=== PATIENT | female | born 1995 | race Caucasian/White ===

== ENCOUNTER 2023-12-18 10:16 | Outpatient (OUT) | payer OTHER, SELFPAY ==
--- NOTE | 2023-12-18 10:19 | US_ITS ---
[address] [address] Patient Name: ALEJANDRO MICHELE MRN: [id number] date: 1995 Sex: F Assigned Patient Location: [facility] Current Patient Location: [facility] Accession/Order Number: [id number] Exam Date: 12/18/2023 10:19 Report Date: 12/18/2023 10:51 At the request of: ITZEL GARRETT Procedure: US OB transvaginal EXAMINATION: US OB transvaginal HISTORY: MISSED MENSES COMPARISON: No relevant comparison available. FINDINGS: Transvaginal images Calles intrauterine gestation Gestational sac: 3.92 cm, 9 weeks 2 days CRL: 3.13 cm, 10 weeks 0 days Yolk sac: 4.5 mm Heart rate: 144 beats minute Cervix: Closed, 4.5 cm The uterus is normal, anteverted, anteflexed The right ovary is normal The left ovary contains a 4.1 cm area of anechoic echogenicity, corpus luteal cyst is favored Clinical age: 9 weeks 1 day Clinical JACQUI: 07/21/2024 Ultrasound age: 10 weeks 0 days Ultrasound JACQUI: 07/15/2024 US/US OB transvaginal IMPRESSION: Viable calles intrauterine gestation measuring 10 weeks 0 days Electronically authenticated by: DALTON MCMAHON Date: 12/18/2023 10:51
== END 2023-12-18 10:17 | disposition home or self-care (01) ==
LOC: NOMS 10:17
PROVIDERS: PCP Family Medicine; Visit Provider Obstetrics & Gynecology
DX: Z34.91 Encounter for supervision of normal pregnancy, unspecified, first trimester (principal)
CPT/HCPCS: 76817

== ENCOUNTER 2024-01-30 12:38 | Outpatient (OUT) | payer OTHER, SELFPAY | END 2024-01-30 12:39 | disposition home or self-care (01) | LOC: LAB 12:41 | PROVIDERS: PCP Family Medicine; Visit Provider Obstetrics & Gynecology | DX: Z34.80 Encounter for supervision of other normal pregnancy, unspecified trimester (principal) | CPT/HCPCS: 36415 ==

== ENCOUNTER 2024-02-29 10:51 | Outpatient (OUT) | payer OTHER, SELFPAY ==
--- NOTE | 2024-02-29 10:53 | US_ITS ---
[address] [address] Patient Name: ALEJANDRO MICHELE MRN: [id number] date: 1995 Sex: F Assigned Patient Location: [facility] Current Patient Location: [facility] Accession/Order Number: [id number] Exam Date: 02/29/2024 10:53 Report Date: 02/29/2024 12:38 At the request of: ITZEL GARRETT Procedure: US OB cervical length EXAMINATION: US OB cervical length, US OB anatomy HISTORY: ANATOMY COMPARISON: No relevant comparison available. TECHNIQUE: Transabdominal sonographic examination was performed for obstetrical and evaluation. FINDINGS: Number: 1 Heart Rate: 149 bpm H.B. /min Amniotic Fluid Volume: Subjectively normal position: Breech presentation, longitudinal lie Placental Location: POSTERIOR. The placental edge is 2.2 cm from the internal cervical os Cervix Length: 5.14 cm , closed Normal anatomy: Lateral ventricles, cerebellum, posterior fossa, nose, lips, orbits, diaphragm, stomach, abdominal cord insertion, bladder, umbilical arteries, three-vessel cord, spine, extremities Nonvisualization: Four-chamber heart, RVOT, LVOT, kidneys BIOMETRY: BPD: 4.78 cm; 20 weeks 3 days; 50.60 % HC: 18.21 cm; 20 weeks 4 days; 49.80 % AC: 16.04 cm; 21 weeks 1 day; 67.70 % FL: 3.53 cm; 21 weeks 1 day; 67.50 % EFW:379.53 g; 79.80 %, 14 ounces FL/AC: 22.01 FL/BPD: 73.85 HC/AC: 1.14 GESTATIONAL AGE: Age by EDC: 20 weeks 3 days JACQUI by EDC: 2024-07-15 Age by current US: 20 weeks 6 days JACQUI by current US: 2024-07-12 US/US OB cervical length IMPRESSION: Nonvisualization detailed above Marginal placenta previa Closed cervix measuring 5.1 cm in length *Reference: [facility] Practice Guideline for the performance of Obstetric Ultrasound Examinations, March 08, 2007. Electronically authenticated by: DALTON MCMAHON Date: 02/29/2024 12:38
--- NOTE | 2024-02-29 10:53 | US_ITS ---
[address] [address] Patient Name: ALEJANDRO MICHELE MRN: [id number] date: 1995 Sex: F Assigned Patient Location: [facility] Current Patient Location: [facility] Accession/Order Number: [id number] Exam Date: 02/29/2024 10:54 Report Date: 02/29/2024 12:38 At the request of: ITZEL GARRETT Procedure: US OB anatomy EXAMINATION: US OB cervical length, US OB anatomy HISTORY: ANATOMY COMPARISON: No relevant comparison available. TECHNIQUE: Transabdominal sonographic examination was performed for obstetrical and evaluation. FINDINGS: Number: 1 Heart Rate: 149 bpm H.B. /min Amniotic Fluid Volume: Subjectively normal position: Breech presentation, longitudinal lie Placental Location: POSTERIOR. The placental edge is 2.2 cm from the internal cervical os Cervix Length: 5.14 cm , closed Normal anatomy: Lateral ventricles, cerebellum, posterior fossa, nose, lips, orbits, diaphragm, stomach, abdominal cord insertion, bladder, umbilical arteries, three-vessel cord, spine, extremities Nonvisualization: Four-chamber heart, RVOT, LVOT, kidneys BIOMETRY: BPD: 4.78 cm; 20 weeks 3 days; 50.60 % HC: 18.21 cm; 20 weeks 4 days; 49.80 % AC: 16.04 cm; 21 weeks 1 day; 67.70 % FL: 3.53 cm; 21 weeks 1 day; 67.50 % EFW:379.53 g; 79.80 %, 14 ounces FL/AC: 22.01 FL/BPD: 73.85 HC/AC: 1.14 GESTATIONAL AGE: Age by EDC: 20 weeks 3 days JACQUI by EDC: 2024-07-15 Age by current US: 20 weeks 6 days JACQUI by current US: 2024-07-12 US/US OB anatomy IMPRESSION: Nonvisualization detailed above Marginal placenta previa Closed cervix measuring 5.1 cm in length *Reference: [facility] Practice Guideline for the performance of Obstetric Ultrasound Examinations, March 08, 2007. Electronically authenticated by: DALTON MCMAHON Date: 02/29/2024 12:38
--- OUTSIDE RECORDS SUMMARY | 2024-02-29 11:14 | XMS_ITS | CCD ---
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 Name Role Phone DALTON ASENCIO Unavailable Unavailable PRASANNA, AIDEN Unavailable Unavailable HAY, AIDEN Unavailable Unavailable EAN PASTRANA Unavailable Unavailable TAMI, ITZEL Unavailable Unavailable TAMI, ITZEL Unavailable Unavailable TAMI, ITZEL Unavailable Unavailable DALTON ASENCIO Unavailable Unavailable ARIES, RADHA Unavailable Unavailable ARIES, RADHA Unavailable Unavailable ARIES, RADHA Unavailable Unavailable Johnny Lyn Unavailable Dalton Asencio Unavailable Lelia Macias Unavailable Provider, None Primary Care Unavailable DO Dalton Asencio Primary Care Provider [phone] ATIYA Flaherty Emergency Provider Zi Maier Unavailable Dalton Asencio Primary Care Unavailable Bud Flaherty Admitting Unavailable Bud Flaherty Attending Unavailable Dalton Asencio Primary Care Unavailable Zi Maier Admitting Unavailable Zi Maier Attending Unavailable ELDA HASSAN Attending Unavailable ITZEL CARLIN Attending Unavailable ITZEL CARLIN Attending Unavailable ITZEL CARLIN Attending Unavailable Allergies Allergy Classification Reported Allergen(s) Allergy Type Date of Onset Reaction(s) Facility (1 source) sulfamethoxazole / trimethoprim Drug Allergy HIVES [facility] Repository (1 source) No Known Drug Allergies Drug allergy (disorder) 10-17-19 13 [facility] (20 sources) Sertraline Drug Allergy 01-30-20 23 migraines [facility] (18 sources) buPROPion Drug Allergy 01-30-20 23 300 MG made angry [facility] (9 sources) venlafaxine Drug Allergy 01-30-20 23 higher dose made feel irritated and feel worse [facility] (4 sources) Sulfamethoxazole; Translations: [sulfamethoxazole] Drug Allergy 10-22-19 [facility] (4 sources) Trimethoprim; Translations: [trimethoprim] Drug Allergy 10-22-19 [facility] (3 sources) Sulfamethoxazole / Trimethoprim Drug Allergy Unknown [facility] Other (1 source) buPROPion Drug Allergy 01-30-20 [facility] Repository (1 source) Sertraline Drug Allergy 01-30-20 [facility] Rep[facility] (1 source) venlafaxine Drug Allergy 01-30-20 [facility] Repository Medications Current Medications Medication Drug Class(es) Dates Sig (Normalized) Sig (Original) ALPRAZolam 0.25 mg oral tablet (18 sources) Benzodiazepine Start: 12-17-2017 take 1 tablet by mouth every twelve hours as needed Xanax 0.25 MG 1 tablet Orally q12 hrs prn PRN Dec, Active aspirin 81 mg delayed release oral tablet (1 source) Platelet Aggregation Inhibitor, Nonsteroidal Anti-inflammatory Drug Start: 02-15-2024 take 81 mg by mouth once daily Aspirin Active 81 MG PO Daily February 15, 2024 12:00am cetirizine hydrochloride 10 mg oral tablet (18 sources) Histamine-1 Receptor Antagonist Start: 07-18-2020 take 1 tablet by mouth once daily in the evening ZyrTEC Allergy 10 MG 1 tablet Orally qd pm prn Jul, Active FLUoxetine 40 mg oral capsule (3 sources) Serotonin Reuptake Inhibitor take 1 capsule by mouth every twenty-four hours PROzac 40 MG 1 capsule Orally Once a day Active 3 ml liraglutide 6 mg/ml pen injector (3 sources) GLP-1 Receptor Agonist Start: 01-01-2023 Victoza 18 MG/3ML 0.6 mg once daily for week 1, followed by 1.2 mg once daily for week 2, followed by 1.8 mg once daily for week 3 and beyond Subcutaneous Once daily for 28 days Dec, Active loratadine 10 mg oral tablet (18 sources) Start: 07-18-2020 take 1 tablet by mouth once daily in the morning Claritin 10 MG 1 tablet Orally qd am prn Jul, Active phentermine hydrochloride 37.5 mg oral tablet (13 sources) Sympathomimetic Amine Anorectic Start: 03-04-2022 take 1 tablet by mouth every twenty-four hours Adipex-P 37.5 MG 1 tablet Orally Once a day Feb, Active Start: 07-18-2020 take 1 tablet by nieves th every twenty-four hours Adipex-P 37.5 MG 1 tablet Orally Once a day for 30 days Jul, Not-Taking Adipex-P Active 24 hr venlafaxine 37.5 mg extended release oral capsule (13 sources) Serotonin and Norepinephrine Reuptake Inhibitor Start: 05-09-2021 take 1 capsule by mouth every twenty-four hours Effexor XR 37.5 MG 1 capsule with food Orally Once a day for 30 day(s) May, Active take 1 capsule by mo [facility] every twenty-four hours Venlafaxine HCl ER 75 MG 1 capsule with food Orally Once a day for 30 day(s) Active Completed/Discontinued Medications Medication Drug Class(es) Dates Sig (Normalized) Sig (Original) amoxicillin 875 mg oral tablet (7 sources) Penicillin-class Antibacterial Start: 03-23-2021 take 1 tablet by mouth every twelve hours Amoxicillin 875 MG 1 tablet Orally Twice a day for 10 day(s) Mar, Not-Taking 24 hr buPROPion hydrochloride 150 mg extended release oral tablet (5 sources) Aminoketone Start: 11-08-2018 End: 04-24-2019 take 1 tablet by mouth once daily in the morning Bupropion Hcl (Wellbutrin Xl) 150 mg Tablet Extended Release 24 Hr Discontinued 150 MG PO Every morning November 08, 2018 12:00am April 24, 2019 2:32pm fluconazole 150 mg oral tablet (7 sources) Azole Antifungal Start: 03-23-2021 take 1 tablet by mouth once Diflucan 150 MG 1 tablet Orally once for 1 days Mar, Not-Taking Start: 03-23-2021 ibuprofen 800 mg oral tablet (3 sources) Nonsteroidal Anti-inflammatory Drug Start: 05-25-2020 End: 02-15-2024 take 1 tablet by mouth every eight hours Ibuprofen (Motrin) 800 mg Tablet Discontinued 800 MG PO Q8H May 25, 2020 1:00am February 15, 2024 12:47pm Ketorolac (11 sources) Nonsteroidal Anti-inflammatory Drug, Cyclooxygenase Inhibitor Start: 06-24-2013 Toradol per 15 mg Jun, 60 mg Pnv Cmb#95-Ferrous Fumarate-Fa () 28 mg iron- 800 mcg Tablet (3 sources) Start: 11-08-2018 End: 05-25-2020 take 1 tablet by mouth once daily Pnv Cmb#95-Ferrous Fumarate-Fa () 28 mg iron- 800 mcg Tablet Discontinued 1 TAB PO Daily November 07, 2018 11:00pm May 25, 2020 4:06pm Start: 11-08-2018 End: 05-25-2020 take 1 tablet by mouth once daily Pnv Cmb#95-Ferrous Fumarate-Fa () 28 mg iron- 800 mcg Tablet Discontinued 1 TAB PO Daily November 08, 2018 12:00am May 25, 2020 5:06pm Problems Active Problems Problem Classification Problem Date Documented Date Episodic/Chronic Administrative/social admission (4 sources) Dietary counseling and surveillance; Translations: [Other specified counseling] Episodic Anxiety disorders (20 sources) Anxiety; Translations: [Anxiety disorder, unspecified] Onset: 05-09-2021 Resolved: 02-06-2022 Chronic Attention-deficit, conduct, and disruptive behavior disorders (4 sources) Attention deficit hyperactivity disorder; Translations: [Attention-deficit hyperactivity disorder, unspecified type] Chronic Attention-deficit, conduct, and disruptive behavior disorders (1 source) Attention-deficit hyperactivity disorder, unspecified type Chronic Developmental disorders (6 sources) Developmental academic disorder; Translations: [Developmental disorder of scholastic skills, unspecified] Chronic Diabetes mellitus without complication (1 source) Glycosuria Episodic Disorders of teeth and jaw (1 source) Periapical abscess without sinus; Translations: [PERIAPICAL ABSCESS WITHOUT SINUS] Onset: 03-16-2018 Episodic Disorders of teeth and jaw (3 sources) Other specified disorders of teeth and supporting structures; Translations: [OTH SPEC DISORDERS TEETH SUPP STRCT] Onset: 03-12-2018 Hemorrhage during ; abruptio placenta; placenta previa (3 sources) Threatened miscarriage; Translations: [Threatened ] 11-08-2018 Episodic Mood disorders (20 sources) Depressive disorder; Translations: [Major depressive disorder, single episode, unspecified] Onset: 05-09-2021 Resolved: 07-25-2021 Chronic Nonspecific chest pain (3 sources) Musculoskeletal chest pain; Translations: [Other chest pain] 05-25-2020 Episodic Other aftercare (1 source) Other fpc (current) drug therapy Episodic Other injuries and conditions due to external causes (3 sources) Injury of head; Translations: [Unspecified injury of head, initial encounter] 10-21-2022 Episodic Other lower respiratory disease (3 sources) Cough; Translations: [Cough] 05-25-2020 Episodic Other nutritional; endocrine; and metabolic disorders (3 sources) Obesity; Translations: [Obesity, unspecified] Chronic Other nutritional; endocrine; and metabolic disorders (2 sources) Obesity, unspecified Chronic Other nutritional; endocrine; and metabolic disorders (2 sources) Abnormal weight gain Episodic Other nutritional; endocrine; and metabolic disorders (2 sources) Other symptoms and signs concerning food and fluid intake Episodic Other screening for suspected conditions (not mental disorders or infectious disease) (1 source) Encounter for screening, unspecified Episodic Other upper respiratory disease (18 sources) Allergic rhinitis; Translations: [Allergic rhinitis, unspecified] Chronic Substance-related disorders (1 source) Nicotine dependence, cigarettes, uncomplicated; Translations: [NICOTINE DEPEND CIGARETTES UNCOMP] Onset: 03-16-2018 Chronic Unclassified (1 source) Dietary counseling and surveillance; Translations: [Dietary counseling and surveillance] Onset: 01-29-2023 Unclassified (1 source) Unspecified injury of head, initial encounter; Translations: [Unspecified injury of head, initial encounter] Onset: 10-21-2022 Urinary tract infections (1 source) Cystitis, unspecified without hematuria Episodic Past or Other Problems Problem Classification Problem Date Documented Da te Episodic/Chronic Headache; including migraine (1 source) Headache; including migraine Onset: 05-09-2021 Resolved: 05-09-2021 Immunizations and screening for infectious disease (1 source) Contact with and (suspected) exposure to other viral communicable diseases; Translations: [Contact with and (suspected) exposure to other viral communicable diseases Z20.828] Onset: 03-23-2021 Resolved: 03-23-2021 Episodic Other upper respiratory infections (2 sources) Acute pharyngitis, unspecified; Translations: [Streptococcal pharyngitis] Onset: 03-23-2021 Resolved: 03-23-2021 Episodic Results Test Name Value Interpretation Reference Range Facility No Panel InformationOrdered By: Joi Alvarez on 09-09-2024 Quick Strep (POC) [facility] No Panel Informationon 01-29 Reference Lab Order Code See comment [facility] Comment on above: See Scanned Report. A1C HEMOGLOBINon 01-01-2023 HbA1c (Bld) [Mass fraction] 4.9 % [facility] Other HbA1c (Bld) [Mass fraction]o n 01-01-2023 A1C HEMOGLOBIN [facility] [employer] Other T-Spoton 09-04-2022 T-Spot See Report Normal [facility] Comment on above: Performed By: #### 5 [id number], [id number] #### [facility] (DEFAULT) [address] [place] [address] 82672 HBSab Qnt LCon 01-02-2022 Hep B Surf Ab Quant LC >1000.0 Invalid Interpretation Code Immunity>9 .9 [facility] Comment on above: Result Comment: Stat us of Immunity Anti-HBs Level Inconsistent with Immunity 0.0 - 9.9 Consistent with Immunity >9.9 Performed At: [facility] [address] [id number] Donnell Palacios PhD Ph:[phone] Performed By: #### 5 [id number] #### [facility] (DEFAULT) [address] [place] [address]15 Lab - Toxicology Resultson 0 01-02-2022 Lab - Toxicology Results [id number] Normal [facility] Measles/Mumps/Rubella Immuni ty LCon 01-02-2022 Mumps Abs, IgG LC <9.0 Low Immune >10.9 [facility] Comment on above: Result Comment: Nega tive <9.0 Equivocal 9.0 - 10.9 Positive >10.9 A positive result generally indicates past exposure to Mumps virus or previous vaccination. Performed At: [facility] [place] [address] [place], [place] [id number] Donnell Palacios PhD Ph:[phone] Performed By: #### 5 [id number], [id number] #### [facility] (DEFAULT) [address] [place] [address]109 Rubella Antibodies, IgG LC 6.35 index Invalid Interpretation Code Immune >0.99 [facility] Comment on above: Result Comment: Non- immune <0.90 Equivocal 0.90 - 0.99 Immune >0.99 Performed By: #### 5 [id number] #### [facility] (DEFAULT) [address] [place] [address]605 Rubeola Ab, IgG, EIA LC 14.1 AU/mL Low Immune >16.4 [facility] Comment on above: Result Comment: A se cond sample should be collected and tested no less than 2-4 weeks. Negative <13.5 Equivocal 13.5 - 16.4 Positive >16.4 Presence of antibodies to Rubeola is presumptive evidence of immunity except when acute infection is suspected. Performed By: #### 5 [id number], [id number], [id number] #### [facility] (DEFAULT) [address] [place] [address]306 Nicotine Metabolite, Urine L Con 01-02-2022 Cotinine LC Negative Invalid Interpretation Code [id number] [facility] Comment on above: Result Comment: Perf ormed At: [facility] [address] [facility] [place], [place] [id number] Chilo Mckeon PhD Ph:[phone] Performed By: #### 1 [id number] #### [facility] (DEFAULT) [address] [place] [address] 15671 COVID Quick Testingon 2020 Result Negative [facility] Other Quick Strepon 03-23-2021 S. pyogenes Org specific cx Ql (Throat) Positive [facility] Other Quick Strep [facility] Other PAP ACOG PANEL 2: 21 to 29on 07-02-2017 Age Gdln ACOG Testing 21-29 Normal [facility] Comment on above: Performed By: #### 4 [id number] ####[facility] [address] Pat DIAGNOSIS: Comment Abnormal [facility] Comment on above: Result Comment: EPIT HELIAL CELL ABNORMALITY.ATYPICAL SQUAMOUS CELLS OF UNDETERMINED SIGNIFICANCE. Performed By: #### 4 [id number] ####[facility] [address] [place] [address] Pat Electronically signed by: Comment Normal [facility] Comment on above: Result Comment: Shade Price MD, Pathologist Performed By: #### 4 [id number] ####[facility] [address] [place] [address] Pat HPV Aptima Negative Normal Negative [facility] Comment on above: Result Comment: This test was developed and its performance characteristicsdetermined by [employer]. It has not been cleared or approvedby the Food and Drug Administration.This test detects fourteen high-risk HPV types (16/18/31/33/35/39/45/51/52/56/58/59/66/68) without differentiation. Performed By: #### 4 [id number] ####[facility] [address] [place] [address] Pat Methodology: Comment Normal [facility] Comment on above: Result Comment: This liquid based SurePath(R) pap test was screened with theassistance of an image guided system. Performed By: #### 4 [id number] ####[facility] [address] [place] [address] Pat Note: Comment Normal [facility] Comment on above: Result Comment: The Pap smear is a screening test designed to aid in the detection ofpremalignant and malignant conditions of the uterine cervix. It is not adiagnostic procedure and should not be used as the sole means of detectingcervical cancer. Both false-positive and false-negative reports do occur. . Performed By: #### 4 [id number] ####[facility] [address] [place] [address] Pat Performed by: Comment Normal [facility] Comment on above: Result Comment: Josefina Orr, Shuttle Truck Driver (ASCP) Performed By: #### 4 [id number] ####[facility] [address] Pat Protein mass conc Comment Normal [facility] Comment on above: Result Comment: [id number] Performed By: #### 4 [id number] ####[facility] [address] Pat Reflex Criteria: Comment Normal [facility] Comment on above: Result Comment: See below for HPV testing results. . Performed By: #### 4 [id number] ####[facility] [address] Pat Specimen adequacy: Comment Normal [facility] Comment on above: Result Comment: Sati sfactory for evaluation. Endocervical and/or squamous metaplasticcells (endocervical component) are present. Performed By: #### 4 [id number] ####[facility] [address] Pat . . Normal [facility] Comment on above: Performed By: #### 4 [id number] ####[facility] [address] Pat Vital Signs Date Time Vital Sign Value Performing Clinician Facility 02-15-2024 12:48-0400 Body height 172.72 cm [facility] 02-15-2024 12:48-0400 Body mass index (BMI) [Ratio] 34.9 kg/m2 [facility] 02-15-2024 12:48-0400 Body temperature 98.2 [degF] [facility] 02-15-2024 12:48-0400 Body weight 104.32 kg [facility] 02-15-2024 12:48-0400 Diastolic blood pressure 73 mm[Hg] [facility] 02-15-2024 12:48-0400 Heart rate 106 /min [facility] 02-15-2024 12:48-0400 SaO2% (BldA) [Mass fraction] 98 % [facility] 02-15-2024 12:48-0400 Systolic blood pressure 103 mm[Hg] [facility] 01-29-2023 14:15-0400 Body height 172.72 cm [facility] [employer] Other [facility] Other 01-29-2023 14:15-0400 Body mass index (BMI) [Ratio] 31.81 kg/m2 [employer] [employer] Other [facility] Other 01-29-2023 14:15-0400 Body weight 94.89 kg [email or web address] Other [facility] Other 01-29-2023 14:15-0400 Diastolic blood pressure 68 mm[Hg] [facility] [employer] Other [facility] Other 01-29-2023 14:15-0400 Respiratory rate 18 /min [email or web address] Other [facility] Other 01-29-2023 14:15-0400 SaO2% (BldA) [Mass fraction] 97 % [email or web address] Other [facility] Other 01-29-2023 14:15-0400 Systolic blood pressure 105 mm[Hg] [facility] [employer] Other [facility] Other 01-01-2023 10:00-0400 Body height 172.72 cm [email or web address] Other [facility] Other 01-01-2023 10:00-0400 Body mass index (BMI) [Ratio] 31.77 kg/m2 [email or web address] Other [facility] Other 01-01-2023 10:00-0400 Body weight 94.8 kg Zivanesa Maier Other [facility] Other 01-01-2023 10:00-0400 Diastolic blood pressure 68 mm[Hg] Zi Maier Other [facility] Other 01-01-2023 10:00-0400 Respiratory rate 18 /min Zi Maier Other [facility] Other 01-01-2023 10:00-0400 SaO2% (BldA) [Mass fraction] 97 % Zi Maier Other [facility] Other 01-01-2023 10:00-0400 Systolic blood pressure 105 mm[Hg] Zi Maier Other [facility] Other 11-10-2022 17:40-0400 Body height 172.72 cm Dalton Asencio Other [facility] Other 11-10-2022 17:40-0400 Body mass index (BMI) [Ratio] 32.69 kg/m2 Dalton Asencio Other [facility] Other 11-10-2022 17:40-0400 Body weight 97.52 kg Dalton Asencio Other [facility] Other 11-10-2022 17:40-0400 Diastolic blood pressure 80 mm[Hg] Dalton Asencio Other [facility] Other 11-10-2022 17:40-0400 Systolic blood pressure 117 mm[Hg] Dalton Asencio Other [facility] Other 10-21-2022 09:14-0400 Body temperature 98.1 [degF] DO Dalton Asencio Work Phone: [facility] 10-21-2022 09:14-0400 Diastolic blood pressure 59 mm[Hg] DO Dalton Asencio Work Phone: [facility] 10-21-2022 09:14-0400 Heart rate 74 /min DO Dalton Asencio Work Phone: [facility] 10-21-2022 09:14-0400 Respiratory rate 18 /min DO Dalton Asencio Work Phone: [facility] 10-21-2022 09:14-0400 SaO2% (BldA) [Mass fraction] 98 % DO Dalton Asencio Work Phone: [facility] 10-21-2022 09:14-0400 Systolic blood pressure 120 mm[Hg] DO Dalton Asencio Work Phone: [facility] 10-21-2022 09:13-0400 Body height 175.26 cm DO Dalton Asencio Work Phone: [facility] 10-21-2022 09:13-0400 Body weight 97.1 kg DO Dalton Asencio Work Phone: [facility] 03-04-2022 15:40-0400 Body height 172.72 cm Dalton Asencio Other [facility] [employer] Other 05-09-2021 10:30-0500 Body height 172.72 cm Dalton Asencio Other [facility] Other 05-09-2021 10:30-0500 Body mass index (BMI) [Ratio] 34.66 kg/m2 Dalton Garygarrick Other [facility] Other 05-09-2021 10:30-0500 Body temperature 97.7 [degF] Dalton Asencio Other [facility] Other 05-09-2021 10:30-0500 Body weight 103.42 kg Dalton Asencio Other [facility] Other 05-09-2021 10:30-0500 Diastolic blood pressure 72 mm[Hg] Dalton Asencio Other [facility] Other 05-09-2021 10:30-0500 Respiratory rate 18 /min Dalton Asencio Other [facility] Other 05-09-2021 10:30-0500 SaO2% (BldA) [Mass fraction] 98 % Dalton Asencio Other [facility] Other 05-09-2021 10:30-0500 Systolic blood pressure 108 mm[Hg] Dalton Asencio Other [facility] Other 03-23-2021 11:00-0400 Body height 172.72 cm Johnny Lyn Other [facility] Other 03-23-2021 11:00-0400 Body mass index (BMI) [Ratio] 33.6 kg/m2 Johnny Lyn Other [facility] Other 03-23-2021 11:00-0400 Body temperature 98.5 [degF] Johnny Lyn Other [facility] Other 03-23-2021 11:00-0400 Body weight 100.25 kg Johnny Lyn Other [facility] Other 03-23-2021 11:00-0400 Diastolic blood pressure 68 mm[Hg] Johnny Lyn Other [facility] Other 03-23-2021 11:00-0400 Respiratory rate 18 /min Johnny Lyn Other [facility] Other 03-23-2021 11:00-0400 SaO2% (BldA) [Mass fraction] 97 % Johnny Lyn Other [facility] [employer] Other 03-23-2021 11:00-0400 Systolic blood pressure 105 mm[Hg] Johnny Eboni Other [facility] Other Encounters Encounter Date Encounter Type Care Provider Facility Start: 02-18-2024 End: 02-18-2024 ambulatory ITZEL TAMI Not Available Start: 02-15-2024 End: 02-15-2024 ambulatory [facility] Work Phone: Start: 02-15-2024 End: 02-15-2024 Patient encounter procedure [facility] [place] Work Phone: Start: 01-30-2024 Non-patient / Non-visit [facility] Work Phone: Start: 01-28-2024 End: 01-28-2024 ambulatory ITZEL TAMI Not Available Start: 01-21-2024 End: 01-21-2024 ambulatory ITZEL TAMI Not Available Start: 12-18-2023 End: 12-18-2023 ambulatory ELDA RINKES Not Available Start: 10-07-2023 End: 10-07-2023 ambulatory ELDA E RINKES Not Available Start: 01-29-2023 End: 01-30-2023 ambulatory Dalton Asencio [facility] Other Start: 01-29-2023 Follow-up encounter Zi Maier [facility] Start: 01-13-2023 End: 01-13-2023 ambulatory Dalton Asencio Other [facility] [employer] Other Start: 01-13-2023 Telephone encounter Dalton Asencio [facility] [place] Start: 01-01-2023 End: 01-01-2023 ambulatory Zi Maier Other [facility] [employer] Other Start: 01-01-2023 Nutrition therapy Zi Maier [facility] Start: 11-10-2022 End: 11-10-2022 ambulatory Dalton Asencio Other [facility] Other Start: 11-10-2022 Telephone encounter Dalton Asencio [facility] [place] Start: 10-21-2022 End: 10-21-2022 Emergency department patient visit Dalton Asencio Facility:[facility] Start: 10-21-2022 End: 10-21-2022 Emergency department patient visit DO Dalton Asencio Work Phone: [facility] Work Phone: Start: 07-28-2022 End: 07-28-2022 ambulatory Dalton Asencio Other [facility] [employer] Other Start: 07-28-2022 Telephone encounter Dalton Asencio [facility] [place] Start: 07-25-2022 End: 07-25-2022 ambulatory Dalton Asencio Other [facility] Other Start: 07-25-2022 Telephone encounter Dalton Asencio [facility] [place] Start: 04-09-2022 End: 04-09-2022 ambulatory Dalton Asencio Other [facility] Other Start: 04-09-2022 Telephone encounter Dalton Asencio [facility] [place] Start: 03-20-2022 End: 03-20-2022 ambulatory Lelia Macias Other [facility] Other Start: 03-20-2022 Telephone encounter Lelia Macias [facility] Start: 03-04-2022 End: 03-04-2022 ambulatory Dalton Asecnio Other [facility] Other Start: 03-04-2022 Telephone encounter Dalton Asencio [facility] [place] Start: 02-06-2022 End: 02-06-2022 ambulatory Dalton Asencio Other [facility] Other Start: 02-06-2022 Telephone encounter Dalton Asencio [facility] [place] Start: 01-02-2022 End: 01-02-2022 ambulatory None Provider Facility:[facility] Start: 09-18-2021 End: 09-18-2021 ambulatory Dalton Asencio Other [facility] Other Start: 09-18-2021 Telephone encounter Dalton Asencio [facility] [place] Start: 07-25-2021 End: 07-25-2021 ambulatory Dalton Asencio Other [facility] Other Start: 07-25-2021 Telephone encounter Dalton Asencio [facility] [place] Start: 07-15-2021 End: 07-15-2021 ambulatory Dalton Asencio Other [facility] Other Start: 07-15-2021 Telephone encounter Dalton Asencio [facility] [place] Start: 05-09-2021 End: 05-09-2021 ambulatory Dalton Asencio Other [facility] Other Start: 05-09-2021 Office outpatient vi sit 15 minutes Dalton Asencio [facility] [place] Start: 04-22-2021 End: 04-22-2021 ambulatory Dalton Asencio Other [facility] Other Start: 04-22-2021 Telephone encounter Dalton Asencio [facility] [place] Start: 03-23-2021 Office outpatient vi sit 15 minutes Johnny Lyn [facility] Start: 03-12-2018 End: 03-12-2018 Patient encounter DALTON ASENCIO Facility: Start: 06-23-2017 End: 06-23-2017 Patient encounter ITZEL CARLIN Facility:[facility] Start: 04-30-2017 End: 04-30-2017 Patient encounter DALTON ASENCIO Facility:[facility] Procedures Date Procedure Procedure Detail Performing Clinician Start: 02-15-2024 Quick Strep (POC) Plan of Treatment Date Care Activity Detail Author Patient Education Minor Head Injury (DC) [facility] Work Phone: Patient referral [facility] Work Phone: Immunizations Immunization Date Immunization Notes Care Provider Rubin hernandezkenya 03-24-2022 influenza, seasonal, injectable Dalton Asencio Other [facility] 05-06-2021 measles, mumps and rubella virus vaccine Dalton Asencio Other [facility] 04-03-2021 COVID-19 Vaccine Moderna - Documentation Purposes Only Dalton Asencio Other [facility] 03-04-2021 influenza, seasonal, injectable Dalton Asencio Other [facility] 07-12-2020 COVID-19 Vaccine Moderna - Documentation Purposes Only Johnny Lyn Other [facility] 06-14-2020 COVID-19 Vaccine Moderna - Documentation Purposes Only Johnny Lyn Other [facility] 03-12-2020 influenza, seasonal, injectable Johnny Lyn Other [facility] 05-09-2019 tetanus toxoid, redu elizabeth diphtheria toxoid, and acellular pertussis vaccine, adsorbed Dalton Asencio Other [facility] 06-24-2013 Toradol per 15 mg Johnny wood Other [facility] Other Payers Date Payer Category Payer Unknown [id number] 2022 Self-pay [id number] 2019 Medicaid [id number] 2. [id number] 1994 Unknown [id number] 2.16.84 [id number] 1994 Unknown [id number] 2.16.84 [id number] 1994 Unknown [id number] 2.16.84 [id number] 1994 Unknown [id number] 2.16.84 [id number] 1994 Unknown [id number] 2.16.84 [id number] 1994 Unknown [id number] 2.16.84 [id number] 1994 Unknown [id number] 2.16.84 [id number] 1994 Unknown [id number] 2.16.84 [id number] 1959 Unknown [id number] 1959 Unknown [id number] 1959 Unknown [id number] Unknown [id number] 2.16.8 [id number] Unknown [id number] 2.16.8 [id number] Social History Date Type Detail Facility Unknown if ever smoked [facility] [employer] Other Sex Assigned At Sex Assigned At Bir th [facility] Other Start: 10-21-2022 Tobacco smoking status [facility] Smoker (finding) [facility] Start: 1995 Sex Assigned At Female F [facility] Medical Equipment Procedure Code Equipment Code Equipment Origin al Text Equipment Identifier Dates NovoFine Plus Pe n Needle 32G X 4 MM Start: 01-01-2023 Clinical Notes 08-30-2012 to 01-29-2023 Note Date & Type Note Facility 01-29-2023 Evaluation note Encounter Date Diagnosis Assessment Notes Jan, Obesity, Class I, BMI 30-34.9 (ICD-10 - E66.9) Consultation date 01-01-2023, weight (pounds): 209 Follow-up date 01-29-2023, weight (pounds): 209.2 Plan is to take a weight centric approach to patient care in the treatment of obesity and patient's weight related comorbidities.-Dis cussed the impact of obesity and excess adiposity on overall health and increased risk of associated health conditions-Discuss ed treatment options including lifestyle interventions and use of medications as an adjunct to amplify adherence to healthy behavior change-Discussed benefits, risks and side effects of medication. After informed discussion, patient would like to proceedOrders:-Con tinue Victoza at 1.8 mg mg once daily. Consider increasing dose with double injection up to 3 mg once daily. -Patient has trialed phentermine in the past with minimal weight loss response -Patient reports Wellbutrin made her iwzwu-[id number]-[id number]-car e A1c December 2022 4.9%-Follow up in clinic in 6 weeksThis note was created with voice recognition software. Please excuse errors in snuff maker. Jan, Dietary surveillance and counseling (ICD-10 - Z71.3) Discussed in detail high-protein, high-fiber, low-fat nutrition plan favoring calorie deficit and lean tissue mass preservation.-Lean protein sources at each meal supplemented with nutrient rich, low calorie density carbohydrates-Focu s on consuming calories earlier in the day versus later; breakfast and lunch should be largest meals-Evening meal should be high in protein and low in carbohydrate to maximize lipolysis overnight-Aim for a minimum of 30 g of protein per meal with breakfast, lunch and dinner with total daily intake reaching at least 100 g-If needed, supplement with whey protein powder or premade protein drink low in carbohydrate and low in fat-If hungry between meals, consider protein snack low in carbohydrate and low in fat -No more [employer], no more fruit snacks. Instead patient will trial protein drink in black coffee and eat whole fruit instead of fruit snack Jan, Exercise counseling (ICD-10 - Z71.89) Absolute HGS at time of consultation (pounds): 53Discussed in detail exercise interventions to promote lean tissue mass preservation during calorie restriction.-In addition to regularly scheduled endurance and resistance exercise, perform bouts of resistance exercise prior to meals using body weight, resistance bands or dumbbells/weights- Following meals, consider aerobic exercise, such as brisk walking, to improve blood sugars and to mitigate hyperinsulinemia -Coordinate with exercise physiology Jan, Abnormal craving (ICD-10 - R63.8) Jan, Other 32 minutes was spent reviewing patient specific healthcare information, interviewing, counseling, and communicating with the patient, and documenting clinical information. 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) [facility] Other 07-27-2023 Evaluation note* Encounter Date Diagnosis Assessment Notes Treatment Notes Treatment Clinical Notes Dec, Obesity, Class I, BMI 30-34.9 (ICD-10 - E66.9) Consultation date 01-01-2023, weight (pounds): 209Plan is to take a weight centric approach to patient care in the treatment of obesity and patient's weight related comorbidities.-Discuss ed the impact of obesity and excess adiposity on overall health and increased risk of associated health conditions-Discussed treatment options including lifestyle interventions and use of medications as an adjunct to amplify adherence to healthy behavior change-Discussed benefits, risks and side effects of medication. After informed discussion, patient would like to proceedOrders:-Initiat e Victoza at 0.6 mg once daily and titrate up on weekly basis until maximum tolerated dose reached -Patient has trialed phentermine in the past with minimal weight loss response -Alternative options may include combination Wellbutrin and yxcrxmqfvr-Gjvsk-du-ca re A1c today 4.9-Follow up in clinic in 4 weeksThis note was created with voice recognition software. Please excuse errors in snuff maker. Dec, Dietary surveillance and counseling (ICD-10 - Z71.3) Discussed in detail high-protein, high-fiber, low-fat nutrition plan favoring calorie deficit and lean tissue mass preservation.-Lean protein sources at each meal supplemented with nutrient rich, low calorie density carbohydrates-Focus on consuming calories earlier in the day versus later; breakfast and lunch should be largest meals-Evening meal should be high in protein and low in carbohydrate to maximize lipolysis overnight-Aim for a minimum of 30 g of protein per meal with breakfast, lunch and dinner with total daily intake reaching at least 100 g-If needed, supplement with whey protein powder or premade protein drink low in carbohydrate and low in fat-If hungry between meals, consider protein snack low in carbohydrate and low in fat Dec, Exercise counseling (ICD-10 - Z71.89) Absolute HGS at time of consultation (pounds): 53Discussed in detail exercise interventions to promote lean tissue mass preservation during calorie restriction.-In addition to regularly scheduled endurance and resistance exercise, perform bouts of resistance exercise prior to meals using body weight, resistance bands or dumbbells/weights-Foll owing meals, consider aerobic exercise, such as brisk walking, to improve blood sugars and to mitigate hyperinsulinemia -Coordinate with exercise physiology Dec, Abnormal craving (ICD-10 - R63.8) Dec, Screening (ICD-10 - Z13.9) [facility] Other 06-05-2023 Evaluation note* Encounter Date Diagnosis Assessment Notes Treatment Notes Treatment Clinical Notes Nov, Anxiety (ICD-10 - F41.9) She is seeing a psychiatrist every five weeks and she thinks that she has ADHD but has not started any medication for this. She follows with a psychiatrist through [facility]. She is no longer on the Venlafaxine and is not on any medication for her mood. She uses the Xanax only as needed. She struggles with anxiety and focusing in school as far as the ADHD so is unsure if she needs any medication. Right now she feels better than she ever has without any medicine. 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 Nov, ADHD (ICD-10 - F90.9) She voices that she has considered taking medication for ADHD but has not decided what she would like to do yet. She can discuss her decision with her psychiatrist. We did discuss that this medication is a stimulant medication, it can sometimes raise peoples anxiety but she could feel calm when on the medication. Stimulant medication may allow her to lose weight. Nov, Weight gain (ICD-10 - R63.5) She would like to be placed on an injectable medication to assist with weight loss. Unfortunately her insurance does not cover weight loss medication. Medication would help with weight loss. She is unable to afford to pay for the injectable medication [id number]. I discussed her seeing Dr. Reyes for evaluation and to discuss weight loss. Right now she will discuss ADHD medication with her psychiatrist and see if this helps her to lose weight before doing a referral to Dr. Reyes. She is to keep me posted with how she is doing. She was on Adipex in the past but this did not seem to work for very long. Nov, Other 6:05 PM - 6:18 PM [facility] Other 02-20-2023 Evaluation note* Encounter Date Diagnosis Assessment Notes Treatment Notes Treatment Clinical Notes Jul, Anxiety (ICD-10 - F41.9) She voices that she is struggling with passing her tests in school, she feels it is due to anxiety. When she sees other people finish and get up she becomes even more anxious. She feels if she could test in a separate room for others with testing accommodations that she would be able to concentrate better. I am going to provide her with a letter that will allow her to have testing accommodations through May 07, 2023. She continues to use above medications and they are working well for her. I will see her back as scheduled. Jul, Other 2:25 PM - 2:33 PM [facility] Other 11-02-2022 Evaluation note* Encounter Date Diagnosis Assessment Notes Treatment Notes Treatment Clinical Notes Apr, Anxiety (ICD-10 - F41.9) We discussed that it is possible that she has Bipolar and I am unable to treat this. She did try Venlafaxine but was not good about taking the medication daily and felt poorly when she did not take it. 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 She was unsure if she was able to care for her children the way she should. She denies any thoughts of harming herself. She asked her childrens father to step up and help more. She is not able to eat and is having a hard time sleeping. She has not been taking Xanax because she is feeling so down. An OARRS report was reviewed no discrepancies noted. I do agree with her and do not want her to take the Xanax when she is feeling down. I did again discuss her seeing a psychiatrist for evaluation and explained that a psychiatrist can prescribe medication for her that may help her more than the Prozac. She feels that she did better on the low dose of Venlafaxine then she is doing on the Prozac. I will have her stop the Prozac and restart the low dose Venlafaxine. She was unable to tolerate the higher dose of Venlafaxine in the past because it made her irritable and feel worse. Guidance is given on how to take the medication. She will need to make sure she takes the medication on a daily consistent basis. If she has any thoughts of harming herself she should call the Mental Health Hotline or go to the ER for evaluation. I did provide her with a ohine number for [facility] who has psychiatry services. She says she has OCD, feels that she has this when she cleans. She is always so angry and is always yelling at her kids about cleaning their rooms and the upstairs. The kids tell her that they don't understand why she is so mad and yelling because they are doing what she tells them but they are not doing it the way she wants it done. This will ruin her entire day. She does have certain things that she has to do prior to going to bed every night. She does not have to return to the home to check things after she leaves. Apr, Other 11:10 AM - 11:26 AM [facility] Other 09-27-2022 Evaluation note* Encounter Date Diagnosis Assessment Notes Treatment Notes Treatment Clinical Notes Feb, Anxiety (ICD-10 - F41.9) An OARRS report was reviewed no discrepancies noted. Frequent appointments needed due to addiction potential of medication. Side effects/risks/benefi ts of medication were reviewed. She voices that she weaned herself off the Venlafaxine, she did not like how she felt if she missed a dose. She was good about taking it most days in the morning but if she forgot to take it by noon she would not feel good and did not like the way it made her feel if she forgot to take it in the morning. She discussed this with Dr. Hassan and she put her on Prozac. She would like this office to take over handling her Prozac. She voices that she was called for an appointment for her to see the psychiatrist but due to school she was not able to schedule, so she is back on the waiting list for the psychiatrist. In the past she had migraines listed as a side effect of the Prozac but is going to continue with it for now. I do recommend that she consider seeing the psychiatrist to discuss her symptoms further. She is to call when she runs low on Prozac so a refill can be called in. She does not use the Xanax often. Feb, Weight gain (ICD-10 - R63.5) She voices that Dr. Hassan put her on Adipex because she had been on this before. She then voices that Dr. Harris a family doctor gave her Adipex and he will give her the third month of Adipex soon. 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 Harris. She voices that Dr. Harris did discuss injectible weight loss medication or longer term weight loss medication that she can take after she has finished the Adipex but she is not sure she wants to take anything like that. She lost 15 pounds the first month but does not think she has lost any since then. She wants to snack all day long. 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 I only want her to use the Xanax when absolutely needed. An OARRS report was reviewed no discrepancies noted. Side effects/risks/benefi ts of medication were reviewed. Frequent appointments needed due to addiction potential of medication. I would prefer to increase her dose of Effexor to help her anxiety/depression and would expect her to not need the Xanax. She is agreeable with this and will continue with the same dose of Xanax. I will provide her with a refill. Jul, Depression (ICD-10 - F32.9) She voices that the Effexor is working and is not making her feel worse, some days she has break through days where she feels she could use a higher dose. I can provide her with an increase in dose of the Effexor and we discussed her keeping the Xanax dose the same and having her continue to use the Xanax only as needed like she has been. She voices that she just got a refill on Effexor (37.5 MG) so she should take 2 of those together 75 MG until she runs low and we will send in a new prescription for her. She is to keep me posted with progress. I did ask her to keep at least 10 of the 37.5 MG tablets in case she has to wean off the medication. Jul, Other 4:29 PM - 4:38 PM [facility] Other 02-07-2022 Evaluation note* Encounter Date Diagnosis Assessment Notes Treatment Notes Treatment Clinical Notes Jul, Anxiety (ICD-10 - F41.9) [facility] Other 12-02-2021 Evaluation note* Encounter Date Diagnosis Assessment Notes Treatment Notes Treatment Clinical Notes May, Anxiety (ICD-10 - F41.9) She voices that she is very irritated. She did not feel that the Bupropion was helping so she stopped taking it two weeks ago. When she was on the higher dose she was angry so she decreased the dose. She does have Xanax on hand to use if needed. She admits to being under alot of stress. She will be starting school in June, she is attending [employer] [facility] [employer] school. An OARRS report was reviewed, no discrepancies noted. Frequent appointments needed due to addiction potential of medication. Side effects/risks/benef its of medication were reviewed. May, Headache (ICD-10 - R51.9) She voices that she has had a headache daily for two weeks. She is taking up to three Ibuprofen per day. I did explain to her that this can cause rebound headaches. I did recommend that she stop taking the Ibuprofen and deal with the headaches which can cause a bad week for a week but she will need to come off this to get rid of the headache. She can use Tylenol if needed. May, Depression (ICD-10 - F32.9) She voices that her mood is extreme. She may have one day where she is so happy but the next day she cannot get out of bed. We discussed that she may have Bipolar. I cannot diagnose this. Zoloft made migraines worse for her in the past. She was on Effexor in the past but only for a short period of time. She is willing to restart this medication. I did explain to her that she cannot suddenly stop this medication. If she ever forgets her medicine she has to call for a refill. Guidance is given on how to take the medication. If she does not do well with Effexor then she needs to see a psychiatrist to evaluate for Bipolar. Will start her on a low dose of medication but explained that we can increase the dose if needed. She is to keep me posted with progress. If by one month she thinks that her dose needs to be increased she should let me know. She may notice an upset stomach when she first starts the medication but this should improve the longer she has been on the medication. Do not take Ecstasy. [facility] Other 10-16-2021 Evaluation note* Encounter Date Diagnosis Assessment Notes Treatment Notes Treatment Clinical Notes Mar, Sore throat (ICD-10 - J02.9) strep pos, see above. Mar, Strep throat (ICD-10 - J02.0) Pt is to take abx as prescribed. take with food. Informed pt they are contagious for first 24 hrs on medication. Push fluids and rest. Pt denied work note today. Pt is to take otc antipyretic prn for fever and aches. Change toothbrush after 2-3 days. Pt is to be re-evaluated after treatment if sx worsen or don't improve by pcp. Pt is to call the office with any questions or concerns regarding dx and tx. Pt understood and agreed to treatment plan. Mar, Contact with and (suspected) exposure to other viral communicable diseases (ICD-10 - Z20.828) covid neg, see above. [facility] Other [id number] History general Narrative - Reported* Type Description Date Medical History immunizations up to date Medical History Right Wrist fracture Medical History Left ankle fracture Hospitalization History childbirth; [facility] 08-30-12 Hospitalization History childbirth - [place] 0 11/20/14 Hospitalization History childbirth 05/09/20 19 [facility] Other Evaluation noteNo InformationNort [employer] Other Evaluation noteNo assessment information available [facility] Work Phone: History [facility] - [facility] Other [employer] general Narrative - Reported* Type Description Date Medical History immunizations up to date Medical History Right Wrist fracture Medical History Left ankle fracture Medical History Anxiety Medical History Depression Surgical History [place] teeth extraction Hospitalization History childbirth; [facility] 08-30-12 Hospitalization History childbirth - [place] 0 11/20/14 Hospitalization History childbirth 05/09/20 19 [facility] Other Summary Purpose Family History No Family History Records Found Relationship Condition Age at Onset Recorded Date/T jozef father Family history of mental disorder Unknown grandparent Heart disease Unknown grandparent Unknown [employer] workers' pneumoconiosis Unknown Hypertension Unknown Not Specified Family history of mental disorder Unknow n Relationship Condition Age at Onset Recorded Date/T jozef father Family history of mental disorder Unknown grandparent Heart disease Unknown grandparent Unknown [employer] pneumoconiosis Unknown Hypertension Unknown mother Family history of mental disorder Unknown Advance Directives No Advanced Directives Records Found Advance Directive Response Recorded Date/ Time Advance Directives No May 14, 2017 3:17pm Chief Complaint and Reason for Visit Chief Complaint head injury Chief Complaint sore throat, headach e Additional Source Comments INFORMATION SOURCE (unrecogn ized section and content) DATE CREATED AUTHOR 04/09/2018 [facility] DATE CREATED AUTHOR AUTHOR'S ORGANIZ ATION 09/09/2022 [facility] DATE CREATED AUTHOR AUTHOR'S ORGANIZ ATION 08/05/2023 [facility] DATE CREATED AUTHOR AUTHOR'S ORGANIZ ATION 02/20/2024 [facility] EPIC REASON FOR VISIT (unrecogniz ed section and content) #4 SORE THROAT, ITCHY EYES, COUGHdiscuss switching medsmed changesrecheck depression/anxietyrefillEffexor increaseclinicalClinical Acute Medicinemed refillWMN VoicemailNo Informationletterletter for school/testingwt/discuss medsInitial WMNClinicalWMN Care Teams (unrecognized sec tion and content) Team Status: Active Member Role Status Marina Asencio DO Primary Care Provider Active Team Status: Active Member Role Status Marina Asencio DO Primary Care Provider Active S tart: January 30, 2024 Itzel Carlin DO Attending Provider Active Start : January 30, 2024 Team Status: Inactive Member Role Status Marina Asencio DO Primary Care Provider Active S tart: February 15, 2024 End: February 15, 2024 Joi Alvarez APRN Attending Provider Active Sta rt: February 15, 2024 End: February 15, 2024 Team Status: Inactive Member Role Status Marina Asencio DO Primary Care Provider Active Bud Flaherty APRN Emergency Provider Active Goals (unrecognized section and content) Goals may be documented in a n alternate section FOR RECORDS PERTAINING TO PATIENTS WHO ARE OR HAVE BEEN ENROLLED IN A CHEMICAL DEPENDENCY/SUBSTANCEABUSE PROGRAM, SOME INFORMATION MAY BE OMITTED. This clinical summary was aggregated from multiple sources. Caution should be exercised in using it in the provision of clinical care. This summary normalizes information from multiple sources, and as a consequence, information in this document may materially change the coding, format and clinical context of patient data. In addition, data may be omitted in some cases. CLINICAL DECISIONS SHOULD BE BASED ON THE PRIMARY CLINICAL RECORDS. [email or web address]. provides no warranty or guarantee of the accuracy or completeness of information in this document.
== END 2024-02-29 10:52 | disposition home or self-care (01) ==
LOC: NOMS 10:52
PROVIDERS: PCP Family Medicine; Visit Provider Obstetrics & Gynecology
DX: Z36.89 Encounter for other specified antenatal screening (principal); O44.22 Partial placenta previa NOS or without hemorrhage, second trimester; Z3A.20 20 weeks gestation of pregnancy
CPT/HCPCS: 76805; 76817

== ENCOUNTER 2024-03-28 09:37 | Outpatient (OUT) | payer OTHER, SELFPAY ==
--- NOTE | 2024-03-28 09:42 | US_ITS ---
[address] [address] Patient Name: ALEJANDRO MICHELE MRN: [id number] date: 1995 Sex: F Assigned Patient Location: [facility] Current Patient Location: [facility] Accession/Order Number: [id number] Exam Date: 03/28/2024 09:43 Report Date: 03/28/2024 10:51 At the request of: ITZEL GARRETT Procedure: US OB transvaginal EXAM: US OB incomplete anatomy, US OB transvaginal HISTORY: INCOMPLETE ANATOMY COMPARISON: 02/29/2024 TECHNIQUE: Transabdominal and transvaginal images FINDINGS: Spencer intrauterine gestation position: Cephalic presentation, longitudinal lie Placenta: Posterior, no intraplacental or retroplacental echogenic abnormality. The placental edge is 6.0 cm from the internal os Heart rate: 140 beats minute Cervix: 3.8 cm, closed Normal observed anatomy: Four-chamber heart, RVOT, LVOT and kidneys US/US OB transvaginal IMPRESSION: Closed cervix measuring 3.8 cm Placental edge is 6 cm from the internal os Normal observed anatomy Electronically authenticated by: DALTON MCMAHON Date: 03/28/2024 10:51
--- NOTE | 2024-03-28 09:42 | US_ITS ---
[address] [address] Patient Name: ALEJANDRO MICHELE MRN: [id number] date: 1995 Sex: F Assigned Patient Location: [facility] Current Patient Location: [facility] Accession/Order Number: [id number] Exam Date: 03/28/2024 09:43 Report Date: 03/28/2024 10:51 At the request of: ITZEL GARRETT Procedure: US OB incomplete anatomy EXAM: US OB incomplete anatomy, US OB transvaginal HISTORY: INCOMPLETE ANATOMY COMPARISON: 02/29/2024 TECHNIQUE: Transabdominal and transvaginal images FINDINGS: Spencer intrauterine gestation position: Cephalic presentation, longitudinal lie Placenta: Posterior, no intraplacental or retroplacental echogenic abnormality. The placental edge is 6.0 cm from the internal os Heart rate: 140 beats minute Cervix: 3.8 cm, closed Normal observed anatomy: Four-chamber heart, RVOT, LVOT and kidneys US/US OB incomplete anatomy IMPRESSION: Closed cervix measuring 3.8 cm Placental edge is 6 cm from the internal os Normal observed anatomy Electronically authenticated by: DALTON MCMAHON Date: 03/28/2024 10:51
--- OUTSIDE RECORDS SUMMARY | 2024-03-28 10:00 | XMS_ITS | CCD ---
Author Organization [facility] Care Team Providers Care [employer] Supervisor Name Role Phone DALTON ASENCIO Unavailable Unavailable PRASANNA, AIDEN Unavailable Unavailable HAY, AIDEN Unavailable Unavailable EAN PASTRANA Unavailable Unavailable TAMI, ITZEL Unavailable Unavailable TAMI, ITZEL Unavailable Unavailable TAMI, ITZEL Unavailable Unavailable DLATON ASENCIO Unavailable Unavailable ARIES, RADHA Unavailable Unavailable ARIES, RADHA Unavailable Unavailable ARIES, RADHA Unavailable Unavailable Johnny Lyn Unavailable Dalton Asencio Unavailable Lelia Macias Unavailable Provider, None Primary Care Unavailable DO Dalton Asencio Primary Care Provider ATIYA Flaherty Emergency Provider Zi Maier Unavailable Dalton Asencio Primary Care Unavailable Bud Flaherty Admitting Unavailable Bud Flaherty Attending Unavailable Dalton Asencio Primary Care Unavailable Zi Maier Admitting Unavailable Zi Maier Attending Unavailable ALAYNA HASSAN Attending Unavailable ITZEL CARLIN Attending Unavailable ITZEL CARLIN Attending Unavailable ITZEL CARLIN Attending Unavailable MARY YOUNG Attending Unavailable Dalton Asencio MD Primary Care Provider Allergies Allergy Classification Reported Allergen(s) Allergy Type Date of Onset Reaction(s) Facility (1 source) sulfamethoxazole / trimethoprim Drug Allergy HIVES [facility] (1 source) No Known Drug Allergies Drug allergy (disorder) 3 [facility] (20 sources) Sertraline Drug Allergy 3 migraines [place] (18 sources) buPROPion Drug Allergy 3 300 MG made angry [place] (9 sources) venlafaxine Drug Allergy 3 higher dose made feel irritated and feel worse [place] (4 sources) Sulfamethoxazole; Translations: [sulfamethoxazole] Drug Allergy 3 [facility] (4 sources) Trimethoprim; Translations: [trimethoprim] Drug Allergy 3 [facility] (6 sources) Sulfamethoxazole / Trimethoprim Drug Allergy 3 [facility] (1 source) buPROPion Drug Allergy 3 [place] [facility] (1 source) Sertraline Drug Allergy 3 [place] [facility] (1 source) venlafaxine Drug Allergy 3 [place] [facility] Medications Current Medications Medication Drug Class(es) Dates Sig (Normalized) Sig (Original) ALPRAZolam 0.25 mg oral tablet (18 sources) Benzodiazepine Start: 12-17-2017 take 1 tablet by mouth every twelve hours as needed Xanax 0.25 MG 1 tablet Orally q12 hrs prn PRN Dec, Active aspirin 81 mg delayed release oral tablet (3 sources) Platelet Aggregation Inhibitor, Nonsteroidal Anti-inflammatory Drug Start: [...] 1 capsule Orally Once a day Active labetalol hydrochloride 100 mg oral tablet (5 sources) beta-Adrenergic Deonte Start: 01-26-2024 End: 03-21-2024 take 1 tablet by mouth in the morning labetalol (Normodyne) 100 MG tablet Indications: Hypertension affecting , antepartum Take 1 tablet (100 mg) by mouth in the morning and 1 tablet (100 mg) before bedtime. 60 tablet 6 01/26/2024 03/21/2024 Discontinued take 1 tablet by mouth once labe talol (Normodyne) 100 MG tablet Take 100 mg by mouth 1 (one) time Active 3 ml liraglutide 6 mg/ml pen [...] tablet Orally qd am prn Jul, Active magnesium oxide 400 mg oral tablet (3 sources) Start: 01-21-2024 End: 08-18-2024 take 1 tablet by mouth once daily magnesium oxide (Mag-Ox) 400 MG tablet Indications: Nonintractable headache, unspecified chronicity pattern, unspecified headache type Take 1 tablet (400 mg) by mouth Daily 30 tablet 6 01/21/2024 08/18/2024 Active phentermine hydrochloride 37.5 mg oral tablet (13 sources) Sympathomimetic Amine Anorectic Start: 03-04-2022 take 1 tablet by mouth every twenty-four hours Adipex-P 37.5 MG 1 tablet Orally Once a day Feb, Active Start: 07-18-2020 take 1 tablet by nieves th every twenty-four hours Adipex-P 37.5 MG 1 tablet Orally Once a day for 30 days Jul, Not-Taking Adipex-P Active Vit-Fe Fumarate-FA ( Vitamins) 28-0.8 MG tablet (3 sources) Start: 03-03-2024 End: 03-03-2025 take 1 tablet by mouth once daily Vit-Fe Fumarate-FA ( Vitamins) 28-0.8 MG tablet Indications: Second trimester Take 1 tablet by mouth Daily 30 tablet 6 03/03/2024 03/03/2025 Active promethazine hydrochloride 12.5 mg oral tablet (3 sources) Phenothiazine Start: 12-18-2023 take 1 tablet by mouth every six hours as needed for nausea and nausea, then take 1 tablet by mouth every six hours as needed for nausea and nausea promethazine (Phenergan) 12.5 MG tablet Indications: Missed menses Take 1 tablet (12.5 mg) by mouth every 6 (six) hours if needed for nausea or vomiting for up to 30 doses Take 1 tablet by mouth every 6 hours as needed for nausea. 30 tablet 2 12/18/2023 Active 24 hr venlafaxine 37.5 mg extended release oral capsule (13 sources) Serotonin and Norepinephrine Reuptake Inhibitor Start: 05-09-2021 take 1 capsule by mouth every twenty-four hours Effexor XR 37.5 MG 1 capsule with food Orally Once a day for 30 day(s) May, Active take 1 capsule by mo [facility] every twenty-four hours Venlafaxine HCl ER 75 [...] SPEC DISORDERS TEETH SUPP STRCT] Onset: 03-12-2018 Genitourinary symptoms and ill-defined conditions (3 sources) Blood in urine; Translations: [Hematuria, unspecified] Onset: 01-21-2024 01-21-2024 Episodic Headache; including migraine (3 sources) Headache; Translations: [Nonintractable headache] Onset: 01-21-2024 01-21-2024 Episodic Hemorrhage during ; abruptio placenta; placenta previa (3 sources) Threatened miscarriage; Translations: [Threatened ] 11-08-2018 Episodic Hypertension complicating ; childbirth and the puerperium (2 sources) Hypertension complicating , childbirth and the puerperium, antepartum; Translations: [Unspecified maternal hypertension, unspecified trimester] 03-21-2024 Chronic Mood disorders (20 sources) Depressive disorder; Translations: [Major depressive disorder, single episode, unspecified] Onset: 05-09-2021 Resolved: 07-25-2021 Chronic Nonspecific chest pain (3 sources) Musculoskeletal chest pain; Translations: [Other chest pain] 05-25-2020 Episodic Other aftercare (1 source) 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 Episodic Other injuries and [...] concerning food and fluid intake Episodic Other and delivery including normal (2 sources) Second trimester ; Translations: [Encounter for supervision of normal , unspecified, second trimester] 03-21-2024 Episodic Other screening for suspected conditions (not mental disorders or infectious disease) (3 sources) Encounter for screening, unspecified; Translations: [Patient encounter status] Episodic Other upper respiratory disease (18 sources) Allergic rhinitis; Translations: [Allergic rhinitis, unspecified] Chronic Residual codes; unclassified (3 sources) Gestation period, 14 weeks; Translations: [14 weeks gestation of ] Onset: 01-21-2024 01-21-2024 Episodic Residual codes; unclassified (2 sources) Gestation period, 23 weeks; Translations: [23 weeks gestation of ] 03-21-2024 Episodic Substance-related disorders (1 source) Nicotine dependence, cigarettes, [...] (suspected) exposure to other viral communicable diseases [id number]] Onset: 03-23-2021 Resolved: 03-23-2021 Episodic Other upper respiratory infections (2 sources) Acute pharyngitis, unspecified; Translations: [Streptococcal pharyngitis] Onset: 03-23-2021 Resolved: 03-23-2021 Episodic Results Test Name Value Interpretation Reference Range Facility Urinalysis macro (dipstick) panel (U)on 03-21-2024 Bilirubin, UA Negative Negative - 4(70) +++ mg/dL [facility] Blood, UA Positive Negative - 50 Deric/mcL [facility] Comment on above: moderate Clarity, UA Clear [facility] Color, UA Yellow [facility] Glucose, UA Negative Negative - 2000(110) ++++ mg/dL [facility] Interpretation and review of laboratory results Abnormal [facility] Ketones, UA Negative Negative - 160(16) ++++ mg/dL [facility] Leukocytes, UA Negative Negative - 500+++ David/mcL [facility] Nitrite, UA Negative Negative - Positive [facility] pH, UA 5.5 5 - 9 [facility] Protein, UA Negative Negative - 2000(20) ++++ mg/dL [facility] Spec Grav, UA 1.03 1 - 1.03 [facility] Urobilinogen, UA 0.2 0.2 - 12 mg/dL [facility] No Panel InformationOrdered By: Joi Alvarez on 02-15-2024 Quick Strep (POC) [facility] No Panel Informationon 01-29 Reference Lab Order Code See comment [place] Comment on above: See Scanned Report. A1C HEMOGLOBINon 01-01-2023 HbA1c (Bld) [Mass fraction] 4.9 % [facility] Other HbA1c (Bld) [Mass fraction]o n 01-01-2023 A1C HEMOGLOBIN [place] Other [facility] 09-04-2022 T-Spot See Report Normal [facility] Comment on above: Performed By: #### 5 [id number] #### [facility] (DEFAULT) [address] [place] [address]3238 HBSab Qnt LCon 01-02-2022 Hep B Surf Ab Quant LC >1000.0 Invalid Interpretation Code Immunity>9 .9 [facility] Comment on above: Result Comment: Stat us of Immunity Anti-HBs Level Inconsistent with Immunity 0.0 - 9.9 Consistent with Immunity >9.9 Performed At: [facility] [id number] Donnell Palacios PhD Ph:[phone] Performed By: #### 5 [id number] #### [facility] (DEFAULT) [address] [place], [place] [id number] Lab - Toxicology Resultson 0 01-02-2022 Lab - Toxicology Results [id number] Normal [facility] Measles/Mumps/Rubella Immuni ty LCon 01-02-2022 Mumps Abs, IgG LC <9.0 Low Immune >10.9 [facility] Comment on above: Result Comment: Nega tive <9.0 Equivocal 9.0 - 10.9 Positive >10.9 A positive result generally indicates past exposure to Mumps virus or previous vaccination. Performed At: [facility] [id number] Donnell Palacios PhD Ph:[phone] Performed By: #### 5 [id number], [id number] #### [facility] (DEFAULT) [address] [place] [address]329 Rubella Antibodies, IgG LC 6.35 index Invalid Interpretation Code Immune >0.99 [facility] Comment on above: Result Comment: Non- immune <0.90 Equivocal 0.90 - 0.99 Immune >0.99 Performed By: #### 5 [id number] #### [facility] (DEFAULT) [address] [place] [address]57 Rubeola Ab, IgG, EIA LC 14.1 AU/mL Low Immune >16.4 [facility] Comment on above: Result Comment: A se cond sample should be collected and tested no less than 2-4 weeks. Negative <13.5 Equivocal 13.5 - 16.4 Positive >16.4 Presence of antibodies to Rubeola is presumptive evidence of immunity except when acute infection is suspected. Performed By: #### 5 [id number] #### [facility] (DEFAULT) [address] [place] [address]7213 Nicotine Metabolite, Urine L Con 01-02-2022 Cotinine LC Negative Invalid Interpretation Code [id number] [facility] Comment on above: Result Comment: Perf ormed At: [facility] [address] [facility] [place], [place] [id number] Chilo Mckeon PhD Ph:[phone] Performed By: #### 1 [id number] #### [facility] (DEFAULT) [address] [place] [address]84 COVID Quick Testingon 2020 Result Negative [facility] [employer] Other Quick Strepon 03-23-2021 S. pyogenes Org specific cx Ql (Throat) Positive [facility] [employer] Other Quick Strep [facility] [employer] Other PAP ACOG PANEL 2: 21 to 29on 07-02-2017 Age Gdln ACOG Testing 21-29 Normal [facility] Comment on above: Performed By: #### 4 [id number] ####[facility] [address] [place], [place] [address]CofcdrChristopher Stewart DIAGNOSIS: Comment Abnormal [facility] Comment on above: Result Comment: EPIT HELIAL CELL ABNORMALITY.ATYPICAL SQUAMOUS CELLS OF UNDETERMINED SIGNIFICANCE. Performed By: #### 4 [id number] ####[facility] Qnnknphwcr8418 [address] [place] Electronically signed by: Comment Normal [facility] Comment on above: Result Comment: Shade Price MD, Pathologist Performed By: #### 4 [id number] ####[facility] Xbclvgoazn9725 [address] aPt HPV Aptima Negative Normal Negative [facility] Comment on above: Result Comment: This test was developed and its performance characteristicsdetermined by [employer]. It has not been cleared or approvedby the Food and Drug Administration.This test detects fourteen high-risk HPV types (16/18/31/33/35/39/45/51/52/56/58/59/66/68) without differentiation. Performed By: #### 4 [id number] ####[facility] [address] [place] [address] Pat Methodology: Comment Normal [facility] Comment on above: Result Comment: This liquid based SurePath(R) pap test was screened with theassistance of an image guided system. Performed By: #### 4 [id number] ####[facility] [address] [place] [address] Pat Note: Comment Normal [facility] Comment on above: Result Comment: The Pap smear is a screening test designed to aid in the detection ofpremalignant and malignant conditions of the uterine cervix. It is not adiagnostic procedure and should not be used as the sole means of detectingcervical cancer. Both false-positive and false-negative reports do occur. . Performed By: #### 4 [id number] ####[facility] Cxprjlbpgs5409 [address] Pat Performed by: Comment Normal [facility] Comment on above: Result Comment: Josefina Orr, Tafe Teacher (ASCP) Performed By: #### 4 [id number] ####[facility] Oxgfvixofa0760 [address] Pat Protein mass conc Comment Normal [facility] Comment on above: Result Comment: [id number] Performed By: #### 4 [id number] ####[facility] Vznbrtbfrf4622 [address] Pat Reflex Criteria: Comment Normal [facility] Comment on above: Result Comment: See below for HPV testing results. . Performed By: #### 4 [id number] ####[facility] Yumfevrees33[address] Pat Specimen adequacy: Comment Normal [facility] Comment on above: Result Comment: Sati sfactory for evaluation. Endocervical and/or squamous metaplasticcells (endocervical component) are present. Performed By: #### 4 [id number] ####[facility] Axkfcaqmnq5465 [address] [place] . . Normal [facility] Comment on above: Performed By: #### 4 [id number] ####[facility] Tghjjfrtrj5778 [address] Pat Vital Signs Date Time Vital Sign Value Performing Clinician Facility 03-21-2024 09:50-0400 Body mass index (BMI) [Ratio] 36.85 kg/m2 Mary CARBALLO Work Phone: [facility] 03-21-2024 09:50-0400 Body weight 108.32 kg Mary CARBALLO Work Phone: [facility] 03-21-2024 09:50-0400 Diastolic blood pressure 70 mm[Hg] Mary CARBALLO Work Phone: [facility] 03-21-2024 09:50-0400 Systolic blood pressure 120 mm[Hg] Mary CARBALLO Work Phone: [facility] 02-15-2024 12:48-0400 Body height 172.72 cm [facility] 02-15-2024 12:48-0400 Body mass index (BMI) [Ratio] 34.9 kg/m2 [place] 02-15-2024 12:48-0400 Body temperature 98.2 [degF] [facility] 02-15-2024 12:48-0400 Body weight 104.32 kg [facility] 02-15-2024 12:48-0400 Diastolic blood pressure 73 mm[Hg] [place] 02-15-2024 12:48-0400 Heart rate 106 /min [facility] 02-15-2024 12:48-0400 SaO2% (BldA) [Mass fraction] 98 % [place] 02-15-2024 12:48-0400 Systolic blood pressure 103 mm[Hg] [place] 01-29-2023 14:15-0400 Body height 172.72 cm [facility] Other [facility] [employer] Other 01-29-2023 14:15-0400 Body mass index (BMI) [Ratio] 31.81 kg/m2 [employer] Other [facility] Other 01-29-2023 14:15-0400 Body weight 94.89 kg [employer] Other [employer] [facility] Other 01-29-2023 14:15-0400 Diastolic blood pressure 68 mm[Hg] [employer] Other [employer] [facility] Other 01-29-2023 14:15-0400 Respiratory rate 18 /min [employer] Other [employer] Other 01-29-2023 14:15-0400 SaO2% (BldA) [Mass fraction] 97 % [employer] Other [employer] Other 01-29-2023 14:15-0400 Systolic blood pressure 105 mm[Hg] [employer] Other [employer] Other 01-01-2023 10:00-0400 Body height 172.72 cm [employer] Other [employer] Other 01-01-2023 10:00-0400 Body mass index (BMI) [Ratio] 31.77 kg/m2 Zi Maier Other [employer] Other 01-01-2023 10:00-0400 Body weight 94.8 kg Zi Maier Other [facility] Other 01-01-2023 10:00-0400 Diastolic blood pressure 68 mm[Hg] Zi Maier Other [facility] Other 01-01-2023 10:00-0400 Respiratory rate 18 /min Zi [employer] Other [employer] [facility] Other 01-01-2023 10:00-0400 SaO2% (BldA) [Mass fraction] 97 % Zi [employer] Other [employer] [facility] Other 01-01-2023 10:00-0400 Systolic blood pressure 105 mm[Hg] Zi Maier Other [employer] Other 11-10-2022 17:40-0400 Body height 172.72 cm Dalton Asencio Other [employer] Other 11-10-2022 17:40-0400 Body mass index (BMI) [Ratio] 32.69 kg/m2 Dalton Asencio Other [employer] Other 11-10-2022 17:40-0400 Body weight 97.52 kg Dalton Asencio Other [employer] Other 11-10-2022 17:40-0400 Diastolic blood pressure 80 mm[Hg] Dalton Asencio Other [employer] Other 11-10-2022 17:40-0400 Systolic blood pressure 117 mm[Hg] Dalton Asencio Other [facility] [employer] Other 10-21-2022 09:14-0400 Body temperature 98.1 [degF] DO Dalton Asencio Work Phone: [place] 10-21-2022 09:14-0400 Diastolic blood pressure 59 mm[Hg] DO Dalton Asencio Work Phone: [place] 10-21-2022 09:14-0400 Heart rate 74 /min DO Dalton Asencio Work Phone: [place] 10-21-2022 09:14-0400 Respiratory rate 18 /min DO Dalton Asencio Work Phone: [place] 10-21-2022 09:14-0400 SaO2% (BldA) [Mass fraction] 98 % DO Dalton Asencio Work Phone: [place] 10-21-2022 09:14-0400 Systolic blood pressure 120 mm[Hg] DO Dalton Asencio Work Phone: [place] 10-21-2022 09:13-0400 Body height 175.26 cm DO Dalton Asencio Work Phone: [place] 10-21-2022 09:13-0400 Body weight 97.1 kg DO Dalton Asencio Work Phone: [place] 03-04-2022 15:40-0400 Body height 172.72 cm Dalton Abdirahmangarrick Other [facility] [employer] Other 05-09-2021 10:30-0500 Body height 172.72 cm Dalton Garygarrick Other [employer] Other 05-09-2021 10:30-0500 Body mass index (BMI) [Ratio] 34.66 kg/m2 Dalton Raisa Other [employer] Other 05-09-2021 10:30-0500 Body temperature 97.7 [degF] Dalton Raisa Other [employer] Other 05-09-2021 10:30-0500 Body weight 103.42 kg Dalton Raisa Other [employer] [facility] [employer] Other 05-09-2021 10:30-0500 Diastolic blood pressure 72 mm[Hg] Dalton Abdirahmangarrick Other [employer] Other 05-09-2021 10:30-0500 Respiratory rate 18 /min Dalton Asencio Other [facility] Other 05-09-2021 10:30-0500 SaO2% (BldA) [Mass fraction] 98 % Dalton Asencio Other [employer] Other 05-09-2021 10:30-0500 Systolic blood pressure 108 mm[Hg] Dalton Abdirahmangarrick Other [employer] Other 03-23-2021 11:00-0400 Body height 172.72 cm Johnny Lyn Other [employer] Other 03-23-2021 11:00-0400 Body mass index (BMI) [Ratio] 33.6 kg/m2 Johnny Lyn Other [employer] Other 03-23-2021 11:00-0400 Body temperature 98.5 [degF] Johnny Lyn Other [employer] Other 03-23-2021 11:00-0400 Body weight 100.25 kg Johnny Lyn Other [employer] Other 03-23-2021 11:00-0400 Diastolic blood pressure 68 mm[Hg] Johnny Lyn Other [employer] Other 03-23-2021 11:00-0400 Respiratory rate 18 /min Johnny Lyn Other [employer] Other 03-23-2021 11:00-0400 SaO2% (BldA) [Mass fraction] 97 % Brianchase Lyn Other [employer] Other 03-23-2021 11:00-0400 Systolic blood pressure 105 mm[Hg] Johnny Lyn Other [employer] Other Encounters Encounter Date Encounter Type Care Provider Facility Start: 03-21-2024 End: 03-21-2024 Bamboo flowsheet Mary CARBALLO Work Phone: [facility] Start: 03-21-2024 End: 03-21-2024 Bamboo flowsheet Mary CARBALLO Work Phone: [facility] Start: 03-21-2024 End: 03-21-2024 flow sheet Mary CARBALLO Work Phone: [facility] Comment on above: 23 weeks gestation o f ; Second trimester ; Diabetes mellitus screening; Hypertension affecting , antepartum Start: 03-21-2024 End: 03-21-2024 ambulatory MARY YOUNG Not Available Start: 02-18-2024 End: 02-18-2024 ambulatory ITZEL DAWKINSO Not Available Start: 02-15-2024 End: 02-15-2024 ambulatory [facility] Work Phone: Start: 02-15-2024 End: 02-15-2024 Patient encounter procedure [facility] Work Phone: Start: 01-30-2024 Non-patient / Non-visit [facility] [employer] Work Phone: Start: 01-28-2024 End: 01-28-2024 ambulatory ITZEL TAMI Not Available Start: 01-21-2024 End: 01-21-2024 ambulatory ITZEL DAWKINSO Not Available Start: 12-18-2023 End: 12-18-2023 ambulatory ALAYNA HASSAN Not Available Start: 10-07-2023 End: 10-07-2023 ambulatory ALAYNA HASSAN Not Available Start: 01-29-2023 End: 01-30-2023 ambulatory Dalton Asencio [facility] [email or web address] Other Start: 01-29-2023 Follow-up encounter Zivanesa Pugh [facility] Start: 01-13-2023 End: 01-13-2023 ambulatory Dalton Asencio Other [employer] [facility] [employer] Other Start: 01-13-2023 Telephone encounter Dalton Asencio [facility] Start: 01-01-2023 End: 01-01-2023 ambulatory Zi Maier Other [employer] [facility] [employer] Other Start: 01-01-2023 Nutrition therapy Zi Maier [facility] Start: 11-10-2022 End: 11-10-2022 ambulatory Dalton Asencio Other [employer] Other Start: 11-10-2022 Tele[facility] encounter [facility] Start: 10-21-2022 End: 10-21-2022 Emergency department patient visit Dalton Asencio Facility:[place] Start: 10-21-2022 End: 10-21-2022 Emergency department patient visit DO Dalton Asencio Work Phone: [facility] Work Phone: Start: 07-28-2022 End: 07-28-2022 ambulatory Dalton Asencio Other [employer] Other Start: 07-28-2022 Telephone encounter Dalton Asencio [facility] Start: 07-25-2022 End: 07-25-2022 ambulatory Dalton Asencio Other [employer] Other Start: 07-25-2022 Telephone encounter Dalton Abdirahmangarrick [facility] Start: 04-09-2022 End: 04-09-2022 ambulatory Dalton Asencio Other [employer] Other Start: 04-09-2022 Telephone encounter Dalton Asencio [facility] Start: 03-20-2022 End: 03-20-2022 ambulatory Lelia Macias Other [employer] Other Start: 03-20-2022 Telephone encounter Lelai Lamaschristopher [facility] Start: 03-04-2022 End: 03-04-2022 ambulatory Dalton Asencio Other [employer] Other Start: 03-04-2022 Telephone encounter Dalton Asencio [facility] Start: 02-06-2022 End: 02-06-2022 ambulatory Dalton Asencio Other [employer] Other Start: 02-06-2022 Telephone encounter Dalton Raisa [facility] Start: 01-02-2022 End: 01-02-2022 ambulatory None Provider Facility:[facility] Start: 09-18-2021 End: 09-18-2021 ambulatory Dalton Asencio Other [employer] Other Start: 09-18-2021 Telephone encounter Dalton Abdirahmangarrick [facility] [place] Start: 07-25-2021 End: 07-25-2021 ambulatory Dalton Asencio Other [employer] Other Start: 07-25-2021 Telephone encounter Dalton Abdirahmangarrick [facility] Start: 07-15-2021 End: 07-15-2021 ambulatory Dalton Asencio Other [employer] Other Start: 07-15-2021 Telephone encounter Dalton Asencio [facility] Start: 05-09-2021 End: 05-09-2021 ambulatory Dalton Asencio Other [employer] Other Start: 05-09-2021 Office outpatient vi sit 15 minutes Dalton Asencio [facility] Start: 04-22-2021 End: 04-22-2021 ambulatory Dalton Asencio Other [employer] Other Start: 04-22-2021 Telephone encounter Dalton Asencio [facility] Start: 03-23-2021 Office outpatient vi sit 15 minutes Johnny Lyn [facility] Start: 03-12-2018 End: 03-12-2018 Patient encounter DALTON ASENCIO Facility:[facility] Start: 06-23-2017 End: 06-23-2017 Patient encounter ITZEL CARLIN Facility:[facility] Start: 04-30-2017 End: 04-30-2017 Patient encounter DALTON ASENCIO Facility: Procedures Date Procedure Procedure Detail Performing Clinician Start: 03-21-2024 Urnls dip stick/tabl et rgnt non-auto w/o micrscp Mary CARBALLO Work Phone: Start: 02-15-2024 Quick Strep (POC) Plan of Treatment Date Care Activity Detail Author Start: 10-27-2024 End: 10-27-2024 Patient encounter procedure 10/27/2024 10:00 AM EDT Office Visit [facility] [address] [facility] [address] [place] [id number] Alayna Hassan, DO [address] [place] [address] [facility] Start: 04-18-2024 End: 04-18-2024 Patient encounter procedure 04/18/2024 10:40 AM EST Routine [facility] [address] [place] [id number] Itzel Carlin, DO [address] [facility] [facility] [address] [place] [address] [facility] Start: 03-28-2024 End: 03-28-2024 Professional / ancillary services management 03/28/2024 9:30 AM EDT Ancillary Procedure [facility] [address] [place] [address] [facility] Start: 03-21-2024 End: 03-21-2025 CBC panel - Blood by Automated count CBC Lab Routine Diabetes mellitus screening Expected: 03/21/2024 (Approximate), Expires: 03/21/2025 [facility] Work Phone: Comment on above: Expected: 03/21/2024 (Approximate), Expires: 03/21/2025 Start: 03-21-2024 End: 03-21-2025 Measurement of glucose 1 hour after glucose challenge for glucose tolerance test Glucose tolerance, 1 hour Lab Routine Diabetes mellitus screening Expected: 03/21/2024 (Approximate), Expires: 03/21/2025 [facility] Comment on above: Expected: 03/21/2024 (Approximate), Expires: 03/21/2025 Start: 03-21-2024 End: 03-21-2024 Patient encounter procedure 03/21/2024 9:30 AM EDT Routine [facility] [address] [place] [address] Mary Young PA [address] [facility] [place] [address] Arrived [facility] Comment on above: Arrived Start: 02-07-2024 Influenza vaccination Influenz a Vaccine (#1) [facility] Patient Education Minor Head Inj ury (DC) [facility] Work Phone: Patient referral [facility] Work Phone: Immunizations Immunization Date Immunization Notes Care Provider Rubin roberto 05-27-2023 influenza virus vaccine, unspecified formulation Mary CARBALLO Work Phone: [facility] 03-24-2022 influenza, seasonal, injectable Dalton Asencio Other [place] 05-06-2021 measles, mumps and rubella virus vaccine Dalton Asencio Other [place] 04-03-2021 COVID-19 Vaccine Moderna - Documentation Purposes Only Dalton Asencio Other [place] 03-04-2021 influenza, seasonal, injectable Dalton Raisa Other [place] 07-12-2020 COVID-19 Vaccine Moderna - Documentation Purposes Only Johnny Lyn Other [place] 06-14-2020 COVID-19 Vaccine Moderna - Documentation Purposes Only Johnny Lyn Other [place] 03-12-2020 influenza, seasonal, injectable Johnny Lyn Other [place] 05-09-2019 tetanus toxoid, redu elizabeth diphtheria toxoid, and acellular pertussis vaccine, adsorbed Dalton Asencio Other [place] 06-24-2013 Toradol per 15 mg Johnny wood Other [employer] Other Payers Date Payer Category Payer Private Health Insurance [employer] [id number] 2023 Unknown [id number] 2022 Self-pay [id number] 2019 Medicaid [id number] 1994 Unknown [id number] [id number]. 593 1994 Unknown [id number] 2.16.840.1.210127.3.579.2. 593 1994 Unknown [id number] 2.16.840.1.096909.3.579.2. 593 1994 Unknown [id number] 2.16.840.1.253008.3.579.2. 1259 1994 Unknown [id number] 2.16.840.1.119688.3.579.2. 1259 1994 Unknown [id number] 2.16.840.1.685981.3.579.2. 1259 1994 Unknown [id number] 2.16.840.1.552712.3.579.2. 1259 1994 Unknown [id number] 2.16.840.1.091721.3.579.2. 1259 1994 Unknown [id number] 2.16.840.1.427151.3.579.2. 1259 1959 Unknown [id number] 1959 Unknown [id number] 1959 Unknown [id number] Unknown [id number] 2.16.840.1.993658.3.579.2. 531 Unknown [id number] [id number]. 531 Social History Date Type Detail Facility Unknown if ever smoked [employer] Other Start: 10-07-2023 Sex Assigned At [employer] Other Start: 10-21-2022 Tobacco smoking status SCIS Smoker (finding) [place] Start: 1995 Sex Assigned At Female [place] Start: 01-03-2023 Tobacco smoking status NHIS Never smoked tobacco [facility] Start: 01-03-2023 Tobacco use and exposure Smokeless tobacco non-user [facility] Start: 02-18-2024 End: 03-21-2024 Alcoholic beverage intake Lifetime non-drinker (finding) [facility] Start: 10-07-2023 History of Social function [facility] Start: 02-03-2023 Alcohol Comment Caffeine intak e: 1-2 cups per day [facility] Start: 10-23-2023 [facility] Start: 1995 Sex assigned at Not on file [facility] NEGATED: Highlighted rowStart: NINF History of tobacco use Passive smoker [facility] Healthcare Medical Equipment Procedure Code Equipment Code Equipment Origin al Text Equipment Identifier Dates NovoFine Plus Pe n Needle 32G X 4 MM Start: 01-01-2023 Clinical Notes 08-30-2012 to 03-21-2024 [facility] Head - 03/21/2024 9:30 AM EDT Note Date & Type Note Facility 03-21-2024 History of Presen t illness Narrative Reason for Appointment: Patient ID: Pepper Bentley is a 28 y.o. female who presents for Routine Visit Patient presents today for Return OB appointment. MEDICATIONS Current Outpatient Medications Medication Instructions aspirin 81 mg, Oral, Daily labetalol (NORMODYNE) 100 mg, Once magnesium oxide (MAG-OX) 400 mg, Oral, Daily Vit-Fe Fumarate-FA ( Vitamins) 28-0.8 MG tablet 1 tablet, Oral, Daily promethazine (PHENERGAN) 12.5 mg, Oral, Every 6 hours PRN, Take 1 tablet by mouth every 6 hours as needed for nausea. ALLERGIES Allergies Allergen Reactions Sulfamethoxazole-Trimethoprim Rash PROBLEMS Active Ambulatory Problems Diagnosis Date Noted Hematuria 01/21/2024 Nonintractable headache 01/21/2024 14 weeks gestation of 01/21/2024 Resolved Ambulatory Problems Diagnosis Date Noted No Resolved Ambulatory Problems Past Medical History: Diagnosis Date H/O urinary tract infection Hx of migraine headaches Varicella zoster HISTORY PAST MEDICAL HISTORY SOCIAL HISTORY Past Medical History: Diagnosis Date H/O urinary tract infection recurrent Hx of migraine headaches Varicella zoster Social History Tobacco Use Smoking status: Never Passive exposure: Never Smokeless tobacco: Never Vaping Use Vaping status: Every Day Substances: Nicotine Substance Use Topics Alcohol use: Never Comment: Caffeine intake: 1-2 cups per day Drug use: Never FAMILY HISTORY Family History Problem Relation Name Age of Onset No Known Problems Mother No Known Problems Father No Known Problems Sister Heart disease Maternal Grandmother Heart disease Paternal Grandmother No Known Problems Paternal Grandfather Diabetes Other Other (high blood pressure) Other SURGICAL HISTORY Past Surgical History: Procedure Laterality Date IUD REMOVAL 04/03/2021 Nexplanon VAGINAL DELIVERY x 3 WISDOM TOOTH EXTRACTION age 23 REVIEW OF SYSTEMS Review of Systems: Review of Systems Constitutional: Negative. HENT: Negative. Eyes: Negative. Respiratory: Negative. Cardiovascular: Negative. Gastrointestinal: Negative. Genitourinary: Negative. Musculoskeletal: Negative. Skin: Negative. Neurological: Negative. All other systems reviewed and are negative. Hematological: Negative. Endocrine: Negative. Allergic/Immunologic: Negative. OBJECTIVE Objective: Physical Exam Constitutional: Appearance: Normal appearance. She is well-developed and normal weight. HENT: Head: Normocephalic. Cardiovascular: Rate and Rhythm: Normal rate and regular rhythm. Pulses: Normal pulses. Pulmonary: Effort: Pulmonary effort is normal. Breath sounds: Normal breath sounds. Abdominal: General: Bowel sounds are normal. There is no distension. Palpations: Abdomen is soft. Tenderness: There is no abdominal tenderness. There is no guarding or rebound. Musculoskeletal: General: No swelling. Normal range of motion. Right lower leg: No edema. Left lower leg: No edema. Neurological: General: No focal deficit present. Mental Status: She is alert and oriented to person, place, and time. Skin: General: Skin is warm and dry. Psychiatric: Mood and Affect: Mood normal. Behavior: Behavior normal. Thought Content: Thought content normal. Judgment: Judgment normal. Vitals and nursing note reviewed. Exam conducted with a manufacturing manager present. Vitals: Estimated body mass index is 36.85 kg/m as calculated from the following: Height as of 10/07/23: 5' 7.5 . Weight as of this encounter: 238 lb 12.8 oz. BP: 120/70 Patient's last menstrual period was 10/15/2023. ASSESSMENT & PLAN ICD-10-CM 1. 23 weeks gestation of Z3A.23 POCT urinalysis dipstick manually resulted 2. Second trimester Z34.92 POCT urinalysis dipstick manually resulted 3. Diabetes mellitus screening Z13.1 CBC Glucose tolerance, 1 hour 4. Hypertension affecting , antepartum O16.9 Return OB: Patient presents today for a routine obstetrics appointment. Patient is currently 23w3d . Patient states she is doing well but has complaints of being tired due to current . Patient has verbalizes frequent movement. Patient was given 1 hour Glucose and CBC to have obtained. Orders Placed This Encounter Procedures CBC Glucose tolerance, 1 hour POCT urinalysis dipstick manually resulted Follow Up: Patient is to return to office in 4 week for routine OB appointment. Documented by Alyce Aguilar LPN on behalf of: [facility] documented in this encounter [facility] 01-29-2023 Evaluation note Encounter Date Diagnosis Assessment [...] loss response -Patient reports Wellbutrin made her gekuq-Yizvr-ks-car e A1c December 2022 4.9%-Follow up in clinic in 6 weeksThis note was created with voice recognition software. Please excuse errors in crocheter hand. Jan, Dietary surveillance and counseling (ICD-10 - [...] with the patient, and documenting clinical information. [employer] Other 08-08-2023 Evaluation note* Encounter Date Diagnosis Assessment Notes Treatment Notes Treatment Clinical Notes Jan, Glucosuria (ICD-10 - R81) Jan, Cystitis (ICD-10 - N30.90) Jan, Other residential (current) drug therapy (ICD-10 - Z79.899) [employer] [facility] [employer] Other 07-27-2023 Evaluation note* Encounter Date Diagnosis [...] -Alternative options may include combination Wellbutrin and wjrmifbszx-Sddbh-ah-ca re A1c today 4.9-Follow up in clinic in 4 weeksThis note was created with voice recognition software. Please excuse errors in crocheter hand. Dec, Dietary surveillance and counseling (ICD-10 - [...] - R63.8) Dec, Screening (ICD-10 - Z13.9) [employer] Other 06-05-2023 Evaluation note* Encounter Date Diagnosis Assessment Notes Treatment Notes Treatment Clinical Notes Nov, Anxiety (ICD-10 - F41.9) She is seeing a psychiatrist every five weeks and she thinks that she has ADHD but has not started any medication for this. She follows with a psychiatrist through [facility]. She is no longer on the Venlafaxine and is not on any medication for her mood. She uses the Xanax only as needed. She struggles with anxiety and focusing in school as far as the ADHD so is unsure if she needs any medication. Right now she feels better than she ever has without any medicine. 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 Nov, ADHD [...] afford to pay for the injectable medication [id number]. I discussed her seeing Dr. Reyes for [...] Nov, Other 6:05 PM - 6:18 PM [employer] Other 02-20-2023 Evaluation note* Encounter Date Diagnosis [...] Jul, Other 2:25 PM - 2:33 PM [employer] Other 11-02-2022 Evaluation note* Encounter Date Diagnosis [...] provide her with a ohine number for [facility] who has psychiatry services. 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 and due to [...] Feb, Other 2:50 PM - 3:02 PM [employer] Other 09-01-2022 Evaluation note* Encounter Date Diagnosis Assessment Notes Treatment Notes Treatment Clinical Notes Feb, Anxiety (ICD-10 - F41.9) [employer] Other 02-17-2022 Evaluation note* Encounter Date Diagnosis Assessment Notes Treatment Notes Treatment Clinical Notes Jul, Depression (ICD-10 - F32.9) [employer] [facility] Other 02-07-2022 Evaluation note* Encounter Date Diagnosis [...] Jul, Other 4:29 PM - 4:38 PM [employer] Other 02-07-2022 Evaluation note* Encounter Date Diagnosis Assessment Notes Treatment Notes Treatment Clinical Notes Jul, Anxiety (ICD-10 - F41.9) [employer] [facility] [employer] Other 12-02-2021 Evaluation note* Encounter Date Diagnosis [...] starting school in June, she is attending [employer] for [employer] school. An OARRS report was reviewed, no [...] on the medication. Do not take Ecstasy. [employer] [facility] [employer] Other 10-16-2021 Evaluation note* Encounter Date Diagnosis [...] (ICD-10 - Z20.828) covid neg, see above. [employer] Other 03-25-2013 History general Narrative - Reported* Type Description Date Medical History immunizations up to date Medical History Right Wrist fracture Medical History Left ankle fracture Hospitalization History childbirth; [facility] 08-30-12 Hospitalization History childbirth - [facility] 0 11/20/14 Hospitalization History childbirth 05/09/20 [employer] Other Evaluation [employer]No [employer] Other Evaluation noteNo assessment information available [facility] Work Phone: Evaluation note* Diagnosis 23 weeks gestation of Second trimester state, incidental Diabetes mellitus screening Screening for diabetes mellitus Hypertension affecting , antepartum documented in this encounter [facility] N[facility]ative - [facility]orted[facility] [employer] Other History general Narrative - Reported* Type Description Date Medical History immunizations up to date Medical History Right Wrist fracture Medical History Left ankle fracture Medical History Anxiety Medical History Depression Surgical History [place] teeth extraction Hospitalization History childbirth; [facility] 08-30-12 Hospitalization History childbirth - [facility] 0 11/20/14 Hospitalization History childbirth 05/09/20 [facility] [employer] Other Summary Purpose Family History Relationship Condition Age at Onset Recorded Date/T jozef father Family history of mental disorder Unknown grandparent Heart disease Unknown grandparent Unknown [employer]' pneumoconiosis Unknown Hypertension Unknown Not Specified Family history of mental disorder Unknow n Relationship Condition Age at Onset Recorded Date/T jozef father Family history of mental disorder Unknown grandparent Heart disease Unknown grandparent Unknown [employer] pneumoconiosis Unknown Hypertension Unknown mother Family history of mental disorder Unknown Advance Directives Advance Directive Response Recorded Date/ Time Advance Directives No May 14, 2017 3:17pm Chief Complaint and Reason for Visit Chief Complaint head injury Chief Complaint sore throat, headach e Additional Source Comments INFORMATION SOURCE (unrecogn ized section and content) DATE CREATED AUTHOR 04/09/2018 [facility] DATE CREATED AUTHOR AUTHOR'S ORGANIZ ATION 09/09/2022 [facility] DATE CREATED AUTHOR AUTHOR'S ORGANIZ ATION 08/05/2023 [facility] DATE CREATED AUTHOR AUTHOR'S ORGANIZ ATION 03/22/2024 [facility] EPIC REASON FOR VISIT (unrecogniz ed section and content) Reason Comments Routine Visit Care Teams (unrecognized sec tion and content) Team Status: Active Member Role Status Dates Dalton Asencio DO Primary Care Provider Active Team Status: Active Member Role Status Dates Dalton Asencio DO Primary Care Provider Active S tart: January 30, 2024 Itzel Carlin DO Attending Provider Active Start : January 30, 2024 Team Status: Inactive Member Role Status Dates Dalton Girvin , DO Primary Care Provider Active S tart: February 15, 2024 End: February 15, 2024 Joi Alvarez APRN Attending Provider Active Sta rt: February 15, 2024 End: February 15, 2024 Team Status: Inactive Member Role Status Dates Dlaton Asencio , Primary Care Provider Active Bud Flaherty APRN Emergency Provider Active Newsp[employer] Car[employer] Supervisor Relationship Specialty Start Date End Date Dalton Asencio MD [address] [place] [id number] PCP - General Family Medicine 01/03/23 [employer] Supervisor Relationship Specialty Start Date End Date Dalton Asencio MD [address] [place] [address] PCP - General Family Medicine 01/03/23 Goals (unrecognized section and content) Goals may [...] BE BASED ON THE PRIMARY CLINICAL RECORDS. [facility] [employer]. provides no warranty or guarantee of the accuracy or completeness of information in this document.
== END 2024-03-28 09:38 | disposition home or self-care (01) ==
LOC: NOMS 09:39
PROVIDERS: PCP Family Medicine; Visit Provider Obstetrics & Gynecology
DX: O44.02 Complete placenta previa NOS or without hemorrhage, second trimester (principal); Z36.2 Encounter for other antenatal screening follow-up
CPT/HCPCS: 76815; 76817

== ENCOUNTER 2024-04-25 11:01 | Outpatient (OUT) | payer OTHER, SELFPAY ==
--- NOTE | 2024-04-25 11:04 | US_ITS ---
[address] [address] Patient Name: ALEJANDRO MICHELE MRN: [id number] date: 1995 Sex: F Assigned Patient Location: [facility] Current Patient Location: Accession/Order Number: [id number] Exam Date: 04/25/2024 11:05 Report Date: 04/26/2024 04:53 At the request of: ITZEL GARRETT Procedure: US OB growth EXAMINATION: US OB growth HISTORY: HYPERTENSION COMPARISON: Ultrasound OB anatomy 02/29/2024 FINDINGS: Heart Rate: 142 bpm Amniotic Fluid Volume: 17.0 cm; normal range Number: 1 Position: Cephalic BIOMETRY: BPD: 7.25 cm; 29 weeks 1 day; 60 % HC: 27.43 cm; 30 weeks 0 days; 66.10 % AC: 25.35 cm; 29 weeks 4 days; 76 % FL: 5.83 cm; 30 weeks 3 days; 87.70 % EFW: 1516.62 g; 87.20 % FL/AC: 23 FL/BPD: 80.41 HC/AC: 1.08 GESTATIONAL AGE: Age by EDC: 28 weeks 3 days JACQUI by EDC: 2024-07-15 Age by US: 29 weeks 6 days JACQUI by US: 2024-07-05 US/US OB growth IMPRESSION: 1. Single live intrauterine with growth detailed above. Electronically authenticated by: ADELE LOPEZ Date: 04/26/2024 04:53
== END 2024-04-25 11:02 | disposition home or self-care (01) ==
LOC: NOMS 11:02
PROVIDERS: PCP Family Medicine; Visit Provider Obstetrics & Gynecology
DX: O16.3 Unspecified maternal hypertension, third trimester (principal); Z3A.28 28 weeks gestation of pregnancy
CPT/HCPCS: 76816

== ENCOUNTER 2024-05-23 10:41 | Outpatient (OUT) | payer OTHER, SELFPAY ==
--- NOTE | 2024-05-23 10:43 | US_ITS ---
[address] [address] Patient Name: ALEJANDRO MICHELE MRN: [id number] date: 1995 Sex: F Assigned Patient Location: [facility] Current Patient Location: [facility] Accession/Order Number: [id number] Exam Date: 05/23/2024 10:45 Report Date: 05/23/2024 12:01 At the request of: ITZEL GARRETT Procedure: US OB growth EXAMINATION: US OB growth HISTORY: Hypertension affecting O16.9 COMPARISON: No relevant comparison available. FINDINGS: Heart Rate: 148 bpm Amniotic Fluid Volume: 20.9 cm, largest fluid pocket 6.6 cm Number: 1 Position: Cephalic presentation, longitudinal lie BIOMETRY: BPD: 8.37 cm; 33 weeks 5 days; 78.30 % HC: 30.93 cm; 34 weeks 4 days; 69.50 % AC: 30.59 cm; 34 weeks 4 days; 94.80 % FL: 6.72 cm; 34 weeks 4 days; 88.40 % EFW: 2503.04 g; 93.60 %, 5 lbs. 6 oz. FL/AC: 21.97 FL/BPD: 80.29 HC/AC: 1.01 GESTATIONAL AGE: Age by EDC: 32 weeks 3 days JACQUI by EDC: 2024-07-15 Age by US: 34 weeks 3 days JACQUI by US: 2024-07-01 US/US OB growth IMPRESSION: Estimated weight at the 94th percentile Abdominal circumference at the 95th percentile Electronically authenticated by: DALTON MCMAHON Date: 05/23/2024 12:01
== END 2024-05-23 10:42 | disposition home or self-care (01) ==
LOC: NOMS 10:41
PROVIDERS: PCP Family Medicine; Visit Provider Obstetrics & Gynecology
DX: O16.3 Unspecified maternal hypertension, third trimester (principal); Z3A.32 32 weeks gestation of pregnancy
CPT/HCPCS: 76816

== ENCOUNTER 2024-06-07 05:36 | Outpatient (OUT) | payer OTHER, SELFPAY ==
--- OUTSIDE RECORDS SUMMARY | 2024-06-07 05:39 | XMS_ITS | CCD ---
Author Organization [facility] Care Team Providers Care Sales Floor Team Leader Name Role Phone DALTON ASENCIO Unavailable Unavailable HAY, AIDEN Unavailable Unavailable HAY, AIDEN Unavailable Unavailable EAN PASTRANA Unavailable Unavailable RAEGAN, ITZEL Unavailable Unavailable RAEGAN, ITZEL Unavailable Unavailable RAEGAN, ITZEL Unavailable Unavailable DALTON ASENCIO Unavailable Unavailable ARIES, RADHA Unavailable Unavailable ARIES, RADHA Unavailable Unavailable ARIES, RADHA Unavailable Unavailable Johnny Lyn Unavailable Dalton Asencio Unavailable Lelia Macias Unavailable Provider, None Primary Care Unavailable DO Dalton Asencio Primary Care Provider ATIYA Flaherty Emergency Provider Zi Maier Unavailable Dalton Asencio MD Primary Care Provider [phone] Dalton Asencio Primary Care Unavailable Mary Young Attending Unavailable Mary Young Admitting Unavailable ALAYNA HASSAN Attending Unavailable RAEGAN, ITZEL Attending Unavailable RAEGAN, ITZEL Attending Unavailable RAEGAN, ITZEL Attending Unavailable MARY YOUNG Attending Unavailable RAEGAN, ITZEL Attending Unavailable RAEGAN, ITZEL Attending Unavailable Allergies Allergy Classification Reported Allergen(s) Allergy Type Date of Onset Reaction(s) Facility (1 source) sulfamethoxazole / trimethoprim Drug Allergy HIVES [facility] Repository (1 source) No Known Drug Allergies Drug allergy (disorder) 3 [facility] (20 sources) Sertraline Drug Allergy 3 migraines [facility] (18 sources) buPROPion Drug Allergy 3 300 MG made angry [facility] (9 sources) venlafaxine Drug Allergy 3 higher dose made feel irritated and feel worse [facility] (4 sources) Sulfamethoxazole; Translations: [sulfamethoxazole] Drug Allergy 3 [facility] (4 sources) Trimethoprim; Translations: [trimethoprim] Drug Allergy 3 [facility] (19 sources) Sulfamethoxazole / Trimethoprim Drug Allergy 3 [facility] (1 source) buPROPion Drug Allergy 4 [facility] Rep[facility] (1 source) Sertraline Drug Allergy 4 [facility] (1 source) venlafaxine Drug Allergy 4 [facility] Repository Medications Current Medications Medication Drug Class(es) Dates Sig (Normalized) Sig (Original) ALPRAZolam 0.25 mg oral tablet (18 sources) Benzodiazepine Start: 12-17-2017 take 1 tablet by mouth every twelve hours as needed Xanax 0.25 MG 1 tablet Orally q12 hrs prn PRN Dec, Active aspirin 81 mg delayed release oral tablet (11 sources) Platelet Aggregation Inhibitor, Nonsteroidal Anti-inflammatory Drug [...] Active labetalol hydrochloride 100 mg oral tablet (18 sources) beta-Adrenergic Deonte Start: 01-26-2024 End: 03-21-2024 [...] Active magnesium oxide 400 mg oral tablet (16 sources) Start: 01-21-2024 End: 08-18-2024 take 1 tablet by mouth once daily magnesium oxide (Mag-Ox) 400 MG tablet Indications: Nonintractable headache, unspecified chronicity pattern, unspecified headache type Take 1 tablet (400 mg) by mouth Daily 30 tablet 6 01/21/2024 08/18/2024 Active omeprazole 20 mg delayed release oral capsule (5 sources) Proton Pump Inhibitor Start: 05-04-2024 End: 08-02-2024 take 1 capsule by mouth before mealtime omeprazole (PriLOSEC) [address] capsule Indications: Gastroesophageal Reflux Disease , Heartburn Take 1 capsule (20 mg) by mouth in the morning. Take before meals. Do not crush or chew.. 30 capsule 3 05/04/2024 08/02/2024 Active phentermine hydrochloride 37.5 mg oral tablet [...] Vit-Fe Fumarate-FA ( Vitamins) 28-0.8 MG tablet (11 sources) Start: 03-03-2024 End: 03-03-2025 take 1 tablet by mouth once daily Vit-Fe Fumarate-FA ( Vitamins) 28-0.8 MG tablet Indications: Second trimester Take 1 tablet by mouth Daily 30 tablet 6 03/03/2024 03/03/2025 Active promethazine hydrochloride 12.5 mg oral tablet (16 sources) Phenothiazine Start: 12-18-2023 take 1 tablet [...] day(s) May, Active take 1 capsule by [facility] every twenty-four hours Venlafaxine HCl ER 75 [...] Problem Classification Problem Date Documented Date Episodic/Chronic Administrative/socia l admission (4 sources) Dietary counseling and surveillance; [...] Hypertension complicating ; childbirth and the puerperium (8 sources) Hypertension complicating , childbirth and the puerperium, antepartum; Translations: [Unspecified maternal hypertension, unspecified trimester] Onset: 05-23-2024 03-21-2024 Chronic Immunizations and screening for infectious disease (3 sources) Contact with and (suspected) exposure to other viral communicable diseases; Translations: [Exposure to sexually transmissible disorder] Onset: 03-23-2021 Resolved: 03-23-2021 Episodic Mood disorders (20 sources) Depressive disorder; Translations: [Major depressive disorder, single episode, unspecified] Onset: 05-09-2021 Resolved: 07-25-2021 Chronic Nonspecific chest pain (3 sources) Musculoskeletal chest pain; Translations: [Other chest pain] 05-25-2020 Episodic Other aftercare (1 source) 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 Episodic Other complications of (2 sources) Heartburn; Translations: [Other specified related conditions, third trimester] 05-04-2024 Episodic Other complications of (2 sources) Gastroesophageal reflux disease in ; Translations: [Diseases of the digestive system complicating , unspecified trimester] 05-04-2024 Episodic Other female genital disorders (2 sources) Vaginal discharge; Translations: [Other specified noninflammatory disorders of vagina] 02-18-2024 Episodic Other injuries and conditions due to [...] intake Episodic Other and delivery including normal (10 sources) Second trimester ; Translations: [Encounter for supervision of normal , unspecified, second trimester] Onset: 05-23-2024 03-21-2024 Episodic Other screening for suspected conditions (not mental disorders or infectious disease) (5 sources) Encounter for screening, unspecified; Translations: [Patient encounter status] Episodic Other upper respiratory disease (18 sources) Allergic rhinitis; Translations: [Allergic rhinitis, unspecified] Chronic Residual codes; unclassified (2 sources) Gestation period, 23 weeks; Translations: [23 weeks gestation of ] 03-21-2024 Episodic Residual codes; unclassified (2 sources) Gestation period, 27 weeks; Translations: [27 weeks gestation of ] 04-19-2024 Episodic Residual codes; unclassified (2 sources) Gestation period, 29 weeks; Translations: [29 weeks gestation of ] 05-04-2024 Episodic Residual codes; unclassified (2 sources) Gestation period, 18 weeks; Translations: [18 weeks gestation of ] 02-18-2024 Episodic Residual codes; unclassified (4 sources) Gestation period, 32 weeks; Translations: [32 weeks gestation of ] Onset: 05-23-2024 05-23-2024 Episodic Substance-related disorders (1 source) Nicotine dependence, cigarettes, uncomplicated; Translations: [NICOTINE DEPEND CIGARETTES UNCOMP] Onset: 03-16-2018 Chronic Urinary tract infections (1 source) Cystitis, unspecified without hematuria Episodic Past or Other Problems Problem Classification Problem Date Documented Da te Episodic/Chronic Genitourinary symptoms and ill-defined conditions (16 sources) Blood in urine; Translations: [Hematuria, unspecified] Onset: 01-21-2024 01-21-2024 Episodic Headache; including migraine (16 sources) Headache; Translations: [Nonintractable headache] Onset: 01-21-2024 01-21-2024 Episodic Headache; including migraine (1 source) Headache; including migraine Onset: 05-09-2021 Resolved: 05-09-2021 Other upper respiratory infections (2 sources) Acute pharyngitis, unspecified; Translations: [Streptococcal pharyngitis] Onset: 03-23-2021 Resolved: 03-23-2021 Episodic Residual codes; unclassified (16 sources) Gestation period, 14 weeks; Translations: [14 weeks gestation of ] Onset: 01-21-2024 01-21-2024 Episodic Results Test Name Value Interpretation Reference Range Facility Urinalysis macro (dipstick) panel (U)on 05-23-2024 Bilirubin, UA Negative Negative - 4(70) +++ mg/dL [facility] Blood, UA Negative Negative - 50 Deric/mcL [facility] Clarity, UA Clear [facility] Color, UA Yellow [facility] Glucose, UA Negative Negative - 1999(110) ++++ mg/dL [facility] Interpretation and review of laboratory results Abnormal [facility] Ketones, UA Negative Negative - 160(16) ++++ mg/dL [facility] Leukocytes, UA Moderate Negative - 500+++ David/mcL [facility] Nitrite, UA Negative Negative - Positive [facility] pH, UA 6 5 - 9 [facility] Protein, UA Negative Negative - 1999(20) ++++ mg/dL [facility] Spec Grav, UA 1.025 1 - 1.03 [facility] Urobilinogen, UA 0.2 0.2 - 12 mg/dL [facility] Urinalysis macro (dipstick) panel (U)on 05-04-2024 Bilirubin, UA Negative Negative - 4(70) +++ mg/dL [facility] Blood, UA Negative Negative - 50 Deric/mcL [facility] Clarity, UA Clear [facility] Color, UA Yellow [facility] Glucose, UA Negative Negative - 1999(110) ++++ mg/dL [facility] Interpretation and review of laboratory results Abnormal [facility] Ketones, UA Negative Negative - 160(16) ++++ mg/dL [facility] Leukocytes, UA Trace Negative - 500+++ David/mcL [facility] Nitrite, UA Negative Negative - Positive [facility] pH, UA 6.5 5 - 9 [facility] Protein, UA Negative Negative - 1999(20) ++++ mg/dL [facility] Spec Grav, UA 1.02 1 - 1.03 [facility] Urobilinogen, UA 0.2 0.2 - 12 mg/dL [facility] Complete Blood Count Auto Di ffon 05-02-2024 Basophils (Bld) [#/Vol] 0.1 10*3/uL Normal 0.0-0.2 [facility] Comment on above: Result Comment: PERF ORMED BY: [place] [id number] PATHOLOGIST BLASTING GANG MINER KAM OWENS M.D. Performed By: #### G [id number], CBC #### [place] [address] [place] Basophils/100 WBC (Bld) 0.4 % Normal . [facility] Comment on above: Performed By: #### G [id number], CBC #### [address] Eosinophils (Bld) [#/Vol] 0.2 10*3/uL Normal 0.0-0.45 [facility] Comment on above: Performed By: #### G [id number], CBC #### [address] Eosinophils/100 WBC (Bld) 1.4 % Normal . [facility] Comment on above: Performed By: #### G [id number], CBC #### [address] Erythrocyte distribution width (RBC) [Ratio] 13.3 % Normal 11.9-15.3 [facility] Comment on above: Performed By: #### G [id number], CBC #### [address] Hematocrit (Bld) [Volume fraction] 32.9 % Low 34.0-46.4 [facility] Comment on above: Performed By: #### G [id number], CBC #### [address] Hemoglobin (Bld) [Mass/Vol] 10.9 g/dL Low 11.8-15.4 [facility] Comment on above: Performed By: #### G [id number], CBC #### [address] Lymphocytes (Bld) [#/Vol] 1.4 10*3/uL Normal 1.00-4.8 [facility] Comment on above: Performed By: #### G [id number], CBC #### [address] Lymphocytes/100 WBC (Bld) 11.0 % Normal . [facility] Comment on above: Performed By: #### G [id number], CBC #### [address] MCH (RBC) [Entitic mass] 28.7 pg Normal 24.7-34.3 [facility] Comment on above: Performed By: #### G [id number], CBC #### [address] MCV (RBC) [Entitic vol] 86.4 fL Normal 80-100 [facility] Comment on above: Performed By: #### G [id number], CBC #### [address] Mean Corpuscular HGB Conc 33.2 g/dL Normal 32.0-35.0 [facility] Comment on above: Performed By: #### G [id number], CBC #### [address] Monocytes (Bld) [#/Vol] 0.7 10*3/uL Normal 0.0-0.8 [facility] Comment on above: Performed By: #### G [id number], CBC #### [address] Monocytes/100 WBC (Bld) 5.9 % Normal . [facility] Comment on above: Performed By: #### G [id number], CBC #### [address] Neutrophils (Bld) [#/Vol] 10.1 10*3/uL High 1.8-7.7 [facility] Comment on above: Performed By: #### G [id number], CBC #### [address] Neutrophils/100 WBC (Bld) 81.3 % Normal . [facility] Comment on above: Performed By: #### G [id number], CBC #### [address] NRBC% 0.0 /100{WBC} Normal 0-0.5 [facility] Comment on above: Performed By: #### G [id number], CBC #### [facility] [address] Platelet mean volume (Bld) [Entitic vol] 7.4 fL Normal 6.3-10.7 [facility] Comment on above: Performed By: #### G [id number], CBC #### [facility] [address] Platelets (Bld) [#/Vol] 326 10*3/uL Normal 150-450 [facility] Comment on above: Performed By: #### G [id number], CBC #### [address] RBC (Bld) [#/Vol] 3.80 10*6/uL Normal 3.60-5.00 [facility] Comment on above: Performed By: #### G [id number], CBC #### [address] WBC (Bld) [#/Vol] 12.4 10*3/uL High 3.8-11.6 [facility] Comment on above: Performed By: #### G [id number], CBC #### [address] Glucose,1 Hour PP 50gm Doseo n 05-02-2024 Glucose [Mass/Vol] 109 mg/dL Normal 60-140 [facility] Comment on above: Order Comment: FINIS HED DRINK AT 1231. Result Comment: PERF ORMED BY: [place] [address] PATHOLOGIST BLASTING G[employer] MINER KAM OWENS M.D. Performed By: #### G [id number], CBC #### [address] Urinalysis macro (dipstick) panel (U)on 04-19-2024 Bilirubin, UA Negative Negative - 4(70) +++ mg/dL [facility] Blood, UA Positive Negative - 50 Deric/mcL [facility] Comment on above: small Clarity, UA Clear [facility] Color, UA Yellow [facility] Glucose, UA Negative Negative - 1999(110) ++++ mg/dL [facility] Interpretation and review of laboratory results Abnormal [facility] Ketones, UA Negative Negative - 160(16) ++++ mg/dL [facility] Leukocytes, UA Positive Negative - 500+++ David/mcL [facility] Comment on above: small Nitrite, UA Negative Negative - Positive [facility] pH, UA 7 5 - 9 [facility] Protein, UA Negative Negative - 1999(20) ++++ mg/dL [facility] Spec Grav, UA 1.02 1 - 1.03 [facility] Urobilinogen, UA 0.2 0.2 - 12 mg/dL [facility] Urinalysis macro (dipstick) panel (U)on 03-21-2024 Bilirubin, UA Negative Negative - 4(70) +++ mg/dL [facility] Blood, UA Positive Negative - 50 Deric/mcL [facility] Comment on above: moderate Clarity, UA Clear [facility] Color, UA Yellow [facility] Glucose, UA Negative Negative - 1999(110) ++++ mg/dL [facility] Interpretation and review of laboratory results Abnormal [facility] Ketones, UA Negative Negative - 160(16) ++++ mg/dL [facility] Leukocytes, UA Negative Negative - 500+++ David/mcL [facility] Nitrite, UA Negative Negative - Positive [facility] pH, UA 5.5 5 - 9 [facility] Protein, UA Negative Negative - 1999(20) ++++ mg/dL [facility] Spec Grav, UA 1.03 1 - 1.03 [facility] Urobilinogen, UA 0.2 0.2 - 12 mg/dL [facility] Urinalysis macro (dipstick) panel (U)on 02-18-2024 Bilirubin, UA Negative Negative - 4(70) +++ mg/dL [facility] Blood, UA Positive Negative - 50 Deric/mcL [facility] Comment on above: moderate Clarity, UA Clear [facility] Color, UA Yellow [facility] Glucose, UA Negative Negative - 1999(110) ++++ mg/dL [facility] Interpretation and review of laboratory results Abnormal [facility] Ketones, UA Negative Negative - 160(16) ++++ mg/dL [facility] Leukocytes, UA Moderate Negative - 500+++ David/mcL [facility] Nitrite, UA Negative Negative - Positive [facility] pH, UA 5.5 5 - 9 [facility] Protein, UA Negative Negative - 2000(20) ++++ mg/dL [facility] Spec Grav, UA 1.020 1 - 1.03 [facility] Urobilinogen, UA 0.2 0.2 - 12 mg/dL [facility] No Panel InformationOrdered By: Joi Alvarez on 02-15-2024 Quick Strep (POC) [facility] BOX TEST SENT OUTon 01-07 BOX TEST SENT OUT [facility] Comment on above: See Scanned Report. [facility] No Panel Informationon 01-29 Reference Lab Order Code See comment [facility] Comment on above: See Scanned Report. A1C HEMOGLOBINon 01-01-2023 HbA1c (Bld) [Mass fraction] 4.9 % [facility] Other HbA1c (Bld) [Mass fraction]o n 01-01-2023 A1C HEMOGLOBIN [facility] [employer] Other T-Spoton 09-04-2022 T-Spot See Report Normal [facility] Comment on above: Performed By: #### 5 [id number], [id number], [id number] #### [facility] (DEFAULT) [address] [place] [address] HBSab Qnt LCon 01-02-2022 Hep B Surf Ab Quant LC >1000.0 Invalid Interpretation Code Immunity>9 .9 [facility] Comment on above: Result Comment: Stat us of Immunity Anti-HBs Level Inconsistent with Immunity 0.0 - 9.9 Consistent with Immunity >9.9 Performed At: [facility] [id number] Donnell Palacios PhD Ph:[phone] Performed By: #### 5 [id number], [id number], [id number] #### [facility] (DEFAULT) [address] [place] [address] Lab - Toxicology Resultson 0 01-02-2022 Lab - Toxicology Results [id number] Normal [facility] Measles/Mumps/Rubella Immuni ty LCon 01-02-2022 Mumps Abs, IgG LC <9.0 Low Immune >10.9 [facility] Comment on above: Result Comment: Nega tive <9.0 Equivocal 9.0 - 10.9 Positive >10.9 A positive result generally indicates past exposure to Mumps virus or previous vaccination. Performed At: [facility] [address] [id number] Donnell Palacios PhD Ph:[phone] Performed By: #### 5 [id number], [id number], [id number] #### [facility] (DEFAULT) [address] [place] [address] Rubella Antibodies, IgG LC 6.35 index Invalid Interpretation Code Immune >0.99 [facility] Comment on above: Result Comment: Non- immune <0.90 Equivocal 0.90 - 0.99 Immune >0.99 Performed By: #### 5 [id number], [id number], [id number] #### [facility] (DEFAULT) [address] [place] [address] Rubeola Ab, IgG, EIA LC 14.1 AU/mL Low Immune >16.4 [facility] Comment on above: Result Comment: A se cond sample should be collected and tested no less than 2-4 weeks. Negative <13.5 Equivocal 13.5 - 16.4 Positive >16.4 Presence of antibodies to Rubeola is presumptive evidence of immunity except when acute infection is suspected. Performed By: #### 5 [id number], [id number], [id number] #### [facility] (DEFAULT) [address] [place] [id number] Nicotine Metabolite, Urine L Con 01-02-2022 Cotinine LC Negative Invalid Interpretation Code [id number] [facility] Comment on above: Result Comment: Perf ormed At: [facility] [place] [address] [place], [place] [id number] Chilo Mckeon PhD Ph:[phone] Performed By: #### 1 [id number] #### [facility] (DEFAULT) [address] [place] [address] COVID Quick Testingon 2020 Result Negative [facility] Other Quick Strepon 03-23-2021 S. pyogenes Org specific cx Ql (Throat) Positive [employer] Other Quick Strep [employer] [facility] Other PAP ACOG PANEL 2: 21 to 29on 07-02-2017 Age Gdln ACOG Testing - Normal [facility] Comment on above: Performed By: #### 4 [id number] ####[facility] [address] Pat DIAGNOSIS: Comment Abnormal [facility] Comment on above: Result Comment: EPIT HELIAL CELL ABNORMALITY.ATYPICAL SQUAMOUS CELLS OF UNDETERMINED SIGNIFICANCE. Performed By: #### 4 [id number] ####[facility] [address] [place] [address] Pat Electronically signed by: Comment Normal [facility] Comment on above: Result Comment: Shade Price MD, Pathologist Performed By: #### 4 [id number] ####[facility] [address] Pat HPV Aptima Negative Normal Negative [facility] Comment on above: Result Comment: This test was developed and its performance characteristicsdetermined by [employer]. It has not been cleared or approvedby the Food and Drug Administration.This test detects fourteen high-risk HPV types (16/18/31/33/35/39/45/51/52/56/58/59/66/68) without differentiation. Performed By: #### 4 [id number] ####[facility] [address] Pat Methodology: Comment Normal [facility] Comment on above: Result Comment: This liquid based SurePath(R) pap test was screened with theassistance of an image guided system. Performed By: #### 4 [id number] ####[facility] C[address]ivsim[address] Pat Note: Comment Normal [facility] Comment on above: Result Comment: The Pap smear is a screening test designed to aid in the detection ofpremalignant and malignant conditions of the uterine cervix. It is not adiagnostic procedure and should not be used as the sole means of detectingcervical cancer. Both false-positive and false-negative reports do occur. . Performed By: #### 4 [id number] ####[facility] [address] Pat Performed by: Comment Normal [facility] Comment on above: Result Comment: Josefina Orr, Lab[employer] (ASCP) Performed By: #### 4 [id number] ####[facility] [address] Pat Protein mass conc Comment Normal [facility] Comment on above: Result Comment: [id number] Performed By: #### 4 [id number] ####[facility] [address] [place] [address] Pat Reflex Criteria: Comment Normal [facility] Comment on above: Result Comment: See below for HPV testing results. . Performed By: #### 4 [id number] ####[facility] [address] Pat Specimen adequacy: Comment Normal [facility] Comment on above: Result Comment: Sati sfactory for evaluation. Endocervical and/or squamous metaplasticcells (endocervical component) are present. Performed By: #### 4 [id number] ####[facility] Pt[address] Pat . . Normal [facility] Comment on above: Performed By: #### 4 [id number] ####[facility] [address] [place] [address] Pat Vital Signs Date Time Vital Sign Value Performing Clinician Facility 05-23-2024 11:56-0500 Body mass index (BMI) [Ratio] 38.33 kg/m2 Itzel Carlin DO Work Phone: [facility] 05-23-2024 11:56-0500 Body weight 112.67 kg Itzel Raegan DO Work Phone: [facility] 05-23-2024 11:56-0500 Diastolic blood pressure 84 mm[Hg] Itzel Raegan DO Work Phone: [facility] 05-23-2024 11:56-0500 Systolic blood pressure 112 mm[Hg] Itzel Raegan DO Work Phone: [facility] 05-04-2024 10:25-0500 Body mass index (BMI) [Ratio] 37.96 kg/m2 Itzel Raegan DO Work Phone: [facility] 05-04-2024 10:25-0500 Body weight 111.58 kg Itzel Raegan DO Work Phone: [facility] 05-04-2024 10:25-0500 Diastolic blood pressure 78 mm[Hg] Itzel Raegan DO Work Phone: [facility] 05-04-2024 10:25-0500 Systolic blood pressure 122 mm[Hg] Itzel Raegan DO Work Phone: [facility] 04-19-2024 11:26-0500 Body mass index (BMI) [Ratio] 37.34 kg/m2 Itzel Raegan DO Work Phone: [facility] 04-19-2024 11:26-0500 Body weight 109.77 kg Itzel Raegan DO Work Phone: [facility] 04-19-2024 11:26-0500 Diastolic blood pressure 82 mm[Hg] Itzel Raegan DO Work Phone: [facility] 04-19-2024 11:26-0500 Systolic blood pressure 120 mm[Hg] Itzel Raegan DO Work Phone: [facility] 03-21-2024 09:50-0400 Body mass index (BMI) [Ratio] 36.85 kg/m2 Mary CARBALLO Work Phone: [facility] 03-21-2024 09:50-0400 Body weight 108.32 kg Mary CARBALLO Work Phone: [facility] 03-21-2024 09:50-0400 Diastolic blood pressure 70 mm[Hg] Mary CARBALLO Work Phone: [facility] 03-21-2024 09:50-0400 Systolic blood pressure 120 mm[Hg] Mary CARBALLO Work Phone: [facility] 02-18-2024 10:09-0400 Body mass index (BMI) [Ratio] 35.77 kg/m2 Itzel Raegan DO Work Phone: [facility] 02-18-2024 10:09-0400 Body weight 105.14 kg Itzel Raegan DO Work Phone: [facility] 02-18-2024 10:09-0400 Diastolic blood pressure 80 mm[Hg] Itzel Raegan DO Work Phone: [facility] 02-18-2024 10:09-0400 Systolic blood pressure 120 mm[Hg] Itzel Raegan DO Work Phone: [facility] 02-15-2024 12:48-0400 Body height 172.72 cm [facility] 02-15-2024 12:48-0400 Body mass index (BMI) [Ratio] 34.9 kg/m2 [facility] 02-15-2024 12:48-0400 Body temperature 98.2 [degF] [facility] 02-15-2024 12:48-0400 Body weight 104.32 kg [facility] 02-15-2024 12:48-0400 Diastolic blood pressure 73 mm[Hg] [facility] 02-15-2024 12:48-0400 Heart rate 106 /min [facility] 02-15-2024 12:48-0400 SaO2% (BldA) [Mass fraction] 98 % [facility] 02-15-2024 12:48-0400 Systolic blood pressure 103 mm[Hg] [facility] 01-29-2023 14:15-0400 Body height 172.72 cm Zi Maier Other [employer] Other 01-29-2023 14:15-0400 Body mass index (BMI) [Ratio] 31.81 kg/m2 Zi Maier Other [employer] Other 01-29-2023 14:15-0400 Body weight 94.89 kg [employer] [employer] Other [employer] Other 01-29-2023 14:15-0400 Diastolic blood pressure 68 mm[Hg] [employer] Other [employer] Other 01-29-2023 14:15-0400 Respiratory rate 18 /min [employer] Other [employer] Other 01-29-2023 14:15-0400 SaO2% (BldA) [Mass fraction] 97 % [employer] Other [employer] Other 01-29-2023 14:15-0400 Systolic blood pressure 105 mm[Hg] [employer] Other [employer] Other 01-01-2023 10:00-0400 Body height 172.72 cm [employer] Other [employer] Other 01-01-2023 10:00-0400 Body mass index (BMI) [Ratio] 31.77 kg/m2 [employer] Other [employer] Other 01-01-2023 10:00-0400 Body weight 94.8 kg [employer] Other [employer] Other 01-01-2023 10:00-0400 Diastolic blood pressure 68 mm[Hg] Zi Maier Other [employer] Other 01-01-2023 10:00-0400 Respiratory rate 18 /min Zi Maier Other [employer] Other 01-01-2023 10:00-0400 SaO2% (BldA) [Mass fraction] 97 % Zi Maier Other [employer] Other 01-01-2023 10:00-0400 Systolic blood pressure 105 mm[Hg] Zi Maier Other [employer] Other 11-10-2022 17:40-0400 Body height 172.72 cm Dalton Asencio Other [employer] Other 11-10-2022 17:40-0400 Body mass index (BMI) [Ratio] 32.69 kg/m2 Dalton Asencio Other [employer] Other 11-10-2022 17:40-0400 Body weight 97.52 kg Dalton Asencio Other [employer] Other 11-10-2022 17:40-0400 Diastolic blood pressure 80 mm[Hg] Dalton Asencio Other [employer] Other 11-10-2022 17:40-0400 Systolic blood pressure 117 mm[Hg] Dalton Asencio Other [employer] Other 10-21-2022 09:14-0400 Body temperature 98.1 [degF] DO Dalton Asencio Work Phone: [facility] 10-21-2022 09:14-0400 Diastolic blood pressure 59 mm[Hg] DO Dalton Asencio Work Phone: [facility] 10-21-2022 09:14-0400 Heart rate 74 /min DO Dalton Asencio Work Phone: [facility] 10-21-2022 09:14-0400 Respiratory rate 18 /min DO Dalton Asencio Work Phone: [facility] 10-21-2022 09:14-0400 SaO2% (BldA) [Mass fraction] 98 % DO Dalton Asencio Work Phone: [facility] 10-21-2022 09:14-0400 Systolic blood pressure 120 mm[Hg] DO Dalton Asencio Work Phone: [facility] 10-21-2022 09:13-0400 Body height 175.26 cm DO Dalton Asencio Work Phone: [facility] 10-21-2022 09:13-0400 Body weight 97.1 kg DO Dalton Asencio Work Phone: [facility] 03-04-2022 15:40-0400 Body height 172.72 cm Dalton Asencio Other [employer] [facility] Other 05-09-2021 10:30-0500 Body height 172.72 cm Dalton Garygarrick Other [facility] Other 05-09-2021 10:30-0500 Body mass index (BMI) [Ratio] 34.66 kg/m2 Dalton Asencio Other [employer] Other 05-09-2021 10:30-0500 Body temperature 97.7 [degF] Dalton Asencio Other [employer] Other 05-09-2021 10:30-0500 Body weight 103.42 kg Dalton Asencio Other [employer] Other 05-09-2021 10:30-0500 Diastolic blood pressure 72 mm[Hg] Dalton Asencio Other [employer] Other 05-09-2021 10:30-0500 Respiratory rate 18 /min Dalton Asencio Other [employer] Other 05-09-2021 10:30-0500 SaO2% (BldA) [Mass fraction] 98 % Dalton Asencio Other [employer] Other 05-09-2021 10:30-0500 Systolic blood pressure 108 mm[Hg] Dalton Asencio Other [employer] Other 03-23-2021 11:00-0400 Body height 172.72 cm Johnny Lyn Other [employer] Other 03-23-2021 11:00-0400 Body mass index (BMI) [Ratio] 33.6 kg/m2 Johnny Lyn Other [employer] Other 03-23-2021 11:00-0400 Body temperature 98.5 [degF] Johnny Lyn Other [employer] Other 03-23-2021 11:00-0400 Body weight 100.25 kg Johnny Lyn Other [employer] Other 03-23-2021 11:00-0400 Diastolic blood pressure 68 mm[Hg] Johnny Lyn Other [employer] Other 03-23-2021 11:00-0400 Respiratory rate 18 /min Johnny Lyn Other [employer] Other 03-23-2021 11:00-0400 SaO2% (BldA) [Mass fraction] 97 % Johnny Lyn Other [employer] Other 03-23-2021 11:00-0400 Systolic blood pressure 105 mm[Hg] Johnny Lyn Other [employer] Other Encounters Encounter Date Encounter Type Care Provider Facility Start: 05-23-2024 End: 05-23-2024 Bamboo flowsheet Itzel Raegan DO Work Phone: [facility] Start: 05-23-2024 End: 05-23-2024 Bamboo flowsheet Itzel Raegan DO Work Phone: [facility] Start: 05-23-2024 End: 05-23-2024 ambulatory ITZEL RAEGAN Not Available Start: 05-23-2024 End: 05-23-2024 flow sheet Itzel Raegan DO Work Phone: [facility] Comment on above: 32 weeks gestation o f ; Third trimester ; Hypertension affecting , antepartum Start: 05-03-2024 End: 05-03-2024 flow sheet Itzel Raegan DO Work Phone: [facility] Comment on above: 29 weeks gestation o f ; Third trimester ; Heartburn during in third trimester; Gastroesophageal reflux in Start: 05-02-2024 End: 05-02-2024 ambulatory Dalton Asencio Facility:[facility] Start: 04-19-2024 End: 04-19-2024 Bamboo flowsheet Itzel Raegan DO Work Phone: [facility] Start: 04-19-2024 End: 04-19-2024 Bamboo flowsheet Itzel Raegan DO Work Phone: [facility] Start: 04-19-2024 End: 04-19-2024 flow sheet Itzel Raegan DO Work Phone: [facility] Comment on above: 27 weeks gestation o f ; Second trimester ; Hypertension affecting , antepartum Start: 04-19-2024 End: 04-19-2024 ambulatory ITZEL RAEGAN Not Available Start: 03-21-2024 End: 03-21-2024 Bamboo flowsheet Mary CARBALLO Work Phone: [facility] Start: 03-21-2024 End: 03-21-2024 Bamboo flowsheet Mary CARBALLO Work Phone: [facility] Start: 03-21-2024 End: 03-21-2024 flow sheet Mary CARBALLO Work Phone: [facility] Comment on above: 23 weeks gestation o f ; Second trimester ; Diabetes mellitus screening; Hypertension affecting , antepartum Start: 03-21-2024 End: 03-21-2024 ambulatory MARY YOUNG Not Available Start: 02-18-2024 End: 02-18-2024 Bamboo flowsheet Itzel Raegan DO Work Phone: [facility] Start: 02-18-2024 End: 02-18-2024 Bamboo flowsheet Itzel Raegan DO Work Phone: [facility] Start: 02-18-2024 End: 02-18-2024 flow sheet Itzel Raegan DO Work Phone: [facility] Comment on above: 18 weeks gestation o f ; Screening, , for anatomic survey; Exposure to STD; Vaginal discharge Start: 02-18-2024 End: 02-18-2024 ambulatory ITZEL RAEGAN Not Available Start: 02-15-2024 End: 02-15-2024 ambulatory [facility] Work Phone: Start: 02-15-2024 End: 02-15-2024 Patient encounter procedure [facility] [place] Work Phone: Start: 01-30-2024 End: 02-02-2024 Clinisync Result Encounter Itzel Raegan DO Work Phone: [facility] External Department Unsolicited Start: 01-30-2024 End: 02-02-2024 Clinisync Result Encounter Itzel Raegan DO Work Phone: [facility] External Department Unsolicited Start: 01-30-2024 Non-patient / Non-visit [facility] Work Phone: Start: 01-28-2024 End: 01-28-2024 Bamboo flowsheet Itzel Raegan DO Work Phone: [facility] Start: 01-28-2024 End: 01-28-2024 Bamboo flowsheet Itzel Raegan DO Work Phone: [facility] Start: 01-28-2024 End: 01-28-2024 ambulatory ITZEL RAEGAN Not Available Start: 01-21-2024 End: 01-21-2024 ambulatory ITZEL RAEGAN Not Available Start: 12-18-2023 End: 12-18-2023 ambulatory ALAYNA RINKES Not Available Start: 10-07-2023 End: 10-07-2023 ambulatory ALAYNA E RINKES Not Available Start: 01-29-2023 End: 01-29-2023 ambulatory Zi Maier Other [facility] Other Start: 01-29-2023 Follow-up encounter Zi Maier [facility] Start: 01-13-2023 End: 01-13-2023 ambulatory Dalton Asencio Other [place] Other Start: 01-13-2023 Telephone encounter Dalton Asencio [facility] Start: 01-01-2023 End: 01-01-2023 ambulatory Zi Maier Other [facility] Other Start: 01-01-2023 Nutrition therapy Zi Maier [facility] Start: 11-10-2022 End: 11-10-2022 ambulatory Dalton Asencio Other [facility] Other Start: 11-10-2022 Telephone encounter Dalton Asencio [facility] Start: 10-21-2022 End: 10-21-2022 Emergency department patient visit DO Dalton Asencio Work Phone: [facility] Work Phone: Start: 07-28-2022 End: 07-28-2022 ambulatory Dalton Abdirahmangarrick Other [employer] Other Start: 07-28-2022 Telephone encounter Dalton Asencio [facility] [place] Start: 07-25-2022 End: 07-25-2022 ambulatory Dalton Asencio Other [employer] Other Start: 07-25-2022 Telephone encounter Dalton Asencio [facility] [place] Start: 04-09-2022 End: 04-09-2022 ambulatory Dalton Asencio Other [employer] Other Start: 04-09-2022 Telephone encounter Dalton Asencio [facility] [place] Start: 03-20-2022 End: 03-20-2022 ambulatory Lelia Macias Other [employer] Other Start: 03-20-2022 Telephone encounter Lelia Macias [facility] Start: 03-04-2022 End: 03-04-2022 ambulatory Dalton Asencio Other [employer] Other Start: 03-04-2022 Telephone encounter Dalton Asencio [facility] [place] Start: 02-06-2022 End: 02-06-2022 ambulatory Dalton Asencio Other [employer] Other Start: 02-06-2022 Telephone encounter Dalton Asencio [facility] [place] Start: 01-02-2022 End: 01-02-2022 ambulatory None Provider Facility:[facility] Start: 09-18-2021 End: 09-18-2021 ambulatory Dalton Asencio Other [employer] Other Start: 09-18-2021 Telephone encounter Dalton Asencio [facility] [place] Start: 07-25-2021 End: 07-25-2021 ambulatory Dalton Asencio Other [employer] Other Start: 07-25-2021 Telephone encounter Dalton Asencio [facility] [place] Start: 07-15-2021 End: 07-15-2021 ambulatory Dalton Asencio Other [employer] Other Start: 07-15-2021 Telephone encounter Dalton Asencio [facility] [place] Start: 05-09-2021 End: 05-09-2021 ambulatory Dalton Asencio Other [employer] Other Start: 05-09-2021 Office outpatient vi sit 15 minutes Dalton Asencio [facility] [place] Start: 04-22-2021 End: 04-22-2021 ambulatory Dalton Asencio Other [employer] Other Start: 04-22-2021 Telephone encounter Dalton Asencio [facility] [place] Start: 03-23-2021 Office outpatient vi sit 15 minutes Johnny Lyn [facility] Urgent Care [facility] Start: 03-12-2018 End: 03-12-2018 Patient encounter DALTON GARYGARRICK Facility: Start: 06-23-2017 End: 06-23-2017 Patient encounter ITZEL CARLIN Facility: Start: 04-30-2017 End: 04-30-2017 Patient encounter DALTON ASENCIO Facility:[facility]1 Procedures Date Procedure Procedure Detail Performing Clinician Start: 05-23-2024 Urnls dip stick/tabl et rgnt non-auto w/o micrscp Itzel Raegan DO Work Phone: Start: 05-03-2024 Urnls dip stick/tabl et rgnt non-auto w/o micrscp Itzel Raegan DO Work Phone: Start: 04-19-2024 Urnls dip stick/tabl et rgnt non-auto w/o micrscp Itzel Raegan DO Work Phone: Start: 03-21-2024 Urnls dip stick/tabl et rgnt non-auto w/o micrscp Mary Young PA Work Phone: Start: 02-18-2024 Urnls dip stick/tabl et rgnt non-auto w/o micrscp Itzel Carlin DO Work Phone: Start: 02-15-2024 Quick Strep (POC) Start: 01-30-2024 [facility] BOX TEST SENT OUT Elvira Conklinzio DO Work Phone: Plan of Treatment Date Care Activity Detail Author Start: 10-06-2028 Screening for malign ant neoplasm of cervix [facility] Start: 10-27-2024 End: 10-27-2024 Patient encounter procedure 10/27/2024 10:00 AM EDT Office Visit [facility] [address] [place] [phone] Alayna Hassan DO [address] [place] [address] [facility] Start: 06-13-2024 End: 06-13-2024 Patient encounter procedure 06/13/2024 10:30 AM EST Routine [facility] [address] [place] [phone] Itzel Carlin, DO [address] [place] [address] [facility] Start: 05-23-2024 End: 05-23-2025 US biophysical profile w non stress test US biophysical profile w non stress test Imaging Routine Hypertension affecting , antepartum Expected: 05/23/2024 (Approximate), Expires: 05/23/2025 [facility] Work Phone: Comment on above: Expected: 05/23/2024 (Approximate), Expires: 05/23/2025 Start: 05-03-2024 End: 05-03-2024 Patient encounter procedure 05/03/2024 9:00 AM EST Routine [facility] [address] [place] [phone] Itzel Carlin, DO [address] [place] [address] [facility] Start: 04-19-2024 End: 04-19-2025 US for US OB SCAN FOR GROWTH Imaging Routine Hypertension affecting , antepartum Expected: 04/19/2024 (Approximate), Expires: 04/19/2025 [facility] Work Phone: Comment on above: Expected: 04/19/2024 (Approximate), Expires: 04/19/2025 Start: 04-18-2024 End: 04-18-2024 Patient encounter procedure 04/18/2024 10:40 AM EST Routine [facility] [address] [place] [phone] Itzel Carlin, DO [address] [place] [address] [facility] Start: 03-28-2024 End: 03-28-2024 Professional / ancillary services management 03/28/2024 9:30 AM EDT Ancillary Procedure [facility] [address] [place] [place] [phone] [facility] Start: 03-21-2024 End: 03-21-2025 CBC panel - Blood by Automated count CBC Lab Routine Diabetes mellitus screening Expected: 03/21/2024 (Approximate), Expires: 03/21/2025 [facility] Work Phone: Comment on above: Expected: 03/21/2024 (Approximate), Expires: 03/21/2025 Start: 03-21-2024 End: 03-21-2025 Measurement of glucose 1 hour after glucose challenge for glucose tolerance test Glucose tolerance, 1 hour Lab Routine Diabetes mellitus screening Expected: 03/21/2024 (Approximate), Expires: 03/21/2025 [facility] Comment on above: Expected: 03/21/2024 (Approximate), Expires: 03/21/2025 Start: 03-21-2024 End: 03-21-2024 Patient encounter procedure [facility] Comment on above: Arrived Start: 02-29-2024 End: 02-29-2024 Professional / ancillary services management 02/29/2024 11:00 AM EDT Ancillary Procedure [facility] [address] [phone] [facility] Start: 02-18-2024 End: 04-19-2024 Alpha fetoprotein, maternal Alpha fetoprotein, maternal Lab Routine 18 weeks gestation of Expected: 02/18/2024 (Approximate), Expires: 04/19/2024 [facility] Comment on above: Expected: 02/18/2024 (Approximate), Expires: 04/19/2024 Start: 02-18-2024 End: 02-17-2025 US for US OB ANATOMY SINGLE W US OB CERVICAL LENGTH Imaging Routine Screening, , for anatomic survey Expected: 02/18/2024 (Approximate), Expires: 02/17/2025 [facility] Comment on above: Expected: 02/18/2024 (Approximate), Expires: 02/17/2025 Start: 02-18-2024 End: 02-18-2024 Patient encounter procedure [facility] Comment on above: Arrived Start: 02-07-2024 Influenza vaccination Influenza Vacc ine (#1) [facility] Start: 01-28-2024 End: 01-28-2024 Patient encounter procedure 01/28/2024 8:40 AM EDT Office Visit [facility] [address] [phone] Itzel Carlin DO [address] [place] [address] Arrived [facility] Comment on above: Arrived Start: 2015 Screening for malign ant neoplasm of cervix Pap Smear [facility] CHLAMYDIA TRACHOMATI S (GENITO/STI) CHLAMYDIA TRACHOMATIS (GENITO/STI) Lab Routine Exposure to STD Ordered: 02/18/2024 [facility] Comment on above: Ordered: 02/18/2024 Neisseria gonorrhoea e DNA [Presence] in Unspecified specimen by SAKSHI with probe detection Neisseria gonorrhea DNA probe, direct Lab Routine Exposure to STD Ordered: 02/18/2024 [facility] Comment on above: Ordered: 02/18/2024 Patient Education Minor Head Injury (DC) [facility] Work Phone: Patient referral [facility] Work Phone: SURESWAB(R) ADVANCED VAGINITIS PLUS, TMA SURESWAB(R) ADVANCED VAGINITIS PLUS, TMA Pathology and Cytology Routine Vaginal discharge Ordered: 02/18/2024 [facility] Work Phone: Comment on above: Ordered: 02/18/2024 Immunizations Immunization Date Immunization Notes Care Provider Rubin roberto 05-27-2023 influenza virus vaccine, unspecified formulation Itzel Raegan DO Work Phone: [facility] 03-24-2022 influenza, seasonal, injectable Dalton Asencio Other [facility] 05-06-2021 measles, mumps and rubella virus vaccine Dalton Asencio Other [facility] 04-03-2021 COVID-19 Vaccine Moderna - Documentation Purposes Only Dalton Asencio Other [facility] 03-04-2021 influenza, seasonal, injectable Dalton Asencio Other [facility] 07-12-2020 COVID-19 Vaccine Moderna - Documentation Purposes Only Johnny Lyn Other [facility] 06-14-2020 COVID-19 Vaccine Moderna - Documentation Purposes Only Johnny Lyn Other [facility] 03-12-2020 influenza, seasonal, injectable Johnny Lyn Other [facility] 05-09-2019 tetanus toxoid, redu elizabeth diphtheria toxoid, and acellular pertussis vaccine, adsorbed Dalton Asencio Other [facility] 06-24-2013 Toradol per 15 mg [employer] [employer] Other [employer] Other Payers Date Payer Category Payer Self-pay [id number] 2023 Unknown [employer] [id number] 2023-Present [address] [place] [address] [id number] 2023 Unknown [id number] 2019 Medicaid [facility] [employer] [place] [id number] 2019-Present [address] [place] [address] [id number] 2019 Private Health Insurance [id number] 2019 Medicaid [id number] 1994 Unknown [id number] [id number]. 593 1994 Unknown [id number] [id number]. 593 1994 Unknown [id number] [id number]. 593 1994 Unknown [id number] [id number]. 1259 1994 Unknown [id number] [id number]. 1259 1994 Unknown [id number] [id number]. 1259 1994 Unknown [id number] [id number]. 1259 1994 Unknown [id number] [id number]. 9 1994 Unknown [id number] 2.16.840.1.523144.3.579.2. 9 1994 Unknown [id number] 2.16.840.1.261427.3.579.2. 9 1994 Unknown [id number] [id number]. 1259 1959 Unknown [id number] 1959 Unknown [id number] 1959 Unknown [id number] Unknown [id number] 531 Social History Date Type Detail Facility Unknown if ever smoked [facility] Other Start: 02-03-2023 End: 10-07-2023 Sex Assigned At [facility] Other Start: 10-21-2022 Tobacco smoking status [facility] Smoker (finding) [facility] Start: 1995 Sex Assigned At Female [facility] Start: 01-03-2023 Tobacco smoking status [facility] Never smoked tobacco [facility] Start: 01-03-2023 Tobacco use and exposure Smokeless tobacco non-user [facility] Start: 01-28-2024 End: 02-18-2024 Alcoholic beverage intake Lifetime non-drinker (finding) [facility] Start: 02-03-2023 End: 10-07-2023 History of Social function [facility] Start: 02-03-2023 Alcohol Comment Caffeine intak e: 1-2 cups per day [facility] Start: 10-23-2023 [facility] Start: 1995 Sex assigned at Not on file [facility] NEGATED: Highlighted rowStart: NINF History of tobacco use Passive smoker [facility] Medical Equipment Procedure Code Equipment Code Equipment Origin al Text Equipment Identifier Dates NovoFine Plus Pe n Needle 32G X 4 MM Start: 01-01-2023 Clinical Notes 08-30-2012 to 05-23-2024 Pat Moore, MELVI - 05/23/2024 10:50 AM Iris Moore, VENEER JOINTER OPERATOR - 05/03/2024 9:00 AM Iris Moore, VENEER JOINTER OPERATOR - 04/19/2024 11:00 AM KAIT Camp - 03/21/2024 9:30 AM EDT Note Date & Type Note Facility 05-23-2024 History of Presen t illness Narrative Reason for Appointment: Patient ID: Pepper Bentley is a 29 y.o. female who presents for No chief complaint on file. Patient presents today for Return OB appointment. MEDICATIONS Current Outpatient Medications Medication Instructions aspirin 81 mg, Daily labetalol (NORMODYNE) 100 mg, Once magnesium oxide (MAG-OX) 400 mg, Oral, Daily omeprazole (PRILOSEC) 20 mg, Oral, Daily before breakfast, Do not crush or chew. Vit-Fe Fumarate-FA ( Vitamins) 28-0.8 MG tablet 1 tablet, Oral, Daily promethazine (PHENERGAN) 12.5 mg, Oral, Every 6 hours PRN, Take 1 tablet by mouth every 6 hours as needed for nausea. ALLERGIES Allergies Allergen Reactions Sulfamethoxazole-Trimethoprim Rash PROBLEMS Active Ambulatory Problems Diagnosis Date Noted Hematuria 01/21/2024 Nonintractable headache 01/21/2024 14 weeks gestation of 01/21/2024 32 weeks gestation of 05/23/2024 Third trimester 05/23/2024 Hypertension affecting , antepartum 05/23/2024 Resolved Ambulatory Problems Diagnosis Date Noted No [...] Exam Constitutional: Appearance: Normal appearance. She is well-developed. Cardiovascular: Rate and Rhythm: Normal rate and regular rhythm. Pulmonary: Effort: Pulmonary effort is normal. Breath sounds: Normal breath sounds. Abdominal: General: Bowel sounds are normal. There is no distension. Palpations: Abdomen is soft. Tenderness: There is no abdominal tenderness. There is no guarding or rebound. Musculoskeletal: General: No swelling. Normal range of motion. Right lower leg: No edema. Left lower leg: No edema. Neurological: Mental Status: She is alert and oriented to person, place, and time. Skin: General: Skin is warm and dry. Psychiatric: Mood and Affect: Mood normal. Behavior: Behavior normal. Vitals and nursing note reviewed. Exam conducted with a commercial real estate sales manager present. Vitals: Estimated body mass index is 37.96 kg/m as calculated from the following: Height as of 10/07/23: 5' 7.5 . Weight as of 05/04/24: 246 lb. BP: Patient's last menstrual period was 10/15/2023. ASSESSMENT & PLAN ICD-10-CM 1. 32 weeks gestation of Z3A.32 POCT urinalysis dipstick manually resulted 2. Third trimester Z34.93 POCT urinalysis dipstick manually resulted 3. Hypertension affecting , antepartum O16.9 US biophysical profile w non stress test POCT urinalysis dipstick manually resulted Return OB: Patient presents today for a routine obstetrics appointment. Patient is currently 32w3d . Patient states she is doing well but has complaints of being tired due to current . Patient has verbalizes frequent movement. labor precautions was discussed/given and patient was instructed to perform kick counts three times a day. Orders Placed This Encounter Procedures US biophysical profile w non stress test POCT urinalysis dipstick manually resulted Follow Up: Patient is to return to office in 2 week for routine OB appointment. Documented by Pat Moore LPN on behalf of: Itzel Carlin DO documented in this encounter [facility] 05-03-2024 History of Presen t illness Narrative Reason for Appointment: Patient ID: Pepper Bentley is a 29 y.o. female who presents for No chief complaint on file. Patient presents today for Return OB appointment. MEDICATIONS Current Outpatient Medications Medication Instructions aspirin 81 mg, Daily labetalol (NORMODYNE) 100 mg, Once magnesium [...] Exam Constitutional: Appearance: Normal appearance. She is well-developed. Cardiovascular: Rate and Rhythm: Normal rate and regular rhythm. Pulmonary: Effort: Pulmonary effort is normal. Breath sounds: Normal breath sounds. Abdominal: General: Bowel sounds are normal. There is no distension. Palpations: Abdomen is soft. Tenderness: There is no abdominal tenderness. There is no guarding or rebound. Musculoskeletal: General: No swelling. Normal range of motion. Right lower leg: No edema. Left lower leg: No edema. Neurological: Mental Status: She is alert and oriented to person, place, and time. Skin: General: Skin is warm and dry. Psychiatric: Mood and Affect: Mood normal. Behavior: Behavior normal. Vitals and nursing note reviewed. Exam conducted with a commercial real estate sales manager present. Vitals: Estimated body mass index is 37.34 kg/m as calculated from the following: Height as of 10/07/23: 5' 7.5 . Weight as of 04/19/24: 242 lb. BP: Patient's last menstrual period was 10/15/2023. ASSESSMENT & PLAN ICD-10-CM 1. 29 weeks gestation of Z3A.29 2. Third trimester Z34.93 3. Heartburn during in third trimester O26.893 R12 Return OB: Patient presents today for a routine obstetrics appointment. Patient is currently 29w5d . Patient states she is doing well but has complaints of being tired due to current . Patient has verbalizes frequent movement. labor precautions was discussed/given and patient was instructed to perform kick counts three times a day. Pt having heartburn- rx for omeprazole faxed to pharmacy. No orders of the defined types were placed in this encounter. Follow Up: Patient is to return to office in 2 week for routine OB appointment. Documented by Pat Moore LPN on behalf of: Itzel Carlin DO documented in this encounter [facility] 04-19-2024 History of Presen t illness Narrative Reason for Appointment: Patient ID: Pepper Bentley is a 29 y.o. female who presents for No chief complaint on file. Patient presents today for Return OB appointment. MEDICATIONS Current Outpatient Medications Medication Instructions aspirin 81 mg, Daily labetalol (NORMODYNE) 100 mg, Once magnesium [...] Exam Constitutional: Appearance: Normal appearance. She is well-developed. Cardiovascular: Rate and Rhythm: Normal rate and regular rhythm. Pulmonary: Effort: Pulmonary effort is normal. Breath sounds: Normal breath sounds. Abdominal: General: Bowel sounds are normal. There is no distension. Palpations: Abdomen is soft. Tenderness: There is no abdominal tenderness. There is no guarding or rebound. Musculoskeletal: General: No swelling. Normal range of motion. Right lower leg: No edema. Left lower leg: No edema. Neurological: Mental Status: She is alert and oriented to person, place, and time. Skin: General: Skin is warm and dry. Psychiatric: Mood and Affect: Mood normal. Behavior: Behavior normal. Vitals and nursing note reviewed. Exam conducted with a commercial real estate sales manager present. Vitals: Estimated body mass index is 37.34 kg/m as calculated from the following: Height as of 10/07/23: 5' 7.5 . Weight as of this encounter: 242 lb. BP: 120/82 Patient's last menstrual period was 10/15/2023. ASSESSMENT & PLAN ICD-10-CM 1. 27 weeks gestation of Z3A.27 POCT urinalysis dipstick manually resulted 2. Second trimester Z34.92 POCT urinalysis dipstick manually resulted 3. Hypertension affecting , antepartum O16.9 US OB SCAN FOR GROWTH Return OB: Patient presents today for a routine obstetrics appointment. Patient is currently 27w4d . Patient states she is doing well but has complaints of being tired due to current . Patient has verbalizes frequent movement. labor precautions was discussed/given and patient was instructed to perform kick counts three times a day. Orders Placed This Encounter Procedures US OB SCAN FOR GROWTH POCT urinalysis dipstick manually resulted Follow Up: Patient is to return to office in 2 week for routine OB appointment. Documented by Pat Moore LPN on behalf of: Itzel Carlin DO documented in this encounter [facility] 03-21-2024 History of Presen t illness Narrative [...] nursing note reviewed. Exam conducted with a commercial real estate sales manager present. Vitals: Estimated body mass index [...] of: KAIT Head documented in this encounter [facility] 02-18-2024 History of Presen t illness Narrative Reason for Appointment: Patient ID: Pepper Bentley is a 28 y.o. female who presents for Routine Visit Patient presents today for Return OB appointment. MEDICATIONS Current Outpatient Medications Medication Instructions labetalol (NORMODYNE) 100 mg, Oral, 2 times daily magnesium oxide (MAG-OX) 400 mg, Oral, Daily promethazine (PHENERGAN) 12.5 mg, Oral, [...] SYSTEMS Review of Systems: Review of Systems All other systems reviewed and are negative. OBJECTIVE Objective: Physical Exam Constitutional: Appearance: Normal appearance. She is well-developed. Genitourinary: Vulva normal. Cardiovascular: Rate and Rhythm: Normal rate and regular rhythm. Pulmonary: Effort: Pulmonary effort is normal. Breath sounds: Normal breath sounds. Abdominal: General: Bowel sounds are normal. There is no distension. Palpations: Abdomen is soft. Tenderness: There is no abdominal tenderness. There is no guarding or rebound. Musculoskeletal: General: No swelling. Normal range of motion. Right lower leg: No edema. Left lower leg: No edema. Neurological: Mental Status: She is alert and oriented to person, place, and time. Skin: General: Skin is warm and dry. Psychiatric: Mood and Affect: Mood normal. Behavior: Behavior normal. Vitals and nursing note reviewed. Exam conducted with a commercial real estate sales manager present. Vitals: Estimated body mass index is 35.77 kg/m as calculated from the following: Height as of 10/07/23: 5' 7.5 . Weight as of this encounter: 231 lb 12.8 oz. BP: 120/80 Patient's last menstrual period was 10/15/2023. ASSESSMENT & PLAN ICD-10-CM 1. 18 weeks gestation of Z3A.18 POCT urinalysis dipstick manually resulted Alpha fetoprotein, maternal Alpha fetoprotein, maternal 2. Screening, , for anatomic survey Z36.89 US OB ANATOMY SINGLE W US OB CERVICAL LENGTH 3. Exposure to STD Z20.2 CHLAMYDIA TRACHOMATIS (GENITO/STI) Neisseria gonorrhea DNA probe, direct 4. Vaginal discharge N89.8 SURESWAB(R) ADVANCED VAGINITIS PLUS, TMA Patient presents today for a routine obstetrics appointment. Patient is currently 18w6d with a Estimated Date of Delivery: 07/15/24. Obtained patients vaginal cultures today and patient will decrease Labetalol once daily as BP is currently controlled with medication. IOL due to induced HTN will be setup for 06/24/23. Patient to return to clinic in 4 weeks for routine OB appointment. Discussed 37-38 weeks IOL is recommended due to blood pressure and explained reasoning to patient and spouse. Documented by Divine Britton LPN on behalf of: Itzel Carlin DO documented in this encounter [facility] 01-29-2023 Evaluation note Encounter Date Diagnosis Assessment [...] loss response -Patient reports Wellbutrin made her jltxc-Nmmde-mk-car e A1c December 2022 4.9%-Follow up in clinic in 6 weeksThis note was created with voice recognition software. Please excuse errors in tectonophysicist. Jan, Dietary surveillance and counseling (ICD-10 - [...] with the patient, and documenting clinical information. [facility] Other 08-08-2023 Evaluation note* Encounter Date Diagnosis Assessment Notes Treatment Notes Treatment Clinical Notes Jan, Glucosuria (ICD-10 - R81) Jan, Cystitis (ICD-10 - N30.90) Jan, Other retirement (current) drug therapy (ICD-10 - Z79.899) [facility] Other 07-27-2023 Evaluation note* Encounter Date Diagnosis [...] -Alternative options may include combination Wellbutrin and zsjbkjjkyw-Rujpn-wy-ca re A1c today 4.9-Follow up in clinic in 4 weeksThis note was created with voice recognition software. Please excuse errors in tectonophysicist. Dec, Dietary surveillance and counseling (ICD-10 - [...] - R63.8) Dec, Screening (ICD-10 - Z13.9) [facility] Other 06-05-2023 Evaluation note* Encounter Date Diagnosis Assessment Notes Treatment Notes Treatment Clinical Notes Nov, Anxiety (ICD-10 - F41.9) She is seeing a psychiatrist every five weeks and she thinks that she has ADHD but has not started any medication for this. She follows with a psychiatrist through [facility]. She is no longer on the Venlafaxine and is not on any medication for her mood. She uses the Xanax only as needed. She struggles with anxiety and focusing in school as far as the ADHD so is unsure if she needs any medication. Right now she feels better than she ever has without any medicine. 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 Nov, [...] afford to pay for the injectable medication [id number]. I discussed her seeing Dr. Reyes for [...] Nov, Other 6:05 PM - 6:18 PM [facility] Other 02-20-2023 Evaluation note* Encounter Date Diagnosis [...] Jul, Other 2:25 PM - 2:33 PM [facility] Other 11-02-2022 Evaluation note* Encounter Date Diagnosis [...] that she recently drove down to the [facility] and sat and thought about checking herself into the [facility] but contemplated if she would be [...] her with a ohine number for [facility] who has psychiatry services. 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 and due [...] Feb, Other 2:50 PM - 3:02 PM [facility] Other 09-01-2022 Evaluation note* Encounter Date Diagnosis Assessment Notes Treatment Notes Treatment Clinical Notes Feb, Anxiety (ICD-10 - F41.9) [facility] Other 02-17-2022 Evaluation note* Encounter Date Diagnosis Assessment Notes Treatment Notes Treatment Clinical Notes Jul, Depression (ICD-10 - F32.9) [facility] Other 02-07-2022 Evaluation note* Encounter Date Diagnosis [...] Jul, Other 4:29 PM - 4:38 PM [facility] Other 02-07-2022 Evaluation note* Encounter Date Diagnosis Assessment Notes Treatment Notes Treatment Clinical Notes Jul, Anxiety (ICD-10 - F41.9) [facility] Other 12-02-2021 Evaluation note* Encounter Date Diagnosis [...] starting school in June, she is attending [employer] school. An OARRS report was reviewed, [...] on the medication. Do not take Ecstasy. [facility] Other 10-16-2021 Evaluation note* Encounter Date Diagnosis [...] (ICD-10 - Z20.828) covid neg, see above. [facility] Other 03-25-2013 History general Narrative - Reported* Type Description Date Medical History immunizations up to date Medical History Right Wrist fracture Medical History Left ankle fracture Hospitalization History childbirth; [facility] 08-30-12 Hospitalization History childbirth - [place] 0 11/20/14 Hospitalization History childbirth 05/09/20 19 [facility] Other Evaluation noteNo InformationNort [facility] Other Evaluation noteNo assessment information available [facility] Work Phone: Evaluation note* Diagnosis 23 weeks gestation of Second trimester state, incidental Diabetes mellitus screening Screening for diabetes mellitus Hypertension affecting , antepartum [facility] Diagnosis 27 weeks gestation of Second trimester state, incidental Hypertension affecting , antepartum documented in this encounter [facility]* Diagnosis 29 weeks gestation of Third trimester state, incidental Heartburn during in third trimester Gastroesophageal reflux in [facility] Diagnosis 18 weeks gestation of Screening, , for anatomic survey Encounter for anatomic survey Exposure to STD Vaginal discharge Leukorrhea, not specified as infective documented in this encounter [facility]* Diagnosis 32 weeks gestation of Third trimester state, incidental Hypertension affecting , antepartum [facility] Narrative - [place] [facility] Other History general Narrative - Reported* Type Description Date Medical History immunizations up to date Medical History Right Wrist fracture Medical History Left ankle fracture Medical History Anxiety Medical History Depression Surgical History [place] teeth extraction Hospitalization History childbirth; [facility] 08-30-12 Hospitalization History childbirth - [place] 0 11/20/14 Hospitalization History childbirth 05/09/20 19 [facility] Other Summary Purpose Family History Relationship Condition Age at Onset Recorded Date/T jozef father Family history of mental disorder Unknown grandparent Heart disease Unknown grandparent Unknown [place] [employer]' pneumoconiosis Unknown Hypertension Unknown Not Specified Family history of mental disorder Unknow n Relationship Condition Age at Onset Recorded Date/T jozef father Family history of mental disorder Unknown grandparent Heart disease Unknown grandparent Unknown [place] [employer]' pneumoconiosis Unknown Hypertension Unknown mother Family history of mental disorder Unknown Advance Directives Advance Directive Response Recorded Date/ Time Advance Directives No May 14, 2017 3:17pm Chief Complaint and Reason for Visit Chief Complaint head injury Chief Complaint sore throat, headach e Additional Source Comments INFORMATION SOURCE (unrecogn ized section and content) DATE CREATED AUTHOR 04/09/2018 [facility] [facility] DATE CREATED AUTHOR AUTHOR'S ORGANIZ ATION 09/09/2022 [facility] DATE CREATED AUTHOR AUTHOR'S ORGANIZ ATION 05/04/2024 [facility] DATE CREATED AUTHOR AUTHOR'S ORGANIZ ATION 05/25/2024 [facility] EPIC REASON FOR VISIT (unrecogniz [...] Status: Inactive Member Role Status Dates Dalton Asencio DO Primary Care Provider Active S tart: February 15, 2024 End: February 15, 2024 Joi Alvarez APRN Attending Provider Active Sta rt: February 15, 2024 End: February 15, 2024 Team Status: Inactive Member Role Status Dates Dalton Asencio DO Primary Care Provider Active Bud Flaherty APRN Emergency Provider Active Sales Floor Team Leader Relationship Specialty Start Date End Date Dalton Asencio MD [address] [place] [address] PCP - General Family Medicine 01/03/23 Sales Floor Team Leader Relationship Specialty Start Date End Date Dalton Asencio MD [address] [place] [address] PCP - General Family Medicine 01/03/23 Sales Floor Team Leader Relationship Specialty Start Date End Date Dalton Asencio MD [address] [place] [address] PCP - General Family Medicine 01/03/23 Sales Floor Team Leader Relationship Specialty Start Date End Date Dalton Asencio MD [address] [place] [address] PCP - General Family Medicine 01/03/23 Sales Floor Team Leader Relationship Specialty Start Date End Date Dalton Asencoi MD [address] [place] [address] PCP - General Family Medicine 01/03/23 Sales Floor Team Leader Relationship Specialty Start Date End Date Dalton Asencio MD [address] [place] [address] PCP - General Family Medicine 01/03/23 Sales Floor Team Leader Relationship Specialty Start Date End Date Dalton Asencio MD [address] [place] [address] PCP - General Family Medicine 01/03/23 Sales Floor Team Leader Relationship Specialty Start Date End Date Dalton Asencio MD [address] [place] [address] PCP - General Family Medicine 01/03/23 Sales Floor Team Leader Relationship Specialty Start Date End Date Dalton Asencio MD [address] [place] [address] PCP - General Family Medicine 01/03/23 Goals [...] BE BASED ON THE PRIMARY CLINICAL RECORDS. [email or web address] [facility]. provides no warranty or guarantee of the accuracy or completeness of information in this document.
--- NOTE | 2024-06-07 19:14 | US_ITS ---
[address] [address] Patient Name: ALEJANDRO MICHELE MRN: [id number] date: 1995 Sex: F Assigned Patient Location: [facility] Current Patient Location: Accession/Order Number: [id number] Exam Date: 06/07/2024 19:23 Report Date: 06/08/2024 03:27 At the request of: ITZEL GARRETT Procedure: US OB BPP w non-stress EXAMINATION: US OB BPP w non-stress HISTORY:HYPERTENSION AFFECTING O16.9 COMPARISON: Ultrasound OB growth 05/23/2024 TECHNIQUE: Ultrasound biophysical profile was performed in the radiology department. BREATHING MOVEMENTS: 2 GROSS BODY MOVEMENTS: 2 TONE: 2 QUALITATIVE AMNIOTIC FLUID VOLUME: 2 PRESENTATION: CEPHALIC HEART RATE: 133.66 bpm AMNIOTIC FLUID VOLUME: 16.34 cm GESTATIONAL AGE: 34 weeks 4 days US/US OB BPP w non-stress IMPRESSION: Total biophysical profile score: 8 Electronically authenticated by: ADELE LOPEZ Date: 06/08/2024 03:27
[2024-06-07 19:55] VITALS: TEMP 36.2
[2024-06-07 19:56] VITALS: BP 129/66; PULSE 103
== END 2024-06-07 20:26 | disposition home or self-care (01) ==
LOC: US 05:36 → FBC 19:08
PROVIDERS: PCP Family Medicine; Visit Provider Obstetrics & Gynecology
DX: O16.3 Unspecified maternal hypertension, third trimester (principal); Z3A.34 34 weeks gestation of pregnancy
CPT/HCPCS: 76818

== ENCOUNTER 2024-06-13 00:36 | Outpatient (OUT) | payer OTHER, SELFPAY ==
[2024-06-13 12:11] VITALS: BP 144/63; PULSE 121
--- NOTE | 2024-06-13 12:15 | US_ITS ---
[address] [address] Patient Name: ALEJANDRO MICHELE MRN: [id number] date: 1995 Sex: F Assigned Patient Location: [facility] Current Patient Location: [facility] Accession/Order Number: [id number] Exam Date: 06/13/2024 12:16 Report Date: 06/13/2024 13:19 At the request of: ITZEL GARRETT Procedure: US OB BPP w non-stress EXAMINATION: US OB BPP w non-stress HISTORY: HTN COMPARISON: No relevant comparison available. TECHNIQUE: Ultrasound biophysical profile was performed in the radiology department. non-reactive stress testing was performed by nursing staff in the birthing center. FINDINGS: BREATHING MOVEMENTS: 2 GROSS BODY MOVEMENTS: 2 TONE: 2 QUALITATIVE AMNIOTIC FLUID VOLUME: 2 PRESENTATION: CEPHALIC HEART RATE: 131.07 bpm AMNIOTIC FLUID VOLUME: 17.6 cm GESTATIONAL AGE: 35 weeks 3 days US/US OB BPP w non-stress IMPRESSION: Total biophysical profile score: 8 Electronically authenticated by: DATLON MMCAHON Date: 06/13/2024 13:19
== END 2024-06-13 13:08 | disposition home or self-care (01) ==
LOC: FBCO 00:37 → FBC 12:05
PROVIDERS: PCP Family Medicine; Visit Provider Obstetrics & Gynecology
DX: O16.3 Unspecified maternal hypertension, third trimester (principal); Z3A.35 35 weeks gestation of pregnancy
CPT/HCPCS: 76818

== ENCOUNTER 2024-06-20 00:35 | Outpatient (OUT) | payer OTHER, SELFPAY ==
--- OUTSIDE RECORDS SUMMARY | 2024-06-20 00:38 | XMS_ITS | CCD ---
Author Organization [facility] Care Team Providers Care Training Coordinator Name Role Phone DALTON ASENCIO Unavailable Unavailable [...] Primary Care Provider ATIYA Flaherty Emergency Provider [phone] Zi Maier Unavailable Dalton Asencio MD Primary Care Provider Dalton Asencio Primary Care Unavailable Mary Young [...] sulfamethoxazole / trimethoprim Drug Allergy HIVES [facility] Repository (1 source) No Known Drug Allergies Drug allergy (disorder) 3 [facility] Repository (20 sources) Sertraline Drug Allergy 3 migraines [facility] (18 sources) buPROPion Drug Allergy 3 300 MG made angry [facility] (9 sources) venlafaxine Drug Allergy 3 higher dose made feel irritated and feel worse [facility] (4 sources) Sulfamethoxazole; Translations: [sulfamethoxazole] Drug Allergy 3 [facility] (4 sources) Trimethoprim; Translations: [trimethoprim] Drug Allergy 3 [facility] (20 sources) Sulfamethoxazole / Trimethoprim Drug Allergy 3 [facility] (1 source) buPROPion Drug Allergy 4 [facility] Repository (1 source) Sertraline Drug Allergy 4 [facility] Repository (1 source) venlafaxine Drug Allergy 4 [facility] Repository Medications Current Medications Medication Drug Class(es) Dates Sig (Normalized) Sig (Original) ALPRAZolam 0.25 mg oral tablet (18 sources) Benzodiazepine Start: 12-17-2017 take 1 tablet by mouth every twelve hours as needed Xanax 0.25 MG 1 tablet Orally q12 hrs prn PRN Dec, Active aspirin 81 mg delayed release oral tablet (14 sources) Platelet Aggregation Inhibitor, Nonsteroidal Anti-inflammatory Drug [...] Active labetalol hydrochloride 100 mg oral tablet (20 sources) beta-Adrenergic Deonte Start: 01-26-2024 End: 03-21-2024 [...] Active magnesium oxide 400 mg oral tablet (19 sources) Start: 01-21-2024 End: 08-18-2024 take 1 tablet by mouth once daily magnesium oxide (Mag-Ox) 400 MG tablet Indications: Nonintractable headache, unspecified chronicity pattern, unspecified headache type Take 1 tablet (400 mg) by mouth Daily 30 tablet 6 01/21/2024 08/18/2024 Active omeprazole 20 mg delayed release oral capsule (8 sources) Proton Pump Inhibitor Start: 05-04-2024 End: [...] Vit-Fe Fumarate-FA ( Vitamins) 28-0.8 MG tablet (14 sources) Start: 03-03-2024 End: 03-03-2025 take 1 tablet by mouth once daily Vit-Fe Fumarate-FA ( Vitamins) 28-0.8 MG tablet Indications: Second trimester Take 1 tablet by mouth Daily 30 tablet 6 03/03/2024 03/03/2025 Active promethazine hydrochloride 12.5 mg oral tablet (19 sources) Phenothiazine Start: 12-18-2023 take 1 tablet [...] day(s) May, Active take 1 capsule by [facility] every twenty-four hours Venlafaxine HCl ER [...] Hypertension complicating ; childbirth and the puerperium (11 sources) Hypertension complicating , childbirth and the [...] 05-25-2020 Episodic Other aftercare (1 source) Other usp (current) drug therapy Episodic Other complications of [...] intake Episodic Other and delivery including normal (15 sources) Second trimester ; Translations: [Encounter for [...] of ] 02-18-2024 Episodic Residual codes; unclassified (7 sources) Gestation period, 32 weeks; Translations: [32 weeks gestation of ] Onset: 05-23-2024 05-23-2024 Episodic Residual codes; unclassified (2 sources) Gestation period, 35 weeks; Translations: [35 weeks gestation of ] 06-13-2024 Episodic Substance-related disorders (1 source) Nicotine dependence, cigarettes, uncomplicated; Translations: [NICOTINE DEPEND CIGARETTES UNCOMP] Onset: 03-16-2018 Chronic Urinary tract infections (1 source) Cystitis, unspecified without hematuria Episodic Past or Other Problems Problem Classification Problem Date Documented Da te Episodic/Chronic Genitourinary symptoms and ill-defined conditions (19 sources) Blood in urine; Translations: [Hematuria, unspecified] Onset: 01-21-2024 01-21-2024 Episodic Headache; including migraine (19 sources) Headache; Translations: [Nonintractable headache] Onset: 01-21-2024 01-21-2024 Episodic Headache; including migraine (1 source) Headache; including migraine Onset: 05-09-2021 Resolved: 05-09-2021 Other upper respiratory infections (2 sources) Acute pharyngitis, unspecified; Translations: [Streptococcal pharyngitis] Onset: 03-23-2021 Resolved: 03-23-2021 Episodic Residual codes; unclassified (19 sources) Gestation period, 14 weeks; Translations: [14 weeks gestation of ] Onset: 01-21-2024 01-21-2024 Episodic Results Test Name Value Interpretation Reference Range Facility Urinalysis macro (dipstick) panel (U)on 06-13-2024 Bilirubin, UA Negative Negative - 4(70) +++ mg/dL [facility] Blood, UA Positive Negative - 50 Deric/mcL [facility] Clarity, UA Clear [facility] Color, UA Yellow [facility] Glucose, UA Negative Negative - 1999(110) ++++ mg/dL [facility] Interpretation and review of laboratory results Abnormal [facility] Ketones, UA Negative Negative - 160(16) ++++ mg/dL [facility] Leukocytes, UA Positive Negative - 500+++ David/mcL [facility] Nitrite, UA Negative Negative - Positive [facility] pH, UA 5.5 5 - 9 [facility] Protein, UA Negative Negative - 1999(20) ++++ mg/dL [facility] Spec Grav, UA 1.02 1 - 1.03 [facility] Urobilinogen, UA 1.0 0.2 - 12 mg/dL [facility] Urinalysis macro (dipstick) panel (U)on 05-23-2024 Bilirubin, UA Negative Negative - 4(70) +++ mg/dL [facility] Blood, UA Negative Negative - 50 Deric/mcL [facility] Healthcare Clarity, UA Clear [facility] Color, UA Yellow [facility] Glucose, UA Negative Negative - 1999(110) ++++ mg/dL [facility] Interpretation and review of laboratory results Abnormal [facility] Ketones, UA Negative Negative - 160(16) ++++ mg/dL [facility] Leukocytes, UA Moderate Negative - 500+++ David/mcL [facility] Nitrite, UA Negative Negative - Positive [facility] pH, UA 6 5 - 9 [facility] Protein, UA Negative Negative - 1999(20) ++++ mg/dL [facility] Spec Grav, UA 1.025 1 - 1.03 [facility] Urobilinogen, UA 0.2 0.2 - 12 mg/dL [facility] Urinalysis macro (dipstick) panel (U)on 05-04-2024 Bilirubin, UA Negative Negative - 4(70) +++ mg/dL [facility] Blood, UA Negative Negative - 50 Deric/mcL [facility] Healthcare Clarity, UA Clear [facility] Color, UA Yellow [facility] Glucose, UA Negative Negative - 1999(110) ++++ mg/dL [facility] Interpretation and review of laboratory results Abnormal [facility] Ketones, UA Negative Negative - 160(16) ++++ mg/dL [facility] Leukocytes, UA Trace Negative - 500+++ David/mcL [facility] Nitrite, UA Negative Negative - Positive [facility] pH, UA 6.5 5 - 9 [facility] Protein, UA Negative Negative - 2000(20) ++++ mg/dL [facility] Spec Grav, UA 1.02 1 - 1.03 [facility] Urobilinogen, UA 0.2 0.2 - 12 mg/dL [facility] Complete Blood Count Auto Di ffon 05-02-2024 Basophils (Bld) [#/Vol] 0.1 10*3/uL Normal 0.0-0.2 [facility] Comment on above: Result Comment: PERF ORMED BY: [place] [address] PATHOLOGIST PALS NURSE KAM OWENS M.D. Performed By: #### G [id number], CBC #### [address] Basophils/100 WBC (Bld) 0.4 % Normal . [facility] Comment on above: Performed By: #### G [id number], CBC #### [address] Eosinophils (Bld) [#/Vol] 0.2 10*3/uL Normal 0.0-0.45 [facility] Comment on above: Performed By: #### G [id number], CBC #### [address] Eosinophils/100 WBC (Bld) 1.4 % Normal . [facility] Comment on above: Performed By: #### G [id number], CBC #### [address] Erythrocyte distribution width (RBC) [Ratio] 13.3 % Normal 11.9-15.3 [facility] Comment on above: Performed By: #### G [id number], CBC #### [address] Hematocrit (Bld) [Volume fraction] 32.9 % Low 34.0-46.4 [facility] Comment on above: Performed By: #### G [id number], CBC #### [address] Hemoglobin (Bld) [Mass/Vol] 10.9 g/dL Low 11.8-15.4 [facility] Comment on above: Performed By: #### G [id number], CBC #### [address] Lymphocytes (Bld) [#/Vol] 1.4 10*3/uL Normal 1.00-4.8 [facility] Comment on above: Performed By: #### G [id number], CBC #### [address] Lymphocytes/100 WBC (Bld) 11.0 % Normal . [facility] Comment on above: Performed By: #### G [id number], CBC #### [address] MCH (RBC) [Entitic mass] 28.7 pg Normal 24.7-34.3 [facility] Comment on above: Performed By: #### G [id number], CBC #### [address] MCV (RBC) [Entitic vol] 86.4 fL Normal 80-100 [facility] Comment on above: Performed By: #### G [id number], CBC #### [address] Mean Corpuscular HGB Conc 33.2 g/dL Normal 32.0-35.0 [facility] Comment on above: Performed By: #### G [id number], CBC #### [address] Monocytes (Bld) [#/Vol] 0.7 10*3/uL Normal 0.0-0.8 [facility] Comment on above: Performed By: #### G [id number], CBC #### [facility] [address] [place] [address] [place] Monocytes/100 WBC (Bld) 5.9 % Normal . [facility] Comment on above: Performed By: #### G [id number], CBC #### [facility] [address] [place] [address] [place] Neutrophils (Bld) [#/Vol] 10.1 10*3/uL High 1.8-7.7 [facility] Comment on above: Performed By: #### G [id number], CBC #### [facility] [address] [place] [address] [place] Neutrophils/100 WBC (Bld) 81.3 % Normal . [facility] Comment on above: Performed By: #### G [id number], CBC #### [facility] [address] [place] [address] [place] NRBC% 0.0 /100{WBC} Normal 0-0.5 [facility] Comment on above: Performed By: #### G [id number], CBC #### [facility] [address] [place] [address] [place] Platelet mean volume (Bld) [Entitic vol] 7.4 fL Normal 6.3-10.[address] [facility] Comment on above: Performed By: #### G [id number], CBC #### [facility] [address] [place] [id number] [place] Platelets (Bld) [#/Vol] 326 10*3/uL Normal 150-450 [facility] Comment on above: Performed By: #### G [id number], CBC #### [facility] [address] [place] [id number] [place] RBC (Bld) [#/Vol] 3.80 10*6/uL Normal 3.60-5.[address] [facility] Comment on above: Performed By: #### G [id number], CBC #### [facility] [address] [place] [address] [place] WBC (Bld) [#/Vol] 12.4 10*3/uL High 3.8-11.6 [facility] Comment on above: Performed By: #### G [id number], CBC #### [facility] [address] [place] [address] [place] Glucose,1 Hour PP 50gm Doseo n 05-02-2024 Glucose [Mass/Vol] 109 mg/dL Normal 60-140 [facility] Comment on above: Order Comment: FINIS HED DRINK AT 1231. Result Comment: PERF ORMED BY: [address] [place] [address] PATHOLOGIST PALS NURSE KAM OWENS M.D. Performed By: #### G [id number], CBC #### [facility] [address] Urinalysis macro (dipstick) panel (U)on 04-19-2024 Bilirubin, UA Negative Negative - 4(70) +++ mg/dL [facility] Blood, UA Positive Negative - 50 Deric/mcL [facility] Comment on above: small Clarity, UA Clear [facility] Color, UA Yellow [facility] Glucose, UA Negative Negative - 1999(110) ++++ mg/dL [facility] Interpretation and review of laboratory results Abnormal [facility] Ketones, UA Negative Negative - 160(16) ++++ mg/dL [facility] Leukocytes, UA Positive Negative - 500+++ David/mcL [facility] Comment on above: small Nitrite, UA Negative Negative - Positive [facility] pH, UA 7 5 - 9 [facility] Protein, UA Negative Negative - 1999(20) ++++ mg/dL [facility] Spec Grav, UA 1.02 1 - 1.03 [facility] Urobilinogen, UA 0.2 0.2 - 12 mg/dL [facility] Urinalysis macro (dipstick) panel (U)on 03-21-2024 Bilirubin, UA Negative Negative - 4(70) +++ mg/dL [facility] Blood, UA Positive Negative - 50 Deric/mcL [facility] Comment on above: moderate Clarity, UA Clear [facility] Color, UA Yellow [facility] Glucose, UA Negative Negative - 1999(110) ++++ mg/dL [facility] Interpretation and review of laboratory results Abnormal [facility] Ketones, UA Negative Negative - 160(16) ++++ mg/dL [facility] Leukocytes, UA Negative Negative - 500+++ David/mcL [facility] Nitrite, UA Negative Negative - Positive [facility] pH, UA 5.5 5 - 9 [facility] Protein, UA Negative Negative - 2000(20) ++++ mg/dL [facility] Spec Grav, UA 1.03 1 - 1.03 [facility] Urobilinogen, UA 0.2 0.2 - 12 mg/dL [facility] Urinalysis macro (dipstick) panel (U)on 02-18-2024 Bilirubin, UA Negative Negative - 4(70) +++ mg/dL [facility] Blood, UA Positive Negative - 50 Deric/mcL [facility] Comment on above: moderate Clarity, UA Clear [facility] Color, UA Yellow [facility] Glucose, UA Negative Negative - 1999(110) ++++ mg/dL [facility] Interpretation and review of laboratory results Abnormal [facility] Ketones, UA Negative Negative - 160(16) ++++ mg/dL [facility] Leukocytes, UA Moderate Negative - 500+++ David/mcL [facility] Nitrite, UA Negative Negative - Positive [facility] pH, UA 5.5 5 - 9 [facility] Protein, UA Negative Negative - 2000(20) ++++ mg/dL [facility] Spec Grav, UA 1.020 1 - 1.03 [facility] Urobilinogen, UA 0.2 0.2 - 12 mg/dL [facility] No Panel InformationOrdered By: Joi Alvarez on 02-15-2024 Quick Strep (POC) [facility] BOX TEST SENT OUTon 01-07 BOX TEST SENT OUT [facility] Comment on above: See Scanned Report. [facility] No Panel Informationon 01-29 Reference Lab Order Code See comment [facility] Comment on above: See Scanned Report. A1C HEMOGLOBINon 01-01-2023 HbA1c (Bld) [Mass fraction] 4.9 % [employer] (deja mi) Other HbA1c (Bld) [Mass fraction]o n 01-01-2023 A1C HEMOGLOBIN [employer] Other T-Spoton 09-04-2022 T-Spot See Report Normal [facility] Comment on above: Performed By: #### 5 [id number], [id number], [id number] #### [facility] (DEFAULT) [address] [place] [address] HBSab Qnt LCon 01-02-2022 Hep B Surf Ab Quant LC >1000.0 Invalid Interpretation Code Immunity>9 .9 [facility] Comment on above: Result Comment: Stat us of Immunity Anti-HBs Level Inconsistent with Immunity 0.0 - 9.9 Consistent with Immunity >9.9 Performed At: [address] [id number] Donnell Palacios PhD Ph:[phone] Performed By: #### 5 [id number], [id number], [id number] #### [facility] (DEFAULT) [address] [place], [place] [id number] Lab - Toxicology Resultson 0 01-02-2022 Lab - Toxicology Results [id number] Normal [facility] Measles/Mumps/Rubella Immuni ty LCon 01-02-2022 Mumps Abs, IgG LC <9.0 Low Immune >10.9 [facility] Comment on above: Result Comment: Nega tive <9.0 Equivocal 9.0 - 10.9 Positive >10.9 A positive result generally indicates past exposure to Mumps virus or previous vaccination. Performed At: [address] [id number] Donnell Palacios PhD Ph:[phone] Performed By: #### 5 [id number], [id number], [id number] #### [facility] (DEFAULT) [address] [place] [address] Rubella Antibodies, IgG LC 6.35 index Invalid Interpretation Code Immune >0.99 [facility] Comment on above: Result Comment: Non- immune <0.90 Equivocal 0.90 - 0.99 Immune >0.99 Performed By: #### 5 [id number], [id number], [id number] #### [facility] (DEFAULT) [address] [place] [address] Rubeola Ab, IgG, EIA LC 14.1 AU/mL Low Immune >16.4 [facility] Comment on above: Result Comment: A se cond sample should be collected and tested no less than 2-4 weeks. Negative <13.5 Equivocal 13.5 - 16.4 Positive >16.4 Presence of antibodies to Rubeola is presumptive evidence of immunity except when acute infection is suspected. Performed By: #### 5 [id number], [id number], [id number] #### [facility] (DEFAULT) [address] [place] [address] Nicotine Metabolite, Urine L Con 01-02-2022 Cotinine LC Negative Invalid Interpretation Code [id number] [facility] Comment on above: Result Comment: Perf ormed At: [facility] [place] [address] [facility] [place], [place] [id number] Chilo Mckeon PhD Ph:[phone] Performed By: #### 1 [id number] #### [facility] (DEFAULT) [address] [place] [address] COVID Quick Testingon 2020 Result Negative [facility] Other Quick Strepon 03-23-2021 S. pyogenes Org specific cx Ql (Throat) Positive [facility] Other Quick Strep [facility] Other PAP ACOG PANEL 2: 21 to 29on 07-02-2017 Age Gdln ACOG Testing 21-29 Normal [facility] Comment on above: Performed By: #### 4 [id number] ####[facility] [address] [place], [place] [address]QbcrzbChristopher Stewart DIAGNOSIS: Comment Abnormal [facility] Comment on above: Result Comment: EPIT HELIAL CELL ABNORMALITY.ATYPICAL SQUAMOUS CELLS OF UNDETERMINED SIGNIFICANCE. Performed By: #### 4 [id number] ####[facility] [address] [place] [address] Pat Electronically signed by: Comment Normal [facility] Comment on above: Result Comment: Shade Price MD, Pathologist Performed By: #### 4 [id number] ####[facility] [address] [place] [address] Pat HPV Aptima Negative Normal Negative [facility] [place] [facility] Comment on above: Result Comment: This test was developed and its performance characteristicsdetermined by [facility]. It has not been cleared or approvedby the Food and Drug Administration.This test detects fourteen high-risk HPV types (16/18/31/33/35/39/45/51/52/56/58/59/66/68) without differentiation. Performed By: #### 4 [id number] ####[address] Pat Methodology: Comment Normal [facility] Comment on above: Result Comment: This liquid based SurePath(R) pap test was screened with theassistance of an image guided system. Performed By: #### 4 [id number] ####[facility] [address] [place] [address] Pat Note: Comment Normal [facility] Comment on above: Result Comment: The Pap smear is a screening test designed to aid in the detection ofpremalignant and malignant conditions of the uterine cervix. It is not adiagnostic procedure and should not be used as the sole means of detectingcervical cancer. Both false-positive and false-negative reports do occur. . Performed By: #### 4 [id number] ####[facility] [address] [place] [address] Pat Performed by: Comment Normal [facility] Comment on above: Result Comment: Josefina Orr, Membership Manager (ASCP) Performed By: #### 4 [id number] ####[facility] [address] Pat Protein mass conc Comment Normal [facility] Comment on above: Result Comment: [id number] Performed By: #### 4 [id number] ####[facility] [address] [place] [id number] Pat Reflex Criteria: Comment Normal [facility] Comment on above: Result Comment: See below for HPV testing results. . Performed By: #### 4 [id number] ####[facility] [address] Pat Specimen adequacy: Comment Normal [facility] Comment on above: Result Comment: Sati sfactory for evaluation. Endocervical and/or squamous metaplasticcells (endocervical component) are present. Performed By: #### 4 [id number] ####[facility] Qtrixyouoh3189 [address] Pat . . Normal [facility] Comment on above: Performed By: #### 4 [id number] ####[facility] Kw[address] Pat Vital Signs Date Time Vital Sign Value Performing Clinician Facility 06-13-2024 11:15-0500 Body mass index (BMI) [Ratio] 39.78 kg/m2 Itzel Raegan DO Work Phone: [facility] 06-13-2024 11:15-0500 Body weight 116.94 kg Itzel Raegan DO Work Phone: [facility] 06-13-2024 11:15-0500 Diastolic blood pressure 78 mm[Hg] Itzel Raegan DO Work Phone: [facility] 06-13-2024 11:15-0500 Systolic blood pressure 114 mm[Hg] Itzel Raegan DO Work Phone: [facility] 05-23-2024 11:56-0500 Body mass index (BMI) [Ratio] 38.33 kg/m2 Itzel Raegan DO Work Phone: [facility] 05-23-2024 11:56-0500 Body weight 112.67 kg Itzel Raegan DO Work Phone: [facility] 05-23-2024 11:56-0500 Diastolic blood pressure 84 mm[Hg] Itzel Raegan DO Work Phone: [facility] 05-23-2024 11:56-0500 Systolic blood pressure 112 mm[Hg] Itzel Raegan DO Work Phone: [facility] 05-04-2024 10:25-0500 Body mass index (BMI) [Ratio] 37.96 kg/m2 Itzel Raegan DO Work Phone: [facility] 05-04-2024 10:25-0500 Body weight 111.58 kg Itzel Raegan DO Work Phone: [facility] 05-04-2024 10:25-0500 Diastolic blood pressure 78 mm[Hg] Itzel Raegan DO Work Phone: [facility] 05-04-2024 10:25-0500 Systolic blood pressure 122 mm[Hg] Itzel Raegan DO Work Phone: [facility] 04-19-2024 11:26-0500 Body mass index (BMI) [Ratio] 37.34 kg/m2 Itzel Raegan DO Work Phone: [facility] 04-19-2024 11:26-0500 Body weight 109.77 kg Itzel Raegan DO Work Phone: [facility] 04-19-2024 11:26-0500 Diastolic blood pressure 82 mm[Hg] Itzel Raegan DO Work Phone: [facility] 04-19-2024 11:26-0500 Systolic blood pressure 120 mm[Hg] Itzel Raegan DO Work Phone: [facility] 03-21-2024 09:50-0400 Body mass index (BMI) [Ratio] 36.85 kg/m2 Mary CARBALLO Work Phone: [facility] 03-21-2024 09:50-0400 Body weight 108.32 kg Mary CARBALLO Work Phone: [facility] 03-21-2024 09:50-0400 Diastolic blood pressure 70 mm[Hg] Mary CARBALLO Work Phone: [facility] 03-21-2024 09:50-0400 Systolic blood pressure 120 mm[Hg] Mary Young PA Work Phone: [facility] 02-18-2024 10:09-0400 Body mass index (BMI) [Ratio] 35.77 kg/m2 Itzel Raegan DO Work Phone: [facility] 02-18-2024 10:09-0400 Body weight 105.14 kg Itzel Raegan DO Work Phone: [facility] 02-18-2024 10:09-0400 Diastolic blood pressure 80 mm[Hg] Itzel Raegan DO Work Phone: [facility] 02-18-2024 10:09-0400 Systolic blood pressure 120 mm[Hg] Itzel Raegan DO Work Phone: [facility] 02-15-2024 12:48-0400 Body height 172.72 cm [facility] 02-15-2024 12:48-0400 Body mass index (BMI) [Ratio] 34.9 kg/m2 [facility] 02-15-2024 12:48-0400 Body temperature 98.2 [degF] [facility] 02-15-2024 12:48-0400 Body weight 104.32 kg [facility] 02-15-2024 12:48-0400 Diastolic blood pressure 73 mm[Hg] [facility] 02-15-2024 12:48-0400 Heart rate 106 /min [facility] 02-15-2024 12:48-0400 SaO2% (BldA) [Mass fraction] 98 % [facility] 02-15-2024 12:48-0400 Systolic blood pressure 103 mm[Hg] [facility] 01-29-2023 14:15-0400 Body height 172.72 cm Zi Maier Other [facility] Other 01-29-2023 14:15-0400 Body mass index (BMI) [Ratio] 31.81 kg/m2 Zi Maier Other [facility] Other 01-29-2023 14:15-0400 Body weight 94.89 kg Zi Maier Other [facility] Other 01-29-2023 14:15-0400 Diastolic blood pressure 68 mm[Hg] Zi Maier Other [facility] Other 01-29-2023 14:15-0400 Respiratory rate 18 /min Zi Evisors Other [facility] Other 01-29-2023 14:15-0400 SaO2% (BldA) [Mass fraction] 97 % Zi Evisors Other [facility] Other 01-29-2023 14:15-0400 Systolic blood pressure 105 mm[Hg] Zi Maier Other [facility] Other 01-01-2023 10:00-0400 Body height 172.72 cm Zi Evisors Other [facility] Other 01-01-2023 10:00-0400 Body mass index (BMI) [Ratio] 31.77 kg/m2 Zi Maier Other [facility] Other 01-01-2023 10:00-0400 Body weight 94.8 kg Zi Evisors Other [facility] Other 01-01-2023 10:00-0400 Diastolic blood pressure 68 mm[Hg] Zi Evisors Other [facility] Other 01-01-2023 10:00-0400 Respiratory rate 18 /min Zi Evisors Other [facility] Other 01-01-2023 10:00-0400 SaO2% (BldA) [Mass fraction] 97 % Zi Maier Other [facility] Other 01-01-2023 10:00-0400 Systolic blood pressure 105 mm[Hg] Zi Maier Other [facility] Other 11-10-2022 17:40-0400 Body height 172.72 cm Dalton Asencio Other [facility] Other 11-10-2022 17:40-0400 Body mass index (BMI) [Ratio] 32.69 kg/m2 Dalton Asencio Other [facility] Other 11-10-2022 17:40-0400 Body weight 97.52 kg Dalton Asencio Other [facility] Other 11-10-2022 17:40-0400 Diastolic blood pressure 80 mm[Hg] Dalton Asencio Other [facility] Other 11-10-2022 17:40-0400 Systolic blood pressure 117 mm[Hg] Dalton Asencio Other [facility] Other 10-21-2022 09:14-0400 Body temperature 98.1 [degF] DO Dalton Asencio Work Phone: [facility] 10-21-2022 09:14-0400 Diastolic blood pressure 59 mm[Hg] DO Dalton Garygarrick Work Phone: [facility] 10-21-2022 09:14-0400 Heart rate 74 /min DO Dalton Asencio Work Phone: [facility] 10-21-2022 09:14-0400 Respiratory rate 18 /min DO Dalton Asencio Work Phone: [facility] 10-21-2022 09:14-0400 SaO2% (BldA) [Mass fraction] 98 % DO Dalton Asencio Work Phone: [facility] 10-21-2022 09:14-0400 Systolic blood pressure 120 mm[Hg] DO Dalton Asencio Work Phone: [facility] 10-21-2022 09:13-0400 Body height 175.26 cm DO Dalton Asencio Work Phone: [facility] 10-21-2022 09:13-0400 Body weight 97.1 kg DO Dalton Asencio Work Phone: [facility] 03-04-2022 15:40-0400 Body height 172.72 cm Dalton Asencio Other [facility] Other 05-09-2021 10:30-0500 Body height 172.72 cm Dalton Asencio Other [facility] Other 05-09-2021 10:30-0500 Body mass index (BMI) [Ratio] 34.66 kg/m2 Dalton Raisa Other [facility] Other 05-09-2021 10:30-0500 Body temperature 97.7 [degF] Dalton Raisa Other [facility] Other 05-09-2021 10:30-0500 Body weight 103.42 kg Dalton Garygarrick Other [facility] Other 05-09-2021 10:30-0500 Diastolic blood pressure 72 mm[Hg] Dalton Asencio Other [facility] Other 05-09-2021 10:30-0500 Respiratory rate 18 /min Dalton Asencio Other [facility] Other 05-09-2021 10:30-0500 SaO2% (BldA) [Mass fraction] 98 % Dalton Asencio Other [facility] Other 05-09-2021 10:30-0500 Systolic blood pressure 108 mm[Hg] Dalton Asencio Other [facility] Other 03-23-2021 11:00-0400 Body height 172.72 cm Johnny Lyn Other [facility] Other 03-23-2021 11:00-0400 Body mass index (BMI) [Ratio] 33.6 kg/m2 Johnny Lyn Other [facility] Other 03-23-2021 11:00-0400 Body temperature 98.5 [degF] Johnny Lyn Other [facility] Other 03-23-2021 11:00-0400 Body weight 100.25 kg Johnny Lyn Other [facility] Other 03-23-2021 11:00-0400 Diastolic blood pressure 68 mm[Hg] Johnny Lyn Other [facility] Other 03-23-2021 11:00-0400 Respiratory rate 18 /min Johnny Lyn Other [facility] Other 03-23-2021 11:00-0400 SaO2% (BldA) [Mass fraction] 97 % Johnny Lyn Other [facility] Other 03-23-2021 11:00-0400 Systolic blood pressure 105 mm[Hg] Johnny Lyn Other [facility] Other Encounters Encounter Date Encounter Type Care Provider Facility Start: 06-13-2024 End: 06-13-2024 Bamboo flowsheet Itzel Raegan DO Work Phone: [facility] Start: 06-13-2024 End: 06-13-2024 Bamboo flowsheet Itzel Raegan DO Work Phone: [facility] Start: 06-13-2024 End: 06-13-2024 ambulatory ITZEL RAEGAN Not Available Start: 06-13-2024 End: 06-13-2024 flow sheet Itzel Raegan DO Work Phone: [facility] Comment on above: Third trimester preg meaghan; 35 weeks gestation of Start: 05-23-2024 End: 05-23-2024 Bamboo flowsheet Itzel [...] antepartum Start: 05-03-2024 End: 05-03-2024 flow sheet Itzle Raegan DO Work Phone: [facility] Comment on above: 29 weeks gestation o f ; Third trimester ; Heartburn during in third trimester; Gastroesophageal reflux in Start: 05-02-2024 End: 05-02-2024 ambulatory Dalton Asencio Facility:[facility] Start: 04-19-2024 End: 04-19-2024 Bamboo flowsheet Itzel Raegan DO Work Phone: [facility] Start: 04-19-2024 End: 04-19-2024 Bamboo flowsheet Itzel Raegan DO Work Phone: [facility] Start: 04-19-2024 End: 04-19-2024 flow sheet Itzel Raegan DO Work Phone: [facility] Comment on above: 27 weeks gestation o f ; Second trimester ; Hypertension affecting , antepartum Start: 04-19-2024 End: 04-19-2024 ambulatory ITZEL RAEGAN Not Available Start: 03-21-2024 End: 03-21-2024 Bamboo flowsheet Mary CARBALLO Work Phone: [facility] Start: 03-21-2024 End: 03-21-2024 Bamboo flowsheet Mary CARBALLO Work Phone: [facility] Start: 03-21-2024 End: 03-21-2024 flow sheet Mary CARBALLO Work Phone: [facility] Comment on above: 23 weeks gestation o f ; Second trimester ; Diabetes mellitus screening; Hypertension affecting , antepartum Start: 03-21-2024 End: 03-21-2024 ambulatory MARY YOUNG Not Available Start: 02-18-2024 End: 02-18-2024 Bamboo flowsheet Itzel Raegan DO Work Phone: [facility] Start: 02-18-2024 End: 02-18-2024 Bamboo flowsheet Itzel Raegan DO Work Phone: [facility] Start: 02-18-2024 End: 02-18-2024 flow sheet Itzel Raegan DO Work Phone: [facility] Comment on above: 18 weeks gestation o f ; Screening, , for anatomic survey; Exposure to STD; Vaginal discharge Start: 02-18-2024 End: 02-18-2024 ambulatory ITZEL RAEGAN Not Available Start: 02-15-2024 End: 02-15-2024 ambulatory [facility] Work Phone: Start: 02-15-2024 End: 02-15-2024 Patient encounter procedure [facility] [place] Work Phone: Start: 01-30-2024 End: 02-02-2024 Clinisync Result Encounter Itzel Raegan DO Work Phone: [facility] Unsolicited Start: 01-30-2024 End: 02-02-2024 Clinisync Result Encounter Itzel Raegan DO Work Phone: [facility] Unsolicited Start: 01-30-2024 Non-patient / Non-visit [facility] Work Phone: Start: 01-28-2024 [...] 01-29-2023 End: 01-29-2023 ambulatory Zi Maier Other [facility] Other Start: 01-29-2023 Follow-up encounter Zi Maier [facility] Start: 01-13-2023 End: 01-13-2023 ambulatory Dalton Asencio Other [facility] Other Start: 01-13-2023 Telephone encounter Dalton Asencio [facility] Start: 01-01-2023 End: 01-01-2023 ambulatory Zi Maier Other [facility] Other Start: 01-01-2023 Nutrition therapy Zi Maier [facility] Start: 11-10-2022 End: 11-10-2022 ambulatory Dalton Asencio Other [facility] Other Start: 11-10-2022 Telephone encounter Dalton Asencio [facility] Start: 10-21-2022 End: 10-21-2022 Emergency department patient visit DO Dalton Asencio Work Phone: [facility] Work Phone: Start: 07-28-2022 End: 07-28-2022 ambulatory Dalton Asencio Other [facility] Other Start: 07-28-2022 Telephone encounter Dalton Asencio [facility] Start: 07-25-2022 End: 07-25-2022 ambulatory Dalton Asencio Other [facility] Other Start: 07-25-2022 Telephone encounter Dalton Asencio [facility] Start: 04-09-2022 End: 04-09-2022 ambulatory Dalton Asencio Other [facility] Other Start: 04-09-2022 Telephone encounter Dalton Asencio [facility] Start: 03-20-2022 End: 03-20-2022 ambulatory Lelia Macias Other [facility] Other Start: 03-20-2022 Telephone encounter Lelia Macias [facility] Start: 03-04-2022 End: 03-04-2022 ambulatory Dalton Asencio Other [facility] Other Start: 03-04-2022 Telephone encounter Dalton Asencio [facility] Start: 02-06-2022 End: 02-06-2022 ambulatory Dalton Asencio Other [facility] Other Start: 02-06-2022 Telephone encounter Dalton Asencio [facility] [place] Start: 01-02-2022 End: 01-02-2022 ambulatory None Provider Facility:[facility] Start: 09-18-2021 End: 09-18-2021 ambulatory Dalton Abdirahmangarrick Other [facility] Other Start: 09-18-2021 Telephone encounter Dalton Garygarrick [facility] [place] Start: 07-25-2021 End: 07-25-2021 ambulatory Dalton Asencio Other [facility] Other Start: 07-25-2021 Telephone encounter Dalton Asencio [facility] [place] Start: 07-15-2021 End: 07-15-2021 ambulatory Dalton Raisa Other [facility] Other Start: 07-15-2021 Telephone encounter Dalton Asencio [facility] [place] Start: 05-09-2021 End: 05-09-2021 ambulatory Dalton Abdirahmangarrick Other [facility] Other Start: 05-09-2021 Office outpatient vi sit 15 minutes Dalton Garygarrick [facility] [place] Start: 04-22-2021 End: 04-22-2021 ambulatory Dalton Asencio Other [facility] Other Start: 04-22-2021 Telephone encounter Dalton Asencio [facility] [place] Start: 03-23-2021 Office outpatient vi sit [address] [facility] Start: 03-12-2018 End: 03-12-2018 Patient encounter DALTON ASENCIO Facility:[facility] Start: 06-23-2017 End: 06-23-2017 Patient encounter ITZEL CARLIN Facility:[facility] Start: 04-30-2017 End: 04-30-2017 Patient encounter DALTON ASENCIO Facility: Procedures Date Procedure Procedure Detail Performing Clinician Start: 06-13-2024 Urnls dip stick/tabl et rgnt non-auto w/o micrscp Itzel Carlin DO Work Phone: Start: 05-23-2024 Urnls dip stick/tabl et rgnt [...] micrscp Itzel Raegan DO Work Phone: Start: 02-15-2024 Quick Strep (POC) Start: 01-30-2024 [facility] BOX TEST SENT OUT C louisa Carlin DO Work Phone: Plan of Treatment Date Care Activity Detail Author Start: 10-06-2028 Screening for malign ant neoplasm of cervix [facility] Start: 10-27-2024 End: 10-27-2024 Patient encounter procedure 10/27/2024 10:00 AM EDT Office Visit [facility] [address] [facility] [address] [place] [id number] Alayna Hassan, DO [address] [place] [address] [facility] Start: 06-28-2024 End: 06-28-2024 Patient encounter procedure 06/28/2024 10:20 AM EST Routine [facility] [address] [place] [id number] Itzel Carlin, DO [address] [place] [address] [facility] Start: 06-20-2024 End: 06-20-2024 Patient encounter procedure 06/20/2024 1:20 PM EST Routine [facility] [address] [place] [id number] Itzel Carlin, DO [address] [place] [address] [facility] Start: 06-13-2024 End: 06-13-2024 Patient encounter procedure 06/13/2024 10:30 AM EST Routine [facility] [address] [place] [address] Itzel Carlin, DO [address] [place] [address] [facility] Start: 05-23-2024 End: 05-23-2025 US biophysical profile w non stress test US biophysical profile w non stress test Imaging Routine Hypertension affecting , antepartum Expected: 05/23/2024 (Approximate), Expires: 05/23/2025 [facility] Work Phone: Comment on above: Expected: 05/23/2024 (Approximate), Expires: 05/23/2025 Start: 05-03-2024 End: 05-03-2024 Patient encounter procedure 05/03/2024 9:00 AM EST Routine [facility] [address] [place] [address] Itzel Carlin, DO [address] [place] [address] [facility] Start: 04-19-2024 End: 04-19-2025 US for US OB SCAN FOR GROWTH Imaging Routine Hypertension affecting , antepartum Expected: 04/19/2024 (Approximate), Expires: 04/19/2025 [facility] Work Phone: Comment on above: Expected: 04/19/2024 (Approximate), Expires: 04/19/2025 Start: 04-18-2024 End: 04-18-2024 Patient encounter procedure 04/18/2024 10:40 AM EST Routine [facility] [address] [place] [address] Itzel Carlin, DO [address] [facility] [address] [address] [address] [place], [place] [id number] [facility] Start: 03-28-2024 End: 03-28-2024 Professional / ancillary services management 03/28/2024 9:30 AM EDT Ancillary Procedure [facility] [address] [place] [address] [facility] Start: 03-21-2024 End: 03-21-2025 CBC panel - Blood by Automated count CBC Lab Routine Diabetes mellitus screening Expected: 03/21/2024 (Approximate), Expires: 03/21/2025 [facility] Work Phone: Comment on above: Expected: 03/21/2024 (Approximate), Expires: 03/21/2025 Start: 03-21-2024 End: 03-21-2025 Measurement of glucose 1 hour after glucose challenge for glucose tolerance test Glucose tolerance, 1 hour Lab Routine Diabetes mellitus screening Expected: 03/21/2024 (Approximate), Expires: 03/21/2025 [facility] Comment on above: Expected: 03/21/2024 (Approximate), Expires: 03/21/2025 Start: 03-21-2024 End: 03-21-2024 Patient encounter procedure [facility] Comment on above: Arrived Start: 02-29-2024 End: 02-29-2024 Professional / ancillary services management 02/29/2024 11:00 AM EDT Ancillary Procedure [facility] [address] [place] [address] [facility] Start: 02-18-2024 End: 04-19-2024 Alpha fetoprotein, maternal Alpha fetoprotein, maternal Lab Routine 18 weeks gestation of Expected: 02/18/2024 (Approximate), Expires: 04/19/2024 [facility] Comment on above: Expected: 02/18/2024 (Approximate), Expires: 04/19/2024 Start: 02-18-2024 End: 02-17-2025 US for US OB ANATOMY SINGLE W US OB CERVICAL LENGTH Imaging Routine Screening, , for anatomic survey Expected: 02/18/2024 (Approximate), Expires: 02/17/2025 [facility] Comment on above: Expected: 02/18/2024 (Approximate), Expires: 02/17/2025 Start: 02-18-2024 End: 02-18-2024 Patient encounter procedure [facility] Comment on above: Arrived Start: 02-07-2024 Influenza vaccination Influenza Vacc ine (#1) [facility] Start: 01-28-2024 End: 01-28-2024 Patient encounter procedure 01/28/2024 8:40 AM EDT Office Visit [facility] [address] [place] [address] Itzel Carlin DO [address] [facility] [address] [place] [address] Arrived [facility] Comment on above: Arrived Start: 2015 Screening for malign ant neoplasm of cervix Pap Smear [facility] CHLAMYDIA TRACHOMATI S (GENITO/STI) CHLAMYDIA TRACHOMATIS (GENITO/STI) Lab Routine Exposure to STD Ordered: 02/18/2024 [facility] Comment on above: Ordered: 02/18/2024 Neisseria gonorrhoea e DNA [Presence] in Unspecified specimen by SAKSHI with probe detection Neisseria gonorrhea DNA probe, direct Lab Routine Exposure to STD Ordered: 02/18/2024 [facility] Comment on above: Ordered: 02/18/2024 Patient Education Minor Head Injury (DC) [facility] Work Phone: Patient referral [facility] Work Phone: SURESWAB(R) ADVANCED VAGINITIS PLUS, TMA SURESWAB(R) ADVANCED VAGINITIS PLUS, TMA Pathology and Cytology Routine Vaginal discharge Ordered: 02/18/2024 [facility] Work Phone: Comment on above: Ordered: 02/18/2024 Immunizations Immunization Date Immunization Notes Care Provider Rubin roberto 05-27-2023 influenza virus vaccine, unspecified formulation Itzel Carlin DO Work Phone: [facility] 03-24-2022 influenza, seasonal, injectable Dalton Asencio Other [facility] 05-06-2021 measles, mumps and rubella virus vaccine Dalton Asencio Other [facility] 04-03-2021 COVID-19 Vaccine Moderna - Documentation Purposes Only Dalton Asencio Other [facility] 03-04-2021 influenza, seasonal, injectable Dalton Asencio Other [facility] 07-12-2020 COVID-19 Vaccine Moderna - Documentation Purposes Only Johnny Lyn Other [facility] 06-14-2020 COVID-19 Vaccine Moderna - Documentation Purposes Only Johnny Lyn Other [facility] 03-12-2020 influenza, seasonal, injectable Johnny Lyn Other [facility] 05-09-2019 tetanus toxoid, redu elizabeth diphtheria toxoid, and acellular pertussis vaccine, adsorbed Dalton Asencio Other [facility] 06-24-2013 Toradol per 15 mg Johnny wood Other [facility] Other Payers Date Payer Category Payer Self-pay [id number] 2023 Unknown [employer] [id number] 2023-Present [address] [place] [address] [id number] 2023 Unknown [id number] 2019 Medicaid [employer] [place] [id number] 2019-Present [address] [place] [address] [id number] 2019 Private Health Insurance [id number] 2019 Medicaid [id number] 1994 Unknown [id number] 2.16.840.1.797387.3.579.2. 593 1994 Unknown [id number] 2.16.840.1.287485.3.579.2. 593 1994 Unknown [id number] 2.16.840.1.744002.3.579.2. 593 1994 Unknown [id number] 2.16.840.1.805907.3.579.2. 1259 1994 Unknown [id number] 2.16.840.1.036276.3.579.2. 1259 1994 Unknown [id number] 2.16.840.1.420033.3.579.2. 1259 1994 Unknown [id number] 2.16.840.1.786684.3.579.2. 1259 1994 Unknown [id number] 2.16.840.1.547892.3.579.2. 1259 1994 Unknown [id number] 2.16.840.1.283597.3.579.2. 1259 1994 Unknown [id number] 2.16.840.1.308789.3.579.2. 1259 1994 Unknown [id number] 2.16.840.1.096749.3.579.2. 1259 1994 Unknown [id number] 2.16.840.1.802832.3.579.2. 1259 1959 Unknown [id number] 1959 Unknown [id number] 1959 Unknown [id number] Unknown [id number]. 531 Social History Date Type Detail Facility Unknown if ever smoked [facility] Other Start: 02-03-2023 End: 10-07-2023 Sex Assigned At [facility] Other Start: 10-21-2022 Tobacco smoking status PAIS Smoker (finding) [facility] Start: 1995 Sex Assigned At Female [facility] Start: 01-03-2023 Tobacco smoking status [facility] Never smoked tobacco [facility] Start: 01-03-2023 Tobacco use and exposure Smokeless tobacco non-user [facility] Start: 02-18-2024 End: 06-13-2024 Alcoholic beverage intake Lifetime non-drinker (finding) [facility] [...] MM Start: 01-01-2023 Clinical Notes 08-30-2012 to 06-13-2024 Divine Britton, MELVI - 06/13/2024 10:40 AM Iris Moore, MELVI - 05/23/2024 10:50 AM Iris Moore, MELVI - 05/03/2024 9:00 AM Iris Moore, MELVI - 04/19/2024 11:00 AM EST Note Date & Type Note Facility 06-13-2024 History of Presen t illness Narrative Reason for Appointment: Patient ID: Pepper Bentley is a 29 y.o. female who presents for Routine Visit [...] nursing note reviewed. Exam conducted with a transmitter engineer in charge present. Vitals: Estimated body mass index is 39.78 kg/m as calculated from the following: Height as of 10/07/23: 5' 7.5 . Weight as of this encounter: 257 lb 12.8 oz. BP: 114/78 Patient's last menstrual period was 10/15/2023. ASSESSMENT & PLAN ICD-10-CM 1. Third trimester Z34.93 POCT urinalysis dipstick manually resulted 2. 35 weeks gestation of Z3A.35 POCT urinalysis dipstick manually resulted Patient presents today for a routine obstetrics appointment. Patient is currently 35w3d with a Estimated Date of Delivery: 07/15/24. Patient to return to clinic in 1 week for routine OB care. Documented by Divine Britton LPN on behalf of: Itzel Carlin DO documented in this encounter [facility] 05-23-2024 History of Presen t illness Narrative [...] nursing note reviewed. Exam conducted with a transmitter engineer in charge present. Vitals: Estimated body mass index is [...] Itzel Carlin DO documented in this encounter [facility] 05-03-2024 History of Presen t illness Narrative [...] nursing note reviewed. Exam conducted with a transmitter engineer in charge present. Vitals: Estimated body mass index is [...] Itzel Carlin DO documented in this encounter [facility] 04-19-2024 History of Presen t illness Narrative [...] nursing note reviewed. Exam conducted with a transmitter engineer in charge present. Vitals: Estimated body mass index is [...] Itzel Carlin DO documented in this encounter [facility] 03-21-2024 History of Presen t illness Narrative [...] nursing note reviewed. Exam conducted with a transmitter engineer in charge present. Vitals: Estimated body mass index is [...] of: KAIT Head documented in this encounter [facility] 02-18-2024 History of Presen t illness Narrative [...] nursing note reviewed. Exam conducted with a transmitter engineer in charge present. Vitals: Estimated body mass index is [...] Itzel Carlin DO documented in this encounter [facility] 01-29-2023 Evaluation note Encounter Date Diagnosis [...] loss response -Patient reports Wellbutrin made her iwgtd-Pgyvm-nc-car e A1c December 2022 4.9%-Follow up in clinic in 6 weeksThis note was created with voice recognition software. Please excuse errors in auditor tax. Jan, Dietary surveillance and counseling (ICD-10 - [...] with the patient, and documenting clinical information. [facility] Other 08-08-2023 Evaluation note* Encounter Date Diagnosis Assessment Notes Treatment Notes Treatment Clinical Notes Jan, Glucosuria (ICD-10 - R81) Jan, Cystitis (ICD-10 - N30.90) Jan, Other terminal gauger (current) drug therapy (ICD-10 - Z79.899) [facility] Other 07-27-2023 Evaluation note* Encounter Date Diagnosis [...] -Alternative options may include combination Wellbutrin and iigueovbmj-Bjops-xp-ca re A1c today 4.9-Follow up in clinic in 4 weeksThis note was created with voice recognition software. Please excuse errors in auditor tax. Dec, Dietary surveillance and counseling (ICD-10 - [...] - R63.8) Dec, Screening (ICD-10 - Z13.9) [facility] Other 06-05-2023 Evaluation note* Encounter Date Diagnosis Assessment Notes Treatment Notes Treatment Clinical Notes Nov, Anxiety (ICD-10 - F41.9) She is seeing a psychiatrist every five weeks and she thinks that she has ADHD but has not started any medication for this. She follows with a psychiatrist through [facility]. She is no longer on the Venlafaxine and is not on any medication for her mood. She uses the Xanax only as needed. She struggles with anxiety and focusing in school as far as the ADHD so is unsure if she needs any medication. Right now she feels better than she ever has without any medicine. 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 Nov, [...] afford to pay for the injectable medication [id number]. I discussed her seeing Dr. Reyes for [...] Nov, Other 6:05 PM - 6:18 PM [facility] Other 02-20-2023 Evaluation note* Encounter Date Diagnosis [...] Jul, Other 2:25 PM - 2:33 PM [facility] Other 11-02-2022 Evaluation note* Encounter Date Diagnosis [...] provide her with a ohine number for [facility] who has psychiatry services. 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 and due [...] Feb, Other 2:50 PM - 3:02 PM [facility] ([facility]) Other 09-01-2022 Evaluation note* Encounter Date Diagnosis Assessment Notes Treatment Notes Treatment Clinical Notes Feb, Anxiety (ICD-10 - F41.9) [facility] ([facility] Other 02-17-2022 Evaluation note* Encounter Date Diagnosis Assessment Notes Treatment Notes Treatment Clinical Notes Jul, Depression (ICD-10 - F32.9) [facility] Other 02-07-2022 Evaluation note* Encounter Date Diagnosis [...] Jul, Other 4:29 PM - 4:38 PM [facility] ([facility]) Other 02-07-2022 Evaluation note* Encounter Date Diagnosis Assessment Notes Treatment Notes Treatment Clinical Notes Jul, Anxiety (ICD-10 - F41.9) [facility] Other 12-02-2021 Evaluation note* Encounter Date Diagnosis [...] starting school in June, she is attending [employer] [facility] [employer] school. An OARRS report was reviewed, [...] on the medication. Do not take Ecstasy. [facility] ([facility]) Other 10-16-2021 Evaluation note* Encounter Date Diagnosis [...] (ICD-10 - Z20.828) covid neg, see above. [facility] ([facility]) Other [id number] History general Narrative - Reported* Type Description Date Medical History immunizations up to date Medical History Right Wrist fracture Medical History Left ankle fracture Hospitalization History childbirth; [facility] 08-30-12 Hospitalization History childbirth - [place] [id number] 11/20/14 Hospitalization History childbirth 05/09/20 19 [facility] ([facility]) Other evShowbucksdicof noteNo InformationNort [facility] Other Evesucnplk noteNo assessment information available [facility] Work Phone: Evzwouoodw note* Diagnosis 23 weeks gestation of Second trimester state, incidental Diabetes mellitus screening Screening for diabetes mellitus Hypertension affecting , antepartum [facility] Diagnosis 27 weeks gestation of Second trimester state, incidental Hypertension affecting , antepartum [facility] Diagnosis 29 weeks gestation of Third trimester state, incidental Heartburn during in third trimester Gastroesophageal reflux in [facility]* Diagnosis 18 weeks gestation of Screening, , for anatomic survey Encounter for anatomic survey Exposure to STD Vaginal discharge Leukorrhea, not specified as infective [facility]* Diagnosis 32 weeks gestation of Third trimester state, incidental Hypertension affecting , antepartum [facility] Diagnosis Third trimester state, incidental 35 weeks gestation of documented [facility] - [facility] Other History general Narrative - Reported* Type Description Date Medical History immunizations up to date Medical History Right Wrist fracture Medical History Left ankle fracture Medical History Anxiety Medical History Depression Surgical History Dillwyn teeth extraction Hospitalization History childbirth; [facility] 08-30-12 Hospitalization History childbirth - [place] 0 11/20/14 Hospitalization History childbirth 05/09/20 [facility] Other Summary Purpose Family History No Family History Records Found Relationship Condition Age at Onset Recorded Date/T jozef father Family history of mental disorder Unknown grandparent Heart disease Unknown grandparent Unknown [employer] workers' pneumoconiosis Unknown Hypertension Unknown Not Specified Family history of mental disorder Unknow n Relationship Condition Age at Onset Recorded Date/T jozef father Family history of mental disorder Unknown grandparent Heart disease Unknown grandparent Unknown [employer] workers' pneumoconiosis Unknown Hypertension Unknown mother Family [...] content) DATE CREATED AUTHOR 04/09/2018 [facility] [place] [facility] DATE CREATED AUTHOR AUTHOR'S ORGANIZ ATION 09/09/2022 [facility] DATE CREATED AUTHOR AUTHOR'S ORGANIZ ATION 05/04/2024 [facility] DATE CREATED AUTHOR AUTHOR'S ORGANIZ ATION 06/19/2024 [facility] EPIC REASON FOR VISIT [...] Active Bud Flaherty APRN Emergency Provider Active Training Coordinator Relationship Specialty Start Date End Date Dalton Asencio MD [address] [place] [address] PCP - General Family Medicine 01/03/23 Training Coordinator Relationship Specialty Start Date End Date Dalton Asencio MD [address] [place] [address] PCP - General Family Medicine 01/03/23 Training Coordinator Relationship Specialty Start Date End Date Dalton Asencio MD [address] [place] [address] PCP - General Family Medicine 01/03/23 Training Coordinator Relationship Specialty Start Date End Date Dalton Asencio MD [address] [place] [address] PCP - General Family Medicine 01/03/23 Training Coordinator Relationship Specialty Start Date End Date Dalton Asencio MD [address] [place] [address] PCP - General Family Medicine 01/03/23 Training Coordinator Relationship Specialty Start Date End Date Dalton Asencio MD [address] [place] [address] PCP - General Family Medicine 01/03/23 Training Coordinator Relationship Specialty Start Date End Date Dalton Asencio MD [address] [place] [address] PCP - General Family Medicine 01/03/23 Training Coordinator Relationship Specialty Start Date End Date Dalton Asencio MD [address] [place] [address] PCP - General Family Medicine 01/03/23 Training Coordinator Relationship Specialty Start Date End Date Dalton Asencio MD [address] [facility] [place] [place] [address] PCP - General Family Medicine 01/03/23 Training Coordinator Relationship Specialty Start Date End Date Dalton Asencio MD [address] [place], [place] [id number] PCP - General Family Medicine 01/03/23 Goals [...] BE BASED ON THE PRIMARY CLINICAL RECORDS. [employer] provides no warranty or guarantee of the accuracy or completeness of information in this document.
--- NOTE | 2024-06-20 20:49 | US_ITS ---
[place] [id number] Patient Name: ALEJANDRO MICHELE MRN: [id number] date: 1995 Sex: F Assigned Patient Location: [facility] Current Patient Location: Accession/Order Number: [id number] Exam Date: 06/20/2024 21:05 Report Date: 06/20/2024 23:00 At the request of: ITZEL GARRETT Procedure: US OB BPP w non-stress EXAMINATION: US OB BPP w non-stress HISTORY:HYPERTENSION AFFECTING O16.9 COMPARISON: Ultrasound OB biophysical 06/13/2024 TECHNIQUE: Ultrasound biophysical profile was performed in the radiology department. BREATHING MOVEMENTS: 2 GROSS BODY MOVEMENTS: 2 TONE: 2 QUALITATIVE AMNIOTIC FLUID VOLUME: 2 PRESENTATION: CEPHALIC HEART RATE: 133.66 bpm AMNIOTIC FLUID VOLUME: 13.55 cm GESTATIONAL AGE: 36 weeks 3 days US/US OB BPP w non-stress IMPRESSION: Total biophysical profile score: 8 Electronically authenticated by: ADELE LOPEZ Date: 06/20/2024 23:00
[2024-06-20 21:39] VITALS: BP 128/80; PULSE 107
[2024-06-20 21:40] VITALS: TEMP 36.3
== END 2024-06-20 22:20 | disposition home or self-care (01) ==
LOC: FBCO 00:36 → FBC 21:01
PROVIDERS: PCP Family Medicine; Visit Provider Obstetrics & Gynecology
DX: O16.3 Unspecified maternal hypertension, third trimester (principal); Z3A.36 36 weeks gestation of pregnancy
CPT/HCPCS: 76818

== ENCOUNTER 2024-06-20 20:46 | Outpatient (REF) | payer OTHER, SELFPAY ==
--- OUTSIDE RECORDS SUMMARY | 2024-06-20 20:50 | XMS_ITS | CCD ---
Author Organization [facility] Care Team Providers Care Scalp Treatment Specialist Name Role Phone DALTON ASENCIO Unavailable Unavailable [...] Primary Care Provider ATIYA Flaherty Emergency Provider [phone] Zi Maier Unavailable Dalton Asencio MD Primary Care Provider [phone] Dalton Asencio Primary Care Unavailable Mary Young [...] Drug Allergy HIVES [facility] Repository (1 source) No Known Drug Allergies Drug allergy (disorder) 3 [facility] (20 sources) Sertraline Drug Allergy 3 migraines [facility] (18 sources) buPROPion Drug Allergy 3 300 MG made angry [facility] (9 sources) venlafaxine Drug Allergy 3 higher dose made feel irritated and feel worse [facility] (4 sources) Sulfamethoxazole; Translations: [sulfamethoxazole] Drug Allergy 3 [facility] (4 sources) Trimethoprim; Translations: [trimethoprim] Drug Allergy 3 [facility] (20 sources) Sulfamethoxazole / Trimethoprim Drug Allergy 3 [facility] (1 source) buPROPion Drug Allergy 4 [facility] Repository (1 source) Sertraline Drug Allergy 4 [facility] Repository (1 source) venlafaxine Drug Allergy 4 [facility] Repository Medications Current Medications Medication Drug Class(es) [...] day(s) May, Active take 1 capsule by [facility] every twenty-four hours Venlafaxine HCl ER [...] Other fpc (current) drug therapy Episodic Other complications of [...] Negative Negative - 4(70) +++ mg/dL [facility] Blood, UA Positive Negative - 50 Deric/mcL [facility] Healthcare Clarity, UA Clear [facility] Healthcare Color, UA Yellow [facility] Glucose, UA Negative Negative - 1999(110) ++++ mg/dL [facility] Interpretation and review of laboratory results Abnormal [facility] Ketones, UA Negative Negative - 160(16) ++++ mg/dL [facility] Leukocytes, UA Positive Negative - 500+++ David/mcL [facility] Nitrite, UA Negative Negative - Positive [facility] pH, UA 5.5 5 - 9 [facility] Protein, UA Negative Negative - 1999(20) ++++ mg/dL [facility] Spec Grav, UA 1.02 1 - 1.03 [facility] Urobilinogen, UA 1.0 0.2 - 12 mg/dL [facility] Urinalysis macro (dipstick) panel (U)on 05-23-2024 Bilirubin, UA Negative Negative - 4(70) +++ mg/dL [facility] Blood, UA Negative Negative - 50 Deric/mcL [facility] Healthcare Clarity, UA Clear [facility] Color, UA Yellow [facility] Glucose, UA Negative Negative - 1999(110) ++++ mg/dL [facility] Interpretation and review of laboratory results Abnormal [facility] Ketones, UA Negative Negative - 160(16) ++++ mg/dL [facility] Leukocytes, UA Moderate Negative - 500+++ David/mcL [facility] Nitrite, UA Negative Negative - Positive [facility] pH, UA 6 5 - 9 [facility] Protein, UA Negative Negative - 1999(20) ++++ mg/dL [facility] Spec Grav, UA 1.025 1 - 1.03 [facility] Urobilinogen, UA 0.2 0.2 - 12 mg/dL [facility] Urinalysis macro (dipstick) panel (U)on 05-04-2024 Bilirubin, UA Negative Negative - 4(70) +++ mg/dL [facility] Blood, UA Negative Negative - 50 Deric/mcL [facility] Healthcare Clarity, UA Clear [facility] Healthcare Color, UA Yellow [facility] Glucose, UA Negative Negative - 1999(110) ++++ mg/dL [facility] Interpretation and review of laboratory results Abnormal [facility] Ketones, UA Negative Negative - 160(16) ++++ mg/dL [facility] Leukocytes, UA Trace Negative - 500+++ David/mcL [facility] Nitrite, UA Negative Negative - Positive [facility] pH, UA 6.5 5 - 9 [facility] Protein, UA Negative Negative - 2000(20) ++++ mg/dL [facility] Spec Grav, UA 1.02 1 - 1.03 [facility] Urobilinogen, UA 0.2 0.2 - 12 mg/dL [facility] Complete Blood Count Auto Di ffon 05-02-2024 Basophils (Bld) [#/Vol] 0.1 10*3/uL Normal 0.0-0.2 [facility] Comment on above: Result Comment: PERF ORMED BY: [place] [address] PATHOLOGIST TELECOMMUNICATIONS SPECIALIST KAM OWENS M.D. Performed By: #### G [id number], CBC #### [address] Basophils/100 WBC (Bld) 0.4 % Normal . [facility] Comment on above: Performed By: #### G [id number], CBC #### [address] Eosinophils (Bld) [#/Vol] 0.2 10*3/uL Normal 0.0-0.45 [facility] Comment on above: Performed By: #### G [id number], CBC #### [address] Eosinophils/100 WBC (Bld) 1.4 % Normal . [facility] Comment on above: Performed By: #### G [id number], CBC #### [address] Erythrocyte distribution width (RBC) [Ratio] 13.3 % Normal 11.9-15.3 [facility] Comment on above: Performed By: #### G [id number], CBC #### [address] Hematocrit (Bld) [Volume fraction] 32.9 % Low 34.0-46.4 [facility] Comment on above: Performed By: #### G [id number], CBC #### [address] Hemoglobin (Bld) [Mass/Vol] 10.9 g/dL Low 11.8-15.4 [facility] Comment on above: Performed By: #### G [id number], CBC #### [address] Lymphocytes (Bld) [#/Vol] 1.4 10*3/uL Normal 1.00-4.8 [facility] Comment on above: Performed By: #### G [id number], CBC #### [address] Lymphocytes/100 WBC (Bld) 11.0 % Normal . [facility] Comment on above: Performed By: #### G [id number], CBC #### [address] MCH (RBC) [Entitic mass] 28.7 pg Normal 24.7-34.3 [facility] Comment on above: Performed By: #### G [id number], CBC #### [address] MCV (RBC) [Entitic vol] 86.4 fL Normal 80-100 [facility] Comment on above: Performed By: #### G [id number], CBC #### [address] Mean Corpuscular HGB Conc 33.2 g/dL Normal 32.0-35.0 [facility] Comment on above: Performed By: #### G [id number], CBC #### [address] Monocytes (Bld) [#/Vol] 0.7 10*3/uL Normal 0.0-0.8 [facility] Comment on above: Performed By: #### G [id number], CBC #### [facility] [address] [place] [address] [place] Monocytes/100 WBC (Bld) 5.9 % Normal . [facility] Comment on above: Performed By: #### G [id number], CBC #### [facility] [address] [place] [address] [place] Neutrophils (Bld) [#/Vol] 10.1 10*3/uL High 1.8-7.7 [facility] Comment on above: Performed By: #### G [id number], CBC #### [facility] [address] [place] [address] [place] Neutrophils/100 WBC (Bld) 81.3 % Normal . [facility] Comment on above: Performed By: #### G [id number], CBC #### [facility] [address] [place] [address] [place] NRBC% 0.0 /100{WBC} Normal 0-0.5 [facility] Comment on above: Performed By: #### G [id number], CBC #### [facility] [address] [place] [address] [place] Platelet mean volume (Bld) [Entitic vol] 7.4 fL Normal 6.3-10.7 [facility] Comment on above: Performed By: #### G [id number], CBC #### [facility] [address] [place] [id number] [place] Platelets (Bld) [#/Vol] 326 10*3/uL Normal 150-450 [facility] Comment on above: Performed By: #### G [id number], CBC #### [facility] [address] [place] [id number] [place] RBC (Bld) [#/Vol] 3.80 10*6/uL Normal 3.60-5.00 [facility] Comment on above: Performed By: #### G [id number], CBC #### [facility] [address] [place] [address] [place] WBC (Bld) [#/Vol] 12.4 10*3/uL High 3.8-11.6 [facility] Comment on above: Performed By: #### G [id number], CBC #### [facility] [address] [place] [address] [place] Glucose,1 Hour PP 50gm Doseo n 05-02-2024 Glucose [Mass/Vol] 109 mg/dL Normal 60-140 [facility] Comment on above: Order Comment: FINIS HED DRINK AT 1231. Result Comment: PERF ORMED BY: [address] [place] [address] PATHOLOGIST TELECOMMUNICATIONS SPECIALIST KAM OWENS M.D. Performed By: #### G [id number], CBC #### [facility] [address] Urinalysis macro (dipstick) panel (U)on 04-19-2024 Bilirubin, UA Negative Negative - 4(70) +++ mg/dL [facility] Blood, UA Positive Negative - 50 Deric/mcL [facility] Healthcare Comment on above: small Clarity, UA Clear [facility] Color, UA Yellow [facility] Glucose, UA Negative Negative - 1999(110) ++++ mg/dL [facility] Interpretation and review of laboratory results Abnormal [facility] Ketones, UA Negative Negative - 160(16) ++++ mg/dL [facility] Leukocytes, UA Positive Negative - 500+++ David/mcL [facility] Healthcare Comment on above: small Nitrite, UA Negative Negative - Positive [facility] pH, UA 7 5 - 9 [facility] Protein, UA Negative Negative - 1999(20) ++++ mg/dL [facility] Spec Grav, UA 1.02 1 - 1.03 [facility] Urobilinogen, UA 0.2 0.2 - 12 mg/dL [facility] Urinalysis macro (dipstick) panel (U)on 03-21-2024 Bilirubin, UA Negative Negative - 4(70) +++ mg/dL [facility] Blood, UA Positive Negative - 50 Deric/mcL [facility] Comment on above: moderate Clarity, UA Clear [facility] Color, UA Yellow [facility] Glucose, UA Negative Negative - 1999(110) ++++ mg/dL [facility] Interpretation and review of laboratory results Abnormal [facility] Ketones, UA Negative Negative - 160(16) ++++ mg/dL [facility] Leukocytes, UA Negative Negative - 500+++ David/mcL [facility] Nitrite, UA Negative Negative - Positive [facility] pH, UA 5.5 5 - 9 [facility] Protein, UA Negative Negative - 2000(20) ++++ mg/dL [facility] Spec Grav, UA 1.03 1 - 1.03 [facility] Urobilinogen, UA 0.2 0.2 - 12 mg/dL [facility] Urinalysis macro (dipstick) panel (U)on 02-18-2024 Bilirubin, UA Negative Negative - 4(70) +++ mg/dL [facility] Blood, UA Positive Negative - 50 Deric/mcL [facility] Comment on above: moderate Clarity, UA Clear [facility] Color, UA Yellow [facility] Glucose, UA Negative Negative - 1999(110) ++++ mg/dL [facility] Interpretation and review of laboratory results Abnormal [facility] Ketones, UA Negative Negative - 160(16) ++++ mg/dL [facility] Leukocytes, UA Moderate Negative - 500+++ David/mcL [facility] Nitrite, UA Negative Negative - Positive [facility] pH, UA 5.5 5 - 9 [facility] Protein, UA Negative Negative - 2000(20) ++++ mg/dL [facility] Spec Grav, UA 1.020 1 - 1.03 [facility] Urobilinogen, UA 0.2 0.2 - 12 mg/dL [facility] No Panel InformationOrdered By: Joi Alvarez on 02-15-2024 Quick Strep (POC) [facility] BOX TEST SENT OUTon 01-07 BOX TEST SENT OUT [facility] Comment on above: See Scanned Report. [facility] No Panel Informationon 01-29 Reference Lab Order Code See comment [facility] Comment on above: See Scanned Report. A1C HEMOGLOBINon 01-01-2023 HbA1c (Bld) [Mass fraction] 4.9 % [employer] Other HbA1c (Bld) [Mass fraction]o n 01-01-2023 A1C HEMOGLOBIN [facility] [employer] Other [facility]Spoton 09-04-2022 T-Spot See Report Normal [facility] Comment on above: Performed By: #### 5 [id number], [id number], [id number] #### [facility] (DEFAULT) [address] [place] [address] HBSab Qnt LCon 01-02-2022 Hep B Surf Ab Quant LC >1000.0 Invalid Interpretation Code Immunity>9 .9 [facility] Comment on above: Result Comment: Stat us of Immunity Anti-HBs Level Inconsistent with Immunity 0.0 - 9.9 Consistent with Immunity >9.9 Performed At: [address] [id number] Donnell Palacios PhD Ph:[phone] Performed By: #### 5 [id number], [id number], [id number] #### [facility] (DEFAULT) [address] [place], [place] [id number] Lab - Toxicology Resultson 0 01-02-2022 Lab - Toxicology Results [id number] Normal [facility] Measles/Mumps/Rubella Immuni ty LCon 01-02-2022 Mumps Abs, IgG LC <9.0 Low Immune >10.9 [facility] Comment on above: Result Comment: Nega tive <9.0 Equivocal 9.0 - 10.9 Positive >10.9 A positive result generally indicates past exposure to Mumps virus or previous vaccination. Performed At: [address] [id number] Donnell Palacios PhD Ph:[phone] Performed By: #### 5 [id number], [id number], [id number] #### [facility] (DEFAULT) [address] [place] [address] Rubella Antibodies, IgG LC 6.35 index Invalid Interpretation Code Immune >0.99 [facility] Comment on above: Result Comment: Non- immune <0.90 Equivocal 0.90 - 0.99 Immune >0.99 Performed By: #### 5 [id number], [id number], [id number] #### [facility] (DEFAULT) [address] [place] [address] Rubeola Ab, IgG, EIA LC 14.1 AU/mL Low Immune >16.4 [facility] Comment on above: Result Comment: A se cond sample should be collected and tested no less than 2-4 weeks. Negative <13.5 Equivocal 13.5 - 16.4 Positive >16.4 Presence of antibodies to Rubeola is presumptive evidence of immunity except when acute infection is suspected. Performed By: #### 5 [id number], [id number], [id number] #### [facility] (DEFAULT) [address] [place] [address] Nicotine Metabolite, Urine L Con 01-02-2022 Cotinine LC Negative Invalid Interpretation Code [id number] [facility] Comment on above: Result Comment: Perf ormed At: [facility] [address] [facility] [place], [place] [id number] Chilo Mckeon PhD Ph:[phone] Performed By: #### 1 [id number] #### [facility] (DEFAULT) [address] [place] [address] COVID Quick Testingon 2020 Result Negative [facility] [employer] Other Quick Strepon 03-23-2021 S. pyogenes Org specific cx Ql (Throat) Positive [facility] [facility] [employer] Other Quick Strep [facility] [facility] [employer] Other PAP ACOG PANEL 2: 21 to 29on 07-02-2017 Age Gdln ACOG Testing 21-29 Normal [facility] Comment on above: Performed By: #### 4 [id number] ####[facility] [address] [place], [place] [address]OcaibiChristopher Stewart DIAGNOSIS: Comment Abnormal [facility] Comment on above: Result Comment: EPIT HELIAL CELL ABNORMALITY.ATYPICAL SQUAMOUS CELLS OF UNDETERMINED SIGNIFICANCE. Performed By: #### 4 [id number] ####[facility] [address] [place] [address] Pat Electronically signed by: Comment Normal [facility] Comment on above: Result Comment: Shade Price MD, Pathologist Performed By: #### 4 [id number] ####[facility] [address] [place] [address] Pat HPV Aptima Negative Normal Negative [facility] Comment on above: Result Comment: This test was developed and its performance characteristicsdetermined by [employer]. It has not been cleared or approvedby the Food and Drug Administration.This test detects fourteen high-risk HPV types (16/18/31/33/35/39/45/51/52/56/58/59/66/68) without differentiation. Performed By: #### 4 [id number] ####[address] Pat Methodology: Comment Normal [facility] Comment on above: Result Comment: This liquid based SurePath(R) pap test was screened with theassistance of an image guided system. Performed By: #### 4 [id number] ####[facility] [address] [place] [address] Pat Note: Comment Normal [facility] Comment on above: Result Comment: The Pap smear is a screening test designed to aid in the detection ofpremalignant and malignant conditions of the uterine cervix. It is not adiagnostic procedure and should not be used as the sole means of detectingcervical cancer. Both false-positive and false-negative reports do occur. . Performed By: #### 4 [id number] ####[facility] [address] [place] [address] Pat Performed by: Comment Normal [facility] Comment on above: Result Comment: Josefina Orr, Wad Blanking Press Adjuster (ASCP) Performed By: #### 4 [id number] ####[facility] [address] Pat Protein mass conc Comment Normal [facility] Comment on above: Result Comment: [id number] Performed By: #### 4 [id number] ####[facility] [address] [place] [id number] Pat Reflex Criteria: Comment Normal [facility] Comment on above: Result Comment: See below for HPV testing results. . Performed By: #### 4 [id number] ####[facility] [address] Pat Specimen adequacy: Comment Normal [facility] Comment on above: Result Comment: Sati sfactory for evaluation. Endocervical and/or squamous metaplasticcells (endocervical component) are present. Performed By: #### 4 [id number] ####[facility] [address] Pat . . Normal [facility] Comment on above: Performed By: #### 4 [id number] ####[facility] [address] Pat Vital Signs Date Time Vital Sign Value Performing Clinician Facility 06-13-2024 11:15-0500 Body mass index (BMI) [Ratio] 39.78 kg/m2 Itzel Raegan DO Work Phone: [facility] 06-13-2024 11:15-0500 Body weight 116.94 kg Itzel Raegan DO Work Phone: [facility] 06-13-2024 11:15-0500 Diastolic blood pressure 78 mm[Hg] Itzel Raegan DO Work Phone: [facility] 06-13-2024 11:15-0500 Systolic blood pressure 114 mm[Hg] Itzel Raegan DO Work Phone: [facility] 05-23-2024 11:56-0500 Body mass index (BMI) [Ratio] 38.33 kg/m2 Itzel Raegan DO Work Phone: [facility] 05-23-2024 11:56-0500 Body weight 112.67 kg Itzel Raegan DO Work Phone: [facility] 05-23-2024 11:56-0500 Diastolic blood pressure 84 mm[Hg] Itzel Raegan DO Work Phone: [facility] 05-23-2024 11:56-0500 Systolic blood pressure 112 mm[Hg] Itzel Raegan DO Work Phone: [facility] 05-04-2024 10:25-0500 Body mass index (BMI) [Ratio] 37.96 kg/m2 Itzel Raegan DO Work Phone: [facility] 05-04-2024 10:25-0500 Body weight 111.58 kg Itzel Raegan DO Work Phone: [facility] 05-04-2024 10:25-0500 Diastolic blood pressure 78 mm[Hg] Itzel Raegan DO Work Phone: [facility] 05-04-2024 10:25-0500 Systolic blood pressure 122 mm[Hg] Itzel Raegan DO Work Phone: [facility] 04-19-2024 11:26-0500 Body mass index (BMI) [Ratio] 37.34 kg/m2 Itzel Raegan DO Work Phone: [facility] 04-19-2024 11:26-0500 Body weight 109.77 kg Itzel Raegan DO Work Phone: [facility] 04-19-2024 11:26-0500 Diastolic blood pressure 82 mm[Hg] Itzel Raegan DO Work Phone: [facility] 04-19-2024 11:26-0500 Systolic blood pressure 120 mm[Hg] Itzel Raegan DO Work Phone: [facility] 03-21-2024 09:50-0400 Body mass index (BMI) [Ratio] 36.85 kg/m2 Mary CARBALLO Work Phone: [facility] 03-21-2024 09:50-0400 Body weight 108.32 kg Mary CARBALLO Work Phone: [facility] 03-21-2024 09:50-0400 Diastolic blood pressure 70 mm[Hg] Mary CARBALLO Work Phone: [facility] 03-21-2024 09:50-0400 Systolic blood pressure 120 mm[Hg] Mary Young PA Work Phone: [facility] 02-18-2024 10:09-0400 Body mass index (BMI) [Ratio] 35.77 kg/m2 Itzel Raegan DO Work Phone: [facility] 02-18-2024 10:09-0400 Body weight 105.14 kg Itzel Raegan DO Work Phone: [facility] 02-18-2024 10:09-0400 Diastolic blood pressure 80 mm[Hg] Itzel Raegan DO Work Phone: [facility] 02-18-2024 10:09-0400 Systolic blood pressure 120 mm[Hg] Itzel Raegan DO Work Phone: [facility] 02-15-2024 12:48-0400 Body height 172.72 cm [facility] 02-15-2024 12:48-0400 Body mass index (BMI) [Ratio] 34.9 kg/m2 [facility] 02-15-2024 12:48-0400 Body temperature 98.2 [degF] [facility] 02-15-2024 12:48-0400 Body weight 104.32 kg [facility] 02-15-2024 12:48-0400 Diastolic blood pressure 73 mm[Hg] [facility] 02-15-2024 12:48-0400 Heart rate 106 /min [facility] 02-15-2024 12:48-0400 SaO2% (BldA) [Mass fraction] 98 % [facility] 02-15-2024 12:48-0400 Systolic blood pressure 103 mm[Hg] [facility] 01-29-2023 14:15-0400 Body height 172.72 cm Zi Maier Other [employer] [facility] [employer] Other 01-29-2023 14:15-0400 Body mass index (BMI) [Ratio] 31.81 kg/m2 Zi Maier Other [employer] Other 01-29-2023 14:15-0400 Body weight 94.89 kg Zi Maier Other [employer] Other 01-29-2023 14:15-0400 Diastolic blood pressure 68 mm[Hg] Zi Maier Other [employer] Other 01-29-2023 14:15-0400 Respiratory rate 18 /min Zi Phrazit Other [employer] Other 01-29-2023 14:15-0400 SaO2% (BldA) [Mass fraction] 97 % Zi Phrazit Other [employer] Other 01-29-2023 14:15-0400 Systolic blood pressure 105 mm[Hg] Zi Maier Other [employer] Other 01-01-2023 10:00-0400 Body height 172.72 cm Zi Phrazit Other [employer] Other 01-01-2023 10:00-0400 Body mass index (BMI) [Ratio] 31.77 kg/m2 Zi Maier Other [employer] Other 01-01-2023 10:00-0400 Body weight 94.8 kg Zi Phrazit Other [employer] Other 01-01-2023 10:00-0400 Diastolic blood pressure 68 mm[Hg] Zi Phrazit Other [employer] Other 01-01-2023 10:00-0400 Respiratory rate 18 /min Zi Phrazit Other [employer] Other 01-01-2023 10:00-0400 SaO2% (BldA) [Mass fraction] 97 % Zi Maier Other [employer] Other 01-01-2023 10:00-0400 Systolic blood pressure 105 mm[Hg] Zi Maier Other [employer] Other 11-10-2022 17:40-0400 Body height 172.72 cm Dalton Asencio Other [employer] Other 11-10-2022 17:40-0400 Body mass index (BMI) [Ratio] 32.69 kg/m2 Dalton Asencio Other [employer] Other 11-10-2022 17:40-0400 Body weight 97.52 kg Dalton Asencio Other [employer] Other 11-10-2022 17:40-0400 Diastolic blood pressure 80 mm[Hg] Dalton Asencio Other [employer] Other 11-10-2022 17:40-0400 Systolic blood pressure 117 mm[Hg] Dalton Asencio Other [employer] Other 10-21-2022 09:14-0400 Body temperature 98.1 [degF] DO Dalton Asencio Work Phone: [facility] 10-21-2022 09:14-0400 Diastolic blood pressure 59 mm[Hg] DO Dalton Garygarrick Work Phone: [facility] 10-21-2022 09:14-0400 Heart rate 74 /min DO Dalton Asencio Work Phone: [facility] 10-21-2022 09:14-0400 Respiratory rate 18 /min DO Dalton Asencio Work Phone: [facility] 10-21-2022 09:14-0400 SaO2% (BldA) [Mass fraction] 98 % DO Dalton Asencio Work Phone: [facility] 10-21-2022 09:14-0400 Systolic blood pressure 120 mm[Hg] DO Dalton Asencio Work Phone: [facility] 10-21-2022 09:13-0400 Body height 175.26 cm DO Dalton Asencio Work Phone: [facility] 10-21-2022 09:13-0400 Body weight 97.1 kg DO Dalton Asencio Work Phone: [facility] 03-04-2022 15:40-0400 Body height 172.72 cm Dalton Asencio Other [employer] Other 05-09-2021 10:30-0500 Body height 172.72 cm Dalton Asencio Other [employer] Other 05-09-2021 10:30-0500 Body mass index (BMI) [Ratio] 34.66 kg/m2 Dalton Raisa Other [employer] Other 05-09-2021 10:30-0500 Body temperature 97.7 [degF] Dalton Raisa Other [employer] Other 05-09-2021 10:30-0500 Body weight 103.42 kg Dalton Garygarrick Other [employer] Other 05-09-2021 10:30-0500 Diastolic blood pressure 72 mm[Hg] Dalton Asencio Other [employer] Other 05-09-2021 10:30-0500 Respiratory rate 18 /min Dalton Asencio Other [employer] Other 05-09-2021 10:30-0500 SaO2% (BldA) [Mass fraction] 98 % Dalton Asencio Other [employer] Other 05-09-2021 10:30-0500 Systolic blood pressure 108 mm[Hg] Dalton Asencio Other [employer] Other 03-23-2021 11:00-0400 Body height 172.72 cm Johnny Lyn Other [employer] Other 03-23-2021 11:00-0400 Body mass index (BMI) [Ratio] 33.6 kg/m2 Johnny Lyn Other [employer] Other 03-23-2021 11:00-0400 Body temperature 98.5 [degF] Johnny Lyn Other [employer] Other 03-23-2021 11:00-0400 Body weight 100.25 kg Johnny Lyn Other [employer] Other 03-23-2021 11:00-0400 Diastolic blood pressure 68 mm[Hg] Johnny Lyn Other [employer] Other 03-23-2021 11:00-0400 Respiratory rate 18 /min Johnny Lyn Other [employer] Other 03-23-2021 11:00-0400 SaO2% (BldA) [Mass fraction] 97 % Johnny Lyn Other [employer] Other 03-23-2021 11:00-0400 Systolic blood pressure 105 mm[Hg] Johnny Lyn Other [employer] Other Encounters Encounter Date Encounter Type Care [...] Start: 05-02-2024 End: 05-02-2024 ambulatory Dalton Asencio Facility:[facility] Start: 04-19-2024 End: 04-19-2024 Bamboo flowsheet Itzel Raegan DO Work Phone: [facility] Start: 04-19-2024 End: 04-19-2024 Bamboo flowsheet Itzel Raegan DO Work Phone: [facility] Start: 04-19-2024 End: 04-19-2024 flow sheet Itzel Raegan DO Work Phone: [facility] Comment on above: 27 weeks gestation o f ; Second trimester ; Hypertension affecting , antepartum Start: 04-19-2024 End: 04-19-2024 ambulatory ITZEL RAEGAN Not Available Start: 03-21-2024 End: 03-21-2024 Bamboo flowsheet Mary CARBALLO Work Phone: [facility] Start: 03-21-2024 End: 03-21-2024 Bamboo flowsheet Mary CARBALLO Work Phone: [facility] Start: 03-21-2024 End: 03-21-2024 flow sheet Mary CARBALLO Work Phone: [facility] Comment on above: 23 weeks gestation o f ; Second trimester ; Diabetes mellitus screening; Hypertension affecting , antepartum Start: 03-21-2024 End: 03-21-2024 ambulatory MARY YOUNG Not Available Start: 02-18-2024 End: 02-18-2024 Bamboo flowsheet Itzel Raegan DO Work Phone: [facility] Start: 02-18-2024 End: 02-18-2024 Bamboo flowsheet Itzel Raegan DO Work Phone: [facility] Start: 02-18-2024 End: 02-18-2024 flow sheet Itzel Raegan DO Work Phone: [facility] Comment on above: 18 weeks gestation o f ; Screening, , for anatomic survey; Exposure to STD; Vaginal discharge Start: 02-18-2024 End: 02-18-2024 ambulatory ITZEL RAEGAN Not Available Start: 02-15-2024 End: 02-15-2024 ambulatory [facility] Work Phone: Start: 02-15-2024 End: 02-15-2024 Patient encounter procedure [facility] [place] Work Phone: Start: 01-30-2024 End: 02-02-2024 Clinisync Result Encounter Itzel Raegan DO Work Phone: [facility] Unsolicited Start: 01-30-2024 End: 02-02-2024 Clinisync Result Encounter Itzel Raegan DO Work Phone: [facility] Unsolicited Start: 01-30-2024 Non-patient / Non-visit [facility] Work Phone: Start: 01-28-2024 End: [...] 01-29-2023 End: 01-29-2023 ambulatory Zi Maier Other [employer] Other Start: 01-29-2023 Follow-up encounter Zi Maier [facility] Start: 01-13-2023 End: 01-13-2023 ambulatory Dalton Asencio Other [employer] Other Start: 01-13-2023 Telephone encounter Dalton Asencio [facility] Start: 01-01-2023 End: 01-01-2023 ambulatory Zi Maier Other [facility] [employer] Other Start: 01-01-2023 Nutrition therapy Zi Maier [facility] Start: 11-10-2022 End: 11-10-2022 ambulatory Dalton Asencio Other [employer] Other Start: 11-10-2022 Telephone encounter Dalton Asencio [facility] Start: 10-21-2022 End: 10-21-2022 Emergency department patient visit DO Dalton Asencio Work Phone: [facility] Work Phone: Start: 07-28-2022 End: 07-28-2022 ambulatory Dalton Asencio Other [employer] Other Start: 07-28-2022 Telephone encounter Dalton Asencio [facility] Start: 07-25-2022 End: 07-25-2022 ambulatory Dalton Asencio Other [employer] Other Start: 07-25-2022 Telephone encounter Dalton Asencio [facility] Start: 04-09-2022 End: 04-09-2022 ambulatory Dalton Asencio Other [employer] Other Start: 04-09-2022 Telephone encounter Dalton Asencio [facility] Start: 03-20-2022 End: 03-20-2022 ambulatory Lelia Macias Other [employer] Other Start: 03-20-2022 Telephone encounter Lelia Macias [facility] Start: 03-04-2022 End: 03-04-2022 ambulatory Dalton Asencio Other [employer] Other Start: 03-04-2022 Telephone encounter Dalton Asencio [facility] Start: 02-06-2022 End: 02-06-2022 ambulatory Dalton Asencio Other [employer] Other Start: 02-06-2022 Telephone encounter Dalton Asencio [facility] [place] Start: 01-02-2022 End: 01-02-2022 ambulatory None Provider Facility:[facility] Start: 09-18-2021 End: 09-18-2021 ambulatory Dalton Abdirahmangarrick Other [employer] Other Start: 09-18-2021 Telephone encounter Dalton Garygarrick [facility] [place] Start: 07-25-2021 End: 07-25-2021 ambulatory Dalton Asencio Other [employer] Other Start: 07-25-2021 Telephone encounter Dalton Asencio [facility] [place] Start: 07-15-2021 End: 07-15-2021 ambulatory Dalton Raisa Other [employer] Other Start: 07-15-2021 Telephone encounter Dalton Asencio [facility] [place] Start: 05-09-2021 End: 05-09-2021 ambulatory Dalton Abdirahmangarrick Other [employer] Other Start: 05-09-2021 Office outpatient vi sit 15 minutes Dalton Garygarrick [facility] [place] Start: 04-22-2021 End: 04-22-2021 ambulatory Dalton Asencio Other [employer] Other Start: 04-22-2021 Telephone encounter Dalton Asencio [facility] [place] Start: 03-23-2021 Office outpatient vi sit 15 minutes Johnny Lyn [facility] Urgent [facility] Start: 03-12-2018 End: 03-12-2018 Patient encounter [...] [facility] [address] [facility] [address] [place] [id number] Alayna Hassan, DO [address] [place] [address] [facility] Start: 06-28-2024 End: 06-28-2024 Patient encounter procedure 06/28/2024 10:20 AM EST Routine [facility] [address] [place] [id number] Itzel Carlin, DO [address] [place] [address] [facility] Start: 06-20-2024 End: 06-20-2024 Patient encounter procedure 06/20/2024 1:20 PM EST Routine [facility] [address] [place] [address] Itzel Carlin, DO [address] [place] [address] [facility] Start: 06-13-2024 End: 06-13-2024 Patient encounter procedure 06/13/2024 10:30 AM EST Routine [facility] [address] [place] [address] Itzel Carlin, DO [address] [place] [address] [facility] Start: 05-23-2024 End: 05-23-2025 US biophysical profile w non stress test US biophysical profile w non stress test Imaging Routine Hypertension affecting , antepartum Expected: 05/23/2024 (Approximate), Expires: 05/23/2025 [facility] Work Phone: Comment on above: Expected: 05/23/2024 (Approximate), Expires: 05/23/2025 Start: 05-03-2024 End: 05-03-2024 Patient encounter procedure 05/03/2024 9:00 AM EST Routine [facility] [address] [place] [address] Itzel Carlin, DO [address] [place] [address] [facility] Start: 04-19-2024 End: 04-19-2025 US for US OB SCAN FOR GROWTH Imaging Routine Hypertension affecting , antepartum Expected: 04/19/2024 (Approximate), Expires: 04/19/2025 [facility] Work Phone: Comment on above: Expected: 04/19/2024 (Approximate), Expires: 04/19/2025 Start: 04-18-2024 End: 04-18-2024 Patient encounter procedure 04/18/2024 10:40 AM EST Routine [facility] [address] [place] [address] Itzel Carlin, DO [address] [place] [place], [place] [id number] [facility] Start: 03-28-2024 End: 03-28-2024 Professional / ancillary services management 03/28/2024 9:30 AM EDT Ancillary Procedure [facility] [address] [place] [address] [facility] Start: 03-21-2024 End: [...] EDT Ancillary Procedure [facility] [address] [place] [address] [facility] Start: 02-18-2024 End: 04-19-2024 Alpha fetoprotein, maternal Alpha fetoprotein, maternal Lab Routine 18 weeks gestation of Expected: 02/18/2024 (Approximate), Expires: 04/19/2024 [facility] Comment on above: Expected: 02/18/2024 (Approximate), Expires: 04/19/2024 Start: 02-18-2024 End: 02-17-2025 US for US OB ANATOMY SINGLE W US OB CERVICAL LENGTH Imaging Routine Screening, , for anatomic survey Expected: 02/18/2024 (Approximate), Expires: 02/17/2025 [facility] Comment on above: Expected: 02/18/2024 (Approximate), Expires: 02/17/2025 Start: 02-18-2024 End: 02-18-2024 Patient encounter procedure [facility] Comment on above: Arrived Start: 02-07-2024 Influenza vaccination Influenza Vacc ine (#1) [facility] Start: 01-28-2024 End: 01-28-2024 Patient encounter procedure 01/28/2024 8:40 AM EDT Office Visit [facility] [address] [address] Itzel Carlin DO [address] [facility] [place] [address] Arrived [facility] Comment on above: Arrived Start: 2015 Screening for malign ant neoplasm of cervix Pap Smear [facility] CHLAMYDIA TRACHOMATI S (GENITO/STI) CHLAMYDIA TRACHOMATIS (GENITO/STI) Lab Routine Exposure to STD Ordered: 02/18/2024 [facility] Comment on above: Ordered: 02/18/2024 Neisseria gonorrhoea e DNA [Presence] in Unspecified specimen by SAKSHI with probe detection Neisseria gonorrhea DNA probe, direct Lab Routine Exposure to STD Ordered: 02/18/2024 [facility] Comment on above: Ordered: 02/18/2024 Patient Education Minor Head Injury (DC) [facility] Work Phone: Patient referral [facility] Work Phone: SURESWAB(R) ADVANCED VAGINITIS PLUS, TMA SURESWAB(R) ADVANCED VAGINITIS PLUS, TMA Pathology and Cytology Routine Vaginal discharge Ordered: 02/18/2024 [facility] Work Phone: Comment on above: Ordered: 02/18/2024 Immunizations Immunization Date Immunization Notes Care Provider Rubin roberto 05-27-2023 influenza virus vaccine, unspecified formulation Itzel Carlin DO Work Phone: [facility] 03-24-2022 influenza, seasonal, injectable Dalton Asencio Other [facility] 05-06-2021 measles, mumps and rubella virus vaccine Dalton Asencio Other [facility] 04-03-2021 COVID-19 Vaccine Moderna - Documentation Purposes Only Dalton Asencio Other [facility] 03-04-2021 influenza, seasonal, injectable Dalton Asencio Other [facility] 07-12-2020 COVID-19 Vaccine Moderna - Documentation Purposes Only Johnny Lyn Other [facility] 06-14-2020 COVID-19 Vaccine Moderna - Documentation Purposes Only Johnny Lyn Other [facility] 03-12-2020 influenza, seasonal, injectable Johnny Lyn Other [facility] 05-09-2019 tetanus toxoid, redu elizabeth diphtheria toxoid, and acellular pertussis vaccine, adsorbed Dalton Asencio Other [facility] 06-24-2013 Toradol per 15 mg Johnny wood Other [employer] Other Payers Date Payer Category Payer Self-pay [id number] 2023 Unknown [employer] [id number] 2023-Present [address] [place] [address] [id number] 2023 Unknown [id number] 2019 Medicaid [employer] [place] [id number] 2019-Present [address] [place] [address] [id number] 2019 Private Health Insurance [id number] 2019 Medicaid [id number] 1994 Unknown [id number] 2.16.840.1.447472.3.579.2. 593 1994 Unknown [id number] 2.16.840.1.270290.3.579.2. 593 1994 Unknown [id number] 2.16.840.1.709224.3.579.2. 593 1994 Unknown [id number] 2.16.840.1.432406.3.579.2. 1259 1994 Unknown [id number] 2.16.840.1.793583.3.579.2. 1259 1994 Unknown [id number] 2.16.840.1.809170.3.579.2. 1259 1994 Unknown [id number] 2.16.840.1.338004.3.579.2. 1259 1994 Unknown [id number] 2.16.840.1.575931.3.579.2. 1259 1994 Unknown [id number] 2.16.840.1.162576.3.579.2. 1259 1994 Unknown [id number] 2.16.840.1.571361.3.579.2. 1259 1994 Unknown [id number] 2.16.840.1.663554.3.579.2. 1259 1994 Unknown [id number] 2.16.840.1.421597.3.579.2. 1259 1959 Unknown [id number] 1959 Unknown [id number] 1959 Unknown [id number] Unknown [id number]. 531 Social History Date Type Detail Facility Unknown if ever smoked [facility] [employer] Other Start: 02-03-2023 End: 10-07-2023 Sex Assigned At [facility] [employer] Other Start: 10-21-2022 Tobacco smoking status [facility] Smoker (finding) [facility] Start: 1995 Sex Assigned At Female [facility] Start: 01-03-2023 Tobacco smoking status [facility] Never smoked tobacco [facility] Start: 01-03-2023 Tobacco use and exposure [...] nursing note reviewed. Exam conducted with a senior communications engineer present. Vitals: Estimated body mass index is [...] Carlin DO documented in this encounter [facility] 05-23-2024 History of Presen t illness Narrative [...] nursing note reviewed. Exam conducted with a senior communications engineer present. Vitals: Estimated body mass index is [...] Carlin DO documented in this encounter [facility] 05-03-2024 History of Presen t illness [...] nursing note reviewed. Exam conducted with a senior communications engineer present. Vitals: Estimated body mass index is [...] Carlin DO documented in this encounter [facility] 04-19-2024 History of Presen t illness Narrative [...] nursing note reviewed. Exam conducted with a senior communications engineer present. Vitals: Estimated body mass index is [...] Carlin DO documented in this encounter [facility] 03-21-2024 History of Presen t illness [...] nursing note reviewed. Exam conducted with a senior communications engineer present. Vitals: Estimated body mass index is [...] KAIT Head documented in this encounter [facility] 02-18-2024 History of Presen t illness [...] nursing note reviewed. Exam conducted with a senior communications engineer present. Vitals: Estimated body mass index is [...] Carlin DO documented in this encounter [facility] 01-29-2023 Evaluation note Encounter Date Diagnosis [...] loss response -Patient reports Wellbutrin made her qqkem-Tntkw-bs-car e A1c December 2022 4.9%-Follow up in clinic in 6 weeksThis note was created with voice recognition software. Please excuse errors in body work auto trimmer. Jan, Dietary surveillance and counseling (ICD-10 - [...] with the patient, and documenting clinical information. 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 Please excuse errors in body work auto trimmer. Dec, Dietary surveillance and counseling (ICD-10 - [...] - R63.8) Dec, Screening (ICD-10 - Z13.9) [employer] Other 06-05-2023 Evaluation note* Encounter Date Diagnosis Assessment Notes Treatment Notes Treatment Clinical Notes Nov, Anxiety (ICD-10 - F41.9) She is seeing a psychiatrist every five weeks and she thinks that she has ADHD but has not started any medication for this. She follows with a psychiatrist through [facility]. She is no longer on the Venlafaxine and is not on any medication for her mood. She uses the Xanax only as needed. She struggles with anxiety and focusing in school as far as the ADHD so is unsure if she needs any medication. Right now she feels better than she ever has without any medicine. 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 Nov, ADHD [...] afford to pay for the injectable medication [id number]. I discussed her seeing Dr. Reyes for [...] Nov, Other 6:05 PM - 6:18 PM [employer] Other 02-20-2023 Evaluation note* Encounter Date Diagnosis [...] Jul, Other 2:25 PM - 2:33 PM [employer] Other 11-02-2022 Evaluation note* Encounter Date Diagnosis [...] provide her with a ohine number for [facility] who has psychiatry services. She says [...] Apr, Other 11:10 AM - 11:26 AM [employer] Other 09-27-2022 Evaluation note* Encounter Date Diagnosis [...] Feb, Other 2:50 PM - 3:02 PM [employer] Other 09-01-2022 Evaluation note* Encounter Date Diagnosis Assessment Notes Treatment Notes Treatment Clinical Notes Feb, Anxiety (ICD-10 - F41.9) [employer] Other 02-17-2022 Evaluation note* Encounter Date Diagnosis Assessment Notes Treatment Notes Treatment Clinical Notes Jul, Depression (ICD-10 - F32.9) [employer] Other 02-07-2022 Evaluation note* Encounter Date Diagnosis [...] Jul, Other 4:29 PM - 4:38 PM [employer] Other 02-07-2022 Evaluation note* Encounter Date Diagnosis Assessment Notes Treatment Notes Treatment Clinical Notes Jul, Anxiety (ICD-10 - F41.9) [employer] Other 12-02-2021 Evaluation note* Encounter Date Diagnosis [...] starting school in June, she is attending [employer] for [employer] school. An OARRS report was reviewed, no [...] on the medication. Do not take Ecstasy. [employer] Other 10-16-2021 Evaluation note* Encounter Date Diagnosis [...] (ICD-10 - Z20.828) covid neg, see above. [employer] Other [id number] History general Narrative - Reported* Type Description Date Medical History immunizations up to date Medical History Right Wrist fracture Medical History Left ankle fracture Hospitalization History childbirth; [facility] 08-30-12 Hospitalization History childbirth - [place] [address] 11/20/14 Hospitalization History childbirth 05/09/20 19 [employer] Other [employer] noteNo [employer] Other [employer] noteNo assessment information available [facility] Work Phone: [employer]ckhcnx note* Diagnosis 23 weeks gestation of Second [...] this encounter [facility] - [facility] [employer] Other History general Narrative - Reported* Type Description Date Medical History immunizations up to date Medical History Right Wrist fracture Medical History Left ankle fracture Medical History Anxiety Medical History Depression Surgical History [place] teeth extraction Hospitalization History childbirth; [facility] 08-30-12 Hospitalization History [place] - [place] 11/20/14 Hospitalization History childbirth 05/09/20 [facility] [employer] Other Summary Purpose Family History No Family History Records Found Relationship Condition Age at Onset Recorded Date/T jozef father Family history of mental disorder Unknown grandparent Heart disease Unknown grandparent Unknown [employer] workers' pneumoconiosis Unknown Hypertension Unknown Not Specified Family history of mental disorder Unknow n Relationship Condition Age at Onset Recorded Date/T jozef father Family history of mental disorder Unknown grandparent Heart disease Unknown grandparent Unknown [employer] workers' pneumoconiosis Unknown Hypertension Unknown mother Family history of mental disorder Unknown Advance Directives No Advanced Directives Records Found Advance Directive Response Recorded Date/ Time Advance Directives No May 14, 2017 3:17pm Chief Complaint and Reason for Visit Chief Complaint head injury Chief Complaint sore throat, headach e Additional Source Comments INFORMATION SOURCE (unrecogn ized section and content) DATE CREATED AUTHOR 04/09/2018 [facility] [place] [facility] DATE CREATED AUTHOR AUTHOR'S ORGANIZ ATION 09/09/2022 [facility] DATE CREATED AUTHOR AUTHOR'S ORGANIZ ATION 05/04/2024 [facility] DATE CREATED AUTHOR AUTHOR'S ORGANIZ ATION 06/19/2024 [facility] dical Specialists EPIC REASON FOR VISIT (unrecogniz [...] Active Bud Flaherty APRN Emergency Provider Active Scalp Treatment Specialist Relationship Specialty Start Date End Date Dalton Asencio MD [address] [place] [address] PCP - General Family Medicine 01/03/23 Scal[facility] Treatment Specialist Relationship Specialty Start Date End Date Dalton Asencio MD [address] [place] [address] PCP - General Family Medicine 01/03/23 Scalp Treatment Specialist Relationship Specialty Start Date End Date Dalton Asencio MD [address] [place] [address] PCP - General Family Medicine 01/03/23 Scalp Treatment Specialist Relationship Specialty Start Date End Date Dalton Asencio MD [address] [place] [address] PCP - General Family Medicine 01/03/23 Scalp Treatment Specialist Relationship Specialty Start Date End Date Dalton Asencio MD [address] [place] [address] PCP - General Family Medicine 01/03/23 Scalp Treatment Specialist Relationship Specialty Start Date End Date Dalton Asencio MD [address] [place] [address] PCP - General Family Medicine 01/03/23 Scalp Treatment Specialist Relationship Specialty Start Date End Date Dalton Asencio MD [address] [place] [address] PCP - General Family Medicine 01/03/23 Scalp Treatment Specialist Relationship Specialty Start Date End Date Dalton Asencio MD [address] [place] [address] PCP - General Family Medicine 01/03/23 Scalp Treatment Specialist Relationship Specialty Start Date End Date Dalton Asencio MD [address] [facility] [place] [address] PCP - General Family Medicine 01/03/23 Scalp Treatment Specialist Relationship Specialty Start Date End Date Dalton Asencio MD [address] [place], [place] [id number] PCP - General Family [facility] 01/03/23 Goals [...] BE BASED ON THE PRIMARY CLINICAL RECORDS. [employer] provides no warranty or guarantee of the accuracy or completeness of information in this document.
== END 2024-06-20 20:47 | disposition home or self-care (01) ==
LOC: LAB 20:46
PROVIDERS: PCP Family Medicine; Visit Provider Obstetrics & Gynecology
DX: Z34.93 Encounter for supervision of normal pregnancy, unspecified, third trimester (principal)
CPT/HCPCS: 36415

== ENCOUNTER 2024-06-22 00:54 | Outpatient (OUT) | payer OTHER, SELFPAY ==
--- OUTSIDE RECORDS SUMMARY | 2024-06-22 01:00 | XMS_ITS | CCD ---
Author Organization [facility] Care Team Providers Care Receptionist Clerk Name Role Phone DALTON ASENCIO Unavailable Unavailable [...] Primary Care Provider ATIYA Flaherty Emergency Provider [phone] Zi Maier Unavailable Dalton Asencio MD Primary Care Provider [phone] Dalton Asencio Primary Care Unavailable Mary Young [...] sulfamethoxazole / trimethoprim Drug Allergy HIVES [facility] Repository (1 source) No Known Drug Allergies Drug allergy (disorder) 3 [facility] (20 sources) Sertraline Drug Allergy 3 migraines [facility] (18 sources) buPROPion Drug Allergy 3 300 MG made angry [facility] (9 sources) venlafaxine Drug Allergy 3 higher dose made feel irritated and feel worse [facility] (4 sources) Sulfamethoxazole; Translations: [sulfamethoxazole] Drug Allergy 3 [facility] (4 sources) Trimethoprim; Translations: [trimethoprim] Drug Allergy 3 [facility] (20 sources) Sulfamethoxazole / Trimethoprim Drug Allergy 3 [facility] (1 source) buPROPion Drug Allergy 4 [facility] Repository (1 source) Sertraline Drug Allergy 4 [facility] Rep[facility] (1 source) venlafaxine Drug Allergy 4 [facility] Repository Medications Current Medications Medication Drug Class(es) Dates Sig (Normalized) Sig (Original) ALPRAZolam 0.25 mg oral tablet (18 sources) Benzodiazepine Start: 12-17-2017 take 1 tablet by mouth every twelve hours as needed Xanax 0.25 MG 1 tablet Orally q12 hrs prn PRN Dec, Active aspirin 81 mg delayed release oral tablet (17 sources) Platelet Aggregation Inhibitor, Nonsteroidal Anti-inflammatory Drug [...] Active magnesium oxide 400 mg oral tablet (20 sources) Start: 01-21-2024 End: 08-18-2024 take 1 tablet by mouth once daily magnesium oxide (Mag-Ox) 400 MG tablet Indications: Nonintractable headache, unspecified chronicity pattern, unspecified headache type Take 1 tablet (400 mg) by mouth Daily 30 tablet 6 01/21/2024 08/18/2024 Active omeprazole 20 mg delayed release oral capsule (11 sources) Proton Pump Inhibitor Start: 05-04-2024 End: [...] Vit-Fe Fumarate-FA ( Vitamins) 28-0.8 MG tablet (17 sources) Start: 03-03-2024 End: 03-03-2025 take 1 tablet by mouth once daily Vit-Fe Fumarate-FA ( Vitamins) 28-0.8 MG tablet Indications: Second trimester Take 1 tablet by mouth Daily 30 tablet 6 03/03/2024 03/03/2025 Active promethazine hydrochloride 12.5 mg oral tablet (20 sources) Phenothiazine Start: 12-18-2023 take 1 tablet [...] day(s) May, Active take 1 capsule by [facility] every twenty-four hours Venlafaxine HCl ER 75 [...] Hypertension complicating ; childbirth and the puerperium (14 sources) Hypertension complicating , childbirth and the [...] 05-25-2020 Episodic Other aftercare (1 source) 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 Episodic Other complications of [...] intake Episodic Other and delivery including normal (20 sources) Second trimester ; Translations: [Encounter for [...] of ] 02-18-2024 Episodic Residual codes; unclassified (10 sources) Gestation period, 32 weeks; Translations: [32 weeks gestation of ] Onset: 05-23-2024 05-23-2024 Episodic Residual codes; unclassified (2 sources) Gestation period, 35 weeks; Translations: [35 weeks gestation of ] 06-13-2024 Episodic Residual codes; unclassified (2 sources) Gestation period, 36 weeks; Translations: [36 weeks gestation of ] 06-20-2024 Episodic Substance-related disorders (1 source) Nicotine dependence, cigarettes, uncomplicated; Translations: [NICOTINE DEPEND CIGARETTES UNCOMP] Onset: 03-16-2018 Chronic Urinary tract infections (1 source) Cystitis, unspecified without hematuria Episodic Past or Other Problems Problem Classification Problem Date Documented Da te Episodic/Chronic Genitourinary symptoms and ill-defined conditions (20 sources) Blood in urine; Translations: [Hematuria, unspecified] Onset: 01-21-2024 01-21-2024 Episodic Headache; including migraine (20 sources) Headache; Translations: [Nonintractable headache] Onset: 01-21-2024 01-21-2024 Episodic Headache; including migraine (1 source) Headache; including migraine Onset: 05-09-2021 Resolved: 05-09-2021 Other upper respiratory infections (2 sources) Acute pharyngitis, unspecified; Translations: [Streptococcal pharyngitis] Onset: 03-23-2021 Resolved: 03-23-2021 Episodic Residual codes; unclassified (20 sources) Gestation period, 14 weeks; Translations: [14 weeks gestation of ] Onset: 01-21-2024 4 Episodic Results Test Name Value Interpretation Reference Range Facility Urinalysis macro (dipstick) panel (U)on 06-20-2024 Bilirubin, UA Negative Negative - 4(70) +++ mg/dL [facility] Blood, UA Positive Negative - 50 Deric/mcL [facility] Healthcare Clarity, UA Clear [facility] Color, UA Yellow [facility] Glucose, UA Negative Negative - 1999(110) ++++ mg/dL [facility] Interpretation and review of laboratory results Abnormal [facility] Ketones, UA Negative Negative - 160(16) ++++ mg/dL [facility] Leukocytes, UA Moderate Negative - 500+++ David/mcL [facility] Nitrite, UA Negative Negative - Positive [facility] pH, UA 6.5 5 - 9 [facility] Protein, UA Negative Negative - 1999(20) ++++ mg/dL [facility] Spec Grav, UA 1.02 1 - 1.03 [facility] Urobilinogen, UA 0.2 0.2 - 12 mg/dL [facility] Urinalysis macro (dipstick) panel (U)on 06-13-2024 Bilirubin, UA Negative Negative - 4(70) +++ mg/dL [facility] Blood, UA Positive Negative - 50 Deric/mcL [facility] Clarity, UA Clear [facility] Color, UA Yellow [facility] Glucose, UA Negative Negative - 1999(110) ++++ mg/dL [facility] Interpretation and review of laboratory results Abnormal [facility] Ketones, UA Negative Negative - 160(16) ++++ mg/dL [facility] Leukocytes, UA Positive Negative - 500+++ David/mcL [facility] Nitrite, UA Negative Negative - Positive [facility] pH, UA 5.5 5 - 9 [facility] Protein, UA Negative Negative - 1999(20) ++++ mg/dL [facility] Spec Grav, UA 1.02 1 - 1.03 [facility] Urobilinogen, UA 1.0 0.2 - 12 mg/dL [facility] Urinalysis macro (dipstick) panel (U)on 05-23-2024 Bilirubin, UA Negative Negative - 4(70) +++ mg/dL [facility] Blood, UA Negative Negative - 50 Deric/mcL [facility] Clarity, UA Clear [facility] Color, UA Yellow [facility] Glucose, UA Negative Negative - 1999(110) ++++ mg/dL [facility] Interpretation and review of laboratory results Abnormal [facility] Ketones, UA Negative Negative - 160(16) ++++ mg/dL [facility] Leukocytes, UA Moderate Negative - 500+++ David/mcL [facility] Nitrite, UA Negative Negative - Positive [facility] pH, UA 6 5 - 9 [facility] Healthcare Protein, UA Negative Negative - 1999(20) ++++ mg/dL [facility] Healthcare Spec Grav, UA 1.025 1 - 1.03 [facility] Urobilinogen, UA 0.2 0.2 - 12 mg/dL [facility] Urinalysis macro (dipstick) panel (U)on 05-04-2024 Bilirubin, UA Negative Negative - 4(70) +++ mg/dL [facility] Blood, UA Negative Negative - 50 Deric/mcL [facility] Clarity, UA Clear [facility] Color, UA Yellow [facility] Glucose, UA Negative Negative - 1999(110) ++++ mg/dL [facility] Interpretation and review of laboratory results Abnormal [facility] Ketones, UA Negative Negative - 160(16) ++++ mg/dL [facility] Leukocytes, UA Trace Negative - 500+++ David/mcL [facility] Nitrite, UA Negative Negative - Positive [facility] pH, UA 6.5 5 - 9 [facility] Protein, UA Negative Negative - 1999(20) ++++ mg/dL [facility] Spec Grav, UA 1.02 1 - 1.03 [facility] Urobilinogen, UA 0.2 0.2 - 12 mg/dL [facility] Complete Blood Count Auto Di ffon 05-02-2024 Basophils (Bld) [#/Vol] 0.1 10*3/uL Normal 0.0-0.2 [facility] Comment on above: Result Comment: PERF ORMED BY: [place] [id number] PATHOLOGIST A R COLLECTIONS REP KAM OWENS M.D. Performed By: #### G [id number], CBC #### [place] [address] [place] Basophils/100 WBC (Bld) 0.4 % Normal . [facility] Comment on above: Performed By: #### G [id number], CBC #### [address] Eosinophils (Bld) [#/Vol] 0.2 10*3/uL Normal 0.0-0.45 [facility] Comment on above: Performed By: #### G [id number], CBC #### [address] Eosinophils/100 WBC (Bld) 1.4 % Normal . [facility] Comment on above: Performed By: #### G [id number], CBC #### [address] Erythrocyte distribution width (RBC) [Ratio] 13.3 % Normal 11.9-15.3 [facility] Comment on above: Performed By: #### G [id number], CBC #### [address] Hematocrit (Bld) [Volume fraction] 32.9 % Low 34.0-46.4 [facility] Comment on above: Performed By: #### G [id number], CBC #### [address] Hemoglobin (Bld) [Mass/Vol] 10.9 g/dL Low 11.8-15.4 [facility] Comment on above: Performed By: #### G [id number], CBC #### [address] Lymphocytes (Bld) [#/Vol] 1.4 10*3/uL Normal 1.00-4.8 [facility] Comment on above: Performed By: #### G [id number], CBC #### [address] Lymphocytes/100 WBC (Bld) 11.0 % Normal . [facility] Comment on above: Performed By: #### G [id number], CBC #### [address] MCH (RBC) [Entitic mass] 28.7 pg Normal 24.7-34.3 [facility] Comment on above: Performed By: #### G [id number], CBC #### [address] MCV (RBC) [Entitic vol] 86.4 fL Normal 80-100 [facility] Comment on above: Performed By: #### G [id number], CBC #### [address] Mean Corpuscular HGB Conc 33.2 g/dL Normal 32.0-35.0 [facility] Comment on above: Performed By: #### G [id number], CBC #### [address] Monocytes (Bld) [#/Vol] 0.7 10*3/uL Normal 0.0-0.8 [facility] Comment on above: Performed By: #### G [id number], CBC #### [address] Monocytes/100 WBC (Bld) 5.9 % Normal . [facility] Comment on above: Performed By: #### G [id number], CBC #### [address] Neutrophils (Bld) [#/Vol] 10.1 10*3/uL High 1.8-7.7 [facility] Comment on above: Performed By: #### G [id number], CBC #### [address] Neutrophils/100 WBC (Bld) 81.3 % Normal . [facility] Comment on above: Performed By: #### G [id number], CBC #### [address] NRBC% 0.0 /100{WBC} Normal 0-0.5 [facility] Comment on above: Performed By: #### G [id number], CBC #### [facility] [address] Platelet mean volume (Bld) [Entitic vol] 7.4 fL Normal 6.3-10.[address] [facility] Comment on above: Performed By: #### G [id number], CBC #### [facility] [address] Platelets (Bld) [#/Vol] 326 10*3/uL Normal 150-450 [facility] Comment on above: Performed By: #### G [id number], CBC #### [address] RBC (Bld) [#/Vol] 3.80 10*6/uL Normal 3.60-5.00 [facility] Comment on above: Performed By: #### G [id number], CBC #### [address] WBC (Bld) [#/Vol] 12.4 10*3/uL High 3.8-11.6 [facility] Comment on above: Performed By: #### G [id number], CBC #### [address] Glucose,1 Hour PP 50gm Doseo n 05-02-2024 Glucose [Mass/Vol] 109 mg/dL Normal 60-140 [facility] Comment on above: Order Comment: FINIS HED DRINK AT 1231. Result Comment: PERF ORMED BY: [place] [address] PATHOLOGIST A R COLLECTIONS REP KAM OWENS M.D. Performed By: #### G [id number], CBC #### [address] Urinalysis macro (dipstick) panel (U)on 04-19-2024 Bilirubin, UA Negative Negative - 4(70) +++ mg/dL [facility] Blood, UA Positive Negative - 50 Deric/mcL [facility] Comment on above: small Clarity, UA Clear [facility] Color, UA Yellow [facility] Glucose, UA Negative Negative - 1999(110) ++++ mg/dL [facility] Interpretation and review of laboratory results Abnormal [facility] Ketones, UA Negative Negative - 160(16) ++++ mg/dL [facility] Leukocytes, UA Positive Negative - 500+++ David/mcL [facility] Comment on above: small Nitrite, UA Negative Negative - Positive [facility] pH, UA 7 5 - 9 [facility] Protein, UA Negative Negative - 1999(20) ++++ mg/dL [facility] Spec Grav, UA 1.02 1 - 1.03 [facility] Urobilinogen, UA 0.2 0.2 - 12 mg/dL [facility] Urinalysis macro (dipstick) panel (U)on 03-21-2024 Bilirubin, UA Negative Negative - 4(70) +++ mg/dL [facility] Blood, UA Positive Negative - 50 Deric/mcL [facility] Comment on above: moderate Clarity, UA Clear [facility] Color, UA Yellow [facility] Glucose, UA Negative Negative - 1999(110) ++++ mg/dL [facility] Interpretation and review of laboratory results Abnormal [facility] Ketones, UA Negative Negative - 160(16) ++++ mg/dL [facility] Leukocytes, UA Negative Negative - 500+++ David/mcL [facility] Nitrite, UA Negative Negative - Positive [facility] pH, UA 5.5 5 - 9 [facility] Protein, UA Negative Negative - 1999(20) ++++ mg/dL [facility] Spec Grav, UA 1.03 1 - 1.03 [facility] Urobilinogen, UA 0.2 0.2 - 12 mg/dL [facility] Urinalysis macro (dipstick) panel (U)on 02-18-2024 Bilirubin, UA Negative Negative - 4(70) +++ mg/dL [facility] Blood, UA Positive Negative - 50 Deric/mcL [facility] Comment on above: moderate Clarity, UA Clear [facility] Color, UA Yellow [facility] Glucose, UA Negative Negative - 1999(110) ++++ mg/dL [facility] Interpretation and review of laboratory results Abnormal [facility] Ketones, UA Negative Negative - 160(16) ++++ mg/dL [facility] Leukocytes, UA Moderate Negative - 500+++ David/mcL [facility] Nitrite, UA Negative Negative - Positive [facility] pH, UA 5.5 5 - 9 [facility] Protein, UA Negative Negative - 2000(20) ++++ mg/dL [facility] Spec Grav, UA 1.020 1 - 1.03 [facility] Urobilinogen, UA 0.2 0.2 - 12 mg/dL [facility] No Panel InformationOrdered By: Joi Alvarez on 02-15-2024 Quick Strep (POC) [facility]H BOX TEST SENT OUTon 01-07 BOX TEST SENT OUT [facility] Comment on above: See Scanned Report. [facility] No Panel Informationon 01-29 Reference Lab Order Code See comment [facility] Comment on above: See Scanned Report. A1C HEMOGLOBINon 01-01-2023 HbA1c (Bld) [Mass fraction] 4.9 % [employer] ([employer]) Other HbA1c (Bld) [Mass fraction]o n 01-01-2023 A1C HEMOGLOBIN [facility] [place] Other T-Spoton 09-04-2022 T-Spot See Report Normal [facility] Comment on above: Performed By: #### 5 [id number], [id number] #### [facility] (DEFAULT) [address] [place] [address] HBSab Qnt LCon 01-02-2022 Hep B Surf Ab Quant LC >1000.0 Invalid Interpretation Code Immunity>[address] [facility] Comment on above: Result Comment: Stat us of Immunity Anti-HBs Level Inconsistent with Immunity 0.0 - 9.9 Consistent with Immunity >9.9 Performed At: [facility] [id number] Donnell Palacios PhD Ph:[phone] Performed By: #### 5 [id number] #### [facility] (DEFAULT) [address] [place] [address] Lab - Toxicology Resultson 0 01-02-2022 Lab - Toxicology Results [id number] Normal [facility] Measles/Mumps/Rubella Immuni ty LCon 01-02-2022 Mumps Abs, IgG LC <9.0 Low Immune >10.9 [facility] Comment on above: Result Comment: Nega tive <9.0 Equivocal 9.0 - 10.9 Positive >10.9 A positive result generally indicates past exposure to Mumps virus or previous vaccination. Performed At: [facility] [address] [id number] Donnell Palacios PhD Ph:[phone] Performed By: #### 5 [id number], [id number], [id number] #### [facility] (DEFAULT) [address] [place] [address] Rubella Antibodies, IgG LC 6.35 index Invalid Interpretation Code Immune >0.99 [facility] Comment on above: Result Comment: Non- immune <0.90 Equivocal 0.90 - 0.99 Immune >0.99 Performed By: #### 5 [id number], [id number] #### [facility] (DEFAULT) [address] [place] [address] Rubeola Ab, IgG, EIA LC 14.1 AU/mL Low Immune >16.4 [facility] Comment on above: Result Comment: A se cond sample should be collected and tested no less than 2-4 weeks. Negative <13.5 Equivocal 13.5 - 16.4 Positive >16.4 Presence of antibodies to Rubeola is presumptive evidence of immunity except when acute infection is suspected. Performed By: #### 5 [id number], [id number], [id number] #### [facility] (DEFAULT) [address] [place] [address] Nicotine Metabolite, Urine L Con 01-02-2022 Cotinine LC Negative Invalid Interpretation Code Kljurg=[id number] [facility] Comment on above: Result Comment: Perf ormed At: [facility] [place] [address] [place], [place] [id number] Chilo Mckeon PhD Ph:[phone] Performed By: #### 1 [id number] #### [facility] (DEFAULT) [address] [place] [address] COVID Quick Testingon 2020 Result Negative [employer] ([employer]) Other Quick Strepon 03-23-2021 S. pyogenes Org specific cx Ql (Throat) Positive [employer] ([employer]) Other Quick Strep [employer] [facility] [employer] Other PAP ACOG PANEL 2: 21 to 29on 07-02-2017 Age Gdln ACOG Testing - Normal [facility] Comment on above: Performed By: #### 4 [id number] ####[facility] K[address]uy[address] Pat DIAGNOSIS: Comment Abnormal [facility] Comment on above: Result Comment: EPIT HELIAL CELL ABNORMALITY.ATYPICAL SQUAMOUS CELLS OF UNDETERMINED SIGNIFICANCE. Performed By: #### 4 [id number] ####[facility] [address] [place] [address] aPt Electronically signed by: Comment Normal [facility] Comment on above: Result Comment: Shade Price MD, Pathologist Performed By: #### 4 [id number] ####[facility] Zvdzros[address]x1682 [address] [place] HPV Aptima Negative Normal Negative [facility] Comment on above: Result Comment: This test was developed and its performance characteristicsdetermined by [employer]. It has not been cleared or approvedby the Food and Drug Administration.This test detects fourteen high-risk HPV types (16/18/31/33/35/39/45/51/52/56/58/59/66/68) without differentiation. Performed By: #### 4 [id number] ####[facility] Xkihttxmml[address]387 [address] Pat Methodology: Comment Normal [facility] Comment on above: Result Comment: This liquid based [employer]Path(R) pap test was screened with theassistance of an image guided system. Performed By: #### 4 [id number] ####[facility] Fjve[address]simd026[address] Pat Note: Comment Normal [facility] Comment on above: Result Comment: The Pap smear is a screening test designed to aid in the detection ofpremalignant and malignant conditions of the uterine cervix. It is not adiagnostic procedure and should not be used as the sole means of detectingcervical cancer. Both false-positive and false-negative reports do occur. . Performed By: #### 4 [id number] ####[facility] U[address]ue[address] Pat Performed by: Comment Normal [facility] Comment on above: Result Comment: Josefina Orr, Construction Cost Estimator (ASCP) Performed By: #### 4 [id number] ####[facility] Ejdexzfosj[address] Pat Protein mass conc Comment Normal [facility] Comment on above: Result Comment: [id number] Performed By: #### 4 [id number] ####[facility] [address] [place] [address] Pat Reflex Criteria: Comment Normal [facility] Comment on above: Result Comment: See below for HPV testing results. . Performed By: #### 4 [id number] ####[facility] Plvs[address]vr[address] Pat Specimen adequacy: Comment Normal [facility] Comment on above: Result Comment: Sati sfactory for evaluation. Endocervical and/or squamous metaplasticcells (endocervical component) are present. Performed By: #### 4 [id number] ####[facility] H[address] Pat . . Normal [facility] Comment on above: Performed By: #### 4 [id number] ####[facility] [address] [place] [address] Pat Vital Signs Date Time Vital Sign Value Performing Clinician Facility 06-20-2024 13:37-0500 Body mass index (BMI) [Ratio] 39.78 kg/m2 Itzel Carlin DO Work Phone: [facility] 06-20-2024 13:37-0500 Body weight 116.94 kg Itzel Raegan DO Work Phone: [facility] 06-20-2024 13:37-0500 Diastolic blood pressure 70 mm[Hg] Itzel Raegan DO Work Phone: [facility] 06-20-2024 13:37-0500 Systolic blood pressure 120 mm[Hg] Itzel Raegan DO Work Phone: [facility] 06-13-2024 11:15-0500 Body mass index (BMI) [Ratio] 39.78 kg/m2 Itzel Raegan DO Work Phone: [facility] 06-13-2024 11:15-0500 Body weight 116.94 kg Itzel Raegan DO Work Phone: [facility] 06-13-2024 11:15-0500 Diastolic blood pressure 78 mm[Hg] Itzel Raegan DO Work Phone: [facility] 06-13-2024 11:15-0500 Systolic blood pressure 114 mm[Hg] Itzel Raegan DO Work Phone: [facility] 05-23-2024 11:56-0500 Body mass index (BMI) [Ratio] 38.33 kg/m2 Itzel Raegan DO Work Phone: [facility] 05-23-2024 11:56-0500 Body weight 112.67 kg Itzel Raegan DO Work Phone: [facility] 05-23-2024 11:56-0500 Diastolic blood pressure 84 mm[Hg] Itzel Raegan DO Work Phone: [facility] 05-23-2024 11:56-0500 Systolic blood pressure 112 mm[Hg] Itzel Raegan DO Work Phone: [facility] 05-04-2024 10:25-0500 Body mass index (BMI) [Ratio] 37.96 kg/m2 Itzel Raegan DO Work Phone: [facility] 05-04-2024 10:25-0500 Body weight 111.58 kg Itzel Raegan DO Work Phone: [facility] 05-04-2024 10:25-0500 Diastolic blood pressure 78 mm[Hg] Itzel Raegan DO Work Phone: [facility] 05-04-2024 10:25-0500 Systolic blood pressure 122 mm[Hg] Itzel Raegan DO Work Phone: [facility] 04-19-2024 11:26-0500 Body mass index (BMI) [Ratio] 37.34 kg/m2 Itzel Raegan DO Work Phone: [facility] 04-19-2024 11:26-0500 Body weight 109.77 kg Itzel Raegan DO Work Phone: [facility] 04-19-2024 11:26-0500 Diastolic blood pressure 82 mm[Hg] Itzel Raegan DO Work Phone: [facility] 04-19-2024 11:26-0500 Systolic blood pressure 120 mm[Hg] Itzel Raegan DO Work Phone: [facility] 03-21-2024 09:50-0400 Body mass index (BMI) [Ratio] 36.85 kg/m2 Mary CARBALLO Work Phone: [facility] 03-21-2024 09:50-0400 Body weight 108.32 kg Mary CARBALLO Work Phone: [facility] 03-21-2024 09:50-0400 Diastolic blood pressure 70 mm[Hg] Mary CARBALLO Work Phone: [facility] 03-21-2024 09:50-0400 Systolic blood pressure 120 mm[Hg] Mary CARBALLO Work Phone: [facility] 02-18-2024 10:09-0400 Body mass index (BMI) [Ratio] 35.77 kg/m2 Itzel Raegan DO Work Phone: [facility] 02-18-2024 10:09-0400 Body weight 105.14 kg Itzel Raegan DO Work Phone: [facility] 02-18-2024 10:09-0400 Diastolic blood pressure 80 mm[Hg] Itzel Raegan DO Work Phone: [facility] 02-18-2024 10:09-0400 Systolic blood pressure 120 mm[Hg] Itzel Raegan DO Work Phone: [facility] 02-15-2024 12:48-0400 Body height 172.72 cm [facility] 02-15-2024 12:48-0400 Body mass index (BMI) [Ratio] 34.9 kg/m2 [facility] 02-15-2024 12:48-0400 Body temperature 98.2 [degF] [facility] 02-15-2024 12:48-0400 Body weight 104.32 kg [facility] 02-15-2024 12:48-0400 Diastolic blood pressure 73 mm[Hg] [facility] 02-15-2024 12:48-0400 Heart rate 106 /min [facility] 02-15-2024 12:48-0400 SaO2% (BldA) [Mass fraction] 98 % [facility] 02-15-2024 12:48-0400 Systolic blood pressure 103 mm[Hg] [facility] 01-29-2023 14:15-0400 Body height 172.72 cm [employer] [facility] [employer] [facility] [employer] Other 01-29-2023 14:15-0400 Body mass index (BMI) [Ratio] 31.81 kg/m2 [employer] Other [employer] Other 01-29-2023 14:15-0400 Body weight 94.89 kg [employer] Other [employer] [facility] [employer] Other 01-29-2023 14:15-0400 Diastolic blood pressure 68 mm[Hg] [employer] Other [employer] Other 01-29-2023 14:15-0400 Respiratory rate 18 /min Zi Maier Other [employer] Other 01-29-2023 14:15-0400 SaO2% (BldA) [Mass fraction] 97 % Zi Maier Other [employer] Other 01-29-2023 14:15-0400 Systolic blood pressure 105 mm[Hg] Zi [employer] Other [employer] Other 01-01-2023 10:00-0400 Body height 172.72 cm Zi [email or web address] Other [employer] Other 01-01-2023 10:00-0400 Body mass index (BMI) [Ratio] 31.77 kg/m2 Zi Maier Other [employer] Other 01-01-2023 10:00-0400 Body weight 94.8 kg Zi Maier Other [employer] Other 01-01-2023 10:00-0400 Diastolic blood pressure 68 mm[Hg] Zi Maier Other [employer] Other 01-01-2023 10:00-0400 Respiratory rate 18 /min Zi [email or web address] Other [employer] Other 01-01-2023 10:00-0400 SaO2% (BldA) [Mass fraction] 97 % Zi [employer] Other [employer] Other 01-01-2023 10:00-0400 Systolic blood pressure 105 mm[Hg] Zi [employer] Other [employer] Other 11-10-2022 17:40-0400 Body height 172.72 cm Dalton Asencio Other [employer] Other 11-10-2022 17:40-0400 Body mass index (BMI) [Ratio] 32.69 kg/m2 Dalton Asencio Other [employer] Other 11-10-2022 17:40-0400 Body weight 97.52 kg Dalton Asencio Other [employer] Other 11-10-2022 17:40-0400 Diastolic blood pressure 80 mm[Hg] Dalton Asencio Other [employer] Other 11-10-2022 17:40-0400 Systolic blood pressure 117 mm[Hg] Dalton Asencio Other [employer] Other 10-21-2022 09:14-0400 Body temperature 98.1 [degF] DO Dalton Asencio Work Phone: [facility] 10-21-2022 09:14-0400 Diastolic blood pressure 59 mm[Hg] DO Dalton Asencio Work Phone: [facility] 10-21-2022 09:14-0400 Heart rate 74 /min DO Dalton Asencio Work Phone: [facility] 10-21-2022 09:14-0400 Respiratory rate 18 /min DO Dalton Asencio Work Phone: [facility] 10-21-2022 09:14-0400 SaO2% (BldA) [Mass fraction] 98 % DO Dalton Asencio Work Phone: [facility] 10-21-2022 09:14-0400 Systolic blood pressure 120 mm[Hg] DO Dalton Asencio Work Phone: [facility] 10-21-2022 09:13-0400 Body height 175.26 cm DO Dalton Asencio Work Phone: [facility] 10-21-2022 09:13-0400 Body weight 97.1 kg DO Dalton Asencio Work Phone: [facility] 03-04-2022 15:40-0400 Body height 172.72 cm Dalton Asencio Other [facility] [employer] Other 05-09-2021 10:30-0500 Body height 172.72 cm Dalton Asencio Other [employer] Other 05-09-2021 10:30-0500 Body mass index (BMI) [Ratio] 34.66 kg/m2 Dalton Asencio Other [employer] Other 05-09-2021 10:30-0500 Body temperature 97.7 [degF] Dalton Abdirahmangarrick Other [employer] Other 05-09-2021 10:30-0500 Body weight 103.42 kg Dalton Asencio Other [employer] Other 05-09-2021 10:30-0500 Diastolic blood pressure 72 mm[Hg] Dalton Asencio Other [employer] Other 05-09-2021 10:30-0500 Respiratory rate 18 /min Dalton Asencio Other [employer] Other 05-09-2021 10:30-0500 SaO2% (BldA) [Mass fraction] 98 % Dalton Asencio Other [employer] Other 05-09-2021 10:30-0500 Systolic blood pressure 108 mm[Hg] Dalton Asencio Other [employer] Other 03-23-2021 11:00-0400 Body height 172.72 cm Johnny Lyn Other [employer] Other 03-23-2021 11:00-0400 Body mass index (BMI) [Ratio] 33.6 kg/m2 Johnny Lyn Other [employer] Other 03-23-2021 11:00-0400 Body temperature 98.5 [degF] Johnny Lyn Other [employer] Other 03-23-2021 11:00-0400 Body weight 100.25 kg Johnny Lyn Other [employer] Other 03-23-2021 11:00-0400 Diastolic blood pressure 68 mm[Hg] Johnny Lyn Other [employer] Other 03-23-2021 11:00-0400 Respiratory rate 18 /min Johnny Lyn Other [employer] Other 03-23-2021 11:00-0400 SaO2% (BldA) [Mass fraction] 97 % Johnny Lyn Other [employer] Other 03-23-2021 11:00-0400 Systolic blood pressure 105 mm[Hg] Johnny Lyn Other [employer] Other Encounters Encounter Date Encounter Type Care Provider Facility Start: 06-20-2024 End: 06-20-2024 Bamboo flowsheet Itzel Raegan DO Work Phone: [facility] Start: 06-20-2024 End: 06-20-2024 Bamboo flowsheet Itzel Raegan DO Work Phone: [facility] Start: 06-20-2024 End: 06-20-2024 flow sheet Itzel Raegan DO Work Phone: [facility] Comment on above: 36 weeks gestation o f ; Third trimester Start: 06-13-2024 End: 06-13-2024 Bamboo flowsheet Itzel [...] in Start: 05-02-2024 End: 05-02-2024 [facility] Start: 04-19-2024 End: 04-19-2024 Bamboo flowsheet [...] DO Work Phone: [facility] Start: 02-18-2024 End: 02-18-2024 Bamboo flowsheet Itzel Raegan DO Work Phone: [facility] Start: 02-18-2024 End: 02-18-2024 flow sheet Itzel Reagan DO Work Phone: [facility] Comment on above: 18 weeks gestation o f ; Screening, , for anatomic survey; Exposure to STD; Vaginal discharge Start: 02-18-2024 End: 02-18-2024 ambulatory ITZEL RAEGAN Not Available Start: 02-15-2024 End: 02-15-2024 ambulatory [facility] Work Phone: Start: 02-15-2024 End: 02-15-2024 Patient encounter procedure [facility] [place] Work Phone: Start: 01-30-2024 End: 02-02-2024 Clinisync Result Encounter Itzel Raegan DO Work Phone: [facility] Unsolicited Start: 01-30-2024 End: 02-02-2024 Clinisync Result Encounter Itzel Raegan DO Work Phone: [facility] Unsolicited Start: 01-30-2024 Non-patient / Non-visit [facility] Work Phone: Start: 01-28-2024 End: 01-28-2024 Bamboo flowsheet Itzel Raegan DO Work Phone: [facility] Start: 01-28-2024 End: 01-28-2024 Bamboo flowsheet Itzle Raegan DO Work Phone: [facility] Start: 01-28-2024 End: 01-28-2024 ambulatory ITZEL RAEGAN Not Available Start: 01-21-2024 End: 01-21-2024 ambulatory ITZEL RAEGAN Not Available Start: 12-18-2023 End: 12-18-2023 ambulatory ALAYNA RINKES Not Available Start: 10-07-2023 End: 10-07-2023 ambulatory ALAYNA E RINKES Not Available Start: 01-29-2023 End: 01-29-2023 ambulatory Zi Maier Other [employer] Other Start: 01-29-2023 Follow-up encounter Zi Maier [facility] Start: 01-13-2023 End: 01-13-2023 ambulatory Dalton Asencio Other [employer] Other Start: 01-13-2023 Telephone encounter Dalton Asencio [facility] Start: 01-01-2023 End: 01-01-2023 ambulatory Zi Maier Other [employer] Other Start: 01-01-2023 Nutrition therapy Zi Maier [facility] Start: 11-10-2022 End: 11-10-2022 ambulatory Dalton Asencio Other [employer] Other Start: 11-10-2022 Telephone encounter Dalton Asencio [facility] Start: 10-21-2022 End: 10-21-2022 Emergency department patient visit DO Dalton Asencio Work Phone: [facility] Work Phone: Start: 07-28-2022 End: 07-28-2022 ambulatory Dalton Asencio Other [employer] Other Start: 07-28-2022 Telephone encounter Dalton Asencio [facility] [place] Start: 07-25-2022 End: 07-25-2022 ambulatory Dalton Asencio Other [employer] Other Start: 07-25-2022 Telephone encounter Dalton Asencio [facility] [place] Start: 04-09-2022 End: 04-09-2022 ambulatory Dalton Asencio Other [employer] Other Start: 04-09-2022 Telephone encounter Dalton Asencio [facility] [place] Start: 03-20-2022 End: 03-20-2022 ambulatory Lelia Macias Other [employer] Other Start: 03-20-2022 Telephone encounter Lelia Macias [facility] Start: 03-04-2022 End: 03-04-2022 ambulatory Dalton Asencio Other [employer] Other Start: 03-04-2022 Telephone encounter Dalton Asencio [facility] Start: 02-06-2022 End: 02-06-2022 ambulatory Dalton Asencio Other [employer] Other Start: 02-06-2022 Telephone encounter Dalton Asencio [facility] [place] Start: 01-02-2022 End: 01-02-2022 ambulatory None Provider Facility:[facility] Start: 09-18-2021 End: 09-18-2021 ambulatory Dalton Asencio Other [employer] Other Start: 09-18-2021 Telephone encounter Dalton Asencio [facility] [place] Start: 07-25-2021 End: 07-25-2021 ambulatory Dalton Asencio Other [employer] Other Start: 07-25-2021 Telephone encounter Dalton Asencio [facility] [place] Start: 07-15-2021 End: 07-15-2021 ambulatory Dalton Asencio Other [employer] Other Start: 07-15-2021 Telephone encounter Dalton Asencio [facility] [place] Start: 05-09-2021 End: 05-09-2021 ambulatory Dalton Asencio Other [employer] Other Start: 05-09-2021 Office outpatient vi sit 15 minutes Dalton Asencio [facility] [place] Start: 04-22-2021 End: 04-22-2021 ambulatory Dalton Asencio Other [employer] Other Start: 04-22-2021 Telephone encounter Dalton Asencio [facility] [place] Start: 03-23-2021 Office outpatient vi sit 15 minutes Johnny Lyn [facility] Start: 03-12-2018 End: 03-12-2018 Patient encounter DALTON ASENCIO Facility: Start: 06-23-2017 End: 06-23-2017 Patient encounter ITZEL CARLIN Facility:[facility] Start: 04-30-2017 End: 04-30-2017 Patient encounter DALTON ASENCIO Facility:[facility] Procedures Date Procedure Procedure Detail Performing Clinician Start: 06-20-2024 Urnls dip stick/tabl et rgnt non-auto w/o micrscp Itzel Raegan DO Work Phone: Start: 06-13-2024 Urnls dip stick/tabl et rgnt non-auto w/o micrscp Itzel Raegan DO Work Phone: Start: 05-23-2024 Urnls dip [...] [facility] [address] [place] [id number] Alayna Hassan DO [address] [place] [address] [facility] Start: 06-28-2024 End: 06-28-2024 Patient encounter procedure 06/28/2024 10:20 AM EST Routine [facility] [address] [place] [address] Itzel Carlin, DO [address] [place] [address] [facility] Start: 06-20-2024 End: 06-20-2025 CULTURE, GROUP B STREP WITH SUSCEPTIBLITY CULTURE, GROUP B STREP WITH SUSCEPTIBLITY Lab Routine Third trimester Expected: 06/20/2024, Expires: 06/20/2025 [facility] Work Phone: Comment on above: Expected: 06/20/2024 , Expires: 06/20/2025 Start: 06-20-2024 End: 06-20-2024 Patient encounter procedure 06/20/2024 1:20 PM EST Routine [facility] [address] [place] [phone] Itzel Carlin, DO [facility] [place] [address] [facility] Start: 06-13-2024 End: 06-13-2024 Patient encounter procedure 06/13/2024 10:30 AM EST Routine [facility] [address] [place] [address] Itzel Carlin, DO [facility] [place] [address] [facility] Start: 05-23-2024 End: 05-23-2025 US biophysical profile w non stress test US biophysical profile w non stress test Imaging Routine Hypertension affecting , antepartum Expected: 05/23/2024 (Approximate), Expires: 05/23/2025 [facility] Work Phone: Comment on above: Expected: 05/23/2024 (Approximate), Expires: 05/23/2025 Start: 05-03-2024 End: 05-03-2024 Patient encounter procedure 05/03/2024 9:00 AM EST Routine [facility] [address] [place] [phone] Itzel Carlin, DO [address] [place] [address] [facility] Start: 04-19-2024 End: 04-19-2025 US for US OB SCAN FOR GROWTH Imaging Routine Hypertension affecting , antepartum Expected: 04/19/2024 (Approximate), Expires: 04/19/2025 [facility] Work Phone: Comment on above: Expected: 04/19/2024 (Approximate), Expires: 04/19/2025 Start: 04-18-2024 End: 04-18-2024 Patient encounter procedure 04/18/2024 10:40 AM EST Routine [facility] [address] [place] [phone] Itzel Carlin, DO [address] [place] [address] [facility] Start: 03-28-2024 End: 03-28-2024 Professional / ancillary services management 03/28/2024 9:30 AM EDT Ancillary Procedure [facility] [address] [place] [id number] [facility] Start: 03-21-2024 End: 03-21-2025 [...] mellitus screening Expected: 03/21/2024 (Approximate), Expires: 03/21/2025 [facility] Comment on above: Expected: 03/21/2024 (Approximate), Expires: 03/21/2025 Start: 03-21-2024 End: 03-21-2024 Patient encounter procedure [facility] Comment on above: Arrived Start: 02-29-2024 End: 02-29-2024 Professional / ancillary services management 02/29/2024 11:00 AM EDT Ancillary Procedure [facility] [address] [place] [id number] [facility] Start: 02-18-2024 End: 04-19-2024 Alpha fetoprotein, maternal Alpha fetoprotein, maternal Lab Routine 18 weeks gestation of Expected: 02/18/2024 (Approximate), Expires: 04/19/2024 [facility] Comment on above: Expected: 02/18/2024 (Approximate), Expires: 04/19/2024 Start: 02-18-2024 End: 02-17-2025 US for US OB ANATOMY SINGLE W US OB CERVICAL LENGTH Imaging Routine Screening, , for anatomic survey Expected: 02/18/2024 (Approximate), Expires: 02/17/2025 [facility] Comment on above: Expected: 02/18/2024 (Approximate), Expires: 02/17/2025 Start: 02-18-2024 End: 02-18-2024 Patient encounter procedure [facility] Comment on above: Arrived Start: 02-07-2024 Influenza vaccination Influenza Vacc ine (#1) [facility] Start: 01-28-2024 End: 01-28-2024 Patient encounter procedure 01/28/2024 8:40 AM EDT Office Visit [facility] [address] [place] [id number] Itzel Carlin DO [address] [place], [place] [id number] Arrived [facility] Comment on above: Arrived Start: 2015 Screening for malign ant neoplasm of cervix Pap Smear [facility] CHLAMYDIA TRACHOMATI S (GENITO/STI) CHLAMYDIA TRACHOMATIS (GENITO/STI) Lab Routine Exposure to STD Ordered: 02/18/2024 [facility] Comment on above: Ordered: 02/18/2024 Neisseria gonorrhoea e DNA [Presence] in Unspecified specimen by SAKSHI with probe detection Neisseria gonorrhea DNA probe, direct Lab Routine Exposure to STD Ordered: 02/18/2024 [facility] Comment on above: Ordered: 02/18/2024 Patient Education Minor Head Injury (DC) [facility] Work Phone: Patient referral [facility] Work Phone: SURESWAB(R) ADVANCED VAGINITIS PLUS, TMA SURESWAB(R) ADVANCED VAGINITIS PLUS, TMA Pathology and Cytology Routine Vaginal discharge Ordered: 02/18/2024 [facility] Work Phone: Comment on above: Ordered: 02/18/2024 Immunizations Immunization Date Immunization Notes Care Provider Rubin roberto 05-27-2023 influenza virus vaccine, unspecified formulation Itzel Carlin DO Work Phone: [facility] 03-24-2022 influenza, seasonal, injectable Dalton Asencio Other [facility] 05-06-2021 measles, mumps and rubella virus vaccine Dalton Asencio Other [facility] 04-03-2021 COVID-19 Vaccine Moderna - Documentation Purposes Only Dalton Asencio Other [facility] 03-04-2021 influenza, seasonal, injectable Dalton Asencio Other [facility] 07-12-2020 COVID-19 Vaccine Moderna - Documentation Purposes Only Johnny Lyn Other [facility] 06-14-2020 COVID-19 Vaccine Moderna - Documentation Purposes Only Johnny Lyn Other [facility] 03-12-2020 influenza, seasonal, injectable Johnny Lyn Other [facility] 05-09-2019 tetanus toxoid, redu elizabeth diphtheria toxoid, and acellular pertussis vaccine, adsorbed Dalton Asencio Other [facility] 06-24-2013 Toradol per 15 mg Johnny wood Other [employer] Other Payers Date Payer Category Payer Self-pay [id number] 2023 Unknown [employer] [id number] 2023-Present [address] [place] [address] [id number] 2023 Unknown [id number] 2019 Medicaid [employer] [place] [id number] 2019-Present [address] [place] [address] [id number] 2019 Private Health Insurance [id number] 2019 Medicaid [id number] 1994 Unknown [id number] [id number]. 593 1994 Unknown [id number] 2.16.840.1.639366.3.579.2. 593 1994 Unknown [id number] 2.16.840.1.953037.3.579.2. 593 1994 Unknown [id number] 2.16.840.1.339018.3.579.2. 1259 1994 Unknown [id number] 2.16.840.1.223160.3.579.2. 1259 1994 Unknown [id number] 2.16.840.1.500408.3.579.2. 1259 1994 Unknown [id number] 2.16.840.1.217224.3.579.2. 9 1994 Unknown [id number] 2.16.840.1.890029.3.579.2. 9 1994 Unknown [id number] 2.16.840.1.854700.3.579.2. 9 1994 Unknown [id number] 2.16.840.1.183599.3.579.2. 9 1994 Unknown [id number] 2.16.840.1.639075.3.579.2. 9 1994 Unknown [id number] 2.16.840.1.089855.3.579.2. 1259 1959 Unknown [id number] 1959 Unknown [id number] 1959 Unknown [id number] Unknown [id number]. 531 Social History Date Type Detail Facility Unknown if ever smoked [facility] [employer] Other Start: 02-03-2023 End: 10-07-2023 Sex Assigned At [facility] Other Start: 10-21-2022 Tobacco smoking status [facility] Smoker (finding) [facility] Start: 1995 Sex Assigned At Female [facility] Start: 01-03-2023 Tobacco smoking status [facility] Never smoked tobacco [facility] Start: 01-03-2023 Tobacco use and exposure Smokeless tobacco non-user [facility] Start: 02-18-2024 End: 06-20-2024 Alcoholic beverage intake Lifetime non-drinker (finding) [facility] Start: 02-03-2023 End: 10-07-2023 History of Social function [facility] Start: 02-03-2023 Alcohol Comment Caffeine intak e: 1-2 cups per day [facility] Start: 10-23-2023 [facility] Start: 1995 Sex assigned at Not on file [facility] NEGATED: Highlighted rowStart: MARCO [facility] History of tobacco use Passive smoker [facility] Medical Equipment Procedure Code Equipment Code Equipment Origin al Text Equipment Identifier Dates NovoFine Plus Pe n Needle 32G X 4 MM Start: 01-01-2023 Clinical Notes 08-30-2012 to 06-20-2024 Divine Britton, APPLICATION MANAGER - 06/20/2024 1:20 PM Bartolo Britton, APPLICATION MANAGER - 06/13/2024 10:40 AM Iris Moore, APPLICATION MANAGER - 05/23/2024 10:50 AM Iris Moore, APPLICATION MANAGER - 05/03/2024 9:00 AM EST Note Date & Type Note Facility 06-20-2024 History of Presen t illness Narrative Reason [...] nursing note reviewed. Exam conducted with a irrigation worker present. Vitals: Estimated body mass index is 39.78 kg/m as calculated from the following: Height as of 10/07/23: 5' 7.5 . Weight as of this encounter: 257 lb 12.8 oz. BP: 120/70 Patient's last menstrual period was 10/15/2023. ASSESSMENT & PLAN ICD-10-CM 1. 36 weeks gestation of Z3A.36 POCT urinalysis dipstick manually resulted 2. Third trimester Z34.93 POCT urinalysis dipstick manually resulted CULTURE, GROUP B STREP WITH SUSCEPTIBLITY CULTURE, GROUP B STREP WITH SUSCEPTIBLITY Patient is doing well but has complaints of being tired and having maternal discomfort due to . Patient verbalized frequent movement and was instructed to perform kick counts three times per day. labor precautions were given, LARC consent was signed/declined, and GBS was obtained. Cervical check was performed and patient is 3cm dilated. Patient has had complaints of headache for 3 days, patient is currently on Labetalol and Bps in office were WNL. Patient has NST tonight and provider called [facility] to notify Rosemarie that she will need to let next shift know to call Dr. Carlin prior to patient leaving testing tonight. Orders Placed This Encounter Procedures CULTURE, GROUP B STREP WITH SUSCEPTIBLITY POCT urinalysis dipstick manually resulted Follow Up: Patient is to return to office in 1 week for routine OB appointment Documented by Divine Britton LPN on behalf of: Itzel Carlin DO documented in this encounter [facility] 06-13-2024 History of Presen t illness Narrative [...] nursing note reviewed. Exam conducted with a irrigation worker present. Vitals: Estimated body mass index is [...] Itzel Carlin DO documented in this encounter [facility] 05-23-2024 History of Presen t illness Narrative [...] nursing note reviewed. Exam conducted with a irrigation worker present. Vitals: Estimated body mass index is [...] Itzel Carlin DO documented in this encounter [facility] 05-03-2024 History of Presen t illness Narrative [...] nursing note reviewed. Exam conducted with a irrigation worker present. Vitals: Estimated body mass index is [...] Itzel Carlin DO documented in this encounter [facility] 04-19-2024 History of Presen t illness [...] nursing note reviewed. Exam conducted with a irrigation worker present. Vitals: Estimated body mass index is [...] Itzel Carlin DO documented in this encounter [facility] 03-21-2024 History of Presen t illness Narrative [...] nursing note reviewed. Exam conducted with a irrigation worker present. Vitals: Estimated body mass index is 36.85 kg/m as calculated from the following: Height as of 5/1/24: 5' 7.5 . Weight as of this [...] of: [employer] Head documented in this encounter [facility] 02-18-2024 History of Presen t illness Narrative [...] nursing note reviewed. Exam conducted with a irrigation worker present. Vitals: Estimated body mass index is [...] Itzel Carlin DO documented in this encounter [facility] 01-29-2023 Evaluation note Encounter Date Diagnosis Assessment [...] loss response -Patient reports Wellbutrin made her [id number]-Uaxxt-xj-car e A1c December 2022 4.9%-Follow up in clinic in 6 weeksThis note was created with voice recognition software. Please excuse errors in dairy and food laboratory assistant. Jan, Dietary surveillance and counseling (ICD-10 - [...] with the patient, and documenting clinical information. [facility]) Other 08-08-2023 Evaluation note* Encounter Date Diagnosis Assessment Notes Treatment Notes Treatment Clinical Notes Jan, Glucosuria (ICD-10 - R81) Jan, Cystitis (ICD-10 - N30.90) Jan, Other snf (current) drug therapy (ICD-10 - Z79.899) [facility]) Other 07-27-2023 Evaluation note* Encounter Date Diagnosis [...] -Alternative options may include combination Wellbutrin and dubcbtdwmd-Uclsg-sc-ca re A1c today 4.9-Follow up in clinic in 4 weeksThis note was created with voice recognition software. Please excuse errors in dairy and food laboratory assistant. Dec, Dietary surveillance and counseling (ICD-10 - [...] - R63.8) Dec, Screening (ICD-10 - Z13.9) [facility]) Other 06-05-2023 Evaluation note* Encounter Date Diagnosis Assessment Notes Treatment Notes Treatment Clinical Notes Nov, Anxiety (ICD-10 - F41.9) She is seeing a psychiatrist every five weeks and she thinks that she has ADHD but has not started any medication for this. She follows with a psychiatrist through [facility]. She is no longer on the Venlafaxine and is not on any medication for her mood. She uses the Xanax only as needed. She struggles with anxiety and focusing in school as far as the ADHD so is unsure if she needs any medication. Right now she feels better than she ever has without any medicine. 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 Nov, ADHD [...] afford to pay for the injectable medication [id number]. I discussed her seeing Dr. Reyes for [...] Nov, Other 6:05 PM - 6:18 PM [facility]) Other 02-20-2023 Evaluation note* Encounter Date Diagnosis [...] Jul, Other 2:25 PM - 2:33 PM [facility] Other 11-02-2022 Evaluation note* Encounter Date Diagnosis [...] provide her with a ohine number for [facility] who has psychiatry services. 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 and [...] Feb, Other 2:50 PM - 3:02 PM [facility]) Other 09-01-2022 Evaluation note* Encounter Date Diagnosis Assessment Notes Treatment Notes Treatment Clinical Notes Feb, Anxiety (ICD-10 - F41.9) [facility] Other 02-17-2022 Evaluation note* Encounter Date Diagnosis Assessment Notes Treatment Notes Treatment Clinical Notes Jul, Depression (ICD-10 - F32.9) [facility]) Other 02-07-2022 Evaluation note* Encounter Date Diagnosis [...] Jul, Other 4:29 PM - 4:38 PM [facility]) Other 02-07-2022 Evaluation note* Encounter Date Diagnosis Assessment Notes Treatment Notes Treatment Clinical Notes Jul, Anxiety (ICD-10 - F41.9) [facility]) Other 12-02-2021 Evaluation note* Encounter Date Diagnosis [...] starting school in June, she is attending [employer] for [employer]. An OARRS report was reviewed, no discrepancies [...] on the medication. Do not take Ecstasy. [facility]) Other 10-16-2021 Evaluation note* Encounter Date Diagnosis [...] (ICD-10 - Z20.828) covid neg, see above. [facility]) Other 03-25-2013 History general Narrative - Reported* Type Description Date Medical History immunizations up to date Medical History Right Wrist fracture Medical History Left ankle fracture Hospitalization History childbirth; [facility] 08-30-12 Hospitalization History childbirth - [facility] 0 11/20/14 Hospitalization History childbirth 05/09/20 [facility]) Other Evaluation noteNo InformationNort Monaeo Other Evaluation noteNo assessment information available [facility] Work Phone: Evaluation note* Diagnosis 23 [...] affecting , antepartum documented in this encounter [facility]* Diagnosis Third trimester state, incidental 35 weeks gestation of documented in this encounter [facility]* Diagnosis 36 weeks gestation of Third trimester state, incidental [facility] Other History general Narrative - Reported* Type Description Date Medical History immunizations up to date Medical History Right Wrist fracture Medical History Left ankle fracture Medical History Anxiety Medical History Depression Surgical History [place] teeth extraction Hospitalization History childbirth; [facility] 08-30-12 Hospitalization History childbirth - [facility] 0 11/20/14 Hospitalization History childbirth 05/09/20 19 [facility] Other Summary Purpose Family History Relationship Condition Age at Onset Recorded Date/T jozef father Family history of mental disorder Unknown grandparent Heart disease Unknown grandparent Unknown [place] workers' pneumoconiosis Unknown Hypertension Unknown Not Specified Family history of mental disorder Unknow n Relationship Condition Age at Onset Recorded Date/T jozef father Family history of mental disorder Unknown grandparent Heart disease Unknown grandparent Unknown [place] workers[employer] pneumoconiosis Unknown Hypertension Unknown mother Family [...] CREATED AUTHOR AUTHOR'S ORGANIZ ATION 05/04/2024 [facility] DATE CREATED AUTHOR AUTHOR'S ORGANIZ ATION 06/19/2024 [facility] EPIC REASON FOR VISIT [...] Active Bud Flaherty APRN Emergency Provider Active Receptionist Clerk Relationship Specialty Start Date End Date Dalton Asencio MD [address] [place] [address] PCP - General Family Medicine 01/03/23 Receptionist Clerk Relationship Specialty Start Date End Date Dalton Asencio MD [address] [place] [address] PCP - General Family Medicine 01/03/23 Receptionist Clerk Relationship Specialty Start Date End Date Dalton Asencio MD [address] [place], [place] [id number] PCP - General Family Medicine 01/03/23 Receptionist Clerk Relationship Specialty Start Date End Date Dalton Asencio MD [address] [place] [address] PCP - General Family Medicine 01/03/23 Receptionist Clerk Relationship Specialty Start Date End Date Dalton Asencio MD [address] [place] [address] PCP - General Family Medicine 01/03/23 Receptionist Clerk Relationship Specialty Start Date End Date Dalton Asencio MD [address] [place] [address] PCP - General Family Medicine 01/03/23 Receptionist Clerk Relationship Specialty Start Date End Date Dalton Asencio MD [address] [place] [address] PCP - [facility] Medicine 01/03/23 Receptionist Clerk Relationship Specialty Start Date End Date Dalton Asencio MD [address] [place] [address] PCP - General [facility] Medicine 01/03/23 Receptionist Clerk Relationship Specialty Start Date End Date Dalton Asencio MD [address] [place] [address] PCP - [facility] Medicine 01/03/23 Receptionist Clerk Relationship Specialty Start Date End Date Dalton Asencio MD [address] [place] [address] PCP - General Family Medicine 01/03/23 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 [facility] [employer] [facility]. provides no warranty or guarantee of the accuracy or completeness of information in this document.
[2024-06-22 10:30] VITALS: BP 130/80; PULSE 107
== END 2024-06-22 10:45 | disposition home or self-care (01) ==
LOC: FBCO 00:54 → FBC 10:01
PROVIDERS: PCP Family Medicine; Visit Provider Obstetrics & Gynecology
DX: O16.3 Unspecified maternal hypertension, third trimester (principal); Z3A.36 36 weeks gestation of pregnancy
CPT/HCPCS: 59025

== ENCOUNTER 2024-06-27 05:00 | Inpatient (IN) | payer OTHER, SELFPAY ==
[2024-06-27] VITALS (64 sets, daily range): BP systolic 93–157; BP diastolic 49–79; PULSE 73–108; TEMP 36.6–36.7
--- OUTSIDE RECORDS SUMMARY | 2024-06-27 05:04 | XMS_ITS | CCD ---
Author Organization [facility] Care Team Providers Care Shade Maker Name Role Phone DALTON ASENCIO Unavailable Unavailable HAY, AIDEN Unavailable Unavailable HAY, AIDEN Unavailable Unavailable EAN PASTRANA Unavailable Unavailable RAEGAN, ITZEL Unavailable Unavailable RAEGAN, ITZEL Unavailable Unavailable RAEGAN, ITZEL Unavailable Unavailable DALTON ASENCIO Unavailable Unavailable ARIES, RADHA Unavailable Unavailable AREIS, RADHA Unavailable Unavailable ARIES, RADHA Unavailable Unavailable Johnny Lyn Unavailable Dalton Asencio Unavailable Lelia Macias Unavailable Provider, None Primary Care Unavailable DO Dalton Asencio Primary Care Provider ATIYA Flaherty Emergency Provider Zi Maier Unavailable Dalton Asencio MD Primary Care Provider [phone] Dalton Asencio Primary Care Unavailable Mary Young [...] sulfamethoxazole / trimethoprim Drug Allergy HIVES [facility] Repository (1 source) No Known Drug Allergies Drug allergy (disorder) 3 [facility] Repository (20 sources) Sertraline Drug Allergy 3 migraines [facility] (18 sources) buPROPion Drug Allergy 3 300 MG made angry [facility] (9 sources) venlafaxine Drug Allergy 3 higher dose made feel irritated and feel worse [facility] (4 sources) Sulfamethoxazole; Translations: [sulfamethoxazole] Drug Allergy 3 [facility] (4 sources) Trimethoprim; Translations: [trimethoprim] Drug Allergy 3 [facility] (20 sources) Sulfamethoxazole / Trimethoprim Drug Allergy 3 [facility] (1 source) buPROPion Drug Allergy 4 [facility] Repository (1 source) Sertraline Drug Allergy 4 [facility] Repository (1 source) venlafaxine Drug Allergy 4 [facility] Repository Medications Current Medications Medication [...] day(s) May, Active take 1 capsule by [facility] every twenty-four hours Venlafaxine HCl ER [...] 05-25-2020 Episodic Other aftercare (1 source) 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 Other complications of [...] Negative Negative - 4(70) +++ mg/dL [facility] Blood, UA Positive Negative - 50 Deric/mcL [facility] Clarity, UA Clear [facility] Color, UA Yellow [facility] Glucose, UA Negative Negative - 1999(110) ++++ mg/dL [facility] Interpretation and review of laboratory results Abnormal [facility] Ketones, UA Negative Negative - 160(16) ++++ mg/dL [facility] Leukocytes, UA Moderate Negative - 500+++ David/mcL [facility] Nitrite, UA Negative Negative - Positive [facility] pH, UA 6.5 5 - 9 [facility] Protein, UA Negative Negative - 1999(20) ++++ mg/dL [facility] Spec Grav, UA 1.02 1 - 1.03 [facility] Urobilinogen, UA 0.2 0.2 - 12 mg/dL [facility] Urinalysis macro (dipstick) panel (U)on 06-13-2024 Bilirubin, UA Negative Negative - 4(70) +++ mg/dL [facility] Blood, UA Positive Negative - 50 Deric/mcL [facility] Clarity, UA Clear [facility] Color, UA Yellow [facility] Glucose, UA Negative Negative - 1999(110) ++++ mg/dL [facility] Interpretation and review of laboratory results Abnormal [facility] Ketones, UA Negative Negative - 160(16) ++++ mg/dL [facility] Leukocytes, UA Positive Negative - 500+++ David/mcL [facility] Nitrite, UA Negative Negative - Positive [facility] pH, UA 5.5 5 - 9 [facility] Protein, UA Negative Negative - 1999(20) ++++ mg/dL [facility] Spec Grav, UA 1.02 1 - 1.03 [facility] Urobilinogen, UA 1.0 0.2 - 12 mg/dL [facility] Urinalysis macro (dipstick) panel (U)on 05-23-2024 Bilirubin, UA Negative Negative - 4(70) +++ mg/dL [facility] Blood, UA Negative Negative - 50 Deric/mcL [facility] Clarity, UA Clear [facility] Color, UA Yellow [facility] Glucose, UA Negative Negative - 1999(110) ++++ mg/dL [facility] Interpretation and review of laboratory results Abnormal [facility] Ketones, UA Negative Negative - 160(16) ++++ mg/dL [facility] Leukocytes, UA Moderate Negative - 500+++ David/mcL [facility] Nitrite, UA Negative Negative - Positive [facility] pH, UA 6 5 - 9 [facility] Protein, UA Negative Negative - 1999(20) ++++ mg/dL [facility] Spec Grav, UA 1.025 1 - 1.03 [facility] Urobilinogen, UA 0.2 0.2 - 12 mg/dL [facility] Urinalysis macro (dipstick) panel (U)on 05-04-2024 Bilirubin, UA Negative Negative - 4(70) +++ mg/dL [facility] Blood, UA Negative Negative - 50 Deric/mcL [facility] Clarity, UA Clear [facility] Color, UA Yellow [facility] Glucose, UA Negative Negative - 1999(110) ++++ mg/dL [facility] Interpretation and review of laboratory results Abnormal [facility] Ketones, UA Negative Negative - 160(16) ++++ mg/dL [facility] Leukocytes, UA Trace Negative - 500+++ David/mcL [facility] Nitrite, UA Negative Negative - Positive [facility] pH, UA 6.5 5 - 9 [facility] Protein, UA Negative Negative - 1999(20) ++++ mg/dL [facility] Spec Grav, UA 1.02 1 - 1.03 [facility] Urobilinogen, UA 0.2 0.2 - 12 mg/dL [facility] Complete Blood Count Auto Di ffon 05-02-2024 Basophils (Bld) [#/Vol] 0.1 10*3/uL Normal 0.0-0.2 [facility] Comment on above: Result Comment: PERF ORMED BY: [facility] [address] [place] [address] PATHOLOGIST ROVING HAULER KAM OWENS M.D. Performed By: #### G [id number], CBC #### [address] Basophils/100 WBC (Bld) 0.4 % Normal . [facility] Comment on above: Performed By: #### G [id number], CBC #### [address] Eosinophils (Bld) [#/Vol] 0.2 10*3/uL Normal 0.0-0.45 [facility] Comment on above: Performed By: #### G [id number], CBC #### [address] Eosinophils/100 WBC (Bld) 1.4 % Normal . [facility] Comment on above: Performed By: #### G [id number], CBC #### [address] Erythrocyte distribution width (RBC) [Ratio] 13.3 % Normal 11.9-15.3 [facility] Comment on above: Performed By: #### G [id number], CBC #### [address] Hematocrit (Bld) [Volume fraction] 32.9 % Low 34.0-46.4 [facility] Comment on above: Performed By: #### G [id number], CBC #### [address] Hemoglobin (Bld) [Mass/Vol] 10.9 g/dL Low 11.8-15.4 [facility] Comment on above: Performed By: #### G [id number], CBC #### [place] [address] [place] Lymphocytes (Bld) [#/Vol] 1.4 10*3/uL Normal 1.00-4.8 [facility] Comment on above: Performed By: #### G [id number], CBC #### [address] Lymphocytes/100 WBC (Bld) 11.0 % Normal . [facility] Comment on above: Performed By: #### G [id number], CBC #### [address] MCH (RBC) [Entitic mass] 28.7 pg Normal 24.7-34.3 [facility] Comment on above: Performed By: #### G [id number], CBC #### [address] MCV (RBC) [Entitic vol] 86.4 fL Normal 80-100 [facility] Comment on above: Performed By: #### G [id number], CBC #### [address] Mean Corpuscular HGB Conc 33.2 g/dL Normal 32.0-35.0 [facility] Comment on above: Performed By: #### G [id number], CBC #### [address] Monocytes (Bld) [#/Vol] 0.7 10*3/uL Normal 0.0-0.8 [facility] Comment on above: Performed By: #### G [id number], CBC #### [address] Monocytes/100 WBC (Bld) 5.9 % Normal . [facility] Comment on above: Performed By: #### G [id number], CBC #### [address] Neutrophils (Bld) [#/Vol] 10.1 10*3/uL High 1.8-7.7 [facility] Comment on above: Performed By: #### G [id number], CBC #### [address] Neutrophils/100 WBC (Bld) 81.3 % Normal . [facility] Comment on above: Performed By: #### G [id number], CBC #### [address] NRBC% 0.0 /100{WBC} Normal 0-0.5 [facility] Comment on above: Performed By: #### G [id number], CBC #### [address] Platelet mean volume (Bld) [Entitic vol] 7.4 fL Normal 6.3-10.7 [facility] Comment on above: Performed By: #### G [id number], CBC #### [address] Platelets (Bld) [#/Vol] 326 10*3/uL Normal 150-450 [facility] Comment on above: Performed By: #### G [id number], CBC #### [address] RBC (Bld) [#/Vol] 3.80 10*6/uL Normal 3.60-5.[address] [facility] Comment on above: Performed By: #### G [id number], CBC #### [address] WBC (Bld) [#/Vol] 12.4 10*3/uL High 3.8-11.[address] [facility] Comment on above: Performed By: #### G [id number], CBC #### [address] Glucose,1 Hour PP 50gm Doseo n 05-02-2024 Glucose [Mass/Vol] 109 mg/dL Normal 60-140 [facility] Comment on above: Order Comment: FINIS HED DRINK AT 1231. Result Comment: PERF ORMED BY: [place] [address] PATHOLOGIST ROVING HAULER KAM OWENS M.D. Performed By: #### G [id number], CBC #### [address] Urinalysis macro (dipstick) panel (U)on 04-19-2024 Bilirubin, UA Negative Negative - 4(70) +++ mg/dL [facility] Blood, UA Positive Negative - 50 Deric/mcL [facility] Comment on above: small Clarity, UA Clear [facility] Color, UA Yellow [facility] Glucose, UA Negative Negative - 1999(110) ++++ mg/dL [facility] Interpretation and review of laboratory results Abnormal [facility] Ketones, UA Negative Negative - 160(16) ++++ mg/dL [facility] Leukocytes, UA Positive Negative - 500+++ David/mcL [facility] Comment on above: small Nitrite, UA Negative Negative - Positive [facility] pH, UA 7 5 - 9 [facility] Protein, UA Negative Negative - 1999(20) ++++ mg/dL [facility] Spec Grav, UA 1.02 1 - 1.03 [facility] Urobilinogen, UA 0.2 0.2 - 12 mg/dL [facility] Urinalysis macro (dipstick) panel (U)on 03-21-2024 Bilirubin, UA Negative Negative - 4(70) +++ mg/dL [facility] Blood, UA Positive Negative - 50 Deric/mcL [facility] Comment on above: moderate Clarity, UA Clear [facility] Color, UA Yellow [facility] Glucose, UA Negative Negative - 1999(110) ++++ mg/dL [facility] Interpretation and review of laboratory results Abnormal [facility] Ketones, UA Negative Negative - 160(16) ++++ mg/dL [facility] Leukocytes, UA Negative Negative - 500+++ David/mcL [facility] Nitrite, UA Negative Negative - Positive [facility] pH, UA 5.5 5 - 9 [facility] Protein, UA Negative Negative - 1999(20) ++++ mg/dL [facility] Spec Grav, UA 1.03 1 - 1.03 [facility] Urobilinogen, UA 0.2 0.2 - 12 mg/dL [facility] Urinalysis macro (dipstick) panel (U)on 02-18-2024 Bilirubin, UA Negative Negative - 4(70) +++ mg/dL [facility] Blood, UA Positive Negative - 50 Deric/mcL [facility] Comment on above: moderate Clarity, UA Clear [facility] Color, UA Yellow [facility] Glucose, UA Negative Negative - 1999(110) ++++ mg/dL [facility] Interpretation and review of laboratory results Abnormal [facility] Ketones, UA Negative Negative - 160(16) ++++ mg/dL [facility] Leukocytes, UA Moderate Negative - 500+++ David/mcL [facility] Nitrite, UA Negative Negative - Positive [facility] pH, UA 5.5 5 - 9 [facility] Protein, UA Negative Negative - 2000(20) ++++ mg/dL [facility] Spec Grav, UA 1.020 1 - 1.03 [facility] Urobilinogen, UA 0.2 0.2 - 12 mg/dL [facility] No Panel InformationOrdered By: Joi Alvarez on 02-15-2024 Quick Strep (POC) [facility]H BOX TEST SENT OUTon 01-07 BOX TEST SENT OUT [facility] Comment on above: See Scanned Report. [facility] No Panel Informationon 01-29 Reference Lab Order Code See comment [facility] Comment on above: See Scanned Report. A1C HEMOGLOBINon 01-01-2023 HbA1c (Bld) [Mass fraction] 4.9 % [facility] [employer] Other HbA1c (Bld) [Mass fraction]o n 01-01-2023 A1C HEMOGLOBIN [facility] [employer] Other T-Spoton 09-04-2022 T-Spot See Report Normal [facility] Comment on above: Performed By: #### 5 [id number], [id number], [id number] #### [facility] (DEFAULT) [address] [place] [address] HBSab Qnt LCon 01-02-2022 Hep B Surf Ab Quant LC >1000.0 Invalid Interpretation Code Immunity>9 .9 [facility] Comment on above: Result Comment: Stat us of Immunity Anti-HBs Level Inconsistent with Immunity 0.0 - 9.9 Consistent with Immunity >9.9 Performed At: [facility] [address] [place] [address] [id number] Donnell Palacios PhD Ph:[phone] Performed By: #### 5 [id number], [id number], [id number] #### [facility] (DEFAULT) [address] [place] [id number] Lab - Toxicology Resultson 0 01-02-2022 Lab - Toxicology Results [id number] Normal [facility] Measles/Mumps/Rubella Immuni ty LCon 01-02-2022 Mumps Abs, IgG LC <9.0 Low Immune >10.9 [facility] Comment on above: Result Comment: Nega tive <9.0 Equivocal 9.0 - 10.9 Positive >10.9 A positive result generally indicates past exposure to Mumps virus or previous vaccination. Performed At: [facility] [address] [id number] Donnell Palacios PhD Ph:[phone] Performed By: #### 5 [id number], [id number] #### [facility] (DEFAULT) [address] [place] [id number] Rubella Antibodies, IgG LC 6.35 index Invalid Interpretation Code Immune >0.99 [facility] Comment on above: Result Comment: Non- immune <0.90 Equivocal 0.90 - 0.99 Immune >0.99 Performed By: #### 5 [id number], [id number], [id number] #### [facility] (DEFAULT) [address] [place] [address] Rubeola Ab, IgG, EIA LC 14.1 AU/mL Low Immune >16.4 [facility] Comment on above: Result Comment: A se cond sample should be collected and tested no less than 2-4 weeks. Negative <13.5 Equivocal 13.5 - 16.4 Positive >16.4 Presence of antibodies to Rubeola is presumptive evidence of immunity except when acute infection is suspected. Performed By: #### 5 [id number], [id number], [id number] #### [facility] (DEFAULT) [address] [place] [address] Nicotine Metabolite, Urine L Con 01-02-2022 Cotinine LC Negative Invalid Interpretation Code [id number] [facility] Comment on above: Result Comment: Perf ormed At: [facility] [place] [address] [place], [place] [id number] Chilo Villegaswood PhD Ph:[phone] Performed By: #### 1 [id number] #### [facility] (DEFAULT) [address] [place] [address] COVID Quick Testingon 2020 Result Negative [employer] Other Quick Strepon 03-23-2021 S. pyogenes Org specific cx Ql (Throat) Positive [employer] Other Quick Strep [facility] [employer] Other PAP ACOG PANEL 2: 21 to 29on 07-02-2017 Age Gdln ACOG Testing Normal [facility] Comment on above: Performed By: #### 4 [id number] ####[facility] [address] [place] [address] Pat DIAGNOSIS: Comment Abnormal [facility] Comment on above: Result Comment: EPIT HELIAL CELL ABNORMALITY.ATYPICAL SQUAMOUS CELLS OF UNDETERMINED SIGNIFICANCE. Performed By: #### 4 [id number] ####[facility] [address] [place] [address] Pat Electronically signed by: Comment Normal [facility] Comment on above: Result Comment: Shade Price MD, Pathologist Performed By: #### 4 [id number] ####[facility] [id number] Pat HPV Aptima Negative Normal Negative [facility] Comment on above: Result Comment: This test was developed and its performance characteristicsdetermined by [facility]. It has not been cleared or approvedby the Food and Drug Administration.This test detects fourteen high-risk HPV types (16/18/31/33/35/39/45/51/52/56/58/59/66/68) without differentiation. Performed By: #### 4 [id number] ####[facility] [address] [place] [address] Pat Methodology: Comment Normal [facility] Comment on above: Result Comment: This liquid based SurePath(R) pap test was screened with theassistance of an image guided system. Performed By: #### 4 [id number] ####[facility] [address] Pat Note: Comment Normal [facility] Comment on above: Result Comment: The Pap smear is a screening test designed to aid in the detection ofpremalignant and malignant conditions of the uterine cervix. It is not adiagnostic procedure and should not be used as the sole means of detectingcervical cancer. Both false-positive and false-negative reports do occur. . Performed By: #### 4 [id number] ####[facility] [address] [place] [address] Pat Performed by: Comment Normal [facility] Comment on above: Result Comment: Josefina Orr Senior Product Consultant (ASCP) Performed By: #### 4 [id number] ####[facility] [address] [place] [address] Pat Protein mass conc Comment Normal [facility] Comment on above: Result Comment: [id number] Performed By: #### 4 [id number] ####[facility] [address] [place] [address] Pat Reflex Criteria: Comment Normal [facility] Comment on above: Result Comment: See below for HPV testing results. . Performed By: #### 4 [id number] ####[facility] [address] [place] [address] Pat Specimen adequacy: Comment Normal [facility] Comment on above: Result Comment: Sati sfactory for evaluation. Endocervical and/or squamous metaplasticcells (endocervical component) are present. Performed By: #### 4 [id number] ####[facility] [address] [place] [address] Pat . . Normal [facility] Comment on above: Performed By: #### 4 [id number] ####[facility] [address] [place] [address] Pat Vital Signs Date Time Vital Sign Value Performing Clinician Facility 06-20-2024 13:37-0500 Body mass index (BMI) [Ratio] 39.78 kg/m2 Itzel Raegan DO Work Phone: [facility] 06-20-2024 13:37-0500 Body weight 116.94 kg Itzel Raegan DO Work Phone: [facility] 06-20-2024 13:37-0500 Diastolic blood pressure 70 mm[Hg] Itzel Raegan DO Work Phone: [facility] 06-20-2024 13:37-0500 Systolic blood pressure 120 mm[Hg] Itzel Raegan DO Work Phone: [facility] 06-13-2024 11:15-0500 Body mass index (BMI) [Ratio] 39.78 kg/m2 Itzel Raegan DO Work Phone: [facility] 06-13-2024 11:15-0500 Body weight 116.94 kg Itzel Raegan DO Work Phone: [facility] 06-13-2024 11:15-0500 Diastolic blood pressure 78 mm[Hg] Itzel Raegan DO Work Phone: [facility] 06-13-2024 11:15-0500 Systolic blood pressure 114 mm[Hg] Itzel Raegan DO Work Phone: [facility] 05-23-2024 11:56-0500 Body mass index (BMI) [Ratio] 38.33 kg/m2 Itzel Raegan DO Work Phone: [facility] 05-23-2024 11:56-0500 Body weight 112.67 kg Itzel Raegan DO Work Phone: [facility] 05-23-2024 11:56-0500 Diastolic blood pressure 84 mm[Hg] Itzel Raegan DO Work Phone: [facility] 05-23-2024 11:56-0500 Systolic blood pressure 112 mm[Hg] Itzel Raegan DO Work Phone: [facility] 05-04-2024 10:25-0500 Body mass index (BMI) [Ratio] 37.96 kg/m2 Itzel Raegan DO Work Phone: [facility] 05-04-2024 10:25-0500 Body weight 111.58 kg Itzel Raegan DO Work Phone: [facility] 05-04-2024 10:25-0500 Diastolic blood pressure 78 mm[Hg] Itzel Raegan DO Work Phone: [facility] 05-04-2024 10:25-0500 Systolic blood pressure 122 mm[Hg] Itzel Raegan DO Work Phone: [facility] 04-19-2024 11:26-0500 Body mass index (BMI) [Ratio] 37.34 kg/m2 Itzel Raegan DO Work Phone: [facility] 04-19-2024 11:26-0500 Body weight 109.77 kg Itzel Raegan DO Work Phone: [facility] 04-19-2024 11:26-0500 Diastolic blood pressure 82 mm[Hg] Itzel Raegan DO Work Phone: [facility] 04-19-2024 11:26-0500 Systolic blood pressure 120 mm[Hg] Itzel Raegan DO Work Phone: [facility] 03-21-2024 09:50-0400 Body mass index (BMI) [Ratio] 36.85 kg/m2 Mary CARBALLO Work Phone: [facility] 03-21-2024 09:50-0400 Body weight 108.32 kg Mary CARBALLO Work Phone: [facility] 03-21-2024 09:50-0400 Diastolic blood pressure 70 mm[Hg] Mary CARBALLO Work Phone: [facility] 03-21-2024 09:50-0400 Systolic blood pressure 120 mm[Hg] Mary CARBALLO Work Phone: [facility] 02-18-2024 10:09-0400 Body mass index (BMI) [Ratio] 35.77 kg/m2 Itzel Raegan DO Work Phone: [facility] 02-18-2024 10:09-0400 Body weight 105.14 kg Itzel Raegan DO Work Phone: [facility] 02-18-2024 10:09-0400 Diastolic blood pressure 80 mm[Hg] Itzel Raegan DO Work Phone: [facility] 02-18-2024 10:09-0400 Systolic blood pressure 120 mm[Hg] Itzel Raegan DO Work Phone: [facility] 02-15-2024 12:48-0400 Body height 172.72 cm [facility] 02-15-2024 12:48-0400 Body mass index (BMI) [Ratio] 34.9 kg/m2 [facility] 02-15-2024 12:48-0400 Body temperature 98.2 [degF] [facility] 02-15-2024 12:48-0400 Body weight 104.32 kg [facility] 02-15-2024 12:48-0400 Diastolic blood pressure 73 mm[Hg] [facility] 02-15-2024 12:48-0400 Heart rate 106 /min [facility] 02-15-2024 12:48-0400 SaO2% (BldA) [Mass fraction] 98 % [facility] 02-15-2024 12:48-0400 Systolic blood pressure 103 mm[Hg] [facility] 01-29-2023 14:15-0400 Body height 172.72 cm [employer] Other [facility] [employer] Other 01-29-2023 14:15-0400 Body mass index (BMI) [Ratio] 31.81 kg/m2 [employer] Other [employer] Other 01-29-2023 14:15-0400 Body weight 94.89 kg [employer] Other [facility] [employer] Other 01-29-2023 14:15-0400 Diastolic blood pressure 68 mm[Hg] Zi Maier Other [employer] Other 01-29-2023 14:15-0400 Respiratory rate 18 /min Zi JouleX Other [employer] Other 01-29-2023 14:15-0400 SaO2% (BldA) [Mass fraction] 97 % Zi JouleX Other [employer] Other 01-29-2023 14:15-0400 Systolic blood pressure 105 mm[Hg] Zi JouleX Other [employer] Other 01-01-2023 10:00-0400 Body height 172.72 cm Zijigl Other [employer] Other 01-01-2023 10:00-0400 Body mass index (BMI) [Ratio] 31.77 kg/m2 Zi JouleX Other [employer] Other 01-01-2023 10:00-0400 Body weight 94.8 kg Zi JouleX Other [employer] Other 01-01-2023 10:00-0400 Diastolic blood pressure 68 mm[Hg] Zi JouleX Other [employer] Other 01-01-2023 10:00-0400 Respiratory rate 18 /min Zijigl Other [employer] Other 01-01-2023 10:00-0400 SaO2% (BldA) [Mass fraction] 97 % Zijigl Other [employer] Other 01-01-2023 10:00-0400 Systolic blood pressure 105 mm[Hg] Zi Maier Other [employer] Other 11-10-2022 17:40-0400 Body height 172.72 cm Dalton Asencio Other [employer] Other 11-10-2022 17:40-0400 Body mass index (BMI) [Ratio] 32.69 kg/m2 Dalton Asencio Other [employer] Other 11-10-2022 17:40-0400 Body weight 97.52 kg Dalton Asencio Other [employer] Other 11-10-2022 17:40-0400 Diastolic blood pressure 80 mm[Hg] Dalton Asencio Other [employer] Other 11-10-2022 17:40-0400 Systolic blood pressure 117 mm[Hg] Dalton Asencio Other [employer] Other 10-21-2022 09:14-0400 Body temperature 98.1 [degF] DO Dalton Asencio Work Phone: [facility] 10-21-2022 09:14-0400 Diastolic blood pressure 59 mm[Hg] DO Dalton Asencio Work Phone: [facility] 10-21-2022 09:14-0400 Heart rate 74 /min DO Dalton Asencio Work Phone: [facility] 10-21-2022 09:14-0400 Respiratory rate 18 /min DO Dalton Asencio Work Phone: [facility] 10-21-2022 09:14-0400 SaO2% (BldA) [Mass fraction] 98 % DO aDlton Asencio Work Phone: [facility] 10-21-2022 09:14-0400 Systolic blood pressure 120 mm[Hg] DO Dalton Asencio Work Phone: [facility] 10-21-2022 09:13-0400 Body height 175.26 cm DO Dalton Asencio Work Phone: [facility] 10-21-2022 09:13-0400 Body weight 97.1 kg DO Dalton Asencio Work Phone: [facility] 03-04-2022 15:40-0400 Body height 172.72 cm Dalton Abdirahmangarrick Other [facility] [employer] Other 05-09-2021 10:30-0500 Body height 172.72 cm Dalton Asencio Other [employer] Other 05-09-2021 10:30-0500 Body mass index (BMI) [Ratio] 34.66 kg/m2 Dalton Asencio Other [employer] Other 05-09-2021 10:30-0500 Body temperature 97.7 [degF] Dalton Garygarrick Other [employer] Other 05-09-2021 10:30-0500 Body weight 103.42 kg Dalton Garygarrick Other [employer] Other 05-09-2021 10:30-0500 Diastolic blood pressure 72 mm[Hg] Dalton Asencio Other [employer] Other 05-09-2021 10:30-0500 Respiratory rate 18 /min Dalton Garygarrick Other [employer] Other 05-09-2021 10:30-0500 SaO2% (BldA) [Mass fraction] 98 % Dalton Asencio Other [employer] Other 05-09-2021 10:30-0500 Systolic blood pressure 108 mm[Hg] Dalton Asencio Other [employer] Other 03-23-2021 11:00-0400 Body height 172.72 cm Johnny Lyn Other [employer] Other 03-23-2021 11:00-0400 Body mass index (BMI) [Ratio] 33.6 kg/m2 Johnny Lyn Other [employer] Other 03-23-2021 11:00-0400 Body temperature 98.5 [degF] Johnny Lyn Other [employer] Other 03-23-2021 11:00-0400 Body weight 100.25 kg Johnny Lyn Other [employer] Other 03-23-2021 11:00-0400 Diastolic blood pressure 68 mm[Hg] Johnny Lyn Other [employer] Other 03-23-2021 11:00-0400 Respiratory rate 18 /min Johnny Lyn Other [employer] Other 03-23-2021 11:00-0400 SaO2% (BldA) [Mass fraction] 97 % Johnny Lyn Other [employer] Other 03-23-2021 11:00-0400 Systolic blood pressure 105 mm[Hg] Johnny Lyn Other [employer] Other Encounters Encounter Date Encounter Type Care Provider Facility Start: 06-20-2024 End: 06-20-2024 Bamboo flowsheet Itzel Raegan DO Work Phone: [facility] Start: 06-20-2024 End: 06-20-2024 Bamboo flowsheet Itzel Raegan DO Work Phone: [facility] Start: 06-20-2024 End: 06-20-2024 ambulatory ITZEL RAEGAN Not Available Start: 06-20-2024 End: 06-20-2024 flow sheet Itzel [...] Start: 05-02-2024 End: 05-02-2024 ambulatory Dalton Asencio Facility:[facility] Start: 04-19-2024 End: 04-19-2024 Bamboo [...] Not Available Start: 02-15-2024 End: 02-15-2024 ambulatory [facility] Work Phone: Start: 02-15-2024 End: 02-15-2024 Patient encounter procedure [facility] [place] Work Phone: Start: 01-30-2024 End: 02-02-2024 Clinisync Result Encounter Itzel Raegan DO Work Phone: [facility] Unsolicited Start: 01-30-2024 End: 02-02-2024 Clinisync Result Encounter Itzel Raegan DO Work Phone: [facility] Unsolicited Start: 01-30-2024 Non-patient / Non-visit [facility] Work Phone: Start: 01-28-2024 [...] 01-29-2023 End: 01-29-2023 ambulatory Zi Maier Other [employer] Other Start: 01-29-2023 Follow-up encounter Zi Maier [facility] Start: 01-13-2023 End: 01-13-2023 ambulatory Dalton Asencio Other [employer] Other Start: 01-13-2023 Telephone encounter Dalton Asencio [facility] [place] Start: 01-01-2023 End: 01-01-2023 ambulatory Zi Maier Other [employer] Other Start: 01-01-2023 Nutrition therapy Zi Maier [facility] Start: 11-10-2022 End: 11-10-2022 ambulatory Dalton Asencio Other [employer] Other Start: 11-10-2022 Telephone encounter Dalton Asencio [facility] [place] Start: 10-21-2022 End: 10-21-2022 Emergency department patient visit DO Dalton Asencio Work Phone: [facility] Work Phone: Start: 07-28-2022 End: 07-28-2022 ambulatory Dalton Asencio Other [employer] Other Start: 07-28-2022 Telephone encounter Dalton Asencio [facility] [place] Start: 07-25-2022 End: 07-25-2022 ambulatory Dalton Asencio Other [employer] Other Start: 07-25-2022 Telephone encounter Dalton Asencio [facility] [place] Start: 04-09-2022 End: 04-09-2022 ambulatory Dalton Asencio Other [employer] Other Start: 04-09-2022 Telephone encounter Dalton Asencio [facility] [place] Start: 03-20-2022 End: 03-20-2022 ambulatory Lelia Macias Other [employer] Other Start: 03-20-2022 Telephone encounter Lelia Macias [facility] Start: 03-04-2022 End: 03-04-2022 ambulatory Dalton Asencio Other [employer] Other Start: 03-04-2022 Telephone encounter Dalton Asencio [facility] [place] Start: 02-06-2022 End: 02-06-2022 ambulatory Dalton Asencio Other [employer] Other Start: 02-06-2022 Telephone encounter Dalton Asencio [facility] [place] Start: 01-02-2022 End: 01-02-2022 ambulatory None Provider Facility:[facility] Start: 09-18-2021 End: 09-18-2021 ambulatory Dalton Asencio Other [employer] Other Start: 09-18-2021 Telephone encounter Dalton Asencio [facility] [place] Start: 07-25-2021 End: 07-25-2021 ambulatory Dalton Asencio Other [employer] Other Start: 07-25-2021 Telephone encounter Dalton Asencio [facility] [place] Start: 07-15-2021 End: 07-15-2021 ambulatory Dalton Asencio Other [employer] Other Start: 07-15-2021 Telephone encounter Dalton Asencio [facility] [place] Start: 05-09-2021 End: 05-09-2021 ambulatory Dalton Asencio Other [employer] Other Start: 05-09-2021 Office outpatient vi sit 15 minutes Dalton Asencio [facility] [place] Start: 04-22-2021 End: 04-22-2021 ambulatory Dalton Asencio Other [employer] Other Start: 04-22-2021 Telephone encounter Dalton Asencio [facility] [place] Start: 03-23-2021 Office outpatient vi sit 15 minutes Johnny Lyn [facility] Start: 03-12-2018 End: 03-12-2018 Patient encounter DALTON ASENCIO Facility: Start: 06-23-2017 End: 01-16-2018 Patient encounter ITZEL CARLIN Facility:[facility] Start: 04-30-2017 [...] w/o micrscp Mary CARBALLO Work Phone: Start: 02-18-2024 Urnls dip stick/tabl et rgnt non-auto w/o micrscp Itzel Raegan DO Work Phone: Start: 02-15-2024 Quick Strep (POC) Start: 01-30-2024 [facility] BOX TEST SENT OUT C louisa Boneo DO Work Phone: Plan of Treatment Date Care Activity Detail Author Start: 10-06-2028 Screening for malign ant neoplasm of cervix [facility] Start: 10-27-2024 End: 10-27-2024 Patient encounter procedure 10/27/2024 10:00 AM EDT Office Visit [facility] [address] [place] [id number] Alayna Hassan, DO [address] [place] [address] [facility] Start: 06-28-2024 End: 06-28-2024 Patient encounter procedure 06/28/2024 10:20 AM EST Routine [facility] [address] [facility] [place] [phone] Itzel Carlin, DO [address] [place] [address] [facility] Start: 06-20-2024 End: 06-20-2025 CULTURE, GROUP B STREP WITH SUSCEPTIBLITY CULTURE, GROUP B STREP WITH SUSCEPTIBLITY Lab Routine Third trimester Expected: 06/20/2024, Expires: 06/20/2025 [facility] Work Phone: Comment on above: Expected: 06/20/2024 , Expires: 06/20/2025 Start: 06-20-2024 End: 06-20-2024 Patient encounter procedure 06/20/2024 1:20 PM EST Routine [facility] [address] [place], [place] [address] [phone] Itzel Carlin, DO [address] [place] [address] [facility] Start: 06-13-2024 End: 06-13-2024 Patient encounter procedure 06/13/2024 10:30 AM EST Routine [facility] [address] [place] [address] Itzel Carlin, DO [address] [place] [address] [facility] Start: 05-23-2024 End: 05-23-2025 US biophysical profile w non stress test US biophysical profile w non stress test Imaging Routine Hypertension affecting , antepartum Expected: 05/23/2024 (Approximate), Expires: 05/23/2025 [facility] Work Phone: Comment on above: Expected: 05/23/2024 (Approximate), Expires: 05/23/2025 Start: 05-03-2024 End: 05-03-2024 Patient encounter procedure 05/03/2024 9:00 AM EST Routine [facility] [address] [facility] [place] [address] Itzel Carlin, DO [address] [place] [address] [address] [place] [place], [place] [id number] [facility] Start: 04-19-2024 End: 04-19-2025 US for US OB SCAN FOR GROWTH Imaging Routine Hypertension affecting , antepartum Expected: 04/19/2024 (Approximate), Expires: 04/19/2025 [facility] Work Phone: Comment on above: Expected: 04/19/2024 (Approximate), Expires: 04/19/2025 Start: 04-18-2024 End: 04-18-2024 Patient encounter procedure 04/18/2024 10:40 AM EST Routine [facility] [address] [facility] [place] [phone] Itzel Carlin, DO [address] [place] [address] [place] [address] [facility] Start: 03-28-2024 End: 03-28-2024 Professional / ancillary services management 03/28/2024 9:30 AM EDT Ancillary Procedure [facility] [address] [facility] [place] [phone] [facility] Start: 03-21-2024 End: 03-21-2025 [...] mellitus screening Expected: 03/21/2024 (Approximate), Expires: 03/21/2025 [facility] Comment on above: Expected: 03/21/2024 (Approximate), Expires: 03/21/2025 Start: 03-21-2024 End: 03-21-2024 Patient encounter procedure [facility] Comment on above: Arrived Start: 02-29-2024 End: 02-29-2024 Professional / ancillary services management 02/29/2024 11:00 AM EDT Ancillary Procedure [facility] [address] [facility] [place] [address] [facility] Start: 02-18-2024 End: 04-19-2024 Alpha fetoprotein, maternal Alpha fetoprotein, maternal Lab Routine 18 weeks gestation of Expected: 02/18/2024 (Approximate), Expires: 04/19/2024 [facility] Comment on above: Expected: 02/18/2024 (Approximate), Expires: 04/19/2024 Start: 02-18-2024 End: 02-17-2025 US for US OB ANATOMY SINGLE W US OB CERVICAL LENGTH Imaging Routine Screening, , for anatomic survey Expected: 02/18/2024 (Approximate), Expires: 02/17/2025 [facility] Comment on above: Expected: 02/18/2024 (Approximate), Expires: 02/17/2025 Start: 02-18-2024 End: 02-18-2024 Patient encounter procedure [facility] Comment on above: Arrived Start: 02-07-2024 Influenza vaccination Influenza Vacc ine (#1) [facility] Start: 01-28-2024 End: 01-28-2024 Patient encounter procedure 01/28/2024 8:40 AM EDT Office Visit [facility] [address] [place] [address] Itzel Carlin DO [address] [place], [place] [id number] Arrived [facility] Comment on above: Arrived Start: 2015 Screening for malign ant neoplasm of cervix Pap Smear [facility] CHLAMYDIA TRACHOMATI S (GENITO/STI) CHLAMYDIA TRACHOMATIS (GENITO/STI) Lab Routine Exposure to STD Ordered: 02/18/2024 [facility] Comment on above: Ordered: 02/18/2024 Neisseria gonorrhoea e DNA [Presence] in Unspecified specimen by SAKSHI with probe detection Neisseria gonorrhea DNA probe, direct Lab Routine Exposure to STD Ordered: 02/18/2024 [facility] Comment on above: Ordered: 02/18/2024 Patient Education Minor Head Injury (DC) [facility] Work Phone: Patient referral [facility] Work Phone: SURESWAB(R) ADVANCED VAGINITIS PLUS, TMA SURESWAB(R) ADVANCED VAGINITIS PLUS, TMA Pathology and Cytology Routine Vaginal discharge Ordered: 02/18/2024 [facility] Work Phone: Comment on above: Ordered: 02/18/2024 Immunizations Immunization Date Immunization Notes Care Provider Rubin roberto 05-27-2023 influenza virus vaccine, unspecified formulation Itzel Raegan DO Work Phone: [facility] 03-24-2022 influenza, seasonal, injectable Dalton Asencio Other [facility] 05-06-2021 measles, mumps and rubella virus vaccine Dalton Asencio Other [facility] 04-03-2021 COVID-19 Vaccine Moderna - Documentation Purposes Only Dalton Asencio Other [facility] 03-04-2021 influenza, seasonal, injectable Dalton Asenico Other [facility] 07-12-2020 COVID-19 Vaccine Moderna - Documentation Purposes Only Johnny Lyn Other [facility] 06-14-2020 COVID-19 Vaccine Moderna - Documentation Purposes Only Johnny Lyn Other [facility] 03-12-2020 influenza, seasonal, injectable Johnny Lyn Other [facility] 05-09-2019 tetanus toxoid, redu elizabeth diphtheria toxoid, and acellular pertussis vaccine, adsorbed Dalton Asencio Other [facility] 06-24-2013 Toradol per 15 mg Callchase wood Other [employer] Other Payers Date Payer Category Payer Self-pay [id number] 2023 Unknown [employer] [id number] 2023-Present [address] [place] [address] [id number] 2023 Unknown [id number] 2019 Medicaid [facility] MEDIC AID [employer] [place] [id number] 2019-Present [address] [place] [address] [id number] 2019 Private Health Insurance [id number] 2019 Medicaid [id number] 1994 Unknown [id number] 2.16.840.1.038637.3.579.2. 593 1994 Unknown [id number] 2.16.840.1.151914.3.579.2. 593 1994 Unknown [id number] 2.16.840.1.330893.3.579.2. 593 1994 Unknown [id number] 2.16.840.1.938110.3.579.2. 1259 1994 Unknown [id number] 2.16.840.1.807666.3.579.2. 1259 1994 Unknown [id number] 2.16.840.1.611322.3.579.2. 9 1994 Unknown [id number] 2.16.840.1.081308.3.579.2. 9 1994 Unknown [id number] 2.16.840.1.104748.3.579.2. 9 1994 Unknown [id number] 2.16.840.1.674076.3.579.2. 9 1994 Unknown [id number] 2.16.840.1.484768.3.579.2. 9 1994 Unknown [id number] 2.16.840.1.747103.3.579.2. 9 1994 Unknown [id number] 2.16.840.1.817031.3.579.2. 9 1994 Unknown [id number] 2.16.840.1.188871.3.579.2. 1259 1959 Unknown [id number] 1959 Unknown [id number] 1959 Unknown [id number] Unknown [id number] [id number]. 531 Social History Date Type Detail Facility Unknown if ever smoked [facility] Other Start: 02-03-2023 End: 10-07-2023 Sex Assigned At [facility] [employer] Other Start: 10-21-2022 Tobacco smoking status KYIS Smoker (finding) [facility] Start: 1995 Sex Assigned At Female [facility] Start: 01-03-2023 Tobacco smoking status KYIS Never smoked tobacco [facility] Start: 01-03-2023 Tobacco use and exposure Smokeless tobacco non-user [facility] Start: 02-18-2024 End: 06-20-2024 Alcoholic beverage intake Lifetime non-drinker (finding) [facility] Start: 02-03-2023 End: 10-07-2023 History of Social function [facility] Start: 02-03-2023 Alcohol Comment Caffeine intak e: 1-2 cups per day [facility] Start: 10-23-2023 [facility] Start: 1995 Sex assigned at Not on file [facility] NEGATED: Highlighted rowStart: NINF History of tobacco use Passive smoker [facility] Medical Equipment Procedure Code Equipment Code Equipment Origin al Text Equipment Identifier Dates NovoFine Plus Pe n Needle 32G X 4 MM Start: 01-01-2023 Clinical Notes 08-30-2012 to 06-20-2024 Divine Britton, [facility] - 06/20/2024 1:20 PM Bartolo Britton, [facility] - 06/13/2024 10:40 AM Iris Moore, [facility] - 05/23/2024 10:50 AM Iris Moore, [facility] - 05/03/2024 9:00 AM EST Note Date & Type Note Facility 06-20-2024 History of Presen t illness Narrative Reason for Appointment: Patient ID: Alejandro Michele is a 29 y.o. female who presents [...] nursing note reviewed. Exam conducted with a laundry marker supervisor present. Vitals: Estimated body mass index is [...] Carlin DO documented in this encounter [facility] 06-13-2024 History of Presen t illness Narrative Reason for Appointment: Patient ID: Alejandro Michele is a 29 y.o. female who presents [...] nursing note reviewed. Exam conducted with a laundry marker supervisor present. Vitals: Estimated body mass index is [...] Carlin DO documented in this encounter [facility] 05-23-2024 History of Presen t illness Narrative Reason for Appointment: Patient ID: Alejandro Michele is a 29 y.o. female who presents [...] nursing note reviewed. Exam conducted with a laundry marker supervisor present. Vitals: Estimated body mass index is [...] Carlin DO documented in this encounter [facility] 05-03-2024 History of Presen t illness Narrative Reason for Appointment: Patient ID: Alejandro Michele is a 29 y.o. female who presents [...] nursing note reviewed. Exam conducted with a laundry marker supervisor present. Vitals: Estimated body mass index is [...] Carlin DO documented in this encounter [facility] 04-19-2024 History of Presen t illness Narrative Reason for Appointment: Patient ID: Alejandro Michele is a 29 y.o. female who presents [...] nursing note reviewed. Exam conducted with a laundry marker supervisor present. Vitals: Estimated body mass index is [...] Carlin DO documented in this encounter [facility] 03-21-2024 History of Presen t illness Narrative Reason for Appointment: Patient ID: Alejandro Michele is a 28 y.o. female who presents [...] nursing note reviewed. Exam conducted with a laundry marker supervisor present. Vitals: Estimated body mass index is [...] KAIT Head documented in this encounter [facility] 02-18-2024 History of Presen t illness Narrative Reason for Appointment: Patient ID: Alejandro Michele is a 28 y.o. female who presents [...] nursing note reviewed. Exam conducted with a laundry marker supervisor present. Vitals: Estimated body mass index is [...] Carlin DO documented in this encounter [facility] 01-29-2023 Evaluation note Encounter Date [...] loss response -Patient reports Wellbutrin made her ntyej-Nahic-dn-car e A1c December 2022 4.9%-Follow up in clinic in 6 weeksThis note was created with voice recognition software. Please excuse errors in pharmacy informaticist. Jan, Dietary surveillance and counseling (ICD-10 - [...] with the patient, and documenting clinical information. [facility] Other 08-08-2023 Evaluation note* Encounter Date Diagnosis Assessment Notes Treatment Notes Treatment Clinical Notes Jan, Glucosuria (ICD-10 - R81) Jan, Cystitis (ICD-10 - N30.90) Jan, Other long-term (current) drug therapy (ICD-10 - Z79.899) [facility] Other 07-27-2023 Evaluation note* Encounter Date Diagnosis [...] -Alternative options may include combination Wellbutrin and puidywpcom-Jmdgz-dj-ca re A1c today 4.9-Follow up in clinic in 4 weeksThis note was created with voice recognition software. Please excuse errors in pharmacy informaticist. Dec, Dietary surveillance and counseling (ICD-10 - [...] - R63.8) Dec, Screening (ICD-10 - Z13.9) [facility] Other 06-05-2023 Evaluation note* Encounter Date Diagnosis Assessment Notes Treatment Notes Treatment Clinical Notes Nov, Anxiety (ICD-10 - F41.9) She is seeing a psychiatrist every five weeks and she thinks that she has ADHD but has not started any medication for this. She follows with a psychiatrist through [facility]. She is no longer on the Venlafaxine and is not on any medication for her mood. She uses the Xanax only as needed. She struggles with anxiety and focusing in school as far as the ADHD so is unsure if she needs any medication. Right now she feels better than she ever has without any medicine. 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 Nov, ADHD [...] afford to pay for the injectable medication [id number]. I discussed her seeing Dr. Reyes for [...] Nov, Other 6:05 PM - 6:18 PM [facility] Other 02-20-2023 Evaluation note* Encounter Date Diagnosis [...] Jul, Other 2:25 PM - 2:33 PM [facility] Other 11-02-2022 Evaluation note* Encounter Date Diagnosis [...] provide her with a [facility] who has psychiatry services. 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 and [...] Feb, Other 2:50 PM - 3:02 PM [facility] Other 09-01-2022 Evaluation note* Encounter Date Diagnosis Assessment Notes Treatment Notes Treatment Clinical Notes Feb, Anxiety (ICD-10 - F41.9) [facility] Other 02-17-2022 Evaluation note* Encounter Date Diagnosis Assessment Notes Treatment Notes Treatment Clinical Notes Jul, Depression (ICD-10 - F32.9) [facility] Other 02-07-2022 Evaluation note* Encounter Date Diagnosis [...] Jul, Other 4:29 PM - 4:38 PM [facility] Other 02-07-2022 Evaluation note* Encounter Date Diagnosis Assessment Notes Treatment Notes Treatment Clinical Notes Jul, Anxiety (ICD-10 - F41.9) [facility] Other 12-02-2021 Evaluation note* Encounter Date Diagnosis [...] starting school in June, she is attending [employer] for [employer] school. An OARRS report was reviewed, no [...] on the medication. Do not take Ecstasy. [facility] Other 10-16-2021 Evaluation note* Encounter Date Diagnosis [...] (ICD-10 - Z20.828) covid neg, see above. [facility] Other 03-25-2013 History general Narrative - Reported* Type Description Date Medical History immunizations up to date Medical History Right Wrist fracture Medical History Left ankle fracture Hospitalization History childbirth; [facility] 08-30-12 [facility] Hospitalization History childbirth 05/09/20 19 [facility] Other Evaluation noteNo InformationNort [employer] Other Evaluation noteNo assessment information available [facility] Work Phone: Evaluation note* Diagnosis 23 weeks [...] gestation of documented in this encounter [facility]* Diagnosis 36 weeks gestation of Third trimester state, incidental documented in this encounter [facility] HealthcareHistory general [facility]ative [facility] [employer] Other History general Narrative - Reported* Type Description Date Medical History immunizations up to date Medical History Right Wrist fracture Medical History Left ankle fracture Medical History Anxiety Medical History Depression Surgical History [place] teeth extraction Hospitalization History childbirth; [facility] 08-30-12 Hospitalization History childbirth - [facility] 0 11/20/14 Hospitalization History childbirth 05/09/20 19 [facility] Other Summary Purpose Family History No Family History Records Found Relationship Condition Age at Onset Recorded Date/T jozef father Family history of mental disorder Unknown grandparent Heart disease Unknown grandparent Unknown Lagrange workers' pneumoconiosis Unknown Hypertension Unknown Not Specified Family history of mental disorder Unknow n Relationship Condition Age at Onset Recorded Date/T jozef father Family history of mental disorder Unknown grandparent Heart disease Unknown grandparent Unknown [employer]range workers' pneumoconiosis Unknown Hypertension Unknown mother Family [...] CREATED AUTHOR AUTHOR'S ORGANIZ ATION 05/04/2024 [facility] DATE CREATED AUTHOR AUTHOR'S ORGANIZ ATION 06/23/2024 [facility] EPIC REASON FOR VISIT (unrecogniz [...] Active Bud Flaherty APRN Emergency Provider Active Shade Maker Relationship Specialty Start Date End Date Dalton Asencio MD [address] [place] [address] PCP - General Family Medicine 01/03/23 Shade Maker Relationship Specialty Start Date End Date Dalton Asencio MD [address] [place] [address] PCP - General Family Medicine 01/03/23 Shade Maker Relationship Specialty Start Date End Date Dalton Asencio MD [address] [place] [address] PCP - General Family Medicine 01/03/23 Shade Maker Relationship Specialty Start Date End Date Dalton Asencio MD [address] [place] [address] PCP - General Family Medicine 01/03/23 Shade Maker Relationship Specialty Start Date End Date Dalton Asencio MD [address] [place] [address] PCP - General Family Medicine 01/03/23 Shade Maker Relationship Specialty Start Date End Date Dalton Asencio MD [address] [place] [address] PCP - General Family Medicine 01/03/23 Shade Maker Relationship Specialty Start Date End Date Dalton Asencio MD [address] [place] [address] PCP - General Family Medicine 01/03/23 Shade Maker Relationship Specialty Start Date End Date Dalton Asencio MD [address] [place] [address] PCP - General Family Medicine 01/03/23 Shade Maker Relationship Specialty Start Date End Date Dalton Asencio MD [address] [place] [address] PCP - General Family Medicine 01/03/23 Shade Maker Relationship Specialty Start Date End Date Dalton Asencio MD [address] [place] [address] PCP - General Family Medicine 01/03/23 Shade Maker Relationship Specialty Start Date End Date Dalton Asencio MD [address] [place] [address] PCP - General Family Medicine 01/03/23 Goals [...] BE BASED ON THE PRIMARY CLINICAL RECORDS. [facility] [employer] [facility]. provides no warranty or guarantee of the accuracy or completeness of information in this document.
[2024-06-27 06:15] LABS: Hematocrit 30.8 % (36.0-48.0); Hemoglobin 9.7 g/dL (12.0-16.0); Mean Corpuscular HGB Conc 31.5 g/dL (29.9-35.2); Mean Corpuscular Hemoglobin 25.3 pg (26.7-34.0); Mean Corpuscular Volume 80.4 fL (81.0-99.0); Mean Platelet Volume 9.8 fL (9.5-13.5); Platelet Count 338 10^3/uL (150-450); Red Blood Count 3.83 10^6/uL (4.20-5.40); White Blood Count 12.5 10^3/uL (4.0-11.0)
[2024-06-27 06:25] LABS: Amphetamine Screen Urine NEGATIVE (NEGATIVE); Barbiturates Screen Urine NEGATIVE (NEGATIVE); Benzodiazepines Screen Urine NEGATIVE (NEGATIVE); Buprenorphine Screen Urine NEGATIVE (NEGATIVE); Cannabinoid Screen Urine NEGATIVE (NEGATIVE); Cocaine Screen Urine NEGATIVE (NEGATIVE); Methadone Screen Urine NEGATIVE (NEGATIVE); Methamphetamines Screen Urine NEGATIVE (NEGATIVE); Opiate Screen Urine NEGATIVE (NEGATIVE); Oxycodone Screen Urine NEGATIVE (NEGATIVE); Phencyclidine Screen Urine NEGATIVE (NEGATIVE); Tricyclic Antidepressant Urine NEGATIVE (NEGATIVE)
[2024-06-27] MEDS: 0.9 % SODIUM CHLORIDE 1,000 ML 1000 ML IV (08:08)
[2024-06-27] MEDS: OXYTOCIN/0.9 % SODIUM CHLORIDE 10 UNITS/500 ML PLAST..BAG 6 UNIT IV (08:09)
[2024-06-27] MEDS: ACETAMINOPHEN 500 MG TABLET 1000 MG PO (09:23)
--- NOTE | 2024-06-27 10:25 | P.OBHP_ITS ---
OB - H&P: HPI History of Present Illness Chief complaint: INDUCTION : 4 Para: 3 Date of last menstrual period: 10/15/2023 Gestational age based on last menstrual period: 37.3 by JACQUI per ultrasound and LMP Indications for induction: induced hypertension History of Present Dating criteria: LMP confirmed by 2nd trimester US care: good care Ultrasounds: normal mid trimester US complications: induced hypertension Medical complications OB: none Labs Blood type: O (+) positive Rubella: immune RPR/VDLR: nonreactive HBsAG: negative Review of Systems ROS Status of ROS: 10 or more systems reviewed and unremarkable except as noted in history and below PFSH PFSH Medical History (Updated 06/27/24 @ 05:43 by Maria Alejandra Olvera) Gestational [-induced] hypertension without significant proteinuria, complicating childbirth ?O13.4 - Gestational [-induced] hypertension without significant proteinuria, complicating childbirth (ICD-10) Surgical History (Updated 06/27/24 @ 06:55 by Maria Alejandra Olvera) [place] teeth extracted ?K08.409 - Partial loss of teeth, unspecified cause, unspecified class (ICD- 10) Family History (Updated 06/27/24 @ 05:40 by Maria Alejandra Olvera) Grandmother Family history of stroke Family history of myocardial infarction Family history of COPD (chronic obstructive pulmonary disease) Family history of CHF (congestive heart failure) Other Family history of cancer Social History (Updated 06/27/24 @ 05:42 by Maria Alejandra Olvera) Within the past year, how often did you have a drink containing alcohol: never Within the past year, how often did you have six or more drinks on one occasion: never Score interpretation: A score less than 3 is consistent with normal alcohol consumption. Smoking status: Former smoker Non-prescribed substance use: denies use Highest level of school completed/degree received: Associate degree: academic program Are you now , , , , never or living with a partner: living with partner In a typical week, how many times do you talk on the telephone with family, friends, or neighbors: 3 or more times per week How often do you get together with friends or relatives: 3 or more times per week How often do you attend pentecostal or roman catholic services: 4 or more times per year Little interest or pleasure in doing things: not at all Feeling down, depressed, or hopeless: not at all Feel stressed/tense/nervous/anxious/difficulty sleeping: not at all Do you think of yourself as: straight/heterosexual Gender Identity: female Meds Home Medications and Allergies Home Medications ?Medication ?Instructions ?Recorded ?Confirmed ?Type aspirin 81 mg chewable tablet 81 mg PO DAILY 06/07/24 06/27/24 History labetalol 100 mg tablet 100 mg PO BID 06/07/24 06/27/24 History magnesium oxide 400 mg (241.3 mg 400 mg PO DAILY 06/27/24 06/27/24 History magnesium) tablet vit no.95-ferrous 1 tab PO DAILY 06/27/24 06/27/24 History fumarate 28 mg-folic acid 800 mcg tablet () Allergies Allergy/AdvReac Type Severity Reaction Status Date / Time sulfamethoxazole (From Allergy Severe Hives Verified 06/27/24 05:27 Bactrim) trimethoprim (From Bactrim) Allergy Severe Hives Verified 06/27/24 05:27 Exam Narrative Exam Narrative: voicing no complaints Constitutional Vital Signs, click to edit/add: Last Vital Signs Pulse 83 06/27/24 10:13 BP 119/62 06/27/24 10:13 Documenting provider has reviewed patient's vital signs: yes Common normals: no apparent distress, oriented x3, no limitations, healthy appearing, alert and well nourished [facility] Common normals: normocephalic and head/scalp atraumatic Eye Common normals: PERRL Pupil: accommodation reflex normal Neck & C-Spine Common normals: full ROM and supple Respiratory Common normals: normal respiratory effort Auscultation: clear to auscultation bilaterally Cardio Common normals: regular rate and regular rhythm GI Common normals: Normal to inspection, nondistended, normoactive bowel sounds present, soft to palpation and non-tender Common normals: no CVA tenderness Back & Pelvis Common normals: no thoracic nor lumbar tenderness Extremity Common normals: normal to inspection, full ROM and no calf tenderness Neuro Common normals: CN's II-XII intact bilaterally, moves all extremities, no focal motor deficits and no sensory deficits noted Sensorium/orientation: awake, alert, oriented to person, oriented to place and oriented to time Motor exam: strength 5/5 throughout Psych Common normals: mental status grossly normal, thought process normal, cooperative, affect normal, speech normal and activity/motor behavior normal Results Labs Labs: Short CBC 06/27/24 Range/Units 05:15 WBC 12.5 H (4.0-11.0) 10^3/uL Hgb 9.7 L (12.0-16.0) g/dL Hct 30.8 L (36.0-48.0) % Plt Count 338 (150-450) 10^3/uL OB - A/P Assessment and Plan (1) Gestational [-induced] hypertension without significant proteinuria, complicating childbirth: Assessment and Plan: blood pressure well controlled on labetalol. medical induction in . desires epidural. presently cervix 4 to five, posterior but can easily pull anterior, 75 percent, soft vertex well applied. Plan induction at 37.3 weeks for PIH. AROM performed, clear fluid. pitocin has been running since admission early this am
[2024-06-27] MEDS: 0.9 % SODIUM CHLORIDE 1,000 ML 125 ML IV ×2 (10:37→12:42)
--- NOTE | 2024-06-27 10:45 | P.OBPN_ITS ---
OB - PN: Subj Subjective Patient comments: no complaints Exam Narrative Exam Narrative: see History and Physical as just done Constitutional Vital Signs, click to edit/add: Last Vital Signs Temp 97.8 F 06/27/24 10:24 Pulse 92 H 06/27/24 10:42 BP 121/73 06/27/24 10:42 Results Labs Labs: Short CBC 06/27/24 Range/Units 05:15 WBC 12.5 H (4.0-11.0) 10^3/uL Hgb 9.7 L (12.0-16.0) g/dL Hct 30.8 L (36.0-48.0) % Plt Count 338 (150-450) 10^3/uL OB - PN: A/P Assessment and Plan (1) Gestational [-induced] hypertension without significant proteinuria, complicating childbirth: Assessment and Plan: DESIRES EPIDURAL, PITOCIN INDUCTION FOR FAVORABLE CERVIX, CAT I TRACING, IRREGULAR CONTRACTIONS Q 2 TO 4 MINUTES....PITOCIN AT 8 MIU Plan AROM: PERFORMED, WITHOUT COMPLICATION, CLEAR FLUID, GBS NEGATIVE, CERVIX 4 TO 5/ 75 %/MINUS ONE/SOFT/VERTEX/HEAD WELL APPLIED Time Spent with Patient Time: Total time spent is greater than 50% in coordination of care (as documented) at patient's floor/unit and/or counseling patient: Total time spent with greater than 50% in coordination of care (as documented) at patient's floor/unit and/or counseling patient: 25 - 35 minutes
[2024-06-27] MEDS: CALCIUM CARBONATE 500 MG (200MG ELEMENTAL) TAB CHEW PO ×2 (10:46→15:13)
[2024-06-27] MEDS: ROPIVACAINE HCL 0.2% PF 40 MG/20 ML VIAL 20 MG EPIDURAL (12:02)
[2024-06-27] MEDS: FENTANYL CITRATE/PF 100 MCG/2 ML VIAL EPIDURAL ×2 (12:03→12:04)
[2024-06-27] MEDS: ROPIVACAINE HCL/PF 400 MG/200 ML PREMIX 6 MG EPIDURAL (12:03)
--- NOTE | 2024-06-27 18:34 | PM.OBPRCVD ---
Procedure Intrapartal events: None Induction method: per pitocin protocol Delivery augmentation: rupture of membranes and pitocin Delivery monitor: external FHT and external uterine Route of delivery: L&D Laceration Description: perineal - 1st degree Anesthesia type: Epidural Disposition: floor Infant Delivery date: 06/27/24 Gender: male presentation: vertex Placental delivery description: Spontaneous cord description: 3 Vessels
[2024-06-27] MEDS: OXYTOCIN/0.9 % SODIUM CHLORIDE 20 UNITS/1,000 ML PLAST..BAG 125 UNIT IV (18:43)
[2024-06-27] MEDS: LABETALOL HCL 100 MG TABLET PO (21:15)
[2024-06-27] MEDS: ACETAMINOPHEN 325 MG TABLET 650 MG PO (21:15)
[2024-06-27] MEDS: IBUPROFEN 600 MG TABLET PO (21:15)
[2024-06-28] VITALS (9 sets, daily range): BP systolic 102–122; BP diastolic 54–61; PULSE 82–96; TEMP 36.4–36.7
[2024-06-28] MEDS: BENZOCAINE/MENTHOL 85 GRAM SPRAY BOTTLE 1 APPLIC TOPICAL (02:11)
[2024-06-28] MEDS: GLYCERIN/WITCH HAZEL PADS 1 PAD TOPICAL (02:11)
[2024-06-28] MEDS: ACETAMINOPHEN 325 MG TABLET 650 MG PO (04:07)
[2024-06-28] MEDS: IBUPROFEN 600 MG TABLET PO ×4 (04:07→22:03)
[2024-06-28 06:36] LABS: Basophils Absolute Auto 0.1 10^3/uL (0.0-0.1); Basophils Percent Auto 0.5 % (0.2-2.0); Eosinophils Absolute Auto 0.1 10^3/uL (0.0-0.7); Hematocrit 28.7 % (36.0-48.0); Hemoglobin 8.8 g/dL (12.0-16.0); Immature Granulocytes Abs Auto 0.08 10^3/uL (0.00-0.03); Immature Granulocytes Pct Auto 0.7 % (0.0-0.5); Lymphocytes Absolute Auto 1.6 10^3/uL (1.2-3.8); Lymphocytes Percent Auto 12.8 % (20.5-60.0); Mean Corpuscular HGB Conc 30.7 g/dL (29.9-35.2); Mean Corpuscular Volume 81.5 fL (81.0-99.0); Mean Platelet Volume 9.8 fL (9.5-13.5); Monocytes Absolute Auto 0.8 10^3/uL (0.3-0.8); Monocytes Percent Auto 6.5 % (1.7-12.0); Neutrophils Absolute Auto 9.5 10^3/uL (1.4-6.5); Neutrophils Percent Auto 78.5 % (43.0-75.0); Platelet Count 304 10^3/uL (150-450); Red Blood Count 3.52 10^6/uL (4.20-5.40); Red Cell Distribution Width 14.3 % (11.0-15.0); White Blood Count 12.1 10^3/uL (4.0-11.0)
--- NOTE | 2024-06-28 07:26 | PM.OBPN ---
OB - PN: Subj Subjective Patient comments: no complaints, pain well controlled and flatus present status: doing well [place] feeding status: exclusively Exam Constitutional Vital Signs, click to edit/add: Last Vital Signs Temp 97.9 F 06/28/24 04:19 Pulse 89 06/28/24 04:11 Resp 16 06/28/24 04:19 BP 102/54 06/28/24 04:11 O2 Del Method Room Air 06/28/24 04:19 Documenting provider has reviewed patient's vital signs: yes Common normals: no apparent distress, oriented x3 and alert HENMT Common normals: normocephalic and head/scalp atraumatic Eye Common normals: PERRL Pupil: accommodation reflex normal Neck & C-Spine Common normals: full ROM and supple Respiratory Common normals: normal respiratory effort Auscultation: clear to auscultation bilaterally Cardio Common normals: regular rate and regular rhythm GI Common normals: Normal to inspection, nondistended, normoactive bowel sounds present Common normals: no CVA tenderness Back & Pelvis Common normals: no thoracic nor lumbar tenderness Extremity Common normals: normal to inspection, full ROM and no calf tenderness Neuro Common normals: CN's II-XII intact bilaterally, moves all extremities, no focal motor deficits and no sensory deficits noted Psych Common normals: mental status grossly normal, thought process normal and cooperative Results Labs Labs: Short CBC 06/28/24 Range/Units 06:18 WBC 12.1 H (4.0-11.0) 10^3/uL Hgb 8.8 L (12.0-16.0) g/dL Hct 28.7 L (36.0-48.0) % Plt Count 304 (150-450) 10^3/uL OB - PN: A/P Assessment and Plan (1) Gestational [-induced] hypertension without significant proteinuria, complicating childbirth: Assessment and Plan: delivered, doing well (2) (spontaneous vaginal delivery): Assessment and Plan: uncomplicated delivery, first degree lac, breast feeding, clinical exam nonfocal, doing well Plan routine care Time Spent with Patient Time: Total time spent is greater than 50% in coordination of care (as documented) at patient's floor/unit and/or counseling patient: Total time spent with greater than 50% in coordination of care (as documented) at patient's floor/unit and/or counseling patient: less than 15 minutes
[2024-06-28] MEDS: LABETALOL HCL 100 MG TABLET PO ×2 (08:13→22:03)
[2024-06-28] MEDS: DOCUSATE SODIUM 100 MG CAPSULE PO (08:13)
--- NOTE | 2024-06-28 08:40 | W.PC.ACHO ---
Registration Status: ADM IN Primary Language: Swiss Preferred Language: Swiss Report received at 0725. Care assumed. Active Medications Generic Name Dose Route Start Last Admin Trade Name Freq PRN Reason Stop Dose Admin Acetaminophen 1,000 mg 06/27/24 09:07 06/27/24 09:23 Acetaminophen 500 Mg Tablet PO 1,000 mg Q6H PRN Administration headache Acetaminophen 650 mg 06/27/24 18:35 06/28/24 04:07 Acetaminophen 325 Mg Tablet PO 650 mg Q6H PRN Administration Mild Pain Al Hydroxide/Mg Hydroxide 2,400 mg 06/27/24 18:35 Magnesium Hydroxide 2,400 Mg/10 Ml Oral.Susp PO Q6H PRN Dyspepsia Benzocaine/Menthol 1 applic 06/27/24 18:35 06/28/24 02:11 Benzocaine/Menthol 85 Gram [place] Bottle TOPICAL 1 applic Q2H PRN Administration Pain Calcium Carbonate 500 mg 06/27/24 10:38 06/27/24 15:13 Calcium Carbonate 500 Mg (200mg Elemental) Tab Chew PO 500 mg TID PRN Administration heartburn Carboprost Tromethamine 250 mcg 06/27/24 05:27 Carboprost Tromethamine 250 Mcg/Ml 1 Ml Vial IM 06/28/24 18:00 Q15M PRN Bleeding Diphtheria/Pertussis/Tetanus Vacc 0.5 ml 06/29/24 09:00 Adacel Diph,Pertuss(Acell),Tet Vac/Pf 0.5 Ml Adult Syringe IM 06/29/24 09:01 .ONCE ONE Docusate Sodium 100 mg 06/28/24 09:00 06/28/24 08:13 Docusate Sodium 100 Mg Capsule PO 100 mg BID AN Administration Tranexamic Acid 1,000 mg/ 110 mls @ 440 mls/hr 06/27/24 05:27 Sodium Chloride IV 06/28/24 18:00 ONCE PRN Uterine Bleeding Sodium Chloride 1,000 mls @ 125 mls/hr 06/27/24 05:30 06/27/24 18:15 Sodium Chloride 0.9% 1,000 Ml IV Infused .Q8H AN Infusion Ibuprofen 600 mg 06/27/24 18:35 06/28/24 04:07 Ibuprofen 600 Mg Tablet PO 600 mg Q6H PRN Administration Moderate Pain Labetalol HCl 100 mg 06/27/24 21:00 06/28/24 08:13 Labetalol Hcl 100 Mg Tablet PO 100 mg BID AN Administration Methylergonovine Maleate 0.2 mg 06/27/24 05:27 Methylergonovine Maleate 0.2 Mg/Ml Ampule IM 06/28/24 18:00 ONCE PRN Uterine Contractility/Contract Methylergonovine Maleate 0.2 mg 06/27/24 05:27 Methylergonovine Maleate 0.2 Mg Tablet PO 06/28/24 18:00 Q4H PRN Uterine Contractility/Contract Misoprostol 600 mcg 06/27/24 05:27 Misoprostol 100 Mcg Tablet PO 06/28/24 18:00 ONCE PRN Uterine Bleeding Misoprostol 800 mcg 06/27/24 05:27 Misoprostol 100 Mcg Tablet SL 06/28/24 18:00 ONCE PRN Uterine Bleeding Misoprostol 1,000 mcg 06/27/24 05:27 Misoprostol 100 Mcg Tablet [place] 06/28/24 18:00 ONCE PRN Uterine Bleeding Ondansetron HCl 4 mg 06/27/24 05:27 Ondansetron Pf 4 Mg/2 Ml Vial IV Q6H PRN Nausea And Vomiting Ondansetron HCl 4 mg 06/27/24 05:27 Ondansetron 4 Mg Rapdis Tablet SL Q6H PRN Nausea And Vomiting Oxytocin 10 unit 06/27/24 05:27 Oxytocin 10 Unit/Ml Vial IM 06/28/24 18:00 ONCE PRN Bleeding Senna 17.2 mg 06/27/24 20:00 Sennosides 8.6 Mg Tablet PO QHS PRN Constipation Simethicone 80 mg 06/27/24 18:35 Simethicone 80 Mg Tab.Chew PO QID PRN Abdominal Distention Temazepam 15 mg 06/27/24 18:35 Temazepam 15 Mg Capsule PO QHS PRN Sleep Witch Margarita/Glycerin 1 pad 06/27/24 18:35 06/28/24 02:11 Glycerin/Witch Margarita Pads TOPICAL 1 pad Q2H PRN Administration Pain Diet Category Date Time Status Regular Consistency Diet Diet 06/27/24 18:35 Active Respiratory Oxygen Delivery Method Room Air Oxygen Delivery Method Room Air Oxygen Delivery Method Room Air Oxygen Delivery Method Room Air Bowels Bowel Pattern No Bowel Movement Bowel Pattern No Bowel Movement Catheter Date Urinary Catheter Removed 06/27/24
[2024-06-28] MEDS: ACETAMINOPHEN 500 MG TABLET 1000 MG PO (10:40)
[2024-06-28] MEDS: CALCIUM CARBONATE 500 MG (200MG ELEMENTAL) TAB CHEW PO (10:58)
--- NOTE | 2024-06-28 12:02 | PC.NURSE ---
LC in with information for LPI as baby delivered at 37 weeks. Mom notes baby is not as vigorous at breast or as interested in feeding. Reports sleepy, and hard to latch and hard to keep feeding. Reviewed LPI behaviors and expectations for feedings. Mom attentive to information and states will change approach with NB.
--- NOTE | 2024-06-28 19:15 | W.PC.ACHO ---
Registration Status: ADM IN Primary Language: Cook Islander Preferred Language: Cook Islander Report given at 1910. Care relinquished. Active Medications Generic Name Dose Route Start Last Admin Trade Name Freq PRN Reason Stop Dose Admin Acetaminophen 1,000 mg 06/27/24 09:07 06/28/24 10:40 Acetaminophen 500 Mg Tablet PO 1,000 mg Q6H PRN Administration headache Acetaminophen 650 mg 06/27/24 18:35 06/28/24 04:07 Acetaminophen 325 Mg Tablet PO 650 mg Q6H PRN Administration Mild Pain Al Hydroxide/Mg Hydroxide 2,400 mg 06/27/24 18:35 Magnesium Hydroxide 2,400 Mg/10 Ml Oral.Susp PO Q6H PRN Dyspepsia Benzocaine/Menthol 1 applic 06/27/24 18:35 06/28/24 02:11 Benzocaine/Menthol 85 Gram [place] Bottle TOPICAL 1 applic Q2H PRN Administration Pain Calcium Carbonate 500 mg 06/27/24 10:38 06/28/24 10:58 Calcium Carbonate 500 Mg (200mg Elemental) Tab Chew PO 500 mg TID PRN Administration heartburn Diphtheria/Pertussis/Tetanus Vacc 0.5 ml 06/29/24 09:00 Adacel Diph,Pertuss(Acell),Tet Vac/Pf 0.5 Ml Adult Syringe IM 06/29/24 09:01 .ONCE ONE Docusate Sodium 100 mg 06/28/24 09:00 06/28/24 08:13 Docusate Sodium 100 Mg Capsule PO 100 mg BID AN Administration Sodium Chloride 1,000 mls @ 125 mls/hr 06/27/24 05:30 06/27/24 18:15 Sodium Chloride 0.9% 1,000 Ml IV Infused .Q8H AN Infusion Ibuprofen 600 mg 06/27/24 18:35 06/28/24 16:28 Ibuprofen 600 Mg Tablet PO 600 mg Q6H PRN Administration Moderate Pain Labetalol HCl 100 mg 06/27/24 21:00 06/28/24 08:13 Labetalol Hcl 100 Mg Tablet PO 100 mg BID AN Administration Ondansetron HCl 4 mg 06/27/24 05:27 Ondansetron Pf 4 Mg/2 Ml Vial IV Q6H PRN Nausea And Vomiting Ondansetron HCl 4 mg 06/27/24 05:27 Ondansetron 4 Mg Rapdis Tablet SL Q6H PRN Nausea And Vomiting Senna 17.2 mg 06/27/24 20:00 Sennosides 8.6 Mg Tablet PO QHS PRN Constipation Simethicone 80 mg 06/27/24 18:35 Simethicone 80 Mg Tab.Chew PO QID PRN Abdominal Distention Temazepam 15 mg 06/27/24 18:35 Temazepam 15 Mg Capsule PO QHS PRN Sleep Witch Margarita/Glycerin 1 pad 06/27/24 18:35 06/28/24 02:11 Glycerin/Witch Margarita Pads TOPICAL 1 pad Q2H PRN Administration Pain Diet Category Date Time Status Regular Consistency Diet Diet 06/27/24 18:35 Active Respiratory Oxygen Delivery Method Room Air Oxygen Delivery Method Room Air Oxygen Delivery Method Room Air Oxygen Delivery Method Room Air Oxygen Delivery Method Room Air Oxygen Delivery Method Room Air Bowels Bowel Pattern No Bowel Movement Bowel Pattern No Bowel Movement Renal Bladder Pattern Continent Bladder Pattern Continent
[2024-06-29] MEDS: CALCIUM CARBONATE 500 MG (200MG ELEMENTAL) TAB CHEW PO ×2 (01:22→09:40)
[2024-06-29 09:35] VITALS: BP 121/69; PULSE 84; TEMP 36.8
[2024-06-29] MEDS: LABETALOL HCL 100 MG TABLET PO (09:40)
[2024-06-29] MEDS: DOCUSATE SODIUM 100 MG CAPSULE PO (09:40)
[2024-06-29] MEDS: IBUPROFEN 600 MG TABLET PO (09:41)
--- NOTE | 2024-06-29 17:28 | PM.OBPN ---
OB - PN: Subj Subjective Patient comments: no complaints and pain well controlled Exam Constitutional Vital Signs, click to edit/add: Last Vital Signs Temp 98.2 F 06/29/24 09:35 Pulse 84 06/29/24 09:35 Resp 16 06/29/24 09:35 BP 121/69 06/29/24 09:35 O2 Del Method Room Air 06/29/24 09:46 Documenting provider has reviewed patient's vital signs: yes Common normals: no apparent distress Respiratory Common normals: normal respiratory effort Cardio Common normals: regular rate and regular rhythm GI Common normals: Normal to inspection, nondistended, normoactive bowel sounds present Extremity Common normals: no clubbing, cyanosis or edema and no calf tenderness OB - PN: A/P Assessment and Plan (1) Gestational [-induced] hypertension without significant proteinuria, complicating childbirth: (2) (spontaneous vaginal delivery): Plan - Vaginal Delivery day: 2 Plan: routine care Time Spent with Patient Time: Total time spent is greater than 50% in coordination of care (as documented) at patient's floor/unit and/or counseling patient: Total time spent with greater than 50% in coordination of care (as documented) at patient's floor/unit and/or counseling patient: less than 15 minutes
== END 2024-06-29 14:30 | disposition home or self-care (01) | DRG 807 ==
PROVIDERS: Admitting Provider Obstetrics & Gynecology; PCP Family Medicine; Visit Provider Obstetrics & Gynecology
DX: O13.4 Gestational [pregnancy-induced] hypertension without significant proteinuria, complicating childbirth (principal); Z37.0 Single live birth; O70.0 First degree perineal laceration during delivery; Z3A.37 37 weeks gestation of pregnancy; Z87.891 Personal history of nicotine dependence
CPT/HCPCS: 36415; 59050; 59410; 80307; 85025; 85027; 86850; 86900; 86901; J0665; J2795; J3010